=== PATIENT | female | born 1960 | race Caucasian/White ===

== ENCOUNTER → 2017-10-02 | Outpatient (CLI) | payer OTHER ==
--- NOTE | 2017-10-02 16:15 | XR ---
Lumbosacral spine HISTORY: Low back pain 5 views of the lumbosacral spine correlated to prior exam dated 02/22/2011 and lumbar MRI 05/04/2015 There is a spinal curvature. Surgical clips present in the right upper quadrant. No evident spondylol isthesis. Some mild loss of disc height present L3-4, L4-5. Sclerosis present in the posterior elemen ts. Suspect spondylolysis at L5. IMPRESSION: Degenerative disc disease, facet arthropathy, possible spondylolysis L5. Mild scoliosis.
== END | disposition home or self-care (01) ==
LOC: RADXRMAIN 09:58
PROVIDERS: ATTEND Family Medicine
DX: M51.36 Other intervertebral disc degeneration, lumbar region (principal); M46.96 Unspecified inflammatory spondylopathy, lumbar region; M41.9 Scoliosis, unspecified
CPT/HCPCS: 72110

== ENCOUNTER → 2018-08-27 | Outpatient (CLI) | payer BC ==
[2018-08-27 12:56] LABS: Basophils % (A) 1 %; Eosinophils # (A) 0.5 k/uL (0-0.7); Eosinophils % (A) 7 %; HCT 43.5 % (34.0-46.0); HGB 13.9 gm/dL (11.4-16.0); Lymphocytes # (A) 1.7 k/uL (1.0-4.8); Lymphocytes % (A) 27 %; MCH 32.3 pg (25.0-35.0); MCHC 31.8 g/dL (31.0-37.0); MCV 101.6 fL (80.0-100.0); Macrocytosis Slight; Mean Platelet Volume 6.3; Monocytes # (A) 0.5 k/uL (0-1.0); Monocytes % (A) 7 %; Neutrophils # (A) 3.5 k/uL (1.3-7.7); Neutrophils % (A) 55 %; Platelet Count 290 k/uL (150-450); RBC 4.29 m/uL (3.80-5.40); RDW 13.9 % (11.5-15.5); WBC 6.4 k/uL (3.8-10.6)
[2018-08-27 13:07] LABS: ALT 20 U/L (9-52); AST 25 U/L (14-36); Albumin 4.6 g/dL (3.5-5.0); Alkaline Phosphatase 67 U/L (38-126); Anion Gap 9 mmol/L; Blood Urea Nitrogen 11 mg/dL (7-17); Calcium 9.7 mg/dL (8.4-10.2); Carbon Dioxide 26 mmol/L (22-30); Chloride 102 mmol/L (98-107); Cholesterol 183 mg/dL (<200); Glucose 96 mg/dL (74-99); HDL Cholesterol 86 mg/dL (40-60); LDL Cholesterol,Calculated 79 mg/dL (0-99); Potassium 4.4 mmol/L (3.5-5.1); Sodium 137 mmol/L (137-145); Total Bilirubin 0.7 mg/dL (0.2-1.3); Total Protein 7.3 g/dL (6.3-8.2); Triglycerides 92 mg/dL (<150)
[2018-08-27 13:23] LABS: T4, Free (Free Thyroxine) 0.83 ng/dL (0.78-2.19)
--- NOTE | 2018-08-28 10:07 | MM ---
Reason for exam: screening (asymptomatic). Last mammogram was performed 5 years and 1 month ago. History: Patient is postmenopausal and has history of other cancer at age 50. Benign right mammotome panel of the right breast, July 29, 2008. Saline implants in both breasts, 2002. Physical Findings: A clinical breast exam by your physician is recommended on an annual basis and results should be correlated with mammographic findings. MG 3D Screen Mammo Imp/Cad Bilateral CC, MLO, and ID view(s) were taken. Prior study comparison: July 31, 2013, CAD bilateral diagnostic mammogram. October 12, 2011, CAD bilateral diagnostic mammogram. The breast tissue is heterogeneously dense. This may lower the sensitivity of mammography. Benign calcifications. Bilateral implants are intact. No significant changes when compared with prior studies. ASSESSMENT: Benign, BI-RAD 2 RECOMMENDATION: Routine screening mammogram of both breasts in 1 year.
== END | disposition home or self-care (01) ==
LOC: RADMAMWWP 12:01
PROVIDERS: ATTEND Family Medicine
DX: Z12.31 Encounter for screening mammogram for malignant neoplasm of breast (principal); Z00.00 Encounter for general adult medical examination without abnormal findings; I10 Essential (primary) hypertension; F41.1 Generalized anxiety disorder; Z79.899 Other long term (current) drug therapy
CPT/HCPCS: 36415; 77063; 77067; 80053; 80061; 84439; 84443; 85025; 86803

== ENCOUNTER 2018-12-25 14:04 | Emergency (ER) | payer BC ==
[2018-12-25 14:24] VITALS: BP 178/91; TEMP 98.4
[2018-12-25] MEDS ORDERED: predniSONE 50 MG TAB PO STA (14:42)
[2018-12-25] MEDS ORDERED: KETOROLAC 60 MG/2 ML VIAL IM STA (14:42)
--- NOTE | 2018-12-25 14:49 | ED ---
General Adult HPI - General Chief complaint: Back Pain/Injury Stated complaint: Back/Leg Pain Time Seen by Provider: 12/25/18 14:28 Source: patient, RN notes reviewed, old records reviewed Mode of arrival: ambulatory Limitations: no limitations - History of Present Illness Initial comments: 58-year-old female patient with past medical history of chronic back pain presents to ED with lumbar back pain exacerbation. Patient reports that earlier today she bent over to adjust her dog's leash when she stood up she felt a tightness and a pull in her right paralumbar back region. Patient reports that she now has pain in her lower back which radiates down her posterior right leg. Patient states this feels similar to back pain that she has experienced in the past. Patient denies any loss of bowel or bladder control, paresthesias. Patient is ambulatory with pain. Patient denies any fall. Patient denies any lower extremity weakness. Patient denies any other complaints at this time. Pt states that she is not . Systemic: Pt denies fatigue, fever/chills, rash. Pt denies weakness, night sweats, weight loss. Neuro: Pt denies headache, visual disturbances, syncope or pre-syncope. HEENT: Pt denies ocular discharge or irritation, otalgia, rhinorrhea, pharyngitis or notable lymphadenopathy. Cardiopulmonary: Pt denies chest pain, SOB, heart palpitations, dyspnea on exertion. Abdominal/GI: Pt denies abdominal pain, n/v/d. : Pt denies dysuria, burning w/ urination, frequency/urgency. Denies new onset urinary or bowel incontinence. MSK: Pt denies loss of strength or function in extremities. Neuro: Pt denies new onset weakness, paresthesias. - Related Data Previous Rx's Medication Instructions Recorded Cyclobenzaprine [Flexeril] 10 mg PO TID #20 tab 12/25/18 Ibuprofen [Motrin] 600 mg PO Q6HR PRN #40 day 12/25/18 predniSONE 50 mg PO DAILY #4 tab 12/25/18 Allergies Allergy/AdvReac Type Severity Reaction Status Date / Time codeine Allergy Unknown Verified 12/25/18 14:24 Review of Systems ROS Statement: Those systems with pertinent positive or pertinent negative responses have been documented in the HPI. ROS Other: All systems not noted in ROS Statement are negative. Past Medical History Past Medical History: No Reported History Additional Past Medical History / Comment(s): back History of Any Multi-Drug Resistant Organisms: None Reported Past Surgical History: Breast Surgery, Cholecystectomy, Hysterectomy Additional Past Surgical History / Comment(s): kidney Past Psychological History: Anxiety, Depression Smoking Status: Current every day smoker Past Alcohol Use History: Rare Past Drug Use History: None Reported General Exam - General Exam Comments Initial Comments: Constitutional: NAD, AOX3, Pt has pleasant affect. HEENT: NC/AT, trachea midline, neck supple, no lymphadenopathy. Posterior pharynx non erythematous, without exudates. External ears appear normal, without discharge. Mucous membranes moist. Eyes PERRLA, EOM intact. There is no scleral icterus. No pallor noted. Cardiopulmonary: RRR, no murmurs, rubs or gallops, no JVD noted. Lungs CTAB in anterior and posterior mchugh. No peripheral edema. Abdominal exam: Abdomen soft and non-distended. Abdomen non-tender to palpation in all 4 quadrants. Bowel sounds active in LLQ. No hepatosplenomegaly. No ecchymosis Neuro: CN II-XII grossly intact. No nuchal rigidity. No raccon eyes, no crowley sign, no hemotympanum. No cervical spinal tenderness. MSK: No cervical, thoracic tenderness to palpation. Mild right paralumbar tenderness to palpation. No midline tenderness to palpation. 5 out of 5 strength psoas and quadriceps muscles. Sensation intact. No posterior calf tenderness bilaterally, homans sign negative bilaterally. Posterior tibialis and radial pulse +2 bilaterally. Sensation intact in upper and lower extremities. Full active ROM in upper and lower extremities, 5/5 stregnth. Limitations: no limitations Course Vital Signs 12/25/18 14:19 Temperature 98.4 F Pulse Rate 113 H Respiratory 18 Rate Blood Pressure 178/91 O2 Sat by Pulse 98 Oximetry Medical Decision Making - Medical Decision Making 58-year-old female patient with past medical history of chronic back pain presents to ED with lumbar back pain exacerbation. Patient reports that earlier today she bent over to adjust her dog's leash when she stood up she felt a tightness and a pull in her right paralumbar back region. Patient reports that she now has pain in her lower back which radiates down her posterior right leg. Patient states this feels similar to back pain that she has experienced in the past. Patient denies any loss of bowel or bladder control, paresthesias. Patient is ambulatory with pain. Patient denies any fall. Patient denies any lower extremity weakness. Patient denies any other complaints at this time. Patient vital signs and symptoms displayed mild hypertension and tachycardia likely secondary to pain, improved after analgesic. Physical exam displayed: No cervical, thoracic tenderness to palpation. Mild right paralumbar tenderness to palpation. No midline tenderness to palpation. 5 out of 5 strength psoas and quadriceps muscles. Sensation intact. Plain film of lumbar spine displayed multilevel degenerative disc disease. Stable minimal antherolisthesis L5, S1. Patient will discharge with steroids, muscle x-ray, anti-inflammatory. Patient to follow up with primary care provider as well as orthopedic consult 1-2 days. Patient return to ED if condition worsens in any way. Case discussed Dr. Chaudhari. Disposition Clinical Impression: Lumbar back pain Disposition: HOME SELF-CARE Condition: Stable Instructions (If sedation given, give patient instructions): Acute Low Back Pain (ED) Additional Instructions: Patient to adhere to previously discussed treatment plan and will take medication(s) as directed. Patient to follow up with PCP in 1-2 days. Patient to return to ED if symptoms do not improve. Please follow-up with orthopedic consult and primary care provider in 1-2 days. Take medication as directed. Return to ER if condition worsens in any way. Prescriptions: Cyclobenzaprine [Flexeril] 10 mg PO TID #20 tab Ibuprofen [Motrin] 600 mg PO Q6HR PRN #40 day PRN Reason: Pain predniSONE 50 mg PO DAILY #4 tab Is patient prescribed a controlled substance at d/c from ED?: No Referrals: Germán Ellis MD [Primary Care Provider] - 1-2 days Piter Pereira DO [Doctor of Osteopathic Medicine] - 1-2 days Rosendo Kelly MD [STAFF PHYSICIAN] - 1-2 days
--- NOTE | 2018-12-25 15:22 | XR ---
EXAM TYPE: LUMBAR SPINE X RAY SERIES COMPARISON: 10/02/2017 HISTORY: Back pain TECHNIQUE: Three views are submitted. FINDINGS: Alignment is anatomic. The pedicles are intact. The transverse processes are intact. There is stab le minimal anterolisthesis L5 on S1. Question a spondylolysis of L5. Curvature the spine. There are s urgical clips in the right upper quadrant. Vascular calcifications noted. Significant degenerative di sc disease L3-S1 with facet arthropathy. Severe degenerative disc disease T11-T12. IMPRESSION: 1. Multilevel degenerative disc disease. Stable minimal anterolisthesis L5 on S1.
[2018-12-25 16:04] VITALS: PULSE 75; RESP 16
== END 2018-12-25 16:04 | disposition home or self-care (01) ==
LOC: EC 14:04
DX: M54.5 Low back pain (principal); M51.36 Other intervertebral disc degeneration, lumbar region; M43.17 Spondylolisthesis, lumbosacral region; M79.604 Pain in right leg; F17.200 Nicotine dependence, unspecified, uncomplicated; Z88.5 Allergy status to narcotic agent
CPT/HCPCS: 72100; 99284; 96372; J1885; J7512

== ENCOUNTER 2020-01-31 14:43 | Emergency (ER) | payer BC, MEDICARE ==
[2020-01-31 14:47] LABS: Glucose,Whole Blood 194 mg/dL (75-99)
[2020-01-31] MEDS ORDERED: diphenhydrAMINE 50 MG/ML 1 ML VIAL IVP STA (14:48)
[2020-01-31] MEDS ORDERED: SODIUM CHLORIDE 0.9% 500 ML 500 ML IV STA (14:48)
[2020-01-31] MEDS ORDERED: METOCLOPRAMIDE 5 MG/ML 2 ML VIAL IVP STA (14:48)
--- NOTE | 2020-01-31 14:55 | ED ---
General Adult HPI - General Chief complaint: Altered Mental Status Stated complaint: unresponsive Source: patient, EMS Mode of arrival: EMS Limitations: altered mental status - History of Present Illness Initial comments: Patient presents the ED by ambulance for evaluation. Per EMS, the patient's reported that the patient was complaining of having a headache and then developed altered mental status. Per EMS, the patient was A and O 4 on their arrival, but she became unresponsive while in the ambulance. Per EMS, the patient was always breathing comfortably. Patient's blood glucose was in the 160s per EMS. No trauma or fall was reported per EMS. Patient is alert and oriented to person and place on arrival to the ED. Patient is currently complaining of having a headache, which she states began suddenly earlier this afternoon. Patient admits to drinking a couple of beers earlier today. Patient denies illicit drug use. Patient denies history of similar headaches in the past. Patient denies trauma or injury, neck pain or stiffness, fever or chills, focal numbness/weakness/neuro deficit, visual changes, speech difficulty, dizziness, chest pain, dyspnea, cough or cold symptoms, palpitations, abdominal pain, nausea/vomiting/diarrhea, dysuria or urinary symptoms, or any other symptoms or complaints. - Related Data Previous Rx's Medication Instructions Recorded Cyclobenzaprine [Flexeril] 10 mg PO TID #20 tab 12/25/18 Ibuprofen [Motrin] 600 mg PO Q6HR PRN #40 day 12/25/18 predniSONE 50 mg PO DAILY #4 tab 12/25/18 Allergies Allergy/AdvReac Type Severity Reaction Status Date / Time codeine Allergy Unknown Verified 12/25/18 14:24 Review of Systems ROS Statement: Those systems with pertinent positive or pertinent negative responses have been documented in the HPI. ROS Other: All systems not noted in ROS Statement are negative. Past Medical History Past Medical History: No Reported History Additional Past Medical History / Comment(s): back History of Any Multi-Drug Resistant Organisms: None Reported Past Surgical History: Breast Surgery, Cholecystectomy, Hysterectomy Additional Past Surgical History / Comment(s): kidney Past Psychological History: Anxiety, Depression Smoking Status: Current every day smoker Past Alcohol Use History: Rare Past Drug Use History: Unable to Obtain General Exam Limitations: altered mental status General appearance: other (Patient is alert, but slow to respond) Head exam: Present: atraumatic, normocephalic Eye exam: Present: normal appearance, PERRL, EOMI ENT exam: Present: mucous membranes moist Neck exam: Present: other (Trachea is in midline; no nuchal rigidity). Absent: tenderness, meningismus Respiratory exam: Present: normal lung sounds bilaterally. Absent: respiratory distress, wheezes, rales, rhonchi Cardiovascular Exam: Present: regular rate, normal rhythm, normal heart sounds, other (Normal radial pulses bilaterally) GI/Abdominal exam: Present: soft. Absent: distended, tenderness, guarding Extremities exam: Present: full ROM. Absent: tenderness, pedal edema Neurological exam: Present: alert, CN II-XII intact, other (Patient is oriented to person and place, but not to time). Absent: motor sensory deficit Skin exam: Present: warm, dry, intact, normal color Course Vital Signs 01/31/20 01/31/20 01/31/20 14:43 14:50 15:21 Temperature 98.4 F Pulse Rate 63 62 74 Respiratory 17 18 17 Rate Blood Pressure 210/108 179/155 172/128 O2 Sat by Pulse 97 98 98 Oximetry 01/31/20 01/31/20 01/31/20 15:45 15:50 15:57 Temperature Pulse Rate 79 Respiratory 18 Rate Blood Pressure 200/100 167/87 141/63 O2 Sat by Pulse 97 Oximetry 01/31/20 01/31/20 01/31/20 16:06 16:17 16:23 Temperature Pulse Rate 86 82 82 Respiratory 17 18 18 Rate Blood Pressure 145/75 113/92 138/78 O2 Sat by Pulse 98 97 98 Oximetry 01/31/20 16:28 Temperature Pulse Rate 87 Respiratory 18 Rate Blood Pressure 124/96 O2 Sat by Pulse Oximetry - Reevaluation(s) Reevaluation #1: 01/31/20 15:29 Case, H&P, test results thus far/CT findings and ED management thus far were discussed with Dr. Ro (ED physician at [facility]). He recommends neurointerventionalist consultation. He accepts ambulance transfer to the [facility] ED if approved by the neurointerventionalist [employer] consultant. He has no further recommendations at this time. 01/31/20 15:51 Case, H&P, test results thus far/CT findings and ED management thus far were discussed with Dr. Middleton (neurointerventionalist). He states that he will that that the patient's imaging studies and call back with a plan of action. He has no further recommendations at this time. 01/31/20 16:25 Patient is now in A & O x 4. Patient continues to be breathing comfortably. Patient's systolic blood pressure has now improved to the 130s. Dr. Middleton was contacted again, and he is states that he still reviewing the patient's images. 01/31/20 16:39 Dr. Middleton has finished reviewing the patient's images, and he recommends transferring the patient to [facility] for direct admission. He states that he will be the admitting physician, and he states that his mid-level will be calling here shortly. He recommends continuing the patient on a nicardipine drip. He has no further recommendations at this time. EKG Findings - EKG Comments: EKG Findings:: Normal sinus rhythm, ventricular rate of 64 bpm, no ectopy, normal CO and QRS intervals, normal QT interval, normal axis, no ST or T-wave abnormality, suspected U wave Medical Decision Making - Medical Decision Making Patient has sustained a subarachnoid hemorrhage likely secondary to aneurysmal rupture. Patient has been alert and oriented while in the ED. Patient and he needs to be breathing comfortably. Patient and family are aware the patient's test results and my discussion with Dr. Middleton as above. They all agree with ambulance transfer to [facility] at this time. Patient's blood pressure is improved with nicardipine IV drip. - Lab Data Result diagrams: 01/31/20 14:50 01/31/20 14:50 Lab Results 01/31/20 01/31/20 01/31/20 Range/Units 14:45 14:50 14:50 WBC 10.5 (3.8-10.6) k/uL RBC 4.56 (3.80-5.40) m/uL Hgb 16.2 H (11.4-16.0) gm/dL Hct 48.4 H (34.0-46.0) % MCV 106.2 H (80.0-100.0) fL MCH 35.5 H (25.0-35.0) pg MCHC 33.5 (31.0-37.0) g/dL RDW 13.0 (11.5-15.5) % Plt Count 285 (150-450) k/uL Neutrophils % 59 % Lymphocytes % 30 % Monocytes % 5 % Eosinophils % 2 % Basophils % 1 % Neutrophils # 6.2 (1.3-7.7) k/uL Lymphocytes # 3.2 (1.0-4.8) k/uL Monocytes # 0.5 (0-1.0) k/uL Eosinophils # 0.2 (0-0.7) k/uL Basophils # 0.1 (0-0.2) k/uL Macrocytosis Moderate PT 10.3 (9.0-12.0) sec INR 1.0 (<1.2) APTT 21.7 L (22.0-30.0) sec Sodium (137-145) mmol/L Potassium (3.5-5.1) mmol/L Chloride (98-107) mmol/L Carbon Dioxide (22-30) mmol/L Anion Gap mmol/L BUN (7-17) mg/dL Creatinine (0.52-1.04) mg/dL Est GFR (CKD-EPI)AfAm (>60 ml/min/1.73 sqM) Est GFR (CKD-EPI)NonAf (>60 ml/min/1.73 sqM) Glucose (74-99) mg/dL POC Glucose (mg/dL) 194 H (75-99) mg/dL POC Glu [employer] Operator ID Svacha, II, Obi Calcium (8.4-10.2) mg/dL Magnesium (1.6-2.3) mg/dL Total Bilirubin (0.2-1.3) mg/dL AST (14-36) U/L ALT (4-34) U/L Alkaline Phosphatase (38-126) U/L Ammonia (<30) umol/L Troponin I (0.000-0.034) ng/mL Total Protein (6.3-8.2) g/dL Albumin (3.5-5.0) g/dL Urine Color Urine Appearance (Clear) Urine pH (5.0-8.0) Ur Specific Mascot (1.001-1.035) Urine Protein (Negative) Urine Glucose (UA) (Negative) Urine Ketones (Negative) Urine Blood (Negative) Urine Nitrite (Negative) Urine Bilirubin (Negative) Urine Urobilinogen (<2.0) mg/dL Ur Leukocyte Esterase (Negative) Urine Opiates Screen (NotDetected) Ur Oxycodone Screen (NotDetected) Urine Methadone Screen (NotDetected) Ur Propoxyphene Screen (NotDetected) Ur Barbiturates Screen (NotDetected) U Tricyclic Antidepress (NotDetected) Ur Phencyclidine Scrn (NotDetected) Ur Amphetamines Screen (NotDetected) U Methamphetamines Scrn (NotDetected) U Benzodiazepines Scrn (NotDetected) Urine Cocaine Screen (NotDetected) U Marijuana (THC) Screen (NotDetected) Serum Alcohol mg/dL 01/31/20 01/31/20 01/31/20 Range/Units 14:50 14:50 14:50 WBC (3.8-10.6) k/uL RBC (3.80-5.40) m/uL Hgb (11.4-16.0) gm/dL Hct (34.0-46.0) % MCV (80.0-100.0) fL MCH (25.0-35.0) pg MCHC (31.0-37.0) g/dL RDW (11.5-15.5) % Plt Count (150-450) k/uL Neutrophils % % Lymphocytes % % Monocytes % % Eosinophils % % Basophils % % Neutrophils # (1.3-7.7) k/uL Lymphocytes # (1.0-4.8) k/uL Monocytes # (0-1.0) k/uL Eosinophils # (0-0.7) k/uL Basophils # (0-0.2) k/uL Macrocytosis PT (9.0-12.0) sec INR (<1.2) APTT (22.0-30.0) sec Sodium 131 L (137-145) mmol/L Potassium 3.8 (3.5-5.1) mmol/L Chloride 100 (98-107) mmol/L Carbon Dioxide 20 L (22-30) mmol/L Anion Gap 11 mmol/L BUN 7 (7-17) mg/dL Creatinine 0.44 L (0.52-1.04) mg/dL Est GFR (CKD-EPI)AfAm >90 (>60 ml/min/1.73 sqM) Est GFR (CKD-EPI)NonAf >90 (>60 ml/min/1.73 sqM) Glucose 186 H (74-99) mg/dL POC Glucose (mg/dL) (75-99) mg/dL POC Glu [employer] Operator ID Calcium 8.8 (8.4-10.2) mg/dL Magnesium 1.8 (1.6-2.3) mg/dL Total Bilirubin 0.7 (0.2-1.3) mg/dL AST 44 H (14-36) U/L ALT 23 (4-34) U/L Alkaline Phosphatase 103 (38-126) U/L Ammonia <9 (<30) umol/L Troponin I <0.012 (0.000-0.034) ng/mL Total Protein 7.2 (6.3-8.2) g/dL Albumin 4.7 (3.5-5.0) g/dL Urine Color Urine Appearance (Clear) Urine pH (5.0-8.0) Ur Specific Mascot (1.001-1.035) Urine Protein (Negative) Urine Glucose (UA) (Negative) Urine Ketones (Negative) Urine Blood (Negative) Urine Nitrite (Negative) Urine Bilirubin (Negative) Urine Urobilinogen (<2.0) mg/dL Ur Leukocyte Esterase (Negative) Urine Opiates Screen (NotDetected) Ur Oxycodone Screen (NotDetected) Urine Methadone Screen (NotDetected) Ur Propoxyphene Screen (NotDetected) Ur Barbiturates Screen (NotDetected) U Tricyclic Antidepress (NotDetected) Ur Phencyclidine Scrn (NotDetected) Ur Amphetamines Screen (NotDetected) U Methamphetamines Scrn (NotDetected) U Benzodiazepines Scrn (NotDetected) Urine Cocaine Screen (NotDetected) U Marijuana (THC) Screen (NotDetected) Serum Alcohol <10 mg/dL 01/31/20 01/31/20 Range/Units 15:42 15:42 WBC (3.8-10.6) k/uL RBC (3.80-5.40) m/uL Hgb (11.4-16.0) gm/dL Hct (34.0-46.0) % MCV (80.0-100.0) fL MCH (25.0-35.0) pg MCHC (31.0-37.0) g/dL RDW (11.5-15.5) % Plt Count (150-450) k/uL Neutrophils % % Lymphocytes % % Monocytes % % Eosinophils % % Basophils % % Neutrophils # (1.3-7.7) k/uL Lymphocytes # (1.0-4.8) k/uL Monocytes # (0-1.0) k/uL Eosinophils # (0-0.7) k/uL Basophils # (0-0.2) k/uL Macrocytosis PT (9.0-12.0) sec INR (<1.2) APTT (22.0-30.0) sec Sodium (137-145) mmol/L Potassium (3.5-5.1) mmol/L Chloride (98-107) mmol/L Carbon Dioxide (22-30) mmol/L Anion Gap mmol/L BUN (7-17) mg/dL Creatinine (0.52-1.04) mg/dL Est GFR (CKD-EPI)AfAm (>60 ml/min/1.73 sqM) Est GFR (CKD-EPI)NonAf (>60 ml/min/1.73 sqM) Glucose (74-99) mg/dL POC Glucose (mg/dL) (75-99) mg/dL POC Glu [employer] Operator ID Calcium (8.4-10.2) mg/dL Magnesium (1.6-2.3) mg/dL Total Bilirubin (0.2-1.3) mg/dL AST (14-36) U/L ALT (4-34) U/L Alkaline Phosphatase (38-126) U/L Ammonia (<30) umol/L Troponin I (0.000-0.034) ng/mL Total Protein (6.3-8.2) g/dL Albumin (3.5-5.0) g/dL Urine Color Colorless Urine Appearance Clear (Clear) Urine pH 7.5 (5.0-8.0) Ur Specific Mascot 1.018 (1.001-1.035) Urine Protein Negative (Negative) Urine Glucose (UA) 2+ H (Negative) Urine Ketones Negative (Negative) Urine Blood Negative (Negative) Urine Nitrite Negative (Negative) Urine Bilirubin Negative (Negative) Urine Urobilinogen <2.0 (<2.0) mg/dL Ur Leukocyte Esterase Negative (Negative) Urine Opiates Screen Not Detected (NotDetected) Ur Oxycodone Screen Not Detected (NotDetected) Urine Methadone Screen Not Detected (NotDetected) Ur Propoxyphene Screen Not Detected (NotDetected) Ur Barbiturates Screen Not Detected (NotDetected) U Tricyclic Antidepress Not Detected (NotDetected) Ur Phencyclidine Scrn Not Detected (NotDetected) Ur Amphetamines Screen Not Detected (NotDetected) U Methamphetamines Scrn Not Detected (NotDetected) U Benzodiazepines Scrn Detected H (NotDetected) Urine Cocaine Screen Not Detected (NotDetected) U Marijuana (THC) Screen Not Detected (NotDetected) Serum Alcohol mg/dL - Radiology Data Radiology results: report reviewed (Noncontrast head CT and a CT angiogram head: Extensive acute intracranial/subarachnoid hemorrhage; source of hemorrhage is 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 Specs Out of Hospital Transfer - Requested Specifics: Neurological ICU ([facility])
[2020-01-31] MEDS ORDERED: LABETALOL 5 MG/ML VIAL MDV IVP STA (15:02)
[2020-01-31 15:08] LABS: Basophils # (A) 0.1 k/uL (0-0.2); Basophils % (A) 1 %; Eosinophils # (A) 0.2 k/uL (0-0.7); Eosinophils % (A) 2 %; HCT 48.4 % (34.0-46.0); HGB 16.2 gm/dL (11.4-16.0); Lymphocytes # (A) 3.2 k/uL (1.0-4.8); Lymphocytes % (A) 30 %; MCH 35.5 pg (25.0-35.0); MCHC 33.5 g/dL (31.0-37.0); MCV 106.2 fL (80.0-100.0); Macrocytosis Moderate; Monocytes # (A) 0.5 k/uL (0-1.0); Monocytes % (A) 5 %; Neutrophils # (A) 6.2 k/uL (1.3-7.7); Neutrophils % (A) 59 %; Platelet Count 285 k/uL (150-450); RBC 4.56 m/uL (3.80-5.40); WBC 10.5 k/uL (3.8-10.6)
[2020-01-31 15:21] LABS: ALT 23 U/L (4-34); AST 44 U/L (14-36); African American GFR (CKD) >90 (>60 ml/min/1.73 sqM); Albumin 4.7 g/dL (3.5-5.0); Alcohol <10 mg/dL; Alkaline Phosphatase 103 U/L (38-126); Anion Gap 11 mmol/L; Blood Urea Nitrogen 7 mg/dL (7-17); Calcium 8.8 mg/dL (8.4-10.2); Carbon Dioxide 20 mmol/L (22-30); Chloride 100 mmol/L (98-107); Glucose 186 mg/dL (74-99); Magnesium 1.8 mg/dL (1.6-2.3); Non-African American GFR(CKD) >90 (>60 ml/min/1.73 sqM); Potassium 3.8 mmol/L (3.5-5.1); Sodium 131 mmol/L (137-145); Total Bilirubin 0.7 mg/dL (0.2-1.3); Total Protein 7.2 g/dL (6.3-8.2)
--- NOTE | 2020-01-31 15:26 | CT ---
EXAMINATION TYPE: CT brain wo con, CT angio head DATE OF EXAM: 01/31/2020 COMPARISON: None HISTORY: 59-year-old female Episodes of unresponsiveness. Severe headache TECHNIQUE: Examination was done in axial plane without intravenous contrast. Coronal and sagittal r econstructions performed. Subsequent axial scanning after administration of 100 mL Isovue 370 IV cont rast. 3-D reconstructions being generated by a dedicated independent workstation. CT DLP: 2422.2 mGycm Automated exposure control for dose reduction was used. FINDINGS: CT head: There is extensive acute intracranial hemorrhage. Hemorrhage extends up into the third ventricle and extends into the right lateral ventricle. There is diffuse subarachnoid blood and blood along the cis terns of the skull base. No hydrocephalus. No midline shift. The most extensive focal blood is intraventricular within the thi rd ventricle measuring up to 4.3 cm craniocaudal by 3.1 cm AP by 1.8 cm wide. 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 The right vertebral artery and basilar artery are patent. There is persistent origin of the right posterior cerebral artery with a hypoplastic P1 segment of right [employer]PL[employer]OD[employer]ER. There is a 5 x 4 x 3 mm saccular aneurysm projecting inferiorly from the anterior communicating arter y, reference axial image 19, sagittal image 12, and coronal image 9. Otherwise, the anterior circulation appears patent. IMPRESSION: 1. Extensive acute intracranial hemorrhage. The largest focal hemorrhage extends up into the third ve ntricle with hematoma measuring up to 4.3 x 3.1 x 1.8 cm. 2. Additional acute hemorrhage extending into the right lateral ventricle, filling the basal cisterns , and diffuse subarachnoid hemorrhage. No midline shift or hydrocephalus. 3. 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 4. 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 Incidental normal variatio n with persistent origin right [employer]PLANE WOOD[employer]ER. Critical findings called to Dr. Elizondo in the ER at approximately 3:20 PM.
[2020-01-31] MEDS ORDERED: niCARdipine 20 MG in SODIUM CHLORIDE 0.9% 192 ML IV SCH (15:30)
[2020-01-31 15:34] LABS: Partial Thromboplastin Time 21.7 sec (22.0-30.0); Prothrombin Time 10.3 sec (9.0-12.0)
[2020-01-31 16:09] LABS: Appearance,Urine Clear (Clear); Bilirubin,Urine Negative (Negative); Blood,Urine Negative (Negative); Color,Urine Colorless; Glucose,Urine (UA) 2+ (Negative); Ketones,Urine Negative (Negative); Leukocyte Esterase,Urine Negative (Negative); Nitrite,Urine Negative (Negative); PH, Urine 7.5 (5.0-8.0); Protein,Urine Negative (Negative); Specific Gravity,Urine 1.018 (1.001-1.035); Urobilinogen,Urine <2.0 mg/dL (<2.0)
[2020-01-31 16:19] LABS: Amphetamine Screen,Urine Not Detected (NotDetected); Barbiturate Screen,Urine Not Detected (NotDetected); Benzodiazepines Screen,Urine Detected (NotDetected); Cocaine Screen,Urine Not Detected (NotDetected); Methadone Screen, Urine Not Detected (NotDetected); Opiate Screen,Urine Not Detected (NotDetected); Oxycodone Screen, Urine Not Detected (NotDetected); Phencyclidine Screen,Urine Not Detected (NotDetected); Tricyclic Antidepressant,Urine Not Detected (NotDetected); Urn Cannabinoid Scrn Not Detected (NotDetected)
[2020-01-31] MEDS ORDERED: HYDROmorphone 0.5 MG/0.5 ML SYRINGE IVP STA (16:30)
[2020-01-31 22:25] VITALS: BP 119/75; PULSE 74; RESP 17; TEMP 98.2
== END 2020-01-31 17:25 | disposition other institution (70) ==
LOC: EC 14:43
DX: I60.9 Nontraumatic subarachnoid hemorrhage, unspecified (principal); I67.1 Cerebral aneurysm, nonruptured; F17.200 Nicotine dependence, unspecified, uncomplicated; Z88.5 Allergy status to narcotic agent
CPT/HCPCS: 36415; 93005; 80053; 82140; 83735; 84484; 85025; 85610; 85730; 81003; 80306; 70496; 70450; 99291; 99292; 96365; 96375 ×4; 96361; G0480; J1200; J2765; J1170; Q9967; 80320

== ENCOUNTER → 2020-03-16 | Outpatient (CLI) | payer MEDICARE ==
[2020-03-16 14:28] LABS: Basophils % (A) 0 %; Eosinophils # (A) 1.7 k/uL (0-0.7); Eosinophils % (A) 25 %; Lymphocytes # (A) 1.6 k/uL (1.0-4.8); Lymphocytes % (A) 24 %; MCH 32.7 pg (25.0-35.0); MCHC 32.1 g/dL (31.0-37.0); MCV 101.6 fL (80.0-100.0); Macrocytosis Slight; Mean Platelet Volume 8.2; Monocytes # (A) 0.6 k/uL (0-1.0); Monocytes % (A) 8 %; Neutrophils # (A) 2.8 k/uL (1.3-7.7); Neutrophils % (A) 41 %; Platelet Count 184 k/uL (150-450); RBC 3.55 m/uL (3.80-5.40); RDW 13.1 % (11.5-15.5); WBC 6.8 k/uL (3.8-10.6)
[2020-03-16 14:41] LABS: HGB 11.6 gm/dL (11.4-16.0)
[2020-03-16 19:14] LABS: African American GFR (CKD) 124.5 (60.0-200.0); Anion Gap 9.9 mmol/L (4.00-12.00); Carbon Dioxide 34.1 mmol/L (21.6-31.8); Magnesium 1.8 mg/dL (1.5-2.4)
[2020-03-16 19:47] LABS: Non-African American GFR(CKD) 107.4 (60.0-200.0)
[2020-03-17 06:49] LABS: Potassium 2.7 mmol/L (3.5-5.5)
== END | disposition home or self-care (01) ==
LOC: LABWHC1 10:42
PROVIDERS: ATTEND Family Medicine
DX: I67.9 Cerebrovascular disease, unspecified (principal); E87.1 Hypo-osmolality and hyponatremia; Z79.899 Other long term (current) drug therapy
CPT/HCPCS: 36415; 80048; 83735; 83930; 83935; 84300; 85025

== ENCOUNTER 2020-03-18 23:01 | Inpatient (IN) | payer MEDICARE ==
[2020-03-18 23:14] LABS: Glucose,Whole Blood 104 mg/dL (75-99)
--- NOTE | 2020-03-18 23:46 | ED ---
Altered Mental Status HPI - General Chief Complaint: Altered Mental Status Stated Complaint: Altered mental status Time Seen by Provider: 03/18/20 23:13 Source: patient, family, EMS Mode of arrival: EMS Limitations: altered mental status - History of Present Illness Initial Comments: This patient's 59-year-old woman here to be evaluated for altered mental status. The patient did recently have subarachnoid hemorrhage and was transferred from here to [facility]. The patient reportedly was discharged about 3 weeks ago and then has been behaving strangely since that time. She had been seen by the neurologist in follow-up today and they had wanted the patient to have an EEG. Tonight she was reportedly packing her belongings at her house and police were called to the home because the patient had made some bizarre statements including about firearms. It was recommended she be evaluated here. Now when I interview the patient, she has no physical complaints. Most of the history comes in patient's sister who is at the bedside MD Complaint: confusion -: days(s) Consistency of Symptoms: getting worse Associated Symptoms: denies other symptoms - Related Data Home Medications Medication Instructions Recorded Confirmed Atorvastatin [Lipitor] 40 mg PO DAILY 03/19/20 03/23/20 Divalproex ER [Depakote ER] 500 mg PO TID 03/19/20 03/23/20 Escitalopram [Lexapro] 10 mg PO DAILY 03/19/20 03/23/20 Fludrocortisone [Florinef] 0.1 mg PO TID 03/19/20 03/23/20 Lacosamide [Vimpat] 100 mg PO BID 03/19/20 03/23/20 QUEtiapine FUMARATE 50 mg PO QAM 03/19/20 03/23/20 QUEtiapine FUMARATE 100 mg PO HS 03/19/20 03/23/20 Sodium Chloride Tab 2 gm PO TID 03/19/20 03/23/20 Previous Rx's Medication Instructions Recorded Thiamine [Vitamin B-1] 100 mg PO DAILY tab 03/22/20 haloperidoL [Haldol] 2 mg PO TID tab 03/22/20 lisinopriL [Zestril] 10 mg PO DAILY tab 03/22/20 Allergies Allergy/AdvReac Type Severity Reaction Status Date / Time amoxicillin Allergy Rash/Hives Verified 03/19/20 08:57 codeine AdvReac Nausea Verified 03/19/20 08:57 Review of Systems ROS Statement: Those systems with pertinent positive or pertinent negative responses have been documented in the HPI. ROS Other: All systems not noted in ROS Statement are negative. Limitations: ROS unobtainable due to patients medical condition Constitutional: Denies: fever, weakness Eyes: Denies: vision change Respiratory: Denies: cough, dyspnea Cardiovascular: Denies: chest pain, edema Gastrointestinal: Denies: abdominal pain, vomiting Musculoskeletal: Denies: back pain Skin: Denies: rash Neurological: Reports: as per HPI, confusion Past Medical History Past Medical History: No Reported History Additional Past Medical History / Comment(s): back History of Any Multi-Drug Resistant Organisms: None Reported Past Surgical History: Breast Surgery, Cholecystectomy, Hysterectomy Additional Past Surgical History / Comment(s): kidney Past Psychological History: Anxiety, Depression Smoking Status: Current every day smoker Past Alcohol Use History: Rare Past Drug Use History: Unable to Obtain - Past Family History Father History Unknown: Yes General Exam Limitations: no limitations General appearance: alert, in no apparent distress Head exam: Present: atraumatic, normocephalic Eye exam: Present: normal appearance, PERRL, EOMI. Absent: scleral icterus, conjunctival injection ENT exam: Present: normal oropharynx Neck exam: Present: normal inspection, full ROM. Absent: meningismus Respiratory exam: Present: normal lung sounds bilaterally. Absent: respiratory distress, wheezes, rales, rhonchi, stridor Cardiovascular Exam: Present: regular rate, normal rhythm, normal heart sounds. Absent: systolic murmur, diastolic murmur, rubs, gallop GI/Abdominal exam: Present: soft. Absent: distended, tenderness, guarding, re bound, rigid, mass Extremities exam: Present: normal inspection, normal capillary refill. Absent: pedal edema, calf tenderness Back exam: Present: normal inspection. Absent: CVA tenderness (R), CVA tenderness (L) Neurological exam: Present: alert, CN II-XII intact. Absent: oriented X3 (Patient is oriented to person and recognizes she is in a hospital but could not state the date), motor sensory deficit Psychiatric exam: Absent: homicidal ideation, suicidal ideation Skin exam: Present: warm, dry, intact, normal color. Absent: rash Course Vital Signs 0903/19/20 03/19/20 23:04 01:33 02:07 Temperature 99.1 F Pulse Rate 93 73 77 Pulse Rate [ Pulse Oximetery ] Respiratory 18 18 18 Rate Blood Pressure 190/94 180/91 174/91 Blood Pressure [Left Arm] O2 Sat by Pulse 100 96 99 Oximetry 03/19/20 03/19/20 02:15 02:31 Temperature 98.1 F Pulse Rate Pulse Rate [ 77 Pulse Oximetery ] Respiratory 14 14 Rate Blood Pressure Blood Pressure 191/96 [Left Arm] O2 Sat by Pulse 100 Oximetry Medical Decision Making - Medical Decision Making This patient's 59-year-old woman brought to be evaluated for strange behavior. The patient's was subsequently the bedside and described that the patient had been under the impression that she was not at her home. He states she had been emptying all of the drawers in the house to pack the things so that she could move back to her home, not recognizing that she was at home. And then tonight, the patient reportedly phoned police which led to them bring her here for evaluation. - Lab Data Result diagrams: 03/21/20 07:15 03/21/20 07:15 Lab Results 03/18/20 03/18/20 03/18/20 Range/Units 23:10 23:57 23:57 WBC 7.4 (3.8-10.6) k/uL RBC 3.44 L (3.80-5.40) m/uL Hgb 11.1 L (11.4-16.0) gm/dL Hct 34.4 (34.0-46.0) % MCV 100.0 (80.0-100.0) fL MCH 32.2 (25.0-35.0) pg MCHC 32.2 (31.0-37.0) g/dL RDW 13.1 (11.5-15.5) % Plt Count 188 (150-450) k/uL Neutrophils % 39 % Lymphocytes % 36 % Monocytes % 9 % Eosinophils % 14 % Basophils % 1 % Neutrophils # 2.9 (1.3-7.7) k/uL Lymphocytes # 2.6 (1.0-4.8) k/uL Monocytes # 0.6 (0-1.0) k/uL Eosinophils # 1.1 H (0-0.7) k/uL Basophils # 0.1 (0-0.2) k/uL PT 11.5 (9.0-12.0) sec INR 1.1 (<1.2) APTT 27.0 (22.0-30.0) sec Sodium (137-145) mmol/L Potassium (3.5-5.1) mmol/L Chloride (98-107) mmol/L Carbon Dioxide (22-30) mmol/L Anion Gap mmol/L BUN (7-17) mg/dL Creatinine (0.52-1.04) mg/dL Est GFR (CKD-EPI)AfAm (>60 ml/min/1.73 sqM) Est GFR (CKD-EPI)NonAf (>60 ml/min/1.73 sqM) Glucose (74-99) mg/dL POC Glucose (mg/dL) 104 H (75-99) mg/dL POC Glu [employer] Manager ID [facility] Calcium (8.4-10.2) mg/dL Total Bilirubin (0.2-1.3) mg/dL AST (14-36) U/L ALT (4-34) U/L Alkaline Phosphatase (38-126) U/L Ammonia (<30) umol/L Troponin I (0.000-0.034) ng/mL Total Protein (6.3-8.2) g/dL Albumin (3.5-5.0) g/dL Urine Color Urine Appearance (Clear) Urine pH (5.0-8.0) Ur Specific [place] (1.001-1.035) Urine Protein (Negative) Urine Glucose (UA) (Negative) Urine Ketones (Negative) Urine Blood (Negative) Urine Nitrite (Negative) Urine Bilirubin (Negative) Urine Urobilinogen (<2.0) mg/dL Ur Leukocyte Esterase (Negative) Urine Opiates Screen (NotDetected) Ur Oxycodone Screen (NotDetected) Urine Methadone Screen (NotDetected) Ur Propoxyphene Screen (NotDetected) Ur Barbiturates Screen (NotDetected) U Tricyclic Antidepress (NotDetected) Ur Phencyclidine Scrn (NotDetected) Ur Amphetamines Screen (NotDetected) U Methamphetamines Scrn (NotDetected) U Benzodiazepines Scrn (NotDetected) Urine Cocaine Screen (NotDetected) U Marijuana (THC) Screen (NotDetected) Serum Alcohol mg/dL 03/18/20 03/18/20 03/18/20 Range/Units 23:57 23:57 23:57 WBC (3.8-10.6) k/uL RBC (3.80-5.40) m/uL Hgb (11.4-16.0) gm/dL Hct (34.0-46.0) % MCV (80.0-100.0) fL MCH (25.0-35.0) pg MCHC (31.0-37.0) g/dL RDW (11.5-15.5) % Plt Count (150-450) k/uL Neutrophils % % Lymphocytes % % Monocytes % % Eosinophils % % Basophils % % Neutrophils # (1.3-7.7) k/uL Lymphocytes # (1.0-4.8) k/uL Monocytes # (0-1.0) k/uL Eosinophils # (0-0.7) k/uL Basophils # (0-0.2) k/uL PT (9.0-12.0) sec INR (<1.2) APTT (22.0-30.0) sec Sodium 141 (137-145) mmol/L Potassium 2.5 L* (3.5-5.1) mmol/L Chloride 99 (98-107) mmol/L Carbon Dioxide 33 H (22-30) mmol/L Anion Gap 9 mmol/L BUN 15 (7-17) mg/dL Creatinine 0.55 (0.52-1.04) mg/dL Est GFR (CKD-EPI)AfAm >90 (>60 ml/min/1.73 sqM) Est GFR (CKD-EPI)NonAf >90 (>60 ml/min/1.73 sqM) Glucose 97 (74-99) mg/dL POC Glucose (mg/dL) (75-99) mg/dL POC Glu Numerical Analysis [employer] Manager ID Calcium 9.5 (8.4-10.2) mg/dL Total Bilirubin 0.2 (0.2-1.3) mg/dL AST 23 (14-36) U/L ALT 9 (4-34) U/L Alkaline Phosphatase 67 (38-126) U/L Ammonia 11 (<30) umol/L Troponin I <0.012 (0.000-0.034) ng/mL Total Protein 6.2 L (6.3-8.2) g/dL Albumin 3.7 (3.5-5.0) g/dL Urine Color Urine Appearance (Clear) Urine pH (5.0-8.0) Ur Specific [place] (1.001-1.035) Urine Protein (Negative) Urine Glucose (UA) (Negative) Urine Ketones (Negative) Urine Blood (Negative) Urine Nitrite (Negative) Urine Bilirubin (Negative) Urine Urobilinogen (<2.0) mg/dL Ur Leukocyte Esterase (Negative) Urine Opiates Screen (NotDetected) Ur Oxycodone Screen (NotDetected) Urine Methadone Screen (NotDetected) Ur Propoxyphene Screen (NotDetected) Ur Barbiturates Screen (NotDetected) U Tricyclic Antidepress (NotDetected) Ur Phencyclidine Scrn (NotDetected) Ur Amphetamines Screen (NotDetected) U Methamphetamines Scrn (NotDetected) U Benzodiazepines Scrn (NotDetected) Urine Cocaine Screen (NotDetected) U Marijuana (THC) Screen (NotDetected) Serum Alcohol <10 mg/dL 03/19/20 Range/Units 00:28 WBC (3.8-10.6) k/uL RBC (3.80-5.40) m/uL Hgb (11.4-16.0) gm/dL Hct (34.0-46.0) % MCV (80.0-100.0) fL MCH (25.0-35.0) pg MCHC (31.0-37.0) g/dL RDW (11.5-15.5) % Plt Count (150-450) k/uL Neutrophils % % Lymphocytes % % Monocytes % % Eosinophils % % Basophils % % Neutrophils # (1.3-7.7) k/uL Lymphocytes # (1.0-4.8) k/uL Monocytes # (0-1.0) k/uL Eosinophils # (0-0.7) k/uL Basophils # (0-0.2) k/uL PT (9.0-12.0) sec INR (<1.2) APTT (22.0-30.0) sec Sodium (137-145) mmol/L Potassium (3.5-5.1) mmol/L Chloride (98-107) mmol/L Carbon Dioxide (22-30) mmol/L Anion Gap mmol/L BUN (7-17) mg/dL Creatinine (0.52-1.04) mg/dL Est GFR (CKD-EPI)AfAm (>60 ml/min/1.73 sqM) Est GFR (CKD-EPI)NonAf (>60 ml/min/1.73 sqM) Glucose (74-99) mg/dL POC Glucose (mg/dL) (75-99) mg/dL POC Glu Numerical Analysis Group Manager ID Calcium (8.4-10.2) mg/dL Total Bilirubin (0.2-1.3) mg/dL AST (14-36) U/L ALT (4-34) U/L Alkaline Phosphatase (38-126) U/L Ammonia (<30) umol/L Troponin I (0.000-0.034) ng/mL Total Protein (6.3-8.2) g/dL Albumin (3.5-5.0) g/dL Urine Color Light Yellow Urine Appearance Clear (Clear) Urine pH 8.0 (5.0-8.0) Ur Specific [place] 1.009 (1.001-1.035) Urine Protein Negative (Negative) Urine Glucose (UA) Negative (Negative) Urine Ketones Negative (Negative) Urine Blood Negative (Negative) Urine Nitrite Negative (Negative) Urine Bilirubin Negative (Negative) Urine Urobilinogen <2.0 (<2.0) mg/dL Ur Leukocyte Esterase Negative (Negative) Urine Opiates Screen Not Detected (NotDetected) Ur Oxycodone Screen Not Detected (NotDetected) Urine Methadone Screen Not Detected (NotDetected) Ur Propoxyphene Screen Not Detected (NotDetected) Ur Barbiturates Screen Not Detected (NotDetected) U Tricyclic Antidepress Detected H (NotDetected) Ur Phencyclidine Scrn Not Detected (NotDetected) Ur Amphetamines Screen Not Detected (NotDetected) U Methamphetamines Scrn Not Detected (NotDetected) U Benzodiazepines Scrn Detected H (NotDetected) Urine Cocaine Screen Not Detected (NotDetected) U Marijuana (THC) Screen Not Detected (NotDetected) Serum Alcohol mg/dL - EKG Data -: EKG Interpreted by Me EKG shows normal: sinus rhythm, axis (Normal), intervals (Normal), QRS complexes (Possible old anterior infarct) Rate: normal (Rate 83 bpm) Disposition Clinical Impression: Altered mental status, Hypertension, Hypokalemia Disposition: ADMITTED IP TO THIS [facility] Condition: Fair Is patient prescribed a controlled substance at d/c from ED?: No
[2020-03-19 00:09] LABS: Basophils # (A) 0.1 k/uL (0-0.2); Basophils % (A) 1 %; Eosinophils # (A) 1.1 k/uL (0-0.7); Eosinophils % (A) 14 %; HCT 34.4 % (34.0-46.0); HGB 11.1 gm/dL (11.4-16.0); Lymphocytes # (A) 2.6 k/uL (1.0-4.8); Lymphocytes % (A) 36 %; MCH 32.2 pg (25.0-35.0); MCHC 32.2 g/dL (31.0-37.0); Mean Platelet Volume 8.2; Monocytes # (A) 0.6 k/uL (0-1.0); Monocytes % (A) 9 %; Neutrophils # (A) 2.9 k/uL (1.3-7.7); Neutrophils % (A) 39 %; Platelet Count 188 k/uL (150-450); RBC 3.44 m/uL (3.80-5.40); RDW 13.1 % (11.5-15.5); WBC 7.4 k/uL (3.8-10.6)
--- NOTE | 2020-03-19 00:10 | CT ---
EXAMINATION TYPE: CT brain wo con DATE OF EXAM: 03/19/2020 COMPARISON: 01/31/2020 HISTORY: AMS CT DLP: 1107.4 mGycm Automated exposure control for dose reduction was used. Images were obtained without contrast. There is metal artifact from surgical clips at the anterior left side of the sella turcica and also t he right lateral aspect of the sella turcica. There is no mass effect nor midline shift. There is no sign of intracranial hemorrhage. There is 1.5 cm white matter hypodense focus right posterior frontal lobe. There is very slight enlargement of the ventricles. The calvarium is intact. IMPRESSION: Mild enlargement of the ventricles similar to old exam which demonstrated extensive acute subarachnoi d hemorrhage. There is a small white matter old infarct right posterior frontal lobe. I see no sign of an acute int racranial abnormality.
[2020-03-19 00:17] LABS: INR 1.1 (<1.2); Prothrombin Time 11.5 sec (9.0-12.0)
[2020-03-19 00:20] LABS: ALT 9 U/L (4-34); AST 23 U/L (14-36); African American GFR (CKD) >90 (>60 ml/min/1.73 sqM); Albumin 3.7 g/dL (3.5-5.0); Alcohol <10 mg/dL; Alkaline Phosphatase 67 U/L (38-126); Anion Gap 9 mmol/L; Blood Urea Nitrogen 15 mg/dL (7-17); Calcium 9.5 mg/dL (8.4-10.2); Carbon Dioxide 33 mmol/L (22-30); Chloride 99 mmol/L (98-107); Glucose 97 mg/dL (74-99); Non-African American GFR(CKD) >90 (>60 ml/min/1.73 sqM); Sodium 141 mmol/L (137-145); Total Bilirubin 0.2 mg/dL (0.2-1.3); Total Protein 6.2 g/dL (6.3-8.2)
--- NOTE | 2020-03-19 00:21 | XR ---
EXAMINATION TYPE: XR chest 2V DATE OF EXAM: 03/19/2020 COMPARISON: 02/26/2015 HISTORY: Altered mental status TECHNIQUE: 2 views FINDINGS: Heart is normal. There is 1.5 Steve density over the right lung base that could be a nippl e shadow. The other lung mchugh are clear. There are no hilar masses. There are chest leads. IMPRESSION: Normal heart. Nodular density over the right lower lobe probably nipple shadow seen only on the frontal view. Recommend shallow oblique view or exam with nipple markers if clinically indicat ed.
[2020-03-19 00:29] LABS: Potassium 2.5 mmol/L (3.5-5.1)
[2020-03-19] MEDS ORDERED: POTASSIUM CHLORIDE ER 20 MEQ TAB.ER PO STA (00:37)
[2020-03-19 00:49] LABS: Appearance,Urine Clear (Clear); Bilirubin,Urine Negative (Negative); Blood,Urine Negative (Negative); Color,Urine Light Yellow; Glucose,Urine (UA) Negative (Negative); Ketones,Urine Negative (Negative); Leukocyte Esterase,Urine Negative (Negative); Nitrite,Urine Negative (Negative); Protein,Urine Negative (Negative); Specific Gravity,Urine 1.009 (1.001-1.035); Urobilinogen,Urine <2.0 mg/dL (<2.0)
[2020-03-19 01:16] LABS: Amphetamine Screen,Urine Not Detected (NotDetected); Barbiturate Screen,Urine Not Detected (NotDetected); Benzodiazepines Screen,Urine Detected (NotDetected); Cocaine Screen,Urine Not Detected (NotDetected); Methadone Screen, Urine Not Detected (NotDetected); Opiate Screen,Urine Not Detected (NotDetected); Oxycodone Screen, Urine Not Detected (NotDetected); Phencyclidine Screen,Urine Not Detected (NotDetected); Tricyclic Antidepressant,Urine Detected (NotDetected); Urn Cannabinoid Scrn Not Detected (NotDetected)
[2020-03-19] MEDS ORDERED: METOPROLOL TARTRATE 25 MG TAB PO STA (01:32)
[2020-03-19] MEDS ORDERED: LORazepam 2 MG/ML INJ IV STA (01:33)
[2020-03-19] MEDS ORDERED: NALOXONE 0.4 MG/ML 1 ML VIAL IV PRN (01:40)
[2020-03-19] MEDS ORDERED: POTASSIUM CHLORIDE 10 MEQ in WATER FOR INJECTION 1 100ML.BAG IVPB STA (01:59)
[2020-03-19] MEDS: SODIUM CHLORIDE 0.9% 1,000 ML IV SCH (02:15)
[2020-03-19] MEDS ORDERED: atenoloL 25 MG TAB PO STA (03:11)
[2020-03-19] MEDS: POTASSIUM CHLORIDE ER 20 MEQ TAB.ER PO SCH ×3 (07:30→23:01)
--- NOTE | 2020-03-19 10:15 | P.CNNES ---
History of Present Illness Consult date: 03/19/20 Requesting physician: Toni Renner Reason for Consult: altered mental status History of Present Illness: This is a 59-year-old left-handed female with medical history of subarachnoid hemorrhage on 01/31/2020 s/p clip who reported to the emergency department on 03/18/2020 for altered mental status. Per medical record it's mentioned that the patient was seen by neurologist for follow-up today and that he wanted her to have an EEG. Per the patient's he said that the patient's depression that she was not at home even though she was at home. He stated that she's been emptying all her drawers in the house a 2 pack the things so that she can move back to her home. Not responding that she was at home. And then the tonight the patient reported relief following the police which led them the to bring her for evaluation. She made bizarre statements including about firearms. Upon seeing the patient who was sitting on chair and asking what happened she told me there is nothing going on. She could not tell me why she was in the hospital but said she is doing well today. She denies any current headaches currently. Denies nausea, vomitting. Denies weakness or numbness. Patient initial vitals on presentation is 190/94, heart rate of 93, respiratory of 18, temperature of 99.1 Fahrenheit, pulse ox of 100 at room air. In the ED she had CT of the head and was reported as mild enlargement of the ventricles similar to old exam which demonstrated extensive acute subarachnoid hemorrhage. There is a small white matter old infarct in the right posterior frontal lobe. I see no sign of acute intracranial abnormality. I reviewed the CT of the head and I did see the old infarct over the right posterior frontal lobe. There is an the surgical clip and seems coming from the right side. There is no acute at intracranial hemorrhage otherwise seen I will see any evidence of subarachnoid hemorrhage on the CT of the head. Upon reviewing the medical record the patient presented to [facility] ED on 01/31/2020 for headache. She had the CT of the brain as well as CT angiogram of the head which was reported as extensive acute intracranial hemorrhage. The largest focal hemorrhage extends up to the third ventricle with hematoma measuring up to 4.33.11.8 cm. Additional acute hemorrhage extending into the right lateral ventricle, filling the basal cistern and diffuse subarachnoid hemorrhage. 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 As a result the patient was transferred to [facility] and had an clip for her aneurysm. Review of Systems Limited but pertitinent positive and negative per HPI. Past Medical History Past Medical History: No Reported History Additional Past Medical History / Comment(s): back, subarachnoid hemorrhage in january 2020 History of Any Multi-Drug Resistant Organisms: None Reported Past Surgical History: Breast Surgery, Cholecystectomy, Hysterectomy Additional Past Surgical History / Comment(s): kidney, brain surgery due to an aneurysm back in january Past Anesthesia/Blood Transfusion Reactions: No Reported Reaction Past Psychological History: Anxiety, Depression Smoking Status: Current every day smoker Past Alcohol Use History: Rare Past Drug Use History: Unable to Obtain Medications and Allergies Home Medications Medication Instructions Recorded Confirmed Type Atorvastatin [Lipitor] 40 mg PO DAILY 03/19/20 03/19/20 History Divalproex ER [Depakote ER] 500 mg PO TID 03/19/20 03/19/20 History Escitalopram [Lexapro] 10 mg PO DAILY 03/19/20 03/19/20 History Fludrocortisone [Florinef] 0.1 mg PO TID 03/19/20 03/19/20 History Lacosamide [Vimpat] 100 mg PO BID 03/19/20 03/19/20 History QUEtiapine FUMARATE 50 mg PO QAM 03/19/20 03/19/20 History QUEtiapine FUMARATE 100 mg PO HS 03/19/20 03/19/20 History Sodium Chloride Tab 2 gm PO TID 03/19/20 03/19/20 History Allergies Allergy/AdvReac Type Severity Reaction Status Date / Time amoxicillin Allergy Rash/Hives Verified 03/19/20 08:57 codeine AdvReac Nausea Verified 03/19/20 08:57 Physical Examination - Vital Signs Vital Signs: Vital Signs Temp Pulse Pulse Resp BP BP Pulse Ox 03/19/20 07:10 97.8 F 64 16 157/85 100 03/19/20 04:40 14 03/19/20 02:31 98.1 F 77 14 191/96 100 03/19/20 02:15 14 03/19/20 02:07 77 18 174/91 99 03/19/20 01:33 73 18 180/91 96 03/18/20 23:04 99.1 F 93 18 190/94 100 Intake and Output 03/18/20 03/19/20 03/19/20 22:59 06:59 14:59 Other: Voiding Method Toilet # Voids 1 Weight 48.988 kg GENERAL: The patient is lying in bed and is not in acute distress. CHEST: The heart rate is regular rate rhythm. No murmurs to auscultation. No carotid bruit bilaterally. LUNG: Clear to auscultation bilaterally no wheezing noted throughout. Not labored breathing. ABDOMEN/GI: Bowel sounds present in all 4 quadrants. No tenderness to palpation throughout. NEUROLOGICAL: Higher mental function: The patient is awake, alert, oriented to self, place and time. Patient is following commands. No aphasia and no neglect. She seemed to have a flat affect. Cranial nerves: The pupils are round, equal and reactive to light and accomm odation. Visual mchugh are full to confrontation throughout. Extraocular movement is intact no nystagmus is noted. Facial sensation is normal to touch throughout. The facial strength is normal throughout. Hearing is normal bilaterally to hand rub. Tongue is midline and moved [id number] without any difficulty. No dysarthria is noted. Shoulder shrug is normal bilaterally. Motor: The strength is 5 over 5 throughout. Normal tone and bulk. Cerebellum: Normal finger to nose bilaterally. Sensation: Sensation is normal to touch throughout. Reflexes (right/left): 3+ throughout except at ankles are 2+ Plantars are mute bilaterally. Results Urine drug screen is positive for tricyclic antidepressant as well as benzodiazepine. UA was negative for UTI. Ammonia level of 11 AST of 23 ALTs of 9. - Laboratory Findings CBC and BMP: 03/19/20 10:49 03/19/20 10:49 Abnormal Lab Findings: Abnormal Labs 03/18/20 03/18/20 03/18/20 23:10 23:57 23:57 RBC 3.44 L Hgb 11.1 L Eosinophils # 1.1 H Potassium 2.5 L* Carbon Dioxide 33 H POC Glucose (mg/dL) 104 H Total Protein 6.2 L U Tricyclic Antidepress U Benzodiazepines Scrn 03/19/20 03/19/20 00:28 05:19 RBC Hgb Eosinophils # Potassium 3.3 L Carbon Dioxide POC Glucose (mg/dL) Total Protein U Tricyclic Antidepress Detected H U Benzodiazepines Scrn Detected H Assessment and Plan Assessment: This is a 59-year-old female with medical history of subarachnoid hemorrhage on 01/31/2020 s/p clip and 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 Her Behavioral issue could be due to old right frontal stroke Old subarachnoid hemorrhage status post clip Old right frontal ischemic change as a result of the subarachnoid hemorrhage Plan: Ordered a routine EEG. The patient behavioral could be because of right frontal old lesion from the subarachnoid hemorrhage. Psychiatry is on board. Consider placing the patient on Zoloft and Seroquel but will defer to Psychiatry. Patient needs to follow-up with neurologist as outpatient as well endovascular team regarding her old SAH s/p clip (Had it done at [facility]). Thank you for the consult. ADDENDUM: Preliminary EEG there is no seizure activity over the interictal activity seen. There is bilateral frontal focal slowing seen. No seizure medication as needed this time. There is no neurology service over the weekend if needed then can be reached via Shay Yadav M.D. Neuro-hospitalist Time with Patient: Greater than 30
[2020-03-19 11:09] LABS: Basophils # (A) 0.1 k/uL (0-0.2); Basophils % (A) 1 %; Eosinophils % (A) 11 %; HCT 36.8 % (34.0-46.0); HGB 11.6 gm/dL (11.4-16.0); Lymphocytes # (A) 2.1 k/uL (1.0-4.8); Lymphocytes % (A) 24 %; MCHC 31.4 g/dL (31.0-37.0); Macrocytosis Slight; Mean Platelet Volume 8.2; Monocytes # (A) 0.8 k/uL (0-1.0); Monocytes % (A) 10 %; Neutrophils # (A) 4.5 k/uL (1.3-7.7); Neutrophils % (A) 52 %; Platelet Count 190 k/uL (150-450); RBC 3.61 m/uL (3.80-5.40); RDW 13.3 % (11.5-15.5); WBC 8.7 k/uL (3.8-10.6)
[2020-03-19 11:27] LABS: African American GFR (CKD) >90 (>60 ml/min/1.73 sqM); Anion Gap 8 mmol/L; Blood Urea Nitrogen 9 mg/dL (7-17); Calcium 9.1 mg/dL (8.4-10.2); Carbon Dioxide 31 mmol/L (22-30); Chloride 102 mmol/L (98-107); Glucose 103 mg/dL (74-99); Magnesium 1.7 mg/dL (1.6-2.3); Non-African American GFR(CKD) >90 (>60 ml/min/1.73 sqM); Potassium 3.5 mmol/L (3.5-5.1); Sodium 141 mmol/L (137-145)
[2020-03-19] MEDS ORDERED: LORazepam 2 MG/ML INJ IV PRN ×3 (12:59)
--- NOTE | 2020-03-19 16:28 | EEG ---
ELECTROENCEPHALOGRAM REPORT DATE OF SERVICE: 03/19/2020. CLINICAL HISTORY: This is a 59-year-old female with a reported history of subarachnoid hemorrhage, status post clipping in August 2019, and a history of right frontal stroke. She presented to the emergency department on 03/18/2020 for altered mental status. This video EEG was obtained to evaluate for seizure and epileptiform activity. RELEVANT MEDICATION: She is not on any centrally active medication. EEG TYPE: A routine 21-channel EEG was performed with video using the 10/20 electrode placement system. DESCRIPTION: Wakefulness only was obtained during the study. During wakefulness there is a posterior-dominant rhythm of low to moderate voltage that is 7-8 hertz activity that is well sustained. There is no stage II sleep architecture seen. There is occasional low to moderate delta slowing over the bilateral frontal hemisphere. There is electrode artifact seen over the left temporal region and occasional myogenic artifact over bilateral hemisphere. Interictal and ictal: None. ACTIVATION PROCEDURE: Photic stimulation did not evoke a posterior driving response. Hyperventilation was not performed because of the patient's clinical history. CLINICAL INTERPRETATION: This is an abnormal awake EEG. The EEG is suggestive of mild encephalopathy of unspecified etiology. The focal slowing over bilateral frontal is suggestive of focal cerebral dysfunction. There is no interictal activity seen. There is no seizure seen during this EEG. Some of the EEG was obscured from electrode artifact over left temporal region and some myogenic artifact over bilateral hemisphere. Clinical correlation is recommended. DELFINA / PARDEEPN: [id number] / MTDD
--- NOTE | 2020-03-19 16:44 | P.HPIM ---
History of Present Illness H&P Date: 03/19/20 Chief Complaint: confusion and strange behavior This is a 59-year-old white female well to the emergency room with seizure like activity and found to have an aneurysm. She was sent to [facility] and underwent Aneurism Clipping. She had a long hosptial stay and was released after 3 weeks. She has a known h/o regular ETOH use and is a smoker. She had been sen in the office ~ 1 week ago. he was noted to be acting a little strange compared to her base. Thoughgt to be due to her ICB, she was set up for local Neurology consult .She has seen them one day before coming here. She was set for EEG soon Yesterday, her behaior ecame more bizarre while she tried to pack not realizing hse was at home. There was some talk of a firearm leading to police involvement and her ending up in the ER. She was found to be confused at that time. Today she is a bit confused. EEG is in progress and our interaction was limited. Neuro had just seen the patient and psych is pending a visit today. She denies any chest pain, pressure, SOB, nausea, emesis. headache, blurry vision at this time. Review of Systems All systems: negative Past Medical History Past Medical History: No Reported History, Hyperlipidemia, Myocardial Infarction (non Q-wave) (subarachnoid hemorrhage january 2020, CVA), Neurologic Disorder Additional Past Medical History / Comment(s): LBP History of Any Multi-Drug Resistant Organisms: None Reported Past Surgical History: Breast Surgery, Cholecystectomy, Hysterectomy Additional Past Surgical History / Comment(s): kidney, brain surgery due to an aneurysm back in january Past Anesthesia/Blood Transfusion Reactions: No Reported Reaction Past Psychological History: Anxiety, Depression Smoking Status: Current every day smoker Past Alcohol Use History: Rare Past Drug Use History: Unable to Obtain Medications and Allergies Home Medications Medication Instructions Recorded Confirmed Type Atorvastatin [Lipitor] 40 mg PO DAILY 03/19/20 03/19/20 History Divalproex ER [Depakote ER] 500 mg PO TID 03/19/20 03/19/20 History Escitalopram [Lexapro] 10 mg PO DAILY 03/19/20 03/19/20 History Fludrocortisone [Florinef] 0.1 mg PO TID 03/19/20 03/19/20 History Lacosamide [Vimpat] 100 mg PO BID 03/19/20 03/19/20 History QUEtiapine FUMARATE 50 mg PO QAM 03/19/20 03/19/20 History QUEtiapine FUMARATE 100 mg PO HS 03/19/20 03/19/20 History Sodium Chloride Tab 2 gm PO TID 03/19/20 03/19/20 History Allergies Allergy/AdvReac Type Severity Reaction Status Date / Time amoxicillin Allergy Rash/Hives Verified 03/19/20 08:57 codeine AdvReac Nausea Verified 03/19/20 08:57 Physical Exam Vitals: Vital Signs Temp Pulse Pulse Resp BP BP Pulse Ox 03/19/20 15:19 98 F 67 16 155/86 98 03/19/20 07:10 97.8 F 64 16 157/85 100 03/19/20 04:40 14 03/19/20 02:31 98.1 F 77 14 191/96 100 03/19/20 02:15 14 03/19/20 02:07 77 18 174/91 99 03/19/20 01:33 73 18 180/91 96 03/18/20 23:04 99.1 F 93 18 190/94 100 Intake and Output 03/19/20 03/19/20 03/19/20 06:59 14:59 22:59 Other: Voiding Method Toilet # Voids 1 3 Weight 48.988 kg - Constitutional General appearance: average body habitus - EENT Eyes: EOMI, PERRLA - Neck Neck: no lymphadenopathy, no thyromegaly Thyroid: bilateral: normal size - Respiratory Respiratory: bilateral: CTA - Cardiovascular Rhythm: regular Heart sounds: normal: S1, S2 - Gastrointestinal General gastrointestinal: normal bowel sounds - Neurologic Neurologic: CNII-XII intact - Psychiatric Psychiatric: A&O x's 3, no appropriate affect, no intact judgment & insight Results CBC & Chem 7: 03/19/20 10:49 03/19/20 10:49 Labs: Abnormal Lab Results - Last 24 Hours (Table) 03/18/20 03/18/20 03/18/20 Range/Units 23:10 23:57 23:57 RBC 3.44 L (3.80-5.40) m/uL Hgb 11.1 L (11.4-16.0) gm/dL MCV (80.0-100.0) fL Eosinophils # 1.1 H (0-0.7) k/uL Potassium 2.5 L* (3.5-5.1) mmol/L Carbon Dioxide 33 H (22-30) mmol/L Glucose (74-99) mg/dL POC Glucose (mg/dL) 104 H (75-99) mg/dL Total Protein 6.2 L (6.3-8.2) g/dL U Tricyclic Antidepress (NotDetected) U Benzodiazepines Scrn (NotDetected) 03/19/20 03/19/20 03/19/20 Range/Units 00:28 05:19 10:49 RBC 3.61 L (3.80-5.40) m/uL Hgb (11.4-16.0) gm/dL MCV 102.0 H (80.0-100.0) fL Eosinophils # 1.0 H (0-0.7) k/uL Potassium 3.3 L (3.5-5.1) mmol/L Carbon Dioxide (22-30) mmol/L Glucose (74-99) mg/dL POC Glucose (mg/dL) (75-99) mg/dL Total Protein (6.3-8.2) g/dL U Tricyclic Antidepress Detected H (NotDetected) U Benzodiazepines Scrn Detected H (NotDetected) 03/19/20 Range/Units 10:49 RBC (3.80-5.40) m/uL Hgb (11.4-16.0) gm/dL MCV (80.0-100.0) fL Eosinophils # (0-0.7) k/uL Potassium (3.5-5.1) mmol/L Carbon Dioxide 31 H (22-30) mmol/L Glucose 103 H (74-99) mg/dL POC Glucose (mg/dL) (75-99) mg/dL Total Protein (6.3-8.2) g/dL U Tricyclic Antidepress (NotDetected) U Benzodiazepines Scrn (NotDetected) Chest x-ray: report reviewed CT Scan - head: report reviewed Thrombosis Risk Factor Assmnt - DVT/VTE Prophylaxis DVT/VTE Prophylaxis: Low risk, early ambulation encouraged - Choose All That Apply Each Factor Represents 1 point: Age 41-60 years Thrombosis Risk Factor Assessment Total Risk Factor Score: 1 Thrombosis Risk Factor Assessment Level: Low Risk Assessment and Plan (1) Altered mental status Current Visit: Yes Status: Acute Code(s): R41.82 - ALTERED MENTAL STATUS, UNSPECIFIED SNOMED Code(s): 980379903 (2) Alcohol abuse Current Visit: Yes Status: Acute Code(s): F10.10 - ALCOHOL ABUSE, UNCOMPLICATED SNOMED Code(s): 69337685 (3) Tobacco abuse Current Visit: Yes Status: Acute Code(s): Z72.0 - TOBACCO USE SNOMED Code(s): 961846025 (4) History of intracranial hemorrhage Current Visit: Yes Status: Acute Code(s): Z86.79 - PERSONAL HISTORY OF OTHER DISEASES OF THE CIRCULATORY SYSTEM SNOMED Code(s): 39093143319764664 (5) CVA (cerebral vascular accident) Current Visit: Yes Status: Acute Code(s): I63.9 - CEREBRAL INFARCTION, UNSPECIFIED SNOMED Code(s): 388900183 (6) History of intracranial aneurysm Current Visit: Yes Status: Acute Code(s): Z86.79 - PERSONAL HISTORY OF OTHER DISEASES OF THE CIRCULATORY SYSTEM SNOMED Code(s): 042567987 (7) Hypertension Current Visit: Yes Status: Acute Code(s): I10 - ESSENTIAL (PRIMARY) HYPERTENSION SNOMED Code(s): 41553445 (8) Hypokalemia Current Visit: Yes Status: Acute Code(s): E87.6 - HYPOKALEMIA SNOMED C ode(s): 47119325 Plan: consult Psyh and Ner=urology repeat labs in am monitor for ETOH withdrawl issues, but unsure if she has actually returned o drinking, corrent potassium repeat labs in am reevaluate in the next 24hrs
--- NOTE | 2020-03-19 17:07 | CONS ---
CONSULTATION DATE OF CONSULTATION: 03/19/2020 REASON FOR CONSULTATION: Delirium versus psychosis. HISTORY OF PRESENT ILLNESS: The patient is a 59-year-old female with a history of subarachnoid hemorrhage on 01/31/2020. She came to the emergency room on March 18 for altered mental status. The patient was seen by a neurologist who did recommend EEG to rule out seizure. However, the patient was a very poor historian, not able to keep train of thought, seemed very preoccupied, so most of the information was from the medical record. The patient's said that the patient's depression has been getting worse and the patient has been getting more confused at home. Also she is very paranoid and suspicious, and she reported that she thinks that the police are after her. The patient was making very bizarre statements when I was seeing her. She was telling me that outside there are a lot of people playing machines because we are in a casino. Then she jumped to another topic, telling me how her brother liked gambling, and she used to go to the casino with him. The patient was very bizarre and disorganized with a lot of halting and blocking. When I asked her why she was admitted to the hospital, she said "Because my mom had cancer stage IV." PAST PSYCHIATRIC HISTORY: There is history of anxiety or depression. However, the patient does not remember if she has ever been in counseling or inpatient treatment. But from the record, the patient was on Lexapro 10 mg daily, Seroquel 50 mg in the morning and 100 mg at bedtime. This is from the previous record. SUBSTANCE ABUSE HISTORY: She stated that she has been drinking on daily basis "a couple of beers." When I did ask her at if it is only 2 beers or more, she said, "Probably more." She stated that a couple of days ago she had a seizure, as she did try to stop drinking. FAMILY HISTORY OF PSYCHIATRIC ILLNESS: The patient is not aware of any chemical dependency or mental illness in her family. However, the patient was very confused. MEDICAL HISTORY: History of subarachnoid hemorrhage in January of 2020, status post breast surgery, status post cholecystectomy, status post hysterectomy. ALLERGIES: AMOXICILLIN and CODEINE. BRIEF SOCIAL HISTORY: Patient stated that she is in her second marriage and she has 3 children, but she could not recall the exact ages of her kids. She could not tell me if she was working prior to her brain hemorrhage or not. She stated that she is living with her second . She stated that she has been with him for 17 years. Then she said "Can you give me a minute? I think maybe 29." MENTAL STATUS EXAMINATION: The patient appears much older than stated age. She is alert but just oriented to person. When I asked her about the place, she said, "[place]." The patient is trying to be cooperative, but there is lot of halting and blocking. She is losing her train of thought, makes delusion. There is no agitation. However, her speech was not spontaneous and tangential. Her stated mood : "I think all right." Affect is blunted. She denied having any suicidal or homicidal ideation, intent or plan. She denied any visual or auditory hallucination. However, it seems that she is responding to internal stimuli. She is very guarded and evasive at times, very illogical, with poor attention span, poor memory. Her insight and judgment are impaired. 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 2. Alcohol use disorder. 3. Neurocognitive disorder, unspecified. 4. History of depressive disorder. PLAN: At this time the patient is still very confused and delusional, so I will start her on Haldol 2 mg 3 times a day. I will discontinue the Seroquel. Please cover her with YENI regarding her alcohol use disorder. She was not able to tell me how much and how often. Delirium precautions recommended with the patient. Will continue to follow up as long as she is on the medical floor. EEG is pending to rule out post-seizure psychosis. Will continue to follow up. If she is not cleared from her psychotic episode, she might be transferred to inpatient psychiatric admission. MMODL / IJN: [id number] /
[2020-03-19] MEDS: lisinopriL 10 MG TAB PO SCH (17:09)
[2020-03-19] MEDS ORDERED: QUEtiapine 100 MG TAB PO SCH (21:00)
[2020-03-20] MEDS: SODIUM CHLORIDE 0.9% 1,000 ML IV SCH (02:32)
--- NOTE | 2020-03-20 10:29 | P.PN ---
Subjective Progress Note Date: 03/20/20 Principal diagnosis: Confusion and strange behavior This is a 59-year-old white female well to the emergency room with seizure like activity and found to have an aneurysm. She was sent to [facility] and underwent Aneurism Clipping. She had a long hosptial stay and was released after 3 weeks. She has a known h/o regular ETOH use and is a smoker. She had been sen in the office ~ 1 week ago. he was noted to be acting a little strange compared to her base. Thoughgt to be due to her ICB, she was set up for local Neurology consult .She has seen them one day before coming here. She was set for EEG soon Yesterday, her behaior ecame more bizarre while she tried to pack not realizing hse was at home. There was some talk of a firearm leading to police involvement and her ending up in the ER. She was found to be confused at that time. Today she is a bit confused. EEG is in progress and our interaction was limited. Neuro had just seen the patient and psych is pending a visit today. She denies any chest pain, pressure, SOB, nausea, emesis. headache, blurry vision at this time. 03/20/2020 which several white female laying down in bed. She was easily arousable to verbal stimuli and able to communicate with normal speech. She is confused to time and place but is able to give me her birthdate and name. She believes she was at her house and that the month is October. She is able to move all extremities to command with bilateral equal transcripter strength. She denies nause a vomiting, headache, visual changes, chest pain or pressure, and shortness of breath. Yesterday's EEG showed no seizure activity. There is bilateral frontal focal slowing as noted per neurology. As per psychiatry's note yesterday she is confused and delusional in which they started Haldol 2 mg 3 times a day and discontinued her Seroquel. They also ordered cover with the [facility] protocol regarding her alcohol use disorder. Her initial serum alcohol level on the lab work was less than 10 and her tox screen showed tricyclic antidepressants and benzodiazepines otherwise negative. Most recent set of labs were yesterday morning WBC of 8.7 and hemoglobin of 11.6, hematocrit 36.8, platelet count 190. Chemistry reveals a sodium of 141, potassium 3.5, JARET of 9, creatinine of 0.54 glucose of 103. And her UA was negative as well. Vital signs this morning at 0 100 she is afebrile 98.2 orally, heart rate of 79, blood pressure 154/77, oxygen saturation is 96% on room air. She does have a sitter at bedside at this time as a safety precaution. Objective - Vital Signs Vital signs: Vital Signs Temp 98.2 F 03/20/20 01:06 Pulse 79 03/20/20 01:06 Resp 16 03/19/20 15:19 BP 154/77 03/20/20 01:06 Pulse Ox 96 03/20/20 01:06 Intake & Output 03/19/20 03/20/20 03/20/20 18:59 06:59 18:59 Other: Voiding Method Toilet # Voids 3 2 - Exam GENERAL: Well-appearing, well-nourished and in no acute distress. HEAD: Atraumatic, normocephalic. EYES: Pupils equal round and reactive to light, extraocular movements intact, sclera anicteric, conjunctiva are normal. ENT:nares patent, oropharynx clear without exudates. Moist mucous membranes. NECK: Normal range of motion, supple without lymphadenopathy or JVD, no thyromegaly LUNGS: Breath sounds clear to auscultation bilaterally and equal. No wheezes rales or rhonchi. HEART: Regular rate and rhythm without murmurs, rubs or gallops.S1S2 Normal ABDOMEN: Soft, nontender, normoactive bowel sounds. No guarding, no rebound. No masses appreciated. EXTREMITIES: Normal range of motion, no pitting or edema. No clubbing or cyanosis. NEUROLOGICAL: Cranial nerves II through XII grossly intact. Normal speech. PSYCH: Normal mood, normal affect, oriented to self, disoriented to time and place. SKIN: Warm, Dry, normal turgor, no rashes or lesions noted. - Labs CBC & Chem 7: 03/19/20 10:49 03/19/20 10:49 Labs: Abnormal Lab Results - Last 24 Hours (Table) 03/19/20 03/19/20 Range/Units 10:49 10:49 RBC 3.61 L (3.80-5.40) m/uL MCV 102.0 H (80.0-100.0) fL Eosinophils # 1.0 H (0-0.7) k/uL Carbon Dioxide 31 H (22-30) mmol/L Glucose 103 H (74-99) mg/dL Assessment and Plan (1) Alcohol abuse Current Visit: Yes Status: Acute Code(s): F10.10 - ALCOHOL ABUSE, UNCOMPLICATED SNOMED Code(s): 08985239 (2) Altered mental status Current Visit: Yes Status: Acute Code(s): R41.82 - ALTERED MENTAL STATUS, UNSPECIFIED SNOMED Code(s): 289789865 (3) CVA (cerebral vascular accident) Current Visit: Yes Status: Acute Code(s): I63.9 - CEREBRAL INFARCTION, U NSPECIFIED SNOMED Code(s): 149666530 (4) Tobacco abuse Current Visit: Yes Status: Acute Code(s): Z72.0 - TOBACCO USE SNOMED Code(s): 508855923 (5) History of intracranial aneurysm Current Visit: Yes Status: Acute Code(s): Z86.79 - PERSONAL HISTORY OF OTHER DISEASES OF THE CIRCULATORY SYSTEM SNOMED Code(s): 665654277 (6) History of intracranial hemorrhage Current Visit: Yes Status: Acute Code(s): Z86.79 - PERSONAL HISTORY OF OTHER DISEASES OF THE CIRCULATORY SYSTEM SNOMED Code(s): 98170409059035444 (7) Hypertension Current Visit: Yes Status: Acute Code(s): I10 - ESSENTIAL (PRIMARY) HYPERTENSION SNOMED Code(s): 83217630 (8) Hypokalemia Current Visit: Yes Status: Acute Code(s): E87.6 - HYPOKALEMIA SNOMED Code(s): 11257512 Plan: 1. Repeat labs today. 2. Repeat labs in the a.m. 3. Unsure of alcohol use status, but we'll continue to monitor for withdrawal symptoms. 4. Treat hypokalemia per protocol. 5. We'll continue to follow psych and neurology recommendations. 6. Reevaluate again tomorrow. Time with Patient: Greater than 30
[2020-03-20] MEDS: POTASSIUM CHLORIDE ER 20 MEQ TAB.ER PO SCH ×2 (10:46→21:28)
[2020-03-20] MEDS: lisinopriL 10 MG TAB PO SCH (10:46)
[2020-03-20 11:00] LABS: Basophils # (A) 0.1 k/uL (0-0.2); Basophils % (A) 1 %; Eosinophils # (A) 0.4 k/uL (0-0.7); Eosinophils % (A) 6 %; HCT 36.4 % (34.0-46.0); HGB 11.7 gm/dL (11.4-16.0); Lymphocytes # (A) 2.3 k/uL (1.0-4.8); Lymphocytes % (A) 34 %; MCH 32.4 pg (25.0-35.0); MCV 101.3 fL (80.0-100.0); Macrocytosis Slight; Mean Platelet Volume 8.1; Monocytes # (A) 0.6 k/uL (0-1.0); Monocytes % (A) 9 %; Neutrophils # (A) 3.1 k/uL (1.3-7.7); Neutrophils % (A) 47 %; Platelet Count 182 k/uL (150-450); RBC 3.59 m/uL (3.80-5.40); RDW 13.3 % (11.5-15.5); WBC 6.7 k/uL (3.8-10.6)
[2020-03-20 11:09] LABS: African American GFR (CKD) >90 (>60 ml/min/1.73 sqM); Anion Gap 5 mmol/L; Blood Urea Nitrogen 7 mg/dL (7-17); Carbon Dioxide 32 mmol/L (22-30); Chloride 103 mmol/L (98-107); Glucose 95 mg/dL (74-99); Magnesium 1.8 mg/dL (1.6-2.3); Non-African American GFR(CKD) >90 (>60 ml/min/1.73 sqM); Potassium 3.3 mmol/L (3.5-5.1); Sodium 140 mmol/L (137-145)
[2020-03-21] MEDS: SODIUM CHLORIDE 0.9% 1,000 ML IV SCH ×2 (01:38→22:33)
[2020-03-21] MEDS: lisinopriL 10 MG TAB PO SCH (07:44)
[2020-03-21] MEDS: POTASSIUM CHLORIDE ER 20 MEQ TAB.ER PO SCH ×2 (07:45→22:03)
[2020-03-21 08:01] LABS: ALT 10 U/L (4-34); AST 25 U/L (14-36); African American GFR (CKD) >90 (>60 ml/min/1.73 sqM); Albumin 3.4 g/dL (3.5-5.0); Alkaline Phosphatase 63 U/L (38-126); Anion Gap 7 mmol/L; Blood Urea Nitrogen 10 mg/dL (7-17); Carbon Dioxide 25 mmol/L (22-30); Chloride 107 mmol/L (98-107); Glucose 97 mg/dL (74-99); Magnesium 1.7 mg/dL (1.6-2.3); Non-African American GFR(CKD) >90 (>60 ml/min/1.73 sqM); Potassium 4.3 mmol/L (3.5-5.1); Sodium 139 mmol/L (137-145); Total Bilirubin 0.5 mg/dL (0.2-1.3); Total Protein 5.9 g/dL (6.3-8.2)
[2020-03-21 08:38] LABS: Basophils % (A) 1 %; Eosinophils # (A) 0.5 k/uL (0-0.7); Eosinophils % (A) 6 %; HCT 35.6 % (34.0-46.0); HGB 11.3 gm/dL (11.4-16.0); Lymphocytes % (A) 25 %; MCH 32.2 pg (25.0-35.0); MCHC 31.7 g/dL (31.0-37.0); MCV 101.6 fL (80.0-100.0); Macrocytosis Slight; Mean Platelet Volume 8.4; Monocytes # (A) 0.9 k/uL (0-1.0); Monocytes % (A) 12 %; Neutrophils # (A) 4.4 k/uL (1.3-7.7); Neutrophils % (A) 54 %; Platelet Count 184 k/uL (150-450); RBC 3.51 m/uL (3.80-5.40); RDW 13.2 % (11.5-15.5); WBC 8.1 k/uL (3.8-10.6)
--- NOTE | 2020-03-21 14:05 | P.PN ---
Subjective patient admitted for psychotic mood disorder with a h/o increased confusion and halluciantions She also has a signifiicant ETOH hx, but has not drank since her IC bleed 01/31/2020 Neuro and Psych have both een her and she remain confused and hallucinating. Family reported increased depression since her return home. labs reviewed today. Patient has no chest pain pressure sob nausea vomiting or headache. Objective - Vital Signs Vital signs: Vital Signs Temp 98 F 03/21/20 07:19 Pulse 67 03/21/20 07:46 Resp 17 03/21/20 07:46 BP 164/76 03/21/20 07:19 Pulse Ox 100 03/21/20 07:19 Intake & Output 03/20/20 03/21/20 03/21/20 18:59 06:59 18:59 Other: Voiding Method Toilet Toilet Toilet # Voids 2 2 3 - Constitutional General appearance: Present: thin - EENT Eyes: Present: EOMI, PERRLA - Psychiatric Psychiatric: Present: appropriate affect. Absent: A&O x's 3, intact judgment & insight (confused and hallucinating about things) - Labs CBC & Chem 7: 03/21/20 07:15 03/21/20 07:15 Labs: Abnormal Lab Results - Last 24 Hours (Table) 03/21/20 03/21/20 Range/Units 07:15 07:15 RBC 3.51 L (3.80-5.40) m/uL Hgb 11.3 L (11.4-16.0) gm/dL MCV 101.6 H (80.0-100.0) fL Creatinine 0.49 L (0.52-1.04) mg/dL Total Protein 5.9 L (6.3-8.2) g/dL Albumin 3.4 L (3.5-5.0) g/dL Assessment and Plan (1) Altered mental status Current Visit: Yes Status: Acute Code(s): R41.82 - ALTERED MENTAL STATUS, UNSPECIFIED SNOMED Code(s): 762646816 (2) Alcohol abuse Current Visit: Yes Status: Acute Code(s): F10.10 - ALCOHOL ABUSE, UNCOMPLICATED SNOMED Code(s): 76161233 (3) Tobacco abuse Current Visit: Yes Status: Acute Code(s): Z72.0 - TOBACCO USE SNOMED Code(s): 754844280 (4) History of intracranial hemorrhage Current Visit: Yes Status: Acute Code(s): Z86.79 - PERSONAL HISTORY OF OTHER DISEASES OF THE CIRCULATORY SYSTEM SNOMED Code(s): 90114685542819553 (5) CVA (cerebral vascular accident) Current Visit: Yes Status: Acute Code(s): I63.9 - CEREBRAL INFARCTION, UNSPECIFIED SNOMED Code(s): 767184159 (6) History of intracranial aneurysm Current Visit: Yes Status: Acute Code(s): Z86.79 - PERSONAL HISTORY OF OTHER DISEASES OF THE CIRCULATORY SYSTEM SNOMED Code(s): 261267068 (7) Hypertension Current Visit: Yes Status: Acute Code(s): I10 - ESSENTIAL (PRIMARY) HYPERTENSION SNOMED Code(s): 78553034 (8) Hypokalemia Current Visit: Yes Status: Acute Code(s): E87.6 - HYPOKALEMIA SNOMED Code(s): 71713561 (9) 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
[2020-03-22] MEDS: POTASSIUM CHLORIDE ER 20 MEQ TAB.ER PO SCH ×2 (07:47→20:29)
[2020-03-22] MEDS: lisinopriL 10 MG TAB PO SCH (07:47)
--- NOTE | 2020-03-22 10:51 | P.PN ---
Subjective Progress Note Date: 03/22/20 Possibly the patient that she said that she's doing well and she has no issues. On talking to the patient's nurse she stated that she has she fluctuates she has periods where she is calm and relaxed and cooperative and there is time that basically ceased having visual hallucination seeing things that no one sees as well as a sitting on the counter of the table. The nurse denies any patient having any jerking episodes, or thrashing of her extremities. Spoke with patient's (Kalia) via phone and he stated that on 01/31/20, patient was complaining of the worse headache of her life then had a seizure. she was brought to [facility] and was found to have SAH then was transfered to [facility] where she had Clip of aneurysm. The aneurysm he was told was in frontal area but not exactly sure. The SAH hemorrhage was non traumatic. She was discharged home on 02/24/20 home. She had no focal deficits but he felt she was initially doing well, maybe more aggressive on second or third day at home. But in last 1-2 weeks has been having more aggressive and felt confused. She is on Divalproex ER 500mg 1 tab tid for seizure. She has not had any seizure while at home. He said she had a seizure upon onset of SAH on 01/31/20 and possibly another one in hospital at [facility]. She does have history of EtoH use (about 4 can of beer per day) and Tobacco use 1/2-3/4 PPD for >20 years but has not had any since discharges from hospital (02/24/20). Objective - Vital Signs Vital signs: Vital Signs Temp 97.5 F L 03/22/20 07:00 Pulse 81 03/22/20 07:51 Resp 17 03/22/20 07:51 BP 136/66 03/22/20 07:00 Pulse Ox 98 03/22/20 07:00 Intake & Output 03/21/20 03/22/20 03/22/20 18:59 06:59 18:59 Other: Voiding Method Toilet Toilet Toilet # Voids 3 1 - Exam GENERAL: The patient is lying in bed and is not in acute distress. CHEST: The heart rate is regular rate rhythm. No murmurs to auscultation. LUNG: Clear to auscultation bilaterally no wheezing noted throughout. Not labored breathing. ABDOMEN/GI: Bowel sounds present in all 4 quadrants. No tenderness to palpation throughout. NEUROLOGICAL: Higher mental function: The patient is awake, alert, oriented to self and time. Patient stated that she is over at [facility] upon asking her what placed this is as she said this is a "cell". Upon asking her second time around she said that this was a hospital. Patient is following commands. No aphasia and no neglect. She seemed to have a flat affect. Cranial nerves: The pupils are round, equal and reactive to light and accommodation. Visual mchugh are full to confrontation throughout. Extraocular movement is intact no nystagmus is noted. Facial sensation is normal to touch throughout. The facial strength is normal throughout. Hearing is normal bilaterally to hand rub. Tongue is midline and moved [id number] without any difficulty. No dysarthria is noted. Shoulder shrug is normal bilaterally. Motor: gait is normal with normal arm swings. The strength is 5 over 5 throughout. Normal tone and bulk. Cerebellum: Normal finger to nose bilaterally. Sensation: Sensation is normal to touch throughout. Reflexes (right/left): 3+ throughout except at ankles are 2+ Plantars are mute bilaterally. 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 Psychosis events could be due to old right frontal stroke. Cannot rule out underly mood disorder (since patient has family history of Schizophrenia). 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 Occasional focal slowing over bilateral frontal region. There is no interictal or seizure activity during the study. The patient behavioral could be because of right frontal old lesion from the subarachnoid hemorrhage. I will restart the patient on Divalproex ER 500mg 1 tab tid she was discharged on from [facility] for seizure, as well helps with mood. Psychiatry is on board. Patient is currently on the Haldol 2 mg 3 times a day scheduled. She is also on Ativan 1 mg every 2 hours when necessary for SIWA protocol. Consider placing the patient on Zoloft and Seroquel but will defer to Psychiatry. Since the patient has history of alcohol use, I'll place the patient on thiamine 100 mg daily. I will order vitamin B12 and folate levels. Patient needs to follow-up with neurologist as outpatient as well endovascular team regarding her old SAH s/p clip (Had it done at [facility]). The plan was discussed with the patient as well as the patient's . Keisha Yadav. Neuro-hospitalist Time with Patient: Greater than 30
[2020-03-22] MEDS: DIVALPROEX ER 500 MG TAB.ER.24H PO SCH ×3 (11:26→20:29)
[2020-03-22] MEDS: THIAMINE 100 MG TAB PO SCH (11:26)
--- NOTE | 2020-03-22 11:48 | P.DS ---
Providers Date of admission: 03/19/20 01:40 Expected date of discharge: 03/22/20 Attending physician: Germán Ellis Consults: 03/19/20 01:41 Consult Physician Routine Consulting Provider: Mayra Moscoso Consult Reason/Comments: Psychosis versus delirium Do you want consulting provider notified?: Yes 03/19/20 01:42 Consult Physician Routine Consulting Provider: Leif Collado Consult Reason/Comments: altered mental status Do you want consulting provider notified?: Yes Primary care physician: Germán Ellis - Discharge Diagnosis(es) (1) Altered mental status Current Visit: Yes Status: Acute (2) Alcohol abuse Current Visit: Yes Status: Acute (3) Tobacco abuse Current Visit: Yes Status: Acute (4) History of intracranial hemorrhage Current Visit: Yes Status: Acute (5) CVA (cerebral vascular accident) Current Visit: Yes Status: Acute (6) History of intracranial aneurysm Current Visit: Yes Status: Acute (7) Hypertension Current Visit: Yes Status: Acute (8) Hypokalemia Current Visit: Yes Status: Acute (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 Family reported increased depression since her return home. labs reviewed today. Patient has no chest pain pressure sob nausea vomiting or headache. waiting on Psych floor acceptance for ongoing hallucinations, confusion and depression. Patient Condition at Discharge: Fair Plan - Discharge Summary Discharge Rx Participant: No New Discharge Prescriptions: New haloperidoL [Haldol] 2 mg PO TID tab Thiamine [Vitamin B-1] 100 mg PO DAILY tab lisinopriL [Zestril] 10 mg PO DAILY tab Continue Sodium Chloride Tab 2 gm PO TID QUEtiapine FUMARATE 50 mg PO QAM QUEtiapine FUMARATE 100 mg PO HS Lacosamide [Vimpat] 100 mg PO BID Fludrocortisone [Florinef] 0.1 mg PO TID Escitalopram [Lexapro] 10 mg PO DAILY Divalproex ER [Depakote ER] 500 mg PO TID Atorvastatin [Lipitor] 40 mg PO DAILY Discharge Medication List Atorvastatin [Lipitor] 40 mg PO DAILY 03/19/20 [History] Divalproex ER [Depakote ER] 500 mg PO TID 03/19/20 [History] Escitalopram [Lexapro] 10 mg PO DAILY 03/19/20 [History] Fludrocortisone [Florinef] 0.1 mg PO TID 03/19/20 [History] Lacosamide [Vimpat] 100 mg PO BID 03/19/20 [History] QUEtiapine FUMARATE 50 mg PO QAM 03/19/20 [History] QUEtiapine FUMARATE 100 mg PO HS 03/19/20 [History] Sodium Chloride Tab 2 gm PO TID 03/19/20 [History] Thiamine [Vitamin B-1] 100 mg PO DAILY tab 03/22/20 [Rx] haloperidoL [Haldol] 2 mg PO TID tab 03/22/20 [Rx] lisinopriL [Zestril] 10 mg PO DAILY tab 03/22/20 [Rx] Follow up Appointment(s)/Referral(s): [facility], [NON-STAFF] - As Needed Germán Ellis MD [Primary Care Provider] - 1 Week Discharge Disposition: TRANSFER TO PSYCH HOSP/UNIT
--- NOTE | 2020-03-22 13:57 | P.PN ---
Progress Note - Text Progress Note Date: 03/22/20 Psychiatric follow up; Patient was sitting on bed ,more alert ,less sedated ,stating that she want to be discharged because"My mom is in bad shape",patient endorses bizarre delusion ,,halting and blocking,endorses auditory hallucination ,seems confused I talked with her who stated that patient is paranoia ,suspicious ,called police on him accusing him that he has 2 bags full of weapons ,patient has been hiding in closet,seems confused "Does not know how to open faucet and seems very bizarre stated that patient has 4 brothers DX with schizophrenia,stated that patient has been sober since January DX :Psychosis NOS rule out organic delusional disorder PLAN: will fill petition and patient needs to be transferred to inpatient psychiatric unit
[2020-03-22 17:52] LABS: Folate, Serum 12.8 ng/mL
[2020-03-23 01:54] VITALS: RESP 18
[2020-03-23] MEDS: SODIUM CHLORIDE 0.9% 1,000 ML IV SCH (03:39)
[2020-03-23] MEDS: THIAMINE 100 MG TAB PO SCH (09:47)
[2020-03-23] MEDS: DIVALPROEX ER 500 MG TAB.ER.24H PO SCH ×2 (09:47→16:42)
[2020-03-23] MEDS: lisinopriL 10 MG TAB PO SCH (09:47)
[2020-03-23] MEDS: POTASSIUM CHLORIDE ER 20 MEQ TAB.ER PO SCH (09:47)
[2020-03-23 16:35] VITALS: BP 114/71; PULSE 77; TEMP 97.9
--- NOTE | 2020-03-23 17:35 | P.PN ---
Subjective Progress Note Date: 03/23/20 The patient was seen at bedside and she is accompanied by her who is the next her. Patient states that she's doing better and denies of any weakness any numbness. Per the nurse there is no seizure-like activity no jerk in of any extremities. She states that that she has episodes that that she had visual hallucination. Objective - Vital Signs Vital signs: Vital Signs Temp 97.9 F 03/23/20 15:00 Pulse 77 03/23/20 15:00 Resp 18 03/23/20 16:00 BP 114/71 03/23/20 15:00 Pulse Ox 99 03/23/20 15:00 Intake & Output 03/22/20 03/23/20 03/23/20 18:59 06:59 18:59 Intake Total 200 160 298 Balance 200 160 298 Intake: Intake, IV Titration 160 Amount Sodium Chloride 0.9% 1, 160 000 ml @ 20 mls/hr IV . Q24H PENDING SALE TO [facility] Rx#:[id number] Oral 200 298 Other: Voiding Method Toilet Toilet # Voids 1 2 # Bowel Movements 2 1 - Exam GENERAL: The patient is lying in bed and is not in acute distress. CHEST: The heart rate is regular rate rhythm. No murmurs to auscultation. LUNG: Clear to auscultation bilaterally no wheezing noted throughout. Not labored breathing. ABDOMEN/GI: Bowel sounds present in all 4 quadrants. No tenderness to palpation throughout. NEUROLOGICAL: Higher mental function: The patient is awake, alert, oriented to self, place and time. Patient is following commands. No aphasia and no neglect. She seemed to have a flat affect. Cranial nerves: The pupils are round, equal and reactive to light and accommodation. Visual mchugh are full to confrontation throughout. Extraocular movement is intact no nystagmus is noted. Facial sensation is normal to touch throughout. The facial strength is normal throughout. Hearing is normal bilaterally to hand rub. Tongue is midline and moved [id number] without any difficulty. No dysarthria is noted. Shoulder shrug is normal bilaterally. Motor: gait is normal with normal arm swings. The strength is 5 over 5 throughout. Normal tone and bulk. Cerebellum: Normal finger to nose bilaterally. Sensation: Sensation is normal to touch throughout. Reflexes (right/left): 3+ throughout except at ankles are 2+ Plantars are mute bilaterally. 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 Psychosis events could be due to old right frontal stroke. Cannot rule out underly mood disorder (since patient has significant family history of Schizophrenia). Delirium Old right subarachnoid hemorrhage status post clip Old right frontal ischemic change as a result of the subarachnoid hemorrhage History of alcohol use History Tobacco use Plan: Routine EEG (03/19/20): Mild encephalopathy of unspecified etiology. Occasional focal slowing over bilateral frontal region. There is no interictal or seizure activity during the study. The patient behavioral could be because of right frontal old lesion from the subarachnoid hemorrhage. Continue home Divalproex ER 500mg 1 tab tid (she was discharged on from [facility] for seizure, as well helps with mood). Patient is currently on the Haldol 2 mg 3 times a day scheduled. She is also on Ativan 1 mg every 2 hours when necessary for CIWA protocol. Consider placing the patient on Zoloft and Seroquel but will defer to Psychiatry. Since the patient has history of alcohol use, I'll place the patient on thiamine 100 mg daily. I will order vitamin B12 and folate levels. Patient needs to follow-up with neurologist as outpatient as well endovascular team regarding her old SAH s/p clip (Had it done at [facility]). The plan was discussed with the patient's . The patient will be discharged to inpatient psychiatry today. Tomas Yadav Neuro-hospitalist Time with Patient: Greater than 30
--- NOTE | 2020-03-26 08:24 | CDI ---
Documentation Clarification Form Date: 03/26/20 From: Makayla Ambriz Phone: If you have a question about this query, please contact Nicole Serrano, Environmental Health And Safety Leader at [phone] between 8am and 5pm. Admit Date: 03/19/20 Discharge Date:03/23/20 Patient Name: Mckenzie Quinones Visit Number: [id number] ATTENTION: The Clinical Documentation Specialists (CDI) and [facility] Coding Staff appreciate your assistance in clarifying documentation. Please respond to the clarification below the line at the bottom and electronically sign. The CDI & [facility] Coding staff will review the response and follow-up if needed. Please note: Queries are made part of the Legal Health Record. If you have any questions, please contact the author of this message via ITS. Dear Dr. Ellis Altered Mental Status was documented in the discharge summary and throughout the chart. Psychotic mood disorder with a h/o increased confusion and hallucinations. History/Risk Factors: Recent subarachnoid hemorrhage due to aneurysm, depression due to sroke, alcohol abuse Clinical Indicators: Confusion, bizarre behviour Labs: Potassium 2.5, carbon dioxide 33, serum alcohol <10 CT Brain: Mild enlargement of the ventricles similar to old exam which demonstrated extensive acute subarachnoid hemorrhage. There is a small white matter old infarct right posterior frontal lobe. No sign of an acute intracranial abnormality. EEG: Abnormal EEG suggestive of mild encephalopathy of unspecified etiology. Slowing over bilateral frontal suggestive of focal cerebral dysfunction. No interictal activity seen. No seizure seen during EEG. Some of EEG was obscured from electrode artifact over the left temporal region and some myogenic artifact over bilateral hemisphere. Treatment: Neurology Consult: Psychosis events could be due to old right frontal stroke. Cannot rule out underlying mood disorder since family has significant family history of Schizophrenia. Delirium Psych Consult: Psychosis NOS rule out organic delusional disorder. In your professional opinion, please clarify the etiology of the Altered Mental Status, if known. Delirium (specify cause): Dementia (if know, specify Type and if with/without Behavioral Disturbance) Psychosis due to old right frontal stroke Organic delusional disorder Depression with psychosis Encephalopathy (specify Type and Underlying Medical Illness) Other condition (please specify) Unable to determine MTDD
== END 2020-03-23 18:48 | DRG 885 ==
LOC: EC 23:01 → 4SSUR 03-19 01:40
PROVIDERS: ADMIT Family Medicine; ATTEND Family Medicine
DX: F32.3 Major depressive disorder, single episode, severe with psychotic features (principal); I69.098 Other sequelae following nontraumatic subarachnoid hemorrhage; G40.909 Epilepsy, unspecified, not intractable, without status epilepticus; E87.6 Hypokalemia; F10.10 Alcohol abuse, uncomplicated; F17.200 Nicotine dependence, unspecified, uncomplicated; F32.9 Major depressive disorder, single episode, unspecified; F41.9 Anxiety disorder, unspecified; I10 Essential (primary) hypertension; R40.2362 Coma scale, best motor response, obeys commands, at arrival to emergency department; R40.2142 Coma scale, eyes open, spontaneous, at arrival to emergency department; R40.2242 Coma scale, best verbal response, confused conversation, at arrival to emergency department; Z79.899 Other long term (current) drug therapy; Z88.5 Allergy status to narcotic agent; Z88.0 Allergy status to penicillin; Z90.710 Acquired absence of both cervix and uterus; Z90.49 Acquired absence of other specified parts of digestive tract; Z98.890 Other specified postprocedural states; Z86.69 Personal history of other diseases of the nervous system and sense organs
CPT/HCPCS: 36415; 70450; 71046; 80048; 80053; 80306; 80320; 81003; 82140; 82607; 82746; 83735; 84132; 84443; 84484; 85025; 85610; 85730; 93005; 95816; 96365; 96374; 99285

== ENCOUNTER 2020-03-23 17:50 | Inpatient (IN) | payer MEDICARE ==
[2020-03-23] MEDS ORDERED: ACETAMINOPHEN TAB 325 MG TAB PO PRN (19:00)
[2020-03-23] MEDS ORDERED: ZIPRASIDONE 20 MG VIAL IM PRN (19:00)
[2020-03-23] MEDS ORDERED: MAG HYDROX/AL HYDROX/SIMETH 30 ML CUP PO PRN (19:00)
[2020-03-23] MEDS ORDERED: MAGNESIUM HYDROXIDE 2,400 MG/10 ML CUP PO PRN (19:00)
[2020-03-23] MEDS ORDERED: LORazepam 2 MG/ML INJ IM PRN (19:15)
[2020-03-23] MEDS: DIVALPROEX ER 500 MG TAB.ER.24H PO SCH (22:13)
[2020-03-24] MEDS: ATORVASTATIN 40 MG TAB PO SCH (10:08)
[2020-03-24] MEDS: lisinopriL 10 MG TAB PO SCH (10:11)
[2020-03-24 10:32] LABS: Basophils # (A) 0.1 k/uL (0-0.2); Basophils % (A) 1 %; Eosinophils # (A) 0.6 k/uL (0-0.7); Eosinophils % (A) 8 %; HCT 40.4 % (34.0-46.0); HGB 12.7 gm/dL (11.4-16.0); Lymphocytes # (A) 2.6 k/uL (1.0-4.8); Lymphocytes % (A) 33 %; MCHC 31.5 g/dL (31.0-37.0); MCV 101.7 fL (80.0-100.0); Macrocytosis Slight; Monocytes # (A) 0.6 k/uL (0-1.0); Monocytes % (A) 7 %; Neutrophils # (A) 3.9 k/uL (1.3-7.7); Neutrophils % (A) 49 %; Platelet Count 304 k/uL (150-450); RBC 3.97 m/uL (3.80-5.40); RDW 13.5 % (11.5-15.5)
[2020-03-24 10:58] LABS: ALT 11 U/L (4-34); AST 27 U/L (14-36); African American GFR (CKD) >90 (>60 ml/min/1.73 sqM); Alkaline Phosphatase 74 U/L (38-126); Anion Gap 13 mmol/L; Blood Urea Nitrogen 12 mg/dL (7-17); Calcium 9.5 mg/dL (8.4-10.2); Carbon Dioxide 22 mmol/L (22-30); Chloride 101 mmol/L (98-107); Glucose 105 mg/dL (74-99); Non-African American GFR(CKD) >90 (>60 ml/min/1.73 sqM); Potassium 4.5 mmol/L (3.5-5.1); Sodium 136 mmol/L (137-145); Total Bilirubin 0.4 mg/dL (0.2-1.3); Total Protein 6.7 g/dL (6.3-8.2)
[2020-03-24] MEDS: DIVALPROEX ER 500 MG TAB.ER.24H PO SCH ×3 (11:14→20:40)
[2020-03-24 13:30] LABS: Cholesterol 137 mg/dL (<200); HDL Cholesterol 45 mg/dL (40-60); LDL Cholesterol,Calculated 60 mg/dL (0-99); Triglycerides 158 mg/dL (<150)
--- NOTE | 2020-03-24 14:53 | HP ---
HISTORY AND PHYSICAL DATE OF ADMISSION: 03/23/2020 DATE OF EVALUATION: 03/24/2020 IDENTIFYING DATA: The patient is 59, female currently living with her . I saw her on the medical unit for altered mental status. As the patient is very poor historian, the information was gathered from the medical record. HISTORY OF PRESENT ILLNESS: The patient presented to the emergency room on January 2020 with headache and seizure-like activity and they found that she did have an aneurysm, so she was sent to [facility] and underwent aneurysm clipping. Patient stayed in the hospital for more than 6 weeks, then she was discharged to follow up with neurologist and with her family doctor, Dr. Ellis. According to Dr. Ellis's notes, the patient was seen last week in his office and he did notice that she is acting a little bit strange compared to her baseline, so he did refer her to local neurologist for consultation. The patient went to the neurologist one day prior to her admission and he did start her on Seroquel 50 mg in the morning and 100 mg at bedtime as she was very bizarre and paranoid. On March 18, patient was very paranoid and called the police more than one time telling him that her has 2 bags with firearm and this did lead to police involvement. As she was on the medical floor, the patient has complete neurological workup , the EEG came back negative. Today, when I saw the patient, she stated that she did not sleep last night and she is feeling exhausted and she asked me to be discharged home. The patient was very bizarre, delusional, paranoid. She kept talking about her using her because she has been working full-time at [employer] and he is not willing to work. Then she started telling me that she does smell cigarette smoke in my office and she will report me to her boss. The patient also endorsed auditory hallucination as she stated, "I am hearing buzzing in my ear." PAST PSYCHIATRIC HISTORY: According to the , she did have brief counseling last year for depression, but she saw neurologist just one day prior to current admission, who put her on Seroquel 50 in the morning and 100 at bedtime. MEDICAL HISTORY: History of subarachnoid hemorrhage on January 31, 2020, status post aneurysm clipping. As I mentioned, EEG was negative. There is no seizure activity. However, the CT of the brain show mild enlargement of the ventricle. Also, there is small white matter old infarction in the right posterior frontal lobe. PAST SURGICAL HISTORY: Breast surgery, cholecystectomy, hysterectomy, kidney stone, brain surgery due to aneurysm in January of 2020. SUBSTANCE ABUSE HISTORY: She stated that she used to drink 6-8 beers every day, but according to the , she stopped since January 31, 2020. ALLERGY: To CODEINE and AMOXICILLIN. HOME MEDICATION: Were including Lipitor 40 mg daily, Depakote extended release 500 three times a day, Lexapro 10 mg daily, Florinef, Vimpat 100 mg twice a day, Seroquel 50 in the morning and 100 at bedtime, sodium chloride 2 mg 3 times a day. FAMILY HISTORY OF PSYCHIATRIC ILLNESS: Patient has 4 brother diagnosed with schizophrenia and alcohol use. There is no family member committed suicide. BRIEF SOCIAL HISTORY: Patient used to work at [employer] for 28 years. She has 2 grown-up sons, age 38 and 32. She has been to her current for at least 20 years. The patient has 4 brothers and 1 sister. According to the social services specialist history, the patient's parents are . However, patient stated that her mother is currently in [place]. It seems it is part of her confusion and delusional thinking MENTAL STATUS EXAMINATION: Patient was wearing hospital gown. She appears much older than stated age. She was disheveled, confused, very bizarre and delusional. She was getting irritable at time, especially when she is asking me to be released home. Her speech is coherent, but tangential. Her stated mood "I am displeased." Affect is blunted. She denied having any homicidal ideation, intent, or plan. She denied any suicidal ideation, intent, or plan. She endorsed auditory hallucination, hearing buzzing. She has mixed delusional thinking as she still believing that she is working at [employer] and this is not the hospital, this is [employer]'s office. The patient was very psychotic to the point that I could not do a mini-mental status examination to assess her cognitive function. Her insight and judgment are totally impaired. STRENGTHS AND WEAKNESS: STRENGTHS: Patient has good support system.and she has housing WEAKNESS: Patient has no insight to her mental illness and has very poor judgment. IMPRESSION: 1. Psychosis, NOS. Rule out organic mood disorder due to vascular etiology as she had old infarct in the frontal lobe. 2. Nicotine dependence. 3. Alcohol use in early remission PLAN: The patient is admitted under involuntary status to the mental health unit for stabilization of psychiatric symptoms and safety. The patient refused to sign any medication consent, so there is second certification was completed with a petition filed by her . MEDICATION: I will start her on Haldol 5 mg 3 times a day, Ativan for agitation and aggression. Internal Medicine consult to perform medical evaluation and physical. She will have nicotine patch. social worker palliative care onboard for discharge planning. Encourage patient to participate in group to work on coping skills. We are waiting for deferral and court hearing date to start the patient on long-acting injection. DELFINA / PARDEEPN: [id number] / MTDD
[2020-03-24] MEDS: haloperidoL 5 MG TAB PO SCH ×2 (17:01→20:40)
[2020-03-24] MEDS: BENZTROPINE MESYLATE 1 MG TAB PO SCH (20:40)
[2020-03-24 21:30] LABS: Hemoglobin A1C 5.9 % (4.0-6.0)
[2020-03-25] MEDS: lisinopriL 10 MG TAB PO SCH (08:39)
[2020-03-25] MEDS: BENZTROPINE MESYLATE 1 MG TAB PO SCH ×2 (08:39→22:11)
[2020-03-25] MEDS: ATORVASTATIN 40 MG TAB PO SCH (08:39)
[2020-03-25] MEDS: DIVALPROEX ER 500 MG TAB.ER.24H PO SCH ×3 (08:40→22:12)
[2020-03-25] MEDS: haloperidoL 5 MG TAB PO SCH (08:40)
--- NOTE | 2020-03-25 11:37 | P.PN ---
Progress Note - Text Progress Note Date: 03/25/20 I reviewed medical records ,did interview patient and case was discussed in treatment team TODAY VITALS:temp:98.7,P :59,R:16,BP:151/65 Has trouble sleeping ,was up at night ,slept 4 hours Interval history: Patient was walking in [place] and agreed to follow me to office ,she stated that she just met her high school friend in the [place] "It is very small world",confused ,bizarre comment saying "They are depriving me from food and medication ,for last 3 days they did not give me any meds", reality approach was provided but patient is not accepting ,denies having hallucination ,still delusional and paranoia Mental status exam: Patient was wearing hospital gown, poor grooming and hygiene, vague,guarded ,speech is limited in productivity but coherent ,stated mood "Nervous"constricted affect ,reports bizarre delusion ,confused ,suspicious ,paranoia,denies any suicidal or homicidal ideation ,very concrete in her thinking insight and judgment are impaired ASSESSMENT:Organic mood disorder ,rule out major neurocognitive disorder ,vascular,with delusion PLAN: Patient continues to meet criteria for inpatient psychiatric admission for symptom stabilization and safety. Team discussed option to transfer patient to med-psych unit , is pursuing guardianship ,waiting for probate hearing ,continue PRN medications ,Haldol 10 mg HS,SW on board for discharge plan
[2020-03-25] MEDS ORDERED: haloperidoL 5 MG TAB PO SCH (21:00)
[2020-03-26] MEDS: LORazepam 1 MG TAB PO PRN (00:33)
[2020-03-26] MEDS: BENZTROPINE MESYLATE 1 MG TAB PO SCH (09:37)
--- NOTE | 2020-03-26 09:51 | P.PN ---
Progress Note - Text Progress Note Date: 03/26/20 I reviewed medical records ,did interview patient and case was discussed in treatment team NOTE FROM NATE ((Contacted [employer] regarding in-network inpatient mental health facilities as our hospital is currently out of network. Spoke with Trinh who informed this database report writer that their is no in-network mental health facilities in [place] that the patient could be transferred too. Phone call with Amanda took place from 11:30am-12:35pm. Left a message for Makayla Wright case reid ryne/clinical reviewer to request a one time treatment agreement. )) TODAY VITALS:temp:97.9,P:67,R:16,BP:129/55 Has trouble sleeping ,was up all night ,slept one hour despite she had PRN Ativan Did attend one group Interval history: Patient was laying in bed and refused to follow me to office saying "I did not sleep last night I am exhausted",she is aware that she is in hospital but could not tell me which hospital ,could not recall today date ,denies any auditory hallucination but she stated "I am seeing my brother walking in liang", denies any appetite issue Mental status exam: Patient was wearing hospital gown, poor grooming and hygiene, vague,guarded ,speech is limited in productivity but coherent ,stated mood "Nervous"constricted affect ,reports bizarre delusion ,confused and alert to person and place ,denies any suicidal or homicidal ideation ,very concrete in her thinking insight and judgment are impaired ASSESSMENT:Organic mood disorder ,rule out major neurocognitive disorder ,vascular,with delusion PLAN: Patient continues to meet criteria for inpatient psychiatric admission for symptom stabilization and safety. D/C HALDOL ,start Zyprexa :more sedating to help her insomnia ,gradually titrate it to eliminate symptoms,PRN Ativan ,encourage participation in group,SW on board for post-discharge plan
[2020-03-26] MEDS: DIVALPROEX ER 500 MG TAB.ER.24H PO SCH ×3 (10:43→21:20)
[2020-03-26] MEDS: ATORVASTATIN 40 MG TAB PO SCH (10:43)
[2020-03-26] MEDS: lisinopriL 10 MG TAB PO SCH ×2 (10:43→10:54)
[2020-03-26] MEDS ORDERED: OLANZapine 5 MG TAB PO SCH (21:00)
[2020-03-27] MEDS: ATORVASTATIN 40 MG TAB PO SCH (09:41)
[2020-03-27] MEDS: DIVALPROEX ER 500 MG TAB.ER.24H PO SCH ×3 (09:41→22:17)
[2020-03-27] MEDS: lisinopriL 10 MG TAB PO SCH ×2 (09:42→10:01)
[2020-03-27] MEDS: OLANZapine 5 MG TAB PO SCH ×2 (12:47→22:17)
--- NOTE | 2020-03-27 13:46 | PN ---
PROGRESS NOTE DATE OF SERVICE: 03/27/2020 CHIEF COMPLAINT: The patient was confused. She had a medical admission for possible seizure like activity. She was transferred to the psychiatric unit for hallucinations and delusions. INTERVAL HISTORY: Patient has been doing fair. She had a quiet day yesterday. She did not attend groups yesterday. She comes out in the day area. She tends to wander. She will interact with others. She seems to have a bewildered manner much of the time. She reports that she slept well last night, though it is noteworthy that nursing documented at midnight that she was "wondering halls and restless and was unable to lie down and p.r.n. Ativan given." Today she has been up. She did attend a group this morning though she mostly sat quietly and did not really the engage. She does interact a little with others, though mostly she has a very quiet, withdrawn manner. When I talked to her, she made comments about asking that she needed to go get her granddaughter. When I reviewed her current history and the issue of her being in the hospital since the , the patient began making comments that she has been home because she has been visiting various cousins and other family members. She continues to be disorganized in her thoughts and not connected to reality. She tolerates her psychotropic medications. MENTAL STATUS: Patient sat with very little movement at all. Eye contact was poor. She would answer questions with one-word responses. She talked in a monotone soft voice. Her affect was flat. Mood depressed. She was significantly distressed. She voiced delusional thoughts. She voiced no thoughts of harm to self or others. On cognitive exam, she thought it was Sunday. She was not sure where she was at. She thought that she had been in the hospital in [place] and now was somewhere else, though she could not say where that was. She did not make an effort to answer other formal cognitive questions. ASSESSMENT: I will continue the current diagnosis and treatment plan. We will continue to make efforts to engage the patient in individual and group therapeutic activities. I will increase her Zyprexa to 5 mg twice a day. She is also on Depakote 500 mg 3 times a day. I will get a Depakote level on Sunday. We will focus on stabilization and discharge planning. MMODL / IJN: [id number] /
[2020-03-28] MEDS: DIVALPROEX ER 500 MG TAB.ER.24H PO SCH ×3 (09:33→22:16)
[2020-03-28] MEDS: lisinopriL 10 MG TAB PO SCH (09:33)
[2020-03-28] MEDS: ATORVASTATIN 40 MG TAB PO SCH (09:33)
[2020-03-28] MEDS: OLANZapine 5 MG TAB PO SCH ×2 (09:33→22:15)
--- NOTE | 2020-03-28 13:04 | P.HPIM ---
History of Present Illness H&P Date: 03/28/20 Chief Complaint: mental status change, recent craniotomy secondary to aneurysm This patient is a well-known patient to my practice who had significant mental status changes consisting of talking about high school's family members remaining received in the liver no longer live for living nearby discuss was wearing hospital gown had poor grooming poor hygiene A in guarded patient was very delusional about having to go see her mother and she didn't have time to be evaluated in the mental health unit. Patient has not been suicidal or homicidal Review of Systems Constitutional: Reports as per HPI, Reports chronic headaches Ears, nose, mouth and throat: Reports as per HPI Cardiovascular: Reports as per HPI Respiratory: Reports as per HPI (Previously heavy smoker and has not smoked in some time I think she forgot about it) Gastrointestinal: Reports as per HPI Genitourinary: Reports as per HPI Menstruation: Reports postmenopausal Integumentary: Reports as per HPI Neurological: Reports as per HPI Psychiatric: Reports anxiety, Reports confusion, Reports difficulty concentrating, Reports irritability, Reports memory loss, Reports mood swings, Reports paranoia Endocrine: Reports as per HPI Past Medical History Past Medical History: No Reported History Additional Past Medical History / Comment(s): back, subarachnoid hemorrhage in january 2020 History of Any Multi-Drug Resistant Organisms: None Reported Past Surgical History: Breast Surgery, Cholecystectomy, Hysterectomy Additional Past Surgical History / Comment(s): kidney, brain surgery due to an aneurysm back in january Past Anesthesia/Blood Transfusion Reactions: No Reported Reaction Past Psychological History: Anxiety, Depression Smoking Status: Current every day smoker Past Alcohol Use History: Rare Past Drug Use History: Unable to Obtain - Past Family History Father History Unknown: Yes Medications and Allergies Home Medications Medication Instructions Recorded Confirmed Type Atorvastatin [Lipitor] 40 mg PO DAILY 03/19/20 03/23/20 History Divalproex ER [Depakote ER] 500 mg PO TID 03/19/20 03/23/20 History Escitalopram [Lexapro] 10 mg PO DAILY 03/19/20 03/23/20 History Fludrocortisone [Florinef] 0.1 mg PO TID 03/19/20 03/23/20 History Lacosamide [Vimpat] 100 mg PO BID 03/19/20 03/23/20 History QUEtiapine FUMARATE 50 mg PO QAM 03/19/20 03/23/20 History QUEtiapine FUMARATE 100 mg PO HS 03/19/20 03/23/20 History Sodium Chloride Tab 2 gm PO TID 03/19/20 03/23/20 History Thiamine [Vitamin B-1] 100 mg PO DAILY tab 03/22/20 03/23/20 Rx haloperidoL [Haldol] 2 mg PO TID tab 03/22/20 03/23/20 Rx lisinopriL [Zestril] 10 mg PO DAILY tab 03/22/20 03/23/20 Rx Allergies Allergy/AdvReac Type Severity Reaction Status Date / Time amoxicillin Allergy Rash/Hives Verified 03/19/20 08:57 codeine AdvReac Nausea Verified 03/19/20 08:57 Physical Exam Osteopathic Statement: *. No significant issues noted on an osteopathic structural exam other than those noted in the History and Physical/Consult. Vitals: As noted General: [Patient awake, alert and oriented times 3. Patient in no acute distress.] HEENT: [PERRL. EOMI. No pharyngeal erythema or exudate.] Neck: [No adenopathy.] Cardiac: [Heart regular in rate and rhythm. No S3. No S4. No clicks, rubs. No murmur.] Lungs: [Clear to auscultation bilaterally.] Abdomen: [No mass. No organomegaly. Bowel sounds presnt and normoactive in all 4 quadrants.] Extremes: [No edema no cyanosis no claudication normal pulses] : Normal female genitalia Musculoskeletal: [No joint erythema, edema or tenderness.] Skin: [No rash.] Neurologic: [No lateralizing deficits. CN II - XII grossly intact.] Lymphatic: [No adenopathy.] Results CBC & Chem 7: 03/24/20 10:18 03/24/20 10:18 Thrombosis Risk Factor Assmnt - DVT/VTE Prophylaxis DVT/VTE Prophylaxis: Low risk, early ambulation encouraged - Choose All That Apply Any of the Below Risk Factors Present?: Yes Other Risk Factors: No Assessment and Plan (1) Alcohol abuse Current Visit: No Status: Acute Code(s): F10.10 - ALCOHOL ABUSE, UNCOMPLI CATED SNOMED Code(s): 71179932 (2) Altered mental status Current Visit: No Status: Acute Code(s): R41.82 - ALTERED MENTAL STATUS, UNSPECIFIED SNOMED Code(s): 370685945 (3) History of intracranial aneurysm Current Visit: No Status: Acute Code(s): Z86.79 - PERSONAL HISTORY OF OTHER DISEASES OF THE CIRCULATORY SYSTEM SNOMED Code(s): 058648321 (4) History of intracranial hemorrhage Current Visit: No Status: Acute Code(s): Z86.79 - PERSONAL HISTORY OF OTHER DISEASES OF THE CIRCULATORY SYSTEM SNOMED Code(s): 95037138005586901 (5) Hypertension Current Visit: No Status: Acute Code(s): I10 - ESSENTIAL (PRIMARY) HYPERTENSION SNOMED Code(s): 41021735 Plan: Patient was admitted to the mental health unit for management of current mental status changes Patient has been medically cleared and stabilized for evaluation and treatment in the mental health unit We will follow closely Time with Patient: Greater than 30
[2020-03-29] MEDS: DIVALPROEX ER 500 MG TAB.ER.24H PO SCH ×4 (00:16→20:55)
[2020-03-29] MEDS: ATORVASTATIN 40 MG TAB PO SCH (09:11)
[2020-03-29] MEDS: OLANZapine 5 MG TAB PO SCH ×2 (09:11→20:55)
[2020-03-29] MEDS: lisinopriL 10 MG TAB PO SCH (09:11)
--- NOTE | 2020-03-29 10:27 | P.PN ---
Progress Note - Text Progress Note Date: 03/29/20 I reviewed medical records ,did interview patient and case was discussed in treatment team I reviewed weekend notes from Dr Carter who increased Zyprexa to 5 mg BID TODAY VITALS:temp: Has trouble sleeping last night and she had PRN ativan,minimal participation in group Interval history:patient was dressed in street clothing talking with another patient and agreed to follow me to office ,denies any hallucination but was disorganized ,bizarre at times ,when I asked her why she does not participate in groups ,she replied "I am so busy I do not have time "then she jumped to different topic talking about yazdanism and adventism Mental status exam: Patient was wearing her own cloth ,hygiene and grooming improved, vague,guarded ,speech is limited in productivity but coherent ,stated mood "Nervous"constricted affect ,reports bizarre delusion ,tangential with loose of association, alert to person and place ,denies any suicidal or homicidal ideation ,very concrete in her thinking insight and judgment are impaired ASSESSMENT:Organic mood disorder ,rule out major neurocognitive disorder ,vascular,with delusion PLAN: Patient continues to meet criteria for inpatient psychiatric admission for symptom stabilization and safety. continue Zyprexa 5 mg BID,Depakote level pending ,gradually titrate it to eliminate symptoms,PRN Ativan ,encourage participation in group,SW on board for post-discharge plan
--- NOTE | 2020-03-29 10:56 | PN ---
PROGRESS NOTE DATE OF SERVICE: 03/28/2020 CHIEF COMPLAINT: The patient was confused. She had a medical admission for possible seizure-like activity. She was transferred to the psychiatric unit for hallucinations and delusions. INTERVAL HISTORY: The patient has been doing fair. She had a quiet day yesterday. She comes out on the unit. She will interact a little with others. She tends to have a very reserved manner. She did attend 1 group yesterday though did not talk at all during the group. She spends a fair amount of time in her room. She interacts appropriately with staff. She has been cooperative with care. She slept well last night. She said that to me with some surprise, indicating that she had not been sleeping very well previously and that it was nice for her to get a full night's sleep. Today she has been up, mostly she has been in her room. She did not have any complaints or concerns today other than wanting to get into her regular clothes. She said that she was not given any information as to how she can get her clothes even though she had been encouraged to just come to the desk and ask staff for help. She seemed a little surprised at that as well. She tolerates psychotropic medications. MENTAL STATUS: Patient gave fair eye contact. Psychomotor activity was a little slowed. She answered questions with brief responses. She did not say much. Her affect was blunted. She was cooperative in the interview. Her mood was dysphoric though not clearly down or depressed. She did not appear to be significantly distressed. There was no indication for thought disorder. She was oriented to his circumstances and surroundings. ASSESSMENT: I will continue the current diagnosis and treatment plan. Continue psychotropic medications the same. I briefly reviewed her medications in terms of indications, potential side effects, metabolic concerns relating to his Zyprexa and movement disorder issues. We will get a Depakote level in the morning. We will continue to focus on stabilization and discharge planning. MMODL / IJN: [id number] /
--- NOTE | 2020-03-30 10:15 | P.PN ---
Progress Note - Text Progress Note Date: 03/30/20 I reviewed medical records ,did interview patient and case was discussed in treatment team TODAY VITALS:temp:97.9,P:67,R:16,BP:129/55 Slept 8 hours ,minimal participation in group Interval history: Patient was laying in bed and refused to follow me to office stated that she is tired ,denies any hallucination but was disorganized ,bizarre at times ,denies any suicidal or homicidal ideation ,no behavior issue Mental status exam: Patient was wearing hospital gown,hygiene and grooming impro gareth, vague,guarded ,speech is limited in productivity but coherent ,stated mood "Nervous"constricted affect ,reports bizarre delusion ,tangential with loose of association, alert to person and place ,denies any suicidal or homicidal ideation ,very concrete in her thinking insight and judgment are impaired ASSESSMENT:Organic mood disorder ,rule out major neurocognitive disorder ,vascular,with delusion PLAN: Patient continues to meet criteria for inpatient psychiatric admission for symptom stabilization and safety. change Zyprexa to 10 HS ,Depakote level pending ,PRN Ativan ,encourage participation in group,SW on board for post- discharge plan Probate hearing 04/07
[2020-03-30] MEDS: ATORVASTATIN 40 MG TAB PO SCH (10:42)
[2020-03-30] MEDS: DIVALPROEX ER 500 MG TAB.ER.24H PO SCH ×2 (10:42→20:41)
[2020-03-30] MEDS: lisinopriL 10 MG TAB PO SCH (10:42)
[2020-03-30] MEDS: OLANZapine 5 MG TAB PO SCH (10:45)
--- NOTE | 2020-03-30 11:28 | P.EN ---
Lab called as Depakote level is 146.6 ,decrease Depakote to 500 mg BID instead of TID ,will recheck level in 3 days
[2020-03-30] MEDS: OLANZapine 10 MG TAB PO SCH (20:41)
[2020-03-31] MEDS: LORazepam 1 MG TAB PO PRN (02:20)
[2020-03-31] MEDS ORDERED: OLANZapine 5 MG TAB PO ONE (07:55)
[2020-03-31] MEDS: ATORVASTATIN 40 MG TAB PO SCH (08:03)
[2020-03-31] MEDS: DIVALPROEX ER 500 MG TAB.ER.24H PO SCH ×2 (08:04→20:20)
[2020-03-31] MEDS: lisinopriL 10 MG TAB PO SCH (08:04)
--- NOTE | 2020-03-31 08:27 | P.PN ---
Progress Note - Text Progress Note Date: 03/31/20 I reviewed medical records ,did interview patient and case was discussed in treatment team TODAY VITALS:temp:97.9,P:81,R:16,BP:121/64 Did not sleep last night , more confused ,touching the leroy and trying to get to other patients room,seems acute change in her mental status LAB: Depakote 146.6 ,I decrease Depakote to 500 mg BID PER AT STAFF NOTE ON 03/30 ((Pt. was standing at AT room door. On being prompted by the account underwriter to join group, pt stated "my airplane is waiting right now". Pt. left and returned x3. Supervisor Policy Change Clerks gave multiple verbal prompts to participate in group, at which pt. asked the account underwriter "You are back again?", "Are you going to [place] or [place]?" During the group activity, Pt. took activity objects (fake coins) from peers.) Interval history:Patient was walking in [place] ,trying to open locked doors ,then she trying to pick something from floor saying "There is lot of bugs",then she asked me if I took her camera ,very confused , blocking and halting ,denies any suicidal or homicidal ideation Mental status exam: Patient was wearing street cloth,hygiene and grooming m arginal vague,guarded ,speech is limited in productivity, constricted affect ,reports bizarre delusion ,endorses visual hallucination ,denies any suicidal or homicidal ideation ,very concrete in her thinking insight and judgment are impaired ASSESSMENT: rule out delirium reaction ,Organic mood disorder ,rule out major neurocognitive disorder ,vascular,with delusion PLAN: Patient continues to meet criteria for inpatient psychiatric admission for symptom stabilization and safety. Stat Ammonia level and hepatic function ,PRN Zyprexa ,reconsult medical doctor ,PRN Ativan ,encourage participation in group,SW on board for post-discharge plan Probate hearing 04/07
[2020-03-31 09:14] LABS: Appearance,Urine Clear (Clear); Bilirubin,Urine Negative (Negative); Blood,Urine Trace (Negative); Color,Urine Yellow; Glucose,Urine (UA) Negative (Negative); Ketones,Urine 1+ (Negative); Leukocyte Esterase,Urine Large (Negative); Mucus,Urine Moderate /hpf; Nitrite,Urine Negative (Negative); PH, Urine 5.5 (5.0-8.0); Protein,Urine Trace (Negative); RBC,Urine 5 /hpf (0-5); Specific Gravity,Urine 1.026 (1.001-1.035); Squamous Epithelial Cell,Urine 2 /hpf (0-4); WBC,Urine 25 /hpf (0-5)
[2020-03-31 09:23] LABS: Basophils % (A) 1 %; Eosinophils # (A) 1.4 k/uL (0-0.7); Eosinophils % (A) 19 %; HCT 33.7 % (34.0-46.0); Lymphocytes # (A) 2.3 k/uL (1.0-4.8); Lymphocytes % (A) 31 %; MCH 32.9 pg (25.0-35.0); MCHC 32.7 g/dL (31.0-37.0); MCV 100.7 fL (80.0-100.0); Mean Platelet Volume 7.9; Monocytes # (A) 0.9 k/uL (0-1.0); Monocytes % (A) 12 %; Neutrophils # (A) 2.7 k/uL (1.3-7.7); Neutrophils % (A) 36 %; Platelet Count 162 k/uL (150-450); RBC 3.35 m/uL (3.80-5.40); RDW 13.4 % (11.5-15.5); WBC 7.3 k/uL (3.8-10.6)
[2020-03-31 09:36] LABS: Albumin 4.1 g/dL (3.5-5.0); Bilirubin, Delta 0.1 mg/dL (0.0-0.2); Bilirubin,Unconjugated 0.2 mg/dL (0.0-1.1); Total Bilirubin 0.3 mg/dL (0.2-1.3); Total Protein 6.6 g/dL (6.3-8.2)
[2020-03-31] MEDS: SULFAMETHOX-TMP 800-160MG 1 EACH TAB PO SCH ×3 (11:24→20:19)
[2020-03-31 15:17] VITALS: BMI 20.3
[2020-03-31] MEDS: OLANZapine 10 MG TAB PO SCH (20:20)
[2020-04-01 08:45] LABS: Basophils % (A) 0 %; Eosinophils # (A) 1.4 k/uL (0-0.7); Eosinophils % (A) 16 %; HCT 39.2 % (34.0-46.0); HGB 12.1 gm/dL (11.4-16.0); Lymphocytes # (A) 2.7 k/uL (1.0-4.8); Lymphocytes % (A) 31 %; MCH 31.7 pg (25.0-35.0); MCV 102.3 fL (80.0-100.0); Macrocytosis Slight; Mean Platelet Volume 8.2; Monocytes # (A) 0.8 k/uL (0-1.0); Monocytes % (A) 9 %; Neutrophils # (A) 3.7 k/uL (1.3-7.7); Neutrophils % (A) 42 %; Platelet Count 144 k/uL (150-450); RBC 3.83 m/uL (3.80-5.40); RDW 13.5 % (11.5-15.5); WBC 8.7 k/uL (3.8-10.6)
[2020-04-01 08:55] LABS: ALT 6 U/L (4-34); AST 20 U/L (14-36); African American GFR (CKD) >90 (>60 ml/min/1.73 sqM); Albumin 3.5 g/dL (3.5-5.0); Alkaline Phosphatase 61 U/L (38-126); Anion Gap 7 mmol/L; Blood Urea Nitrogen 13 mg/dL (7-17); Calcium 9.3 mg/dL (8.4-10.2); Carbon Dioxide 31 mmol/L (22-30); Chloride 103 mmol/L (98-107); Glucose 88 mg/dL (74-99); Magnesium 2.2 mg/dL (1.6-2.3); Non-African American GFR(CKD) >90 (>60 ml/min/1.73 sqM); Potassium 4.1 mmol/L (3.5-5.1); Sodium 141 mmol/L (137-145); Total Bilirubin 0.3 mg/dL (0.2-1.3); Total Protein 5.9 g/dL (6.3-8.2)
[2020-04-01] MEDS: SULFAMETHOX-TMP 800-160MG 1 EACH TAB PO SCH ×2 (08:58→21:10)
[2020-04-01] MEDS: ATORVASTATIN 40 MG TAB PO SCH (08:58)
[2020-04-01] MEDS: DIVALPROEX ER 500 MG TAB.ER.24H PO SCH (08:58)
[2020-04-01] MEDS: lisinopriL 10 MG TAB PO SCH (08:58)
--- NOTE | 2020-04-01 09:35 | P.PN ---
Progress Note - Text Progress Note Date: 04/01/20 I reviewed medical records ,did interview patient and case was discussed in treatment team TODAY VITALS:temp:97.9,P:81,R:16,BP:121/64 SLEPT :6 hours LABS:Ammonia:low less than 9,most lab work up negative except: RBC: lower 3.34 ,Hgb :11.0,Urine analysis :Positive for bacteria We did consult medical doctor :according to RN note: ((03/31/20 10:03 AM She is having hallucinations. Patient was steady with gait reported that patient was confused and lost walking in rooms, sitting on the floor seeing bugs. No unilateral weakness reported. Patient was given a geodon this morning for the hallucinations before I was able to complete a neuro assessment. She is currently sleeping, did not sleep at all last night. Read 10:04 AM 03/31/20 10:05 AM currently sedated due to IM of Geodon Read 10:05 AM 03/31/20 10:05 AM Ok continue Nuro checks per your protocol, repeat her CBC and a bmp again tomorr ow +magnesium. If she has any changes Please let me know 03/31/20 10:06 AM thank you Read 10:06 AM 03/31/20 10:06 AM Hopefully its just a UTI and a lack of sleep thats causing her actions)) Started on Sulfa Interval history:Patient was walking in [place] ,less confused , ,denies any suicidal or homicidal ideation ,denies any current visual hallucination ,still endorsing some bizarre delusion, has been compliant with medications ,denies any side-effect from medications Mental status exam: Patient was wearing street cloth,hygiene and grooming marginal vague,guarded ,speech is limited in productivity, constricted affect ,reports bizarre delusion ,denies any visual or auditory hallucination ,denies any suicidal or homicidal ideation ,very concrete in her thinking insight and judgment are impaired ASSESSMENT: ,Organic mood disorder ,rule out major neurocognitive disorder ,vascular,with delusion ,Delirium reaction resolving UTI PLAN: Patient continues to meet criteria for inpatient psychiatric admission for symptom stabilization and safety. continue Zyprexa 10 mg HS ,PRN Ativan and Geodon ,encourage participation in group,SW on board for post-discharge plan Tabitha castañeda hearing 04/07
[2020-04-01] MEDS: DIVALPROEX SPRINKLE 125 MG CAP.SPRINK PO SCH (21:11)
[2020-04-01] MEDS: OLANZapine 10 MG TAB PO SCH (21:11)
--- NOTE | 2020-04-02 09:05 | P.PN ---
Progress Note - Text Progress Note Date: 04/02/20 I reviewed medical records ,did interview patient and case was discussed in treatment team SLEPT 7 hours ,no participation in groups,she is on NEURO assessment each shift ordered by medical doctor SW NOTE REGARDING D/C PLAN:T/C to [facility] liaison Rosalba to inquire r/t ECF options and criteria as it relates to this patient. Liaison states since pt is able to ambulate and feed herself and is not on any IV medications, she would likely not meet criteria for [facility]hab at the [facility]. However, if the family is interested in long term care ph[facility]botomist placement in the [facility] it would be private pay. The cost upfront is $12,400 and $7000 monthly after that. The alternative would be to return home with home health care services, [facility] nursing, along with other options for services. This worker informed the family atty of the above information. This worker offered to pursue either option, depending on what the family is wanting for pt. Atty will discuss with and sixto and will f/u with this worker. )) Interval history: Patient was walking in [place] and agreed to follow me to office ,she stated that she slept "LIKE A ROCK",less confused than couple of days ago,denies any visual or auditory hallucination ,denies any appetite problem,patient is able to tell me that she is in hospital but could not tell name of hospital ,not able to tell me today date,no aggressive behavior ,has been compliant with medications Mental status exam: Patient was wearing hospital gown, poor grooming and hygiene, vague,,speech is limited in productivity but coherent ,stated mood "Nervous"constricted affect ,,denies any suicidal or homicidal ideation ,very concrete in her thinking insight and judgment are limited ASSESSMENT:Organic mood disorder ,rule out major neurocognitive disorder ,vascular,with delusion PLAN: Patient continues to meet criteria for inpatient psychiatric admission for symptom stabilization and safety. Continue Zyprexa 10 mg HS ,add Aricept, ,planning to discharge her home with home care after probate hearing 04/07
[2020-04-02] MEDS: ATORVASTATIN 40 MG TAB PO SCH (09:09)
[2020-04-02] MEDS: SULFAMETHOX-TMP 800-160MG 1 EACH TAB PO SCH ×2 (09:09→20:49)
[2020-04-02] MEDS: DIVALPROEX SPRINKLE 125 MG CAP.SPRINK PO SCH ×2 (09:09→20:50)
[2020-04-02] MEDS: lisinopriL 10 MG TAB PO SCH (09:09)
[2020-04-02] MEDS: DONEPEZIL 5 MG TAB PO SCH (20:49)
[2020-04-02] MEDS: OLANZapine 10 MG TAB PO SCH (20:50)
[2020-04-03] MEDS: lisinopriL 10 MG TAB PO SCH (10:03)
[2020-04-03] MEDS: ATORVASTATIN 40 MG TAB PO SCH (10:03)
[2020-04-03] MEDS: DIVALPROEX SPRINKLE 125 MG CAP.SPRINK PO SCH ×2 (10:03→20:09)
--- NOTE | 2020-04-03 16:47 | P.PN ---
Progress Note - Text Progress Note Date: 04/03/20 Subjective: Patient was seen today as a cross coverage for Dr. Moscoso. The patient was evaluated, chart reviewed, case discussed with the treatment team. Patient reports good sleep last night, and appetite was reported as "fair ". Patient has not been going to many groups and other unit activities. The patient is compliant with her medications and denies any adverse reactions. Patient reports feeling some depression, but denies feeling hopeless or suicidal. She denies any hallucinations, paranoid ideation, delusions, or homicidal ideation. No manic symptoms reported or noticed. Patient continues to show some confusion and cognitive impairment was delayed response and he couldn't tell where is her room. Patient Depakote level was 146 2 days ago but repeated level today was 118. Objective: Vitals has been reviewed. Mental status examination; Appearance: The patient appears stated age, adequately groomed and dressed, no specific features. Gait/posture: Normal gait, Normal arm swinging: No abnormal movements. Attitude and behavior: engaged, cooperative, fair eye contact. Motor activity: Normal psychomotor activity Speech: Normal rate, tone. Mood: Anxious, depressed Affect: Constricted Thought form: Poverty of thoughts Thought content: Non-delusional, denies suicidal thoughts, denies homicidal thoughts, denies intentions or plans. Perception: Denies any auditory or visual hallucinations Attention: Some impairment Orientation: Patient patient was fully oriented to time place person and situation. Insight: Patient has fair insight about limited psychiatric disorder. Judgment: Patient has fair judgment about limited psychiatric treatment. Assessment: Major neurocognitive disorder, vascular was delusions that it Mood disorder due to medical condition. Plan: Continue inpatient level of care due to need for further stabilization Precautions: Continue 15 minutes check for safety. Consider medical consultation if any acute medical issues arise. Provide the patient individual, group therapy, substance use disorder counseling to give better insight and learn coping skills. Medications: Zyprexa 10 mg at bedtime for mood stabilization and psychotic symptoms. Aricept 5 mg daily for cognitive impairment. Depakote 500 mg twice daily. Continue as needed medications for psychiatric emergencies including psychosis, agitation and anxiety. Continue non-psychiatric medications for medical conditions as recommended by the medical team. Labs: Depakote level today 118. Patient denies any symptoms of adverse reaction to Depakote Discharge patient to OUTPATIENT services upon a stabilization
[2020-04-03] MEDS: OLANZapine 10 MG TAB PO SCH (20:09)
[2020-04-03] MEDS: DONEPEZIL 5 MG TAB PO SCH (20:09)
[2020-04-04 07:01] VITALS: RESP 16
[2020-04-04] MEDS: ATORVASTATIN 40 MG TAB PO SCH (08:56)
[2020-04-04] MEDS: DIVALPROEX SPRINKLE 125 MG CAP.SPRINK PO SCH ×2 (08:56→20:05)
[2020-04-04] MEDS: lisinopriL 10 MG TAB PO SCH (08:56)
--- NOTE | 2020-04-04 13:51 | P.PN ---
Progress Note - Text Progress Note Date: 04/04/20 Subjective: Patient was seen today as a cross coverage for Dr. Moscoso. The patient was evaluated, chart reviewed, case discussed with the treatment team. Patient presents the same, but she was frustrated today because she lost her shoulders as per her report. She reports good sleep, and fair appetite. She continues to attend some groups and taking her psychiatric medications without side effects reported. Reports feeling depressed today because she lost her shoes, but denies feeling hopeless or suicidal. No report of manic or psychotic symptoms. Objective: Vitals has been reviewed. Mental status examination; Appearance: The patient appears stated age, adequately groomed and dressed, no specific features. Gait/posture: Normal gait, Normal arm swinging: No abnormal movements. Attitude and behavior: engaged, cooperative, fair eye contact. Motor activity: Normal psychomotor activity Speech: Normal rate, tone. Mood: Anxious, depressed Affect: Constricted Thought form: Poverty of thoughts Thought content: Non-delusional, denies suicidal thoughts, denies homicidal thoughts, denies intentions or plans. Perception: Denies any auditory or visual hallucinations Attention: Some impairment Orientation: Patient was fully oriented to time place person and situation. Insight: Patient has fair insight about limited psychiatric disorder. Judgment: Patient has fair judgment about limited psychiatric treatment. 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 Plan: Continue inpatient level of care due to need for further stabilization Precautions: Continue 15 minutes check for safety. Consider medical consultation if any acute medical issues arise. Provide the patient individual, group therapy, substance use disorder counseling to give better insight and learn coping skills. Medications: Zyprexa 10 mg at bedtime for mood stabilization and psychotic symptoms. Aricept 5 mg daily for cognitive impairment. Depakote 500 mg twice daily. Continue as needed medications for psychiatric emergencies including psychosis, agitation and anxiety. Continue non-psychiatric medications for medical conditions as recommended by the medical team. Labs: Depakote level yesterday 118. Patient denies any symptoms of adverse reaction to Depakote Discharge patient to OUTPATIENT services upon a stabilization
[2020-04-04] MEDS: OLANZapine 10 MG TAB PO SCH (20:05)
[2020-04-04] MEDS: DONEPEZIL 5 MG TAB PO SCH (20:05)
--- NOTE | 2020-04-05 09:03 | P.PN ---
Progress Note - Text Progress Note Date: 04/05/20 I reviewed medical records ,did interview patient and case was discussed in treatment team SLEPT 7 hours ,did attend one group yesterday,she is on NEURO assessment each shift ordered by medical doctor ACCORDING TO AT NOTE:((Pt required increased verbal prompting to engage in group activty. Nursing students were in the next room and pt asked underwriter solicitation director if pt could attend the police meeting. Tire Manager explained that there were nursing students meeting next door, not police. Pt continued to ask other staff member about the meeting. Pt was looking around the room and under tables. Tire Manager asked what pt was looking for and pt replies, "my snow shoes.")) LABS: Depakote level 118 Interval history: Patient was walking in liang and agreed to follow me to office ,she stated that her came last night and this morning,then she started talking about sibling "They are running big business ",stated that her son is living with them because"I do not want my son to be homeless',no appetite or sleep problem ,no PRN ,no aggressive behavior ,has been compliant with medications Mental status exam: Patient was wearing her own cloth fair grooming and hygiene, disorganized ,delusional ,speech is coherent but illogical ,,denies any suicidal or homicidal ideation ,very concrete in her thinking insight and judgment are limited ASSESSMENT: Major neurocognitive disorder ,vascular,with delusion PLAN: Patient continues to meet criteria for inpatient psychiatric admission for symptom stabilization and safety. Increase Zyprexa 15 mg HS ,continue Aricept, ,planning to discharge her home with home care after probate hearing 04/07
[2020-04-05] MEDS: lisinopriL 10 MG TAB PO SCH (10:27)
[2020-04-05] MEDS: ATORVASTATIN 40 MG TAB PO SCH (10:27)
[2020-04-05] MEDS: DIVALPROEX SPRINKLE 125 MG CAP.SPRINK PO SCH ×2 (10:29→20:37)
[2020-04-05] MEDS: DONEPEZIL 5 MG TAB PO SCH (20:37)
[2020-04-05] MEDS: OLANZapine 5 MG TAB PO SCH (20:37)
--- NOTE | 2020-04-06 09:43 | P.PN ---
Progress Note - Text Progress Note Date: 04/06/20 I reviewed medical records ,did interview patient and case was discussed in treatment team SLEPT 7 hours ,she is on NEURO assessment each shift ordered by medical doctor EDWAR NOTE : ((t/c to [facility] - coordinated aftercare appt with Psychologist Dr Skyler Moore. Informed of anticipated [address] order as of tomorrow. Will discuss the above referral with her and tx team. Anticipate dc tomorrow after full hearing.)) Unable to link pt with [facility] psych nursing d/t pt's insurance is not accepted. T/C to intake at [facility]. Pt was denied by [facility] - intake d/t "no skillable need". Will continue attempt referral for outpatient tx. )) Interval history: Patient was walking in liang and agreed to follow me to office ,she stated that she is doing better ,denies any hallucination, less confused ,no appetite or sleep problem ,no PRN ,no aggressive behavior ,has been compliant with medications Mental status exam: Patient was wearing her own cloth fair grooming and hygiene, disorganized ,speech is coherent but illogical ,,denies any suicidal or homicidal ideation ,very concrete in her thinking insight and judgment are limited ASSESSMENT: Major neurocognitive disorder ,vascular,with delusion PLAN: Patient continues to meet criteria for inpatient psychiatric admission for symptom stabilization and safety. continue Zyprexa 15 mg HS ,increase Aricept 10 mg ,planning to discharge her home with home care after probate hearing 04/07
[2020-04-06] MEDS: ATORVASTATIN 40 MG TAB PO SCH (10:31)
[2020-04-06] MEDS: lisinopriL 10 MG TAB PO SCH (10:31)
[2020-04-06] MEDS: DIVALPROEX SPRINKLE 125 MG CAP.SPRINK PO SCH ×2 (10:32→20:48)
[2020-04-06 14:02] VITALS: TEMP 98.6
[2020-04-06] MEDS: OLANZapine 5 MG TAB PO SCH (20:48)
[2020-04-06] MEDS ORDERED: DONEPEZIL 10 MG TAB PO SCH (21:00)
[2020-04-07] MEDS: LORazepam 1 MG TAB PO PRN (01:25)
[2020-04-07] MEDS: lisinopriL 10 MG TAB PO SCH (09:31)
[2020-04-07] MEDS: ATORVASTATIN 40 MG TAB PO SCH (09:31)
[2020-04-07] MEDS: DIVALPROEX SPRINKLE 125 MG CAP.SPRINK PO SCH (09:31)
[2020-04-07 09:36] VITALS: BP 121/70; PULSE 86
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
== END 2020-04-07 16:05 | disposition home or self-care (01) | DRG 884 ==
LOC: 3MHU 18:55
PROVIDERS: ADMIT Psychiatry & Neurology Psychiatry; ATTEND Psychiatry & Neurology Psychiatry
DX: F01.51 Vascular dementia, unspecified severity, with behavioral disturbance (principal); G25.9 Extrapyramidal and movement disorder, unspecified; N39.0 Urinary tract infection, site not specified; F10.10 Alcohol abuse, uncomplicated; I10 Essential (primary) hypertension; F17.210 Nicotine dependence, cigarettes, uncomplicated; Z71.6 Tobacco abuse counseling; Z79.52 Long term (current) use of systemic steroids; Z79.899 Other long term (current) drug therapy; Z86.73 Personal history of transient ischemic attack (TIA), and cerebral infarction without residual deficits; Z90.49 Acquired absence of other specified parts of digestive tract; Z87.19 Personal history of other diseases of the digestive system; Z87.2 Personal history of diseases of the skin and subcutaneous tissue; Z90.710 Acquired absence of both cervix and uterus; Z87.442 Personal history of urinary calculi; Z87.42 Personal history of other diseases of the female genital tract; Z98.890 Other specified postprocedural states; Z88.5 Allergy status to narcotic agent; Z88.0 Allergy status to penicillin; Z81.8 Family history of other mental and behavioral disorders; Z81.1 Family history of alcohol abuse and dependence
CPT/HCPCS: 80053; 80061; 80076; 80164; 80165; 81001; 82140; 83036; 83735; 84443; 85025; 87086

== ENCOUNTER → 2020-05-11 | Outpatient (CLI) | payer MEDICARE ==
[2020-05-11 17:32] LABS: HCT 39.9 % (34.0-46.0); HGB 12.3 gm/dL (11.4-16.0); Hypochromasia Slight; MCH 32.3 pg (25.0-35.0); MCHC 30.7 g/dL (31.0-37.0); MCV 105.3 fL (80.0-100.0); Macrocytosis Moderate; Mean Platelet Volume 7.7; RBC 3.79 m/uL (3.80-5.40); RDW 15.1 % (11.5-15.5); Reticulocyte % 1.6 % (0.5-2.0)
[2020-05-11 17:33] LABS: Platelet Count 297 k/uL (150-450)
[2020-05-12 04:56] LABS: T4, Free (Free Thyroxine) 1.1 ng/dL (0.80-1.80)
[2020-05-12 04:57] LABS: Ferritin 187.3 ng/mL (10.0-291.0)
[2020-05-12 05:18] LABS: % Iron Saturation 17.45 (12.00-45.00); African American GFR (CKD) 111.5 (60.0-200.0); Albumin 4.6 g/dL (3.80-4.90); Albumin/Globulin Ratio 2.3 (1.60-3.17); Anion Gap 10.2 mmol/L (4.00-12.00); BUN/Creat Ratio 25.71 Ratio (12.00-20.00); Calcium 9.4 mg/dL (8.7-10.3); Carbon Dioxide 25.8 mmol/L (21.6-31.8); Folate, Serum 14.1 ng/mL; Non-African American GFR(CKD) 96.2 (60.0-200.0); Potassium 4.4 mmol/L (3.5-5.5); Total Bilirubin 0.6 mg/dL (0.3-1.2); Total Protein 6.6 g/dL (6.2-8.2)
[2020-05-13 11:07] LABS: Vit B1(Thiamine) >160 ug/L (38-122)
[2020-05-18 20:02] LABS: Nicotinamide 29 ng/mL; Nicotinic Acid None Detected; Nicotinuric Acid None Detected
== END | disposition home or self-care (01) ==
LOC: LABWHC1 14:50
PROVIDERS: ATTEND Psychiatry & Neurology Pain Medicine
DX: Z51.81 Encounter for therapeutic drug level monitoring (principal); D64.9 Anemia, unspecified
CPT/HCPCS: 36415; 80053; 82607; 82668; 82728; 82746; 83540; 83550; 84207; 84425; 84439; 84443; 84481; 84591; 85027; 85045

== ENCOUNTER → 2020-10-26 | Outpatient (CLI) | payer MEDICARE ==
[2020-10-26 10:22] LABS: C Reactive Protein 7.4 mg/L (<10.0); Calcium 9.4 mg/dL (8.4-10.2)
--- NOTE | 2020-10-26 12:11 | CT ---
EXAMINATION TYPE: CT brain wo con DATE OF EXAM: 10/26/2020 COMPARISON: CT brain 03/18/2020 HISTORY: Cerebral aneurysm, nonruptured CT DLP: 1079 mGycm Automated exposure control for dose reduction was used. Helical imaging through the brain. FINDINGS: Calcification again noted along the right frontal lobe, craniotomy change in the right frontal bone a s on prior. Periventricular white matter shows patchy low attenuation similar to prior, there is some focal encephalomalacia as on prior within the right frontal deep white matter, inferior left frontal lobe. Artifact is present due to patient's aneurysm coils similar to prior exam. No evident hemorrha ge or significant change in the prominence of the lateral ventricles. Possible choroidal fissure cyst is stable on the left. IMPRESSION: FINDINGS ARE STABLE. 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 POSTPROCEDURAL, POSTOP NEWELL ES ON PREVIOUS EXAM.
--- NOTE | 2020-10-26 12:23 | CT ---
CT angiogram of the head HISTORY: I 67.1 Helical acquisition obtained through the brain during dynamic administration 100 cc Isovue-370 IV. Th ree-dimensional reconstructions performed on an alternate workstation. Correlation to prior CT angiogram of the head dated 01/31/2020, CT same date and also 03/18/2020 Artifact is present due to patient's aneurysm clippings as noted on previous CT examinations. No evid ent recurrent or new aneurysm. Internal carotid arteries are patent, vertebrobasilar system shows a s imilar appearance to prior. There is no evident dissection, stenosis, or embolus. IMPRESSION: Postprocedural changes.
[2020-10-26 17:13] LABS: Luteinizing Hormone 31.5 mIU/mL
[2020-10-26 18:13] LABS: Follicle Stimulating Hormone 108.5 mIU/mL
[2020-10-26 20:47] LABS: Hemoglobin A1C 5.3 % (4.0-6.0)
== END | disposition home or self-care (01) ==
LOC: RADCTMAIN 07:14
PROVIDERS: ATTEND Psychiatry & Neurology Pain Medicine
DX: I67.1 Cerebral aneurysm, nonruptured (principal)
CPT/HCPCS: 84305; 82626; 82533; 83001; 83002; 82310; 82550; 83003; 86140; 83036; 70496; 70450; 36415; Q9967

== ENCOUNTER → 2020-10-26 | Outpatient (CLI) | payer MEDICARE ==
--- NOTE | 2020-10-26 08:56 | XR ---
EXAMINATION TYPE: XR humerus RT DATE OF EXAM: 10/26/2020 COMPARISON: NONE HISTORY: Pain TECHNIQUE: 2 views submitted. FINDINGS: The osseous structures are intact and the joint spaces are preserved. IMPRESSION: 1. No acute fracture or dislocation.
--- NOTE | 2020-10-26 08:58 | XR ---
EXAMINATION TYPE: XR shoulder complete RT DATE OF EXAM: 10/26/2020 COMPARISON: NONE HISTORY: Pain TECHNIQUE: Three views are submitted. FINDINGS: There is a nodular appearing mass in the right upper lobe medially measuring 2 cm. Narrowing of the AC joint. No acute fracture or dislocation. IMPRESSION: 1. Findings suspicious for an apical lung mass recommend CT chest. 2. AC joint arthropathy.
== END | disposition home or self-care (01) ==
LOC: RADXRMAIN 07:24
PROVIDERS: ATTEND Family Medicine
DX: M19.011 Primary osteoarthritis, right shoulder (principal); M67.911 Unspecified disorder of synovium and tendon, right shoulder; W19.XXXA Unspecified fall, initial encounter

== ENCOUNTER → 2020-11-04 | Outpatient (CLI) | payer MEDICARE ==
--- NOTE | 2020-11-04 08:54 | CT ---
"EXAMINATION TYPE: CT chest w con DATE OF EXAM: 11/04/2020 COMPARISON: None HISTORY: Lung mass CT DLP: 143.7 mGycm Automated exposure control for dose reduction was used. CONTRAST: CT scan of the chest is performed with IV Contrast, patient injected with 100 mL of Isovue 300. FINDINGS: LUNGS: There is a right apical mass measuring 3.1 x 3.0 cm. Mild pleural extension is noted. There is also superior focal calcification. There is also a pleural-based mass right lower lobe measuring 2.2 x 1.9 cm. The findings are felt to reflect malignancy until proven otherwise. MEDIASTINUM: There are no greater than 1 cm hilar or mediastinal lymph nodes. No pericardial effusi on is seen. Thoracic aorta is of normal caliber. The heart is not enlarged. UPPER ABDOMEN: There is a solid exophytic mass arising from the upper pole of the right kidney measur ing 4.0 x 4.7 cm. The entirety of the kidneys is not imaged. Cholecystectomy clips are identified. OTHER: No additional significant abnormality is seen. IMPRESSION: 1. Spiculated right apical mass with additional pleural-based lesion right lower lobe. The findings m ay reflect primary malignancy versus metastatic disease as there is a solid mass arising from the rig ht kidney felt to reflect renal cell carcinoma until proven otherwise. A [place] level critical message alert has been initiated for Germán Ellis MD via the [employer] 60 | Critical Results System on 11/04/2020 8:51 AM. This message alert has been sent to Germán garcia MD via the preferences provided by the clinician for the receipt of Radiology Critical Findings. M essage ID [id number]."
== END | disposition home or self-care (01) ==
LOC: RADCTMAIN 08:00
PROVIDERS: ATTEND Family Medicine
DX: R91.8 Other nonspecific abnormal finding of lung field (principal)
CPT/HCPCS: 71260; Q9967

== ENCOUNTER 2020-11-18 09:01 | Observation (INO) | payer MEDICARE ==
[2020-11-18 09:45] LABS: Mean Platelet Volume 7.3; Platelet Count 301 k/uL (150-450)
[2020-11-18 09:51] LABS: Prothrombin Time 10.5 sec (9.0-12.0)
[2020-11-18] MEDS ORDERED: ALPRAZolam 0.25 MG TAB PO PRN (13:29)
[2020-11-18] MEDS ORDERED: GABAPENTIN 400 MG CAP PO PRN (13:29)
[2020-11-18] MEDS ORDERED: SODIUM CHLORIDE 0.9% 1,000 ML IV SCH (13:30)
[2020-11-18 14:27] VITALS: RESP 16
--- NOTE | 2020-11-18 15:09 | P.PN ---
Progress Note - Text Progress Note Date: 11/18/20 Pt was in hospital for lung biopsy, unfortunately developed pneumothorax. Chest tube placed. Current VSS. Medical and CTS mgmt. Formal consult in AM
--- NOTE | 2020-11-18 15:12 | P.OP ---
Date of Procedure: 11/18/20 Preoperative Diagnosis: Right Lung nodules Postoperative Diagnosis: same Procedure(s) Performed: CT-guided right lower lobe lung nodule biopsy and 8FR coiled catheter placement Implants: 8FR coiled chest tube Anesthesia: local Surgeon: Cheryl Toth Estimated Blood Loss (ml): 10 Pathology: other (18G core for histopathology) Condition: stable Disposition: observation Operative Findings: Right upper lobe and right lower lobe lung nodules. Right lower lobe lung nodule targeted for 18G core biopsy. Right pneumothorax was seen and 8FR coiled chest tube was placed in the posterior right chest.
--- NOTE | 2020-11-18 15:31 | CT ---
EXAMINATION TYPE: CT biopsy lung RT, CT chest tube insertion DATE OF EXAM: 11/18/2020 HISTORY: Right upper lobe lung mass and right lower lobe nodule. Right renal mass. COMPARISON: CT chest 11/04/2020 Informed consent was obtained by Dr. Cheryl Toth prior to procedure. Patient was originally placed right lateral decubitus, however due to significant arm pain patient wa s repositioned prone. Preliminary CT imaging demonstrated a 3.0 cm right upper lobe apical lung mass and a 1.9 cm pulmonary nodule of the posterior right lower lobe. There is mild to moderate emphysema, worse at the lung api guy. The skin overlying a suitable path to the right lower lobe lesion was localized using CT and the overlying skin was prepped and draped utilizing maximal barrier technique. 1% Lidocaine used for loc al anesthesia. A small skin violetta was made with a scalpel. Using CT guidance, access was gained to the lesion with a 17-gauge coaxial core biopsy needle. A right-sided pneumothorax was demonstrated. The coaxial core biopsy needle was removed. A 9 Greek 1 step chest tube was placed into the right rock singer ior pneumothorax, and attached to Pleur-evac and wall suction. There was resolution of pneumothorax. Using CT guidance, access was gained to the lesion with an 17-gauge coaxial core biopsy needle. The s tylet was removed, and an 18-gauge core biopsy needle was inserted. Imaging demonstrated good placeme nt of the biopsy tray within the lesion, and biopsy was obtained. Core specimen(s) submitted in forma elizabeth for histopathology. 1 pass(es) performed in all. All needles were removed and sterile bandage wa s applied. Subsequent CT imaging demonstrated recurrence of right pneumothorax, small pneumothorax, and hemorrha ge around the biopsy site. There was a small amount of clotted blood within the external tubing, whic h was flushed. Repeat imaging 10 minutes and 20 minutes later demonstrated persistent pneumothorax, l ikely with clotted off blood within the chest tube. A 0.35 wire was placed through the chest tube, de monstrating good placement within the pleural cavity. The one-step chest tube was removed over the wi re, and an 8 Greek coiled catheter was advanced over the wire. The wire was removed and the loop of the catheter was formed. Manual suction of air was performed. Post procedure CT image demonstrates trace residual right pneumothorax, small right hemothorax, and m ild parenchymal hemorrhage around the biopsy site. Patient tolerated procedure well. Patient will be admitted overnight for observation. Repeat chest x- ray pending this afternoon and tomorrow morning. If there is no pneumothorax on chest x-ray in the mo rning, will perform clamping trial of right chest tube. IMPRESSION: Successful CT-guided right lower lobe lung nodule 18-gauge core biopsy, with pneumothorax and placeme nt of 8 Greek coiled chest tube. Pathology pending.
--- NOTE | 2020-11-18 15:55 | XR ---
EXAMINATION TYPE: XR chest 1V portable DATE OF EXAM: 11/18/2020 COMPARISON: 03/19/2020 HISTORY: Right-sided pneumothorax. Right lung biopsy. TECHNIQUE: Single view FINDINGS: There is right-sided chest tube. There is some minimal infiltrate at the right lung base. T here is poorly marginated 2.5 cm infiltrate in the right lung apex. Left lung is fairly clear. Trache a is midline. Heart size is normal. IMPRESSION: Small infiltrates in the right upper lobe and right lung base. No obvious pneumothorax.
--- NOTE | 2020-11-18 16:25 | P.GSCN ---
<Sole Pollack - Last Filed: 11/18/20 16:05> History of Present Illness Consult date: 11/18/20 Reason for Consult: Right-sided pneumothorax status post lung biopsy Requesting physician: Ranjeet Reeves History of present illness: This is a 40-year-old female patient of Dr. Ellis. 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 The patient presented to [facility] today electively for lung biopsy due to findings on CT of the chest from 11/04/2020, spiculated right apical mass measuring 3.1 x 3.0 cm as well as pleural-based right lower lobe mass measuring 2.2 x 1.9 cm. These findings were felt to be consistent with malignancy and biopsy was requ ested. During the biopsy the patient developed pneumothorax, right-sided pigtail catheter was placed with reexpansion of the lung. The patient was admitted for observation with serial chest x-rays. Consultation was placed to Dr. Williamson for management of pneumothorax. Review of Systems Review of system was completed and was negative except as noted. The patient reports no symptoms currently 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, status post aneurysm clipping History of Any Multi-Drug Resistant Organisms: None Reported Past Surgical History: Breast Surgery, Cholecystectomy, Hysterectomy Additional Past Surgical History / Comment(s): kidney, brain surgery due to an aneurysm back in january, renal cyst removal (per patient it was not cancer) Past Anesthesia/Blood Transfusion Reactions: No Reported Reaction Past Psychological History: Anxiety, Depression Smoking Status: Former smoker Past Alcohol Use History: Occasional Additional Past Alcohol Use History / Comment(s): Reports 4-5 beers approximately twice weekly Past Drug Use History: None Reported Additional History: Reports smoking cessation last January, previous to that smoked one to one half packs a day since she was 20 - Past Family History Father Family Medical History: Cancer Mother Family Medical History: Cancer Medications and Allergies Home Medications Medication Instructions Recorded Confirmed Type Atorvastatin [Lipitor] 40 mg PO DAILY 30 Days tab 04/07/20 11/18/20 Rx Divalproex Sprinkle [Depakote 500 mg PO BID 30 Days cap.sprink 04/07/20 11/18/20 Rx Sprinkle] Donepezil [Aricept] 10 mg PO HS 30 Days tab 04/07/20 11/18/20 Rx OLANZapine [ZyPREXA] 15 mg PO HS 30 Days tab 04/07/20 11/18/20 Rx lisinopriL [Zestril] 10 mg PO DAILY 30 Days tab 04/07/20 11/18/20 Rx ALPRAZolam [Xanax] 0.25 mg PO DAILY PRN 11/15/20 11/18/20 History Gabapentin [Neurontin] 400 mg PO DAILY PRN 11/15/20 11/18/20 History Venlafaxine HCl ER [Effexor XR] 75 mg PO DAILY 11/15/20 11/18/20 History Allergies Allergy/AdvReac Type Severity Reaction Status Date / Time amoxicillin Allergy Rash/Hives Verified 11/18/20 09:52 codeine AdvReac Nausea Verified 11/18/20 09:52 Surgical - Exam Vital Signs Temp Pulse Resp BP Pulse Ox 97.6 F 68 16 144/70 98 11/18/20 09:55 11/18/20 09:55 11/18/20 09:55 11/18/20 09:55 11/18/20 09:55 CONSTITUTIONAL: Awake and alert, appears comfortable, cooperative, well- developed, well-nourished, no pain, no acute distress EYES: Pupils equal, round, reactive to light, normal ocular movement ENT: Moist mucous membranes without oral lesions present NECK: No masses, no bruits, trachea midline RESPIRATORY: Lungs sounds clear to auscultation bilaterally. Respirations even, nonlabored. Currently on room air with oxygen saturation 97%. Strong cou gh. Right-sided pigtail catheter present, connected to continuous wall suction, no air leak present, 75 mL bloody drainage in chest tube chamber CARDIOVASCULAR: S1, S2 present. Regular rate and rhythm, sinus rhythm on telemetry. Palpable peripheral pulses bilaterally. No edema present. No calf pain or tenderness noted. GASTROINTESTINAL: Abdomen soft, nontender, nondistended without masses or organomegaly noted. There is no rebound or guarding present. Active bowel sounds present 4 quadrants. GENITOURINARY: Deferred INTEGUMENTARY: Skin is warm and dry with evidence of good perfusion. NEUROLOGIC: Cranial nerves II through XII intact, normal coordination MUSKULOSKELETAL: Able to move all extremities, strength equal bilaterally, normal posture PSYCHIATRIC: Alert and oriented to person place and time, flat affect Results - Labs 11/18/20 08:15 - Imaging Chest x-ray: report reviewed, image reviewed CT scan - chest: report reviewed, image reviewed Assessment and Plan Assessment: 1. Right-sided pneumothorax status post lung biopsy 2. Right apical mass and a right lower lobe mass on computed tomography scan, assumed to be malignant 3. History of cerebral aneurysm status post clipping with residual short-term memory loss 4. Hypertension 5. Removal of kidney cyst 6. Previous tobacco dependence 7. Occasional EtOH use 8. Family history of cancer Plan: The patient was seen and examined at the bedside. Chart/diagnostics were reviewed. The case was discussed with Dr. Williamson. At this time continue right- sided pigtail catheter to continuous wall suction. Chest x-ray in the morning, if no pneumothorax present would recommend discontinuing suction, with subs equent discontinuing of pigtail catheter if lung remains expanded. Incentive spirometry ordered and should be encouraged. Continue to encourage smoking cessation. Will monitor for biopsy results. Medical management of other comorbidities per primary care service. More recommendations to follow. Thank you Dr. Reeves for this consult. We will follow along with you Time with Patient: Greater than 30 <Donnie Williamson R - Last Filed: 11/20/20 10:14> Surgical - Exam Vital Signs Temp Pulse Resp BP Pulse Ox 97.6 F 68 16 144/70 98 11/18/20 09:55 11/18/20 09:55 11/18/20 09:55 11/18/20 09:55 11/18/20 09:55 Results - Labs 11/19/20 10:13 11/19/20 10:13 Abnormal Lab Results - Last 24 Hours (Table) 11/19/20 11/19/20 Range/Units 10:13 10:13 RBC 3.78 L (3.80-5.40) m/uL BUN 22 H (7-17) mg/dL Glucose 113 H (74-99) mg/dL Total Protein 6.2 L (6.3-8.2) g/dL Diabetes panel 11/19/20 Range/Units 10:13 Sodium 139 (137-145) mmol/L Potassium 4.6 (3.5-5.1) mmol/L Chloride 102 (98-107) mmol/L Carbon Dioxide 28 (22-30) mmol/L BUN 22 H (7-17) mg/dL Creatinine 0.67 (0.52-1.04) mg/dL Glucose 113 H (74-99) mg/dL Calcium 9.2 (8.4-10.2) mg/dL AST 16 (14-36) U/L ALT 6 (4-34) U/L Alkaline Phosphatase 86 (38-126) U/L Total Protein 6.2 L (6.3-8.2) g/dL Albumin 3.6 (3.5-5.0) g/dL Calcium panel 11/19/20 Range/Units 10:13 Calcium 9.2 (8.4-10.2) mg/dL Albumin 3.6 (3.5-5.0) g/dL Pituitary panel 11/19/20 Range/Units 10:13 Sodium 139 (137-145) mmol/L Potassium 4.6 (3.5-5.1) mmol/L Chloride 102 (98-107) mmol/L Carbon Dioxide 28 (22-30) mmol/L BUN 22 H (7-17) mg/dL Creatinine 0.67 (0.52-1.04) mg/dL Glucose 113 H (74-99) mg/dL Calcium 9.2 (8.4-10.2) mg/dL Adrenal panel 11/19/20 Range/Units 10:13 Sodium 139 (137-145) mmol/L Potassium 4.6 (3.5-5.1) mmol/L Chloride 102 (98-107) mmol/L Carbon Dioxide 28 (22-30) mmol/L BUN 22 H (7-17) mg/dL Creatinine 0.67 (0.52-1.04) mg/dL Glucose 113 H (74-99) mg/dL Calcium 9.2 (8.4-10.2) mg/dL Total Bilirubin 0.4 (0.2-1.3) mg/dL AST 16 (14-36) U/L ALT 6 (4-34) U/L Alkaline Phosphatase 86 (38-126) U/L Total Protein 6.2 L (6.3-8.2) g/dL Albumin 3.6 (3.5-5.0) g/dL
[2020-11-18] MEDS: PANTOPRAZOLE 40 MG/10 ML VIAL IVP SCH (17:49)
[2020-11-18] MEDS: DIVALPROEX SPRINKLE 125 MG CAP.SPRINK PO SCH (20:32)
[2020-11-18] MEDS ORDERED: lisinopriL 10 MG TAB PO SCH (21:00)
[2020-11-18] MEDS ORDERED: VENLAFAXINE HCL ER 75 MG CAP PO SCH (21:00)
[2020-11-18] MEDS ORDERED: DONEPEZIL 10 MG TAB PO SCH (21:00)
[2020-11-18] MEDS ORDERED: ATORVASTATIN 40 MG TAB PO SCH (21:00)
[2020-11-18] MEDS ORDERED: OLANZapine 7.5 MG TAB PO SCH (21:00)
--- NOTE | 2020-11-19 07:01 | XR ---
EXAMINATION TYPE: XR chest 1V DATE OF EXAM: 11/19/2020 CLINICAL HISTORY: Difficulty breathing and right-sided chest tube progress study. TECHNIQUE: Single AP portable upright view of the chest is obtained. COMPARISON: Chest x-ray from one day earlier FINDINGS: Persistent right basilar pigtail pleural drainage catheter. Chronic parenchyma changes wit h right upper lung nodule. No pneumothorax. Cardiac silhouette size stable and within normal limits w ith atherosclerotic aorta. Cholecystectomy clips. Osseous structures demineralized. IMPRESSION: Right-sided basilar chest tube without pneumothorax. Chronic parenchymal changes without new acute infiltrate.
--- NOTE | 2020-11-19 08:43 | P.PN ---
Subjective Progress Note Date: 11/19/20 Principal diagnosis: Right-sided pneumothorax status post lung biopsy. History of right apical mass and a right lower lobe mass on CT scan, assumed to be malignant, cerebral aneur ysm status post clipping with residual short-term memory loss, hypertension, removal of kidney cyst, previous tobacco dependence, occasional EtOH use, family history of cancer The patient is currently sitting up in bed in no acute distress on the cardiac stepdown unit. She denies pain or shortness of breath. She is actively using incentive spirometry. Right-sided pigtail chest tube remains present, no air leak present. Chest x-ray reviewed, stable without pneumothorax. No other new concerns. Objective - Vital Signs Vital signs: Vital Signs Temp 97.8 F 11/19/20 04:09 Pulse 84 11/19/20 04:09 Resp 16 11/19/20 04:09 BP 116/79 11/19/20 04:09 Pulse Ox 94 L 11/19/20 04:09 Intake & Output 11/18/20 11/19/20 11/19/20 18:59 06:59 18:59 Intake Total 5550 Output Total 80 5 Balance -80 5545 Weight 53.497 kg 31.5 kg Intake: Oral 5550 Output: Chest Tube Drainage 80 5 right posterior chest 80 5 Other: Voiding Method Toilet # Voids 2 - Exam CONSTITUTIONAL: Appears comfortable, cooperative, no acute distress RESPIRATORY: Lungs sounds diminished bilaterally. Respirations even, nonlabored. Currently on room air with oxygen saturation 94%. Able to achieve 1000 mL on incentive spirometry. Strong cough. CARDIOVASCULAR: S1, S2 present. Regular rate and rhythm, sinus rhythm on telemetry. Palpable peripheral pulses bilaterally. No edema present. No calf pain or tenderness noted. GASTROINTESTINAL: Abdomen soft, nontender, nondistended. Active bowel sounds present 4 quadrants. Tolerating diet. GENITOURINARY: Continues to void clear, yellow urine INTEGUMENTARY: Skin is warm and dry with evidence of good perfusion. NEUROLOGIC: Cranial nerves II through XII intact MUSKULOSKELETAL: Able to move all extremities, strength equal bilaterally, gait normal PSYCHIATRIC: Alert and oriented to person place and time, flat affect, intact judgment and insight INVASIVE LINES AND TUBES: Right pigtail catheter present and connected to wall suction, no air leaks present, minimal drainage. - Allied health notes Allied health notes reviewed: nursing - Labs CBC & Chem 7: 11/18/20 08:15 - Imaging and Cardiology Chest x-ray: report reviewed, image reviewed Assessment and Plan Assessment: 1. Right-sided pneumothorax status post lung biopsy, status post right side pigtail catheter placement by interventional radiology 2. Right apical mass and a right lower lobe mass on computed tomography scan, assumed to be malignant 3. History of cerebral aneurysm status post clipping with residual short-term memory loss 4. Hypertension 5. Removal of kidney cyst 6. Previous tobacco dependence 7. Occasional EtOH use 8. Family history of cancer Plan: 1. Pigtail catheter placed to waterseal. As long as she remains stable without air leak would recommend discontinuing pigtail catheter later today, will defer to interventional radiology 2. Encourage incentive spirometry use 3. Continue to encourage smoking cessation 4. Will monitor for biopsy results 5. Medical management of other comorbidities per primary care service Time with Patient: Greater than 30
[2020-11-19] MEDS: PANTOPRAZOLE 40 MG/10 ML VIAL IVP SCH (08:58)
[2020-11-19 09:03] VITALS: TEMP 97.6
[2020-11-19 10:58] LABS: Basophils % (A) 0 %; Eosinophils # (A) 0.2 k/uL (0-0.7); Eosinophils % (A) 3 %; HCT 37.6 % (34.0-46.0); HGB 12.2 gm/dL (11.4-16.0); Lymphocytes # (A) 2.3 k/uL (1.0-4.8); Lymphocytes % (A) 40 %; MCH 32.4 pg (25.0-35.0); MCHC 32.5 g/dL (31.0-37.0); MCV 99.6 fL (80.0-100.0); Mean Platelet Volume 7.2; Monocytes # (A) 0.4 k/uL (0-1.0); Monocytes % (A) 6 %; Neutrophils # (A) 2.9 k/uL (1.3-7.7); Neutrophils % (A) 50 %; Platelet Count 308 k/uL (150-450); RBC 3.78 m/uL (3.80-5.40); RDW 13.6 % (11.5-15.5); WBC 5.9 k/uL (3.8-10.6)
[2020-11-19 11:16] LABS: ALT 6 U/L (4-34); AST 16 U/L (14-36); African American GFR (CKD) >90 (>60 ml/min/1.73 sqM); Albumin 3.6 g/dL (3.5-5.0); Alkaline Phosphatase 86 U/L (38-126); Anion Gap 9 mmol/L; Blood Urea Nitrogen 22 mg/dL (7-17); Calcium 9.2 mg/dL (8.4-10.2); Carbon Dioxide 28 mmol/L (22-30); Chloride 102 mmol/L (98-107); Glucose 113 mg/dL (74-99); Non-African American GFR(CKD) >90 (>60 ml/min/1.73 sqM); Potassium 4.6 mmol/L (3.5-5.1); Sodium 139 mmol/L (137-145); Total Bilirubin 0.4 mg/dL (0.2-1.3); Total Protein 6.2 g/dL (6.3-8.2)
--- NOTE | 2020-11-19 11:34 | P.HPIM ---
History of Present Illness H&P Date: 11/19/20 This is a 60-year-old female with past medical history of subarachnoid hemorrhage/cerebral aneurysm/clipping, anxiety, depression, former nicotine dependence, alcohol use, hypertension, family history of cancer, initially presented to interventional radiology for elective lung biopsy related to right lung mass detected on CT 11/04/2020, suspicious for primary malignancy versus metastatic disease, as there is a solid mass arising from the right kidney- possible renal cell CA. Patient developed pneumothorax during the procedure requiring placement of right-sided pigtail catheter. Tolerated procedure well, chest x-ray reporting without pneumothorax, without new acute infiltrate. Chest tube currently to waterseal .CTS and oncology on consult. Initially post event, required 2 L nasal cannula which has been weaned off, maintaining O2 sats in the mid to high 90s on room air. Afebrile. Labs pending. Denies chest pain, palpitations or increasing shortness of breath. Denies lightheadedness dizziness or focal deficits. Review of Systems ROS Statement: Those systems with pertinent positive or pertinent negative responses have been documented in the HPI. ROS Other: All systems not noted in ROS Statement are negative. 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, status post aneurysm clipping History of Any Multi-Drug Resistant Organisms: None Reported Past Surgical History: Breast Surgery, Cholecystectomy, Hysterectomy Additional Past Surgical History / Comment(s): kidney, brain surgery due to an aneurysm back in january, renal cyst removal (per patient it was not cancer) Past Anesthesia/Blood Transfusion Reactions: No Reported Reaction Past Psychological History: Anxiety, Depression Smoking Status: Former smoker Past Alcohol Use History: Occasional Additional Past Alcohol Use History / Comment(s): Reports 4-5 beers approximately twice weekly Past Drug Use History: None Reported - Past Family History Father History Unknown: Yes Family Medical History: Cancer Mother Family Medical History: Cancer Medications and Allergies Home Medications Medication Instructions Recorded Confirmed Type Atorvastatin [Lipitor] 40 mg PO DAILY 30 Days tab 04/07/20 11/18/20 Rx Divalproex Sprinkle [Depakote 500 mg PO BID 30 Days cap.sprink 04/07/20 11/18/20 Rx Sprinkle] Donepezil [Aricept] 10 mg PO HS 30 Days tab 04/07/20 11/18/20 Rx OLANZapine [ZyPREXA] 15 mg PO HS 30 Days tab 04/07/20 11/18/20 Rx lisinopriL [Zestril] 10 mg PO DAILY 30 Days tab 04/07/20 11/18/20 Rx ALPRAZolam [Xanax] 0.25 mg PO DAILY PRN 11/15/20 11/18/20 History Gabapentin [Neurontin] 400 mg PO DAILY PRN 11/15/20 11/18/20 History Venlafaxine HCl ER [Effexor Xr] 75 mg PO DAILY 11/15/20 11/18/20 History Allergies Allergy/AdvReac Type Severity Reaction Status Date / Time amoxicillin Allergy Rash/Hives Verified 11/18/20 09:52 codeine AdvReac Nausea Verified 11/18/20 09:52 Physical Exam Vitals: Vital Signs Temp Pulse Resp BP Pulse Ox 11/19/20 08:00 97.6 F 72 16 117/68 95 11/19/20 04:09 97.8 F 84 16 116/79 94 L 11/19/20 02:20 16 11/18/20 23:09 98.1 F 76 16 127/79 97 11/18/20 19:48 98.1 F 76 16 124/76 95 11/18/20 14:00 72 16 169/84 97 11/18/20 13:45 70 18 152/80 96 11/18/20 13:30 74 16 150/78 97 11/18/20 13:15 70 18 149/84 97 11/18/20 13:10 72 16 158/70 96 11/18/20 12:40 69 16 169/53 94 L 11/18/20 12:26 70 18 150/101 95 11/18/20 12:15 70 16 157/88 95 11/18/20 12:05 68 16 169/99 97 11/18/20 12:00 64 16 157/89 100 11/18/20 11:50 65 18 160/100 100 11/18/20 11:44 64 16 165/78 100 11/18/20 11:35 60 16 157/93 100 11/18/20 11:25 65 16 150/85 96 11/18/20 11:10 64 16 150/87 99 11/18/20 11:04 69 16 151/83 99 11/18/20 10:26 64 16 142/72 100 11/18/20 09:55 97.6 F 68 16 144/70 98 Intake and Output 11/18/20 11/19/20 11/19/20 22:59 06:59 14:59 Intake Total 5550 Output Total 80 5 Balance -80 5545 Intake: Oral 5550 Output: Chest Tube Drainage 80 5 right posterior chest 80 5 Other: Voiding Method Toilet Toilet # Voids 2 Weight 31.5 kg - Exam GENERAL: Well-appearing, well-nourished and in no acute distress. HEAD: Atraumatic, normocephalic. EYES: Pupils equal round and reactive to light, extraocular movements intact, sclera anicteric, conjunctiva are normal. ENT:nares patent, oropharynx clear without exudates. Moist mucous membranes. NECK: Normal range of motion, supple without lymphadenopathy or JVD, no thyromegaly LUNGS: Nonlabored, Breath sounds clear to auscultation bilaterally and equal. No wheezes rales or rhonchi. Right pigtail catheter present. HEART: Regular rate and rhythm without murmurs, rubs or gallops.S1S2 Normal ABDOMEN: Soft, nontender, normoactive bowel sounds. No guarding, no rebound. No masses appreciated. EXTREMITIES: Normal range of motion, no pitting or edema. No clubbing or cyanosis. NEUROLOGICAL: Cranial nerves II through XII grossly intact. Normal speech. PSYCH: Alert and oriented 3,-affect-flat. SKIN: Warm, Dry, normal turgor, no rashes noted. Results CBC & Chem 7: 11/19/20 10:13 11/19/20 10:13 Thrombosis Risk Factor Assmnt - Choose All That Apply Each Factor Represents 1 point: Age 41-60 years Other Risk Factors: Yes Each Risk Factor Represents 2 Points: Malignancy Thrombosis Risk Factor Assessment Total Risk Factor Score: 3 Thrombosis Risk Factor Assessment Level: Moderate Risk Assessment and Plan Assessment: Acute right-sided pneumothorax status post lung biopsy Right lung mass detected on CT 11/04/2020, suspicious for primary malignancy versus metastatic disease, with solid mass arising from the right kidney- possible renal cell CA. biopsy pending. Hypertension Alcohol abuse History of intracranial aneurysm, hemorrhage, status post clipping History of kidney cyst removal Former nicotine dependence Anxiety Depression Family history of cancer Plan: Continue on current medication regime ,monitoring and symptomatic tr eatment. Aggressive pulmonary toileting with incentive spirometer reinforced.CTS managing pigtail /chest tube. Oncology consult in place, recommendations pending. Labs pending. The impression and plan of care has been dictated as directed. : I performed a history and examination of this patient, discussed the same with the dictator. I agree with the dictator's note ,documented as a scribe. Any additional findings or plans will be noted.
[2020-11-19] MEDS: DIVALPROEX SPRINKLE 125 MG CAP.SPRINK PO SCH (12:34)
[2020-11-19 12:37] VITALS: BP 118/66; PULSE 79
--- NOTE | 2020-11-19 12:59 | XR ---
EXAMINATION TYPE: XR chest 1V portable DATE OF EXAM: 11/19/2020 COMPARISON: 11/19/2020 INDICATION: Trial chest tube clamping TECHNIQUE: Single frontal view of the chest is obtained. FINDINGS: The heart size is normal. The pulmonary vasculature is normal. Nodular densities are at the right apex and right base. Right basilar density is increased in size ov er the interval. Right-sided chest tube is present. No pneumothorax is identified. Some blunting left costophrenic angle may be present. IMPRESSION: 1. No pneumothorax. 2. Developing density at the right lung base. Right apical nodular density remains present. 3. Interval blunting of the left costophrenic angle. Minimal pleural effusion developing.
[2020-11-19 14:27] VITALS: BMI 23.5
--- NOTE | 2020-11-19 14:49 | XR ---
EXAMINATION TYPE: XR chest 1V portable DATE OF EXAM: 11/19/2020 COMPARISON: 11/19/2020 earlier exam INDICATION: Post right chest tube removal TECHNIQUE: Single frontal view of the chest is obtained. FINDINGS: The heart size is normal. The pulmonary vasculature is normal. Right apical and right lower lobe nodularities are again. No new thorax post chest tube. IMPRESSION: 1. Stable nodular densities right upper. 2. No pneumothorax. 3. Follow-up can be performed as clinically indicated.
--- NOTE | 2020-11-19 14:57 | P.DS ---
Providers Date of admission: 11/18/20 13:48 Expected date of discharge: 11/19/20 Attending physician: Germán Ellis Consults: 11/18/20 13:26 Consult Physician Urgent Consulting Provider: Donnie Williamson Consult Reason/Comments: chest tube management post pneumothorax Do you want consulting provider notified?: Yes 11/18/20 13:33 Consult Physician Routine Consulting Provider: Ranjeet Reeves Consult Reason/Comments: known to the service, lung mass, post lung mass biopsy Do you want consulting provider notified?: Yes Primary care physician: Germán Ellis Hospital Course: Final Diagnoses: Acute right-sided pneumothorax status post lung biopsy,S/P Chest tube Right lung mass detected on CT 11/04/2020, suspicious for primary malignancy versus metastatic disease, with solid mass arising from the right kidney- possible renal cell CA. biopsy pending. Hypertension Alcohol abuse History of intracranial aneurysm, hemorrhage, status post clipping History of kidney cyst removal Former nicotine dependence Anxiety Depression Family history of cancer Hospital Course: This is a 60-year-old female with past medical history of subarachnoid hemorrhage/cerebral aneurysm/clipping, anxiety, depression, former nicotine dependence, alcohol use, hypertension, family history of cancer, initially presented to interventional radiology for elective lung biopsy related to right lung mass detected on CT 11/04/2020, suspicious for primary malignancy versus metastatic disease, as there is a solid mass arising from the right kidney- possible renal cell CA. Patient developed pneumothorax during the procedure requiring placement of right-sided pigtail catheter. Tolerated procedure well, chest x-ray reporting without pneumothorax, without new acute infiltrate. Chest tube currently to waterseal .CTS and oncology on consult. Initially post event, required 2 L nasal cannula which has been weaned off, maintaining O2 sats in the mid to high 90s on room air. Afebrile. Labs pending. Denies chest pain, palpitations or increasing shortness of breath. Denies lightheadedness dizziness or focal deficits. Significant clinical improvement. Chest tube has been discontinued. VSS. PAtient will be discharged today in a stable condition with guarded prognosis, pending CTS final dc Rec./CLearance. Patient will f/u with both PCP and Oncology, re> biopsy results and further plan of care. Plan: Continue on current medication regime ,monitoring and symptomatic treatment. Aggressive pulmonary toileting with incentive spirometer reinforced.CTS managing pigtail /chest tube. Oncology consult in place, recommendations pending. Labs pending. The impression and plan of care has been dictated as directed. : I performed a history and examination of this patient, discussed the same with the dictator. I agree with the dictator's note ,documented as a scribe. Any additional findings or plans will be noted. Patient Condition at Discharge: Stable Plan - Discharge Summary Discharge Rx Participant: Yes New Discharge Prescriptions: Continue Donepezil [Aricept] 10 mg PO HS 30 Days tab Divalproex Sprinkle [Depakote Sprinkle] 500 mg PO BID 30 Days cap.sprink OLANZapine [ZyPREXA] 15 mg PO HS 30 Days tab Atorvastatin [Lipitor] 40 mg PO DAILY 30 Days tab lisinopriL [Zestril] 10 mg PO DAILY 30 Days tab ALPRAZolam [Xanax] 0.25 mg PO DAILY PRN PRN Reason: Anxiety Venlafaxine HCl ER [Effexor XR] 75 mg PO DAILY Gabapentin [Neurontin] 400 mg PO DAILY PRN PRN Reason: Pain Discharge Medication List Atorvastatin [Lipitor] 40 mg PO DAILY 30 Days tab 04/07/20 [Rx] Divalproex Sprinkle [Depakote Sprinkle] 500 mg PO BID 30 Days cap.sprink 04/07/20 [Rx] Donepezil [Aricept] 10 mg PO HS 30 Days tab 04/07/20 [Rx] OLANZapine [ZyPREXA] 15 mg PO HS 30 Days tab 04/07/20 [Rx] lisinopriL [Zestril] 10 mg PO DAILY 30 Days tab 04/07/20 [Rx] ALPRAZolam [Xanax] 0.25 mg PO DAILY PRN 11/15/20 [History] Gabapentin [Neurontin] 400 mg PO DAILY PRN 11/15/20 [History] Venlafaxine HCl ER [Effexor XR] 75 mg PO DAILY 11/15/20 [History] Follow up Appointment(s)/Referral(s): Ranjeet Reeves MD [STAFF PHYSICIAN] - 1 Week Kan Rodriges Jr, DO [Doctor of Osteopathic Medicine] - 3 Days Activity/Diet/Wound Care/Special Instructions: pending final dc rec./clearance from CTS.
--- NOTE | 2020-11-19 15:58 | XR ---
EXAMINATION TYPE: XR chest 2V DATE OF EXAM: 11/19/2020 CLINICAL HISTORY: CT removal. TECHNIQUE: Frontal and lateral view of the chest. COMPARISON: 11/19/2020 at 2:16 PM FINDINGS: There is no evidence of pneumothorax. There are redemonstrated right apical and right basi lar lung opacities. There is no pleural effusion. Cardiac mediastinal silhouette is normal. No acute displaced osseous fracture. Right upper quadrant surgical clips. IMPRESSION: No evidence of pneumothorax.
--- NOTE | 2020-11-19 16:00 | P.PN ---
Progress Note - Text Progress Note Date: 11/19/20 Successful right chest tube clamping trial. Right chest tube was removed bedside and sterile dressing applied. CXR immediately after chest tube removal, and 1 hr post chest tube removal showed no recurrent pneumothorax. Pt is cleared for discharge from interventional radiology standpoint. Thank you.
--- NOTE | 2020-11-19 21:54 | P.CONS ---
History of Present Illness - Reason for Consult Consult date: 11/19/20 pneumo after lung bx - History of Present Illness This is a very nice lady who fell on ice on 10/26/2020,she had xray of right shoulder which revealed RUL lung mass,this led to CT scan of chest/abdomen/pelvis on 11/04/2020 which revealed 3.1x3.0 cm RUL and 2.9x1.9 RLL masses and 4.0x4.7 cm solid right kidney mass. She is otherwise asymptomatic,no gross hematuria,no fever,night sweats or weight loss,no dyspnea or cough. She presented for lung biopsy and unfortunetly developed pneumothorax. 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, status post aneurysm clipping History of Any Multi-Drug Resistant Organisms: None Reported Past Surgical History: Breast Surgery, Cholecystectomy, Hysterectomy Additional Past Surgical History / Comment(s): kidney, brain surgery due to an aneurysm back in january, renal cyst removal (per patient it was not cancer) Past Anesthesia/Blood Transfusion Reactions: No Reported Reaction Past Psychological History: Anxiety, Depression Smoking Status: Former smoker Past Alcohol Use History: Occasional Additional Past Alcohol Use History / Comment(s): Reports 4-5 beers approximately twice weekly Past Drug Use History: None Reported - Past Family History Father History Unknown: Yes Family Medical History: Cancer Mother Family Medical History: Cancer Medications and Allergies Home Medications Medication Instructions Recorded Confirmed Type Atorvastatin [Lipitor] 40 mg PO DAILY 30 Days tab 04/07/20 11/18/20 Rx Divalproex Sprinkle [Depakote 500 mg PO BID 30 Days cap.sprink 04/07/20 11/18/20 Rx Sprinkle] Donepezil [Aricept] 10 mg PO HS 30 Days tab 04/07/20 11/18/20 Rx OLANZapine [ZyPREXA] 15 mg PO HS 30 Days tab 04/07/20 11/18/20 Rx lisinopriL [Zestril] 10 mg PO DAILY 30 Days tab 04/07/20 11/18/20 Rx ALPRAZolam [Xanax] 0.25 mg PO DAILY PRN 11/15/20 11/18/20 History Gabapentin [Neurontin] 400 mg PO DAILY PRN 11/15/20 11/18/20 History Venlafaxine HCl ER [Effexor XR] 75 mg PO DAILY 11/15/20 11/18/20 History Allergies Allergy/AdvReac Type Severity Reaction Status Date / Time amoxicillin Allergy Rash/Hives Verified 11/18/20 09:52 codeine AdvReac Nausea Verified 11/18/20 09:52 Physical Exam Vitals: Vital Signs Temp Pulse Resp BP Pulse Ox 11/19/20 12:00 79 16 118/66 93 L 11/19/20 08:00 97.6 F 72 16 117/68 95 11/19/20 04:09 97.8 F 84 16 116/79 94 L 11/19/20 02:20 16 11/18/20 23:09 98.1 F 76 16 127/79 97 Intake and Output 11/19/20 11/19/20 11/19/20 06:59 14:59 22:59 Intake Total 5550 Output Total 5 Balance 5545 Intake: Oral 5550 Output: Chest Tube Drainage 5 right posterior chest 5 Other: Voiding Method Toilet Toilet # Voids 2 Weight 31.5 kg 52.798 kg - Constitutional General appearance: cooperative - EENT Eyes: EOMI ENT: NA/AT - Neck Neck: normal ROM - Respiratory no increased effort, doing better, chest tube removed - Cardiovascular Rhythm: regular - Gastrointestinal General gastrointestinal: soft - Integumentary Integumentary: pale - Neurologic Neurologic: CNII-XII intact - Musculoskeletal Musculoskeletal: generalized weakness, strength equal bilaterally - Psychiatric Psychiatric: A&O x's 3, appropriate affect Results CBC & Chem 7: 11/19/20 10:13 11/19/20 10:13 Labs: Abnormal Lab Results - Last 24 Hours (Table) 11/19/20 11/19/20 Range/Units 10:13 10:13 RBC 3.78 L (3.80-5.40) m/uL BUN 22 H (7-17) mg/dL Glucose 113 H (74-99) mg/dL Total Protein 6.2 L (6.3-8.2) g/dL Assessment and Plan (1) Pneumothorax Status: Acute Code(s): J93.9 - PNEUMOTHORAX, UNSPECIFIED SNOMED Code(s): 27841069 (2) Renal cell cancer Status: Acute Code(s): C64.9 - MALIGNANT NEOPLASM OF UNSP KIDNEY, EXCEPT RENAL PELVIS SNOMED Code(s): 956684121 Plan: Patient is improving and will follow up with Dr. Dill after discharge Await path Physician attest: I have completed the full history and physical and agree with above dictation, dictated as a ascribe
== END 2020-11-19 16:43 | disposition home or self-care (01) ==
LOC: RADPROMAIN 09:01 → 3SCARD 13:48 → INTOOBSV 13:48 → UNDODISIN 11-19 16:43
PROVIDERS: ADMIT Family Medicine; ATTEND Family Medicine
DX: C34.31 Malignant neoplasm of lower lobe, right bronchus or lung (principal); J93.9 Pneumothorax, unspecified; I10 Essential (primary) hypertension; F10.10 Alcohol abuse, uncomplicated; Z86.79 Personal history of other diseases of the circulatory system; Z87.891 Personal history of nicotine dependence; F41.9 Anxiety disorder, unspecified; F32.9 Major depressive disorder, single episode, unspecified; Z80.9 Family history of malignant neoplasm, unspecified; Z20.822 Contact with and (suspected) exposure to COVID-19; C64.9 Malignant neoplasm of unspecified kidney, except renal pelvis; Z79.899 Other long term (current) drug therapy; Z88.5 Allergy status to narcotic agent; Z88.0 Allergy status to penicillin; Z90.49 Acquired absence of other specified parts of digestive tract; Z90.710 Acquired absence of both cervix and uterus; Z98.890 Other specified postprocedural states
CPT/HCPCS: 96376; 96374; 88305; 80053; 85025; 85049; 85610; 88342; 88341; 87635; 36415; 71045 ×2; 71046; 77012; 32551; 32408; G0378 ×2; C9113 ×2

== ENCOUNTER → 2020-11-30 | Outpatient (CLI) | payer MEDICARE ==
--- NOTE | 2020-11-30 15:42 | NM ---
EXAMINATION TYPE: NM bone scan whole body DATE OF EXAM: 11/30/2020 COMPARISON: CT chest 11/04/2020 HISTORY: Renal cell carcinoma, C 64.1 Delayed whole-body scanning was performed following the injection of 24 mCi Tc 99m MDP. Images acqui red 3.5 hours post injection. FINDINGS: Uptake within the ankles, feet, knees, elbows, wrists and hands, shoulders is likely degenerative. So ft tissue uptake is within normal limits. No areas of abnormal increased or decreased radiopharmaceut ical uptake to suggest metastatic disease. IMPRESSION: Probable degenerative changes.
== END | disposition home or self-care (01) ==
LOC: RADNMMAIN 10:48
PROVIDERS: ATTEND Internal Medicine Hematology & Oncology
DX: C64.1 Malignant neoplasm of right kidney, except renal pelvis (principal)
CPT/HCPCS: 78306; A9503

== ENCOUNTER → 2020-12-04 | Outpatient (CLI) | payer MEDICARE ==
--- NOTE | 2020-12-06 08:30 | PE ---
EXAMINATION TYPE: PET CT fusion skull to thigh DATE OF EXAM: 12/04/2020 COMPARISON: Chest CT November 04, 2020. HISTORY: Newly diagnosed right-sided lung cancer on biopsy November 18, [address] with add itional suspicious solid right kidney mass. TECHNIQUE: Following the intravenous administration of 9.98 mCi of F-18 FDG, whole body images are p erformed from the skull base to the midthigh. Images are reviewed on the computer in the coronal, ax ial, and sagittal planes. Reconstructed rotating images are created on independent workstation and r eviewed on the computer. A localization and attenuation correction CT is performed in conjunction w ith the PET scan. Blood glucose level equals 92. SCAN: Initial Scan FINDINGS: SKULL BASE AND NECK: No suspicious hypermetabolic uptake. CHEST, MEDIASTINUM, AND HILAR REGION: Background moderate underlying emphysematous change is redemons trated. Persistent 3.3 x 3.0 cm right upper lung hypermetabolic mass axial image 57, max SUV is 7.1. Additional persistent peripheral superior 2.2 x 2.0 cm hypermetabolic right lower lobe nodule axial i mage 93, max SUV is 7.22. No additional areas of abnormal hypermetabolic uptake. No suspicious thoracic adenopathy. ABDOMEN AND PELVIS: Normal excretion. No adrenal masses. No suspicious hypermetabolic uptake. No susp icious hypermetabolic uptake in the partially exophytic upper pole suspicious enhancing right renal m ass. OSSEOUS STRUCTURES: No suspicious hypermetabolic uptake. OTHER CT: Mild calcified plaque bilateral carotid bulb level. Artifact from aneurysm clips near circl e of [place] is noted. Prominent but subcentimeter thoracic lymph nodes do not show abnormal hypermetabolic uptake. Bilatera l breast implants incidentally noted. Cholecystectomy clips. Mild calcified plaque of the aorta extends into branch vessels. Scattered bila teral pelvic phleboliths. Uterus is surgically absent. Marked disc space narrowing at T11-T12 level peak of spinal curvature. Mild to moderate calcified grey que of distal abdominal aorta. IMPRESSION: Abnormal hypermetabolic uptake in the 2 suspicious right lung lesions worrisome for multi lobar multicentric neoplasm. Upper pole right renal lesion remains suspicious for secondary neoplasm despite PET/CT given findings given enhancing solid mass on CT. No suspicious thoracic adenopathy or additional metastatic disease noted.
== END | disposition home or self-care (01) ==
LOC: RADPETMAIN 08:52
PROVIDERS: ATTEND Internal Medicine Hematology & Oncology
DX: C34.11 Malignant neoplasm of upper lobe, right bronchus or lung (principal); N28.9 Disorder of kidney and ureter, unspecified
CPT/HCPCS: 78815; A9552

== ENCOUNTER → 2021-01-04 | Outpatient (CLI) | payer MEDICARE ==
--- NOTE | 2021-01-05 07:50 | ECHOF ---
Referral Reason:C34.90 lung ca MEASUREMENTS -------- HEIGHT: 129.5 cm WEIGHT: 54.4 kg BP: RVIDd: 2.1 cm (< 3.3) IVSd: 0.8 cm (0.6 - 1.1) LVIDd: 3.4 cm (3.9 - 5.3) LVPWd: 1.1 cm (0.6 - 1.1) IVSs: 1.4 cm LVIDs: 1.3 cm LVPWs: 1.5 cm Ao Diam: 2.8 cm (2.0 - 3.7) AV Cusp: 2.1 cm (1.5 - 2.6) LA Diam: 2.7 cm (2.7 - 3.8) MV EXCURSION: 10.775 mm (> 18.000) MV EF SLOPE: 51 mm/s (70 - 150) EPSS: 0.4 cm MV E Gary: 0.66 m/s MV DecT: 174 ms MV A Gary: 0.51 m/s MV E/A Ratio: 1.30 RAP: 5.00 mmHg RVSP: 20.94 mmHg FINDINGS -------- This was a technically adequate study. The left ventricular size is normal. Left ventricular wall thickness is normal. Overall left vent ricular systolic function is normal with, an EF between 55 - 60 %. The right ventricle is normal in size. The left atrial size is normal. The right atrial size is normal. The aortic valve is trileaflet and appears structurally normal. The mitral valve is normal. There is trace mitral regurgitation. The tricuspid valve appears structurally normal. Mild tricuspid regurgitation present. Right vent ricular systolic pressure is normal at < 35 mmHg. There is no pulmonic regurgitation present. The aortic root size is normal. Normal inferior vena cava with normal inspiratory collapse consistent with estimated right atrial pre ssure of 5 mmHg. Pleural Effusion seen.. CONCLUSIONS -------- 1. The left ventricular size is normal. 2. Left ventricular wall thickness is normal. 3. Overall left ventricular systolic function is normal with, an EF between 55 - 60 %. 4. There is trace mitral regurgitation. 5. Mild tricuspid regurgitation present. 6. Pleural Effusion seen. SENIOR OPERATOR: Sole Remy RD
== END | disposition home or self-care (01) ==
LOC: RADECHMAIN 12:43
PROVIDERS: ATTEND Thoracic Surgery (Cardiothoracic Vascular Surgery)
DX: I08.1 Rheumatic disorders of both mitral and tricuspid valves (principal); J90 Pleural effusion, not elsewhere classified
CPT/HCPCS: 93306; 94060; 94726; 94729

== ENCOUNTER 2021-05-04 17:00 | Inpatient (IN) | payer MEDICARE ==
[2021-05-04] MEDS ORDERED: SODIUM CHLORIDE 0.9% 1,000 ML IV STA (19:21)
[2021-05-04] MEDS ORDERED: ACETAMINOPHEN TAB 500 MG TAB PO STA (19:22)
[2021-05-04] MEDS ORDERED: DIPHENOX-ATROP 2.5-0.025 MG 1 EACH TAB PO STA (19:37)
--- NOTE | 2021-05-04 19:44 | ED ---
General Adult HPI - General Chief complaint: Weakness Stated complaint: Dehydration Time Seen by Provider: 05/04/21 18:05 Source: patient, RN notes reviewed, old records reviewed Mode of arrival: wheelchair Limitations: no limitations - History of Present Illness Initial comments: This is a 60-year-old female presents emergency Department with a past medical history significant for lung cancer with a right pneumonectomy and kidney cancer. Patient states she did not do any chemo because she's not strong enough. Patient states she also has a past medical history significant for stroke that left her with some short-term memory loss. Patient states they have done nothing for the kidney cancer. Patient comes in today because she's becoming much more weak she is not eating or drinking much and she's having chronic diarrhea. Patient states she's unable to even make it to the restroom because she's having so much diarrhea. She states that Dr. Ellis wanted to come the hospital and get admitted. - Related Data Home Medications Medication Instructions Recorded Confirmed Atorvastatin [Lipitor] 40 mg PO HS 05/04/21 05/04/21 Divalproex Sodium [Depakote] 500 mg PO BID 05/04/21 05/04/21 Escitalopram [Lexapro] 10 mg PO DAILY 05/04/21 05/04/21 Metoprolol Tartrate [Lopressor] 25 mg PO BID 05/04/21 05/04/21 OLANZapine [ZyPREXA] 5 mg PO HS 05/04/21 05/04/21 lisinopriL [Zestril] 5 mg PO HS 05/04/21 05/04/21 Allergies Allergy/AdvReac Type Severity Reaction Status Date / Time amoxicillin Allergy Rash/Hives Verified 05/04/21 20:04 codeine AdvReac Nausea Verified 05/04/21 20:04 Review of Systems ROS Statement: Those systems with pertinent positive or pertinent negative responses have been documented in the HPI. ROS Other: All systems not noted in ROS Statement are negative. 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, status post aneurysm clipping History of Any Multi-Drug Resistant Organisms: None Reported Past Surgical History: Breast Surgery, Cholecystectomy, Hysterectomy Additional Past Surgical History / Comment(s): kidney, brain surgery due to an aneurysm back in january, renal cyst removal (per patient it was not cancer) Past Anesthesia/Blood Transfusion Reactions: No Reported Reaction Past Psychological History: Anxiety, Depression Smoking Status: Former smoker Past Alcohol Use History: Occasional Past Drug Use History: None Reported - Past Family History Father History Unknown: Yes Family Medical History: Cancer Mother Family Medical History: Cancer General Exam - General Exam Comments Initial Comments: GENERAL: Patient is cachectic in appearance. Patient is nontoxic ENT: Neck is soft and supple. No significant lymphadenopathy is noted. Oropharynx is clear. Moist mucous membranes. Neck has full range of motion without eliciting any pain. T EYES: The sclera were anicteric and conjunctiva were pink and moist. Extraocular movements were intact and pupils were equal round and reactive to light. Eyelids were unremarkable. PULMONARY: Patient has diminished breath sounds on the right.. CARDIOVASCULAR: There is a regular rate and rhythm without any murmurs gallops or rubs. ABDOMEN: Soft and nontender with normal bowel sounds. SKIN: Skin is clear with no lesions or rashes and otherwise unremarkable. NEUROLOGIC: Patient is alert and oriented x3. Cranial nerves II through XII are grossly intact. Motor and sensory are also intact. Normal speech, volume and content. Symmetrical smile. MUSCULOSKELETAL: Normal extremities with adequate strength and full range of motion. LYMPHATICS: No significant lymphadenopathy is noted PSYCHIATRIC: Normal psychiatric evaluation. Limitations: no limitations Course Vital Signs 05/04/21 05/04/21 05/04/21 18:04 19:23 19:55 Temperature 98.4 F 99.6 F Pulse Rate 66 85 Respiratory 16 16 Rate Blood Pressure 133/65 125/62 O2 Sat by Pulse 94 L 100 Oximetry Medical Decision Making - Medical Decision Making EKG shows normal sinus rhythm at 70 bpm WV interval is 124 QRS is 80 QT interval is 532 QTC is 606. Patient's EKG shows no ST segment elevation or depression. Chest x-ray shows opacification of almost the entire right lung. Patient did have a pneumonectomy in January. Patient is somewhat dehydrated and has ketones in his urine. I gave the patient fluid bolus in the emergency department. I also gave the patient potassium replacement. I spoke with Dr. Rodriges he agreed to admit the patient and the patient consult to Dr. Dill. - Lab Data Result diagrams: 05/04/21 19:30 05/04/21 19:30 Lab Results 05/04/21 05/04/21 05/04/21 Range/Units 19:30 19:30 19:30 WBC 10.5 (3.8-10.6) k/uL RBC 3.55 L (3.80-5.40) m/uL Hgb 11.0 L (11.4-16.0) gm/dL Hct 34.6 (34.0-46.0) % MCV 97.2 (80.0-100.0) fL MCH 30.9 (25.0-35.0) pg MCHC 31.7 (31.0-37.0) g/dL RDW 15.5 (11.5-15.5) % Plt Count 451 H (150-450) k/uL MPV 7.6 Neutrophils % 78 % Lymphocytes % 12 % Monocytes % 7 % Eosinophils % 1 % Basophils % 0 % Neutrophils # 8.2 H (1.3-7.7) k/uL Lymphocytes # 1.2 (1.0-4.8) k/uL Monocytes # 0.8 (0-1.0) k/uL Eosinophils # 0.1 (0-0.7) k/uL Basophils # 0.0 (0-0.2) k/uL PT 11.3 (9.0-12.0) sec INR 1.1 (<1.2) APTT 25.9 (22.0-30.0) sec Sodium 142 (137-145) mmol/L Potassium 3.0 L (3.5-5.1) mmol/L Chloride 102 (98-107) mmol/L Carbon Dioxide 31 H (22-30) mmol/L Anion Gap 9 mmol/L BUN 13 (7-17) mg/dL Creatinine 0.39 L (0.52-1.04) mg/dL Est GFR (CKD-EPI)AfAm >90 (>60 ml/min/1.73 sqM) Est GFR (CKD-EPI)NonAf >90 (>60 ml/min/1.73 sqM) Glucose 95 (74-99) mg/dL Plasma Lactic Acid Raghav (0.7-2.0) mmol/L Calcium 8.8 (8.4-10.2) mg/dL Magnesium 1.8 (1.6-2.3) mg/dL Total Bilirubin 0.3 (0.2-1.3) mg/dL AST 26 (14-36) U/L ALT 10 (4-34) U/L Alkaline Phosphatase 102 (38-126) U/L Troponin I (0.000-0.034) ng/mL Total Protein 5.7 L (6.3-8.2) g/dL Albumin 3.0 L (3.5-5.0) g/dL Urine Color Urine Appearance (Clear) Urine pH (5.0-8.0) Ur Specific [place] (1.001-1.035) Urine Protein (Negative) Urine Glucose (UA) (Negative) Urine Ketones (Negative) Urine Blood (Negative) Urine Nitrite (Negative) Urine Bilirubin (Negative) Urine Urobilinogen (<2.0) mg/dL Ur Leukocyte Esterase (Negative) Urine RBC (0-5) /hpf Urine WBC (0-5) /hpf Ur Squamous Epith Cells (0-4) /hpf Hyaline Casts (0-2) /lpf Urine Mucus (None) /hpf 05/04/21 05/04/21 05/04/21 Range/Units 19:30 19:30 20:47 WBC (3.8-10.6) k/uL RBC (3.80-5.40) m/uL Hgb (11.4-16.0) gm/dL Hct (34.0-46.0) % MCV (80.0-100.0) fL MCH (25.0-35.0) pg MCHC (31.0-37.0) g/dL RDW (11.5-15.5) % Plt Count (150-450) k/uL MPV Neutrophils % % Lymphocytes % % Monocytes % % Eosinophils % % Basophils % % Neutrophils # (1.3-7.7) k/uL Lymphocytes # (1.0-4.8) k/uL Monocytes # (0-1.0) k/uL Eosinophils # (0-0.7) k/uL Basophils # (0-0.2) k/uL PT (9.0-12.0) sec INR (<1.2) APTT (22.0-30.0) sec Sodium (137-145) mmol/L Potassium (3.5-5.1) mmol/L Chloride (98-107) mmol/L Carbon Dioxide (22-30) mmol/L Anion Gap mmol/L BUN (7-17) mg/dL Creatinine (0.52-1.04) mg/dL Est GFR (CKD-EPI)AfAm (>60 ml/min/1.73 sqM) Est GFR (CKD-EPI)NonAf (>60 ml/min/1.73 sqM) Glucose (74-99) mg/dL Plasma Lactic Acid Raghav 1.0 (0.7-2.0) mmol/L Calcium (8.4-10.2) mg/dL Magnesium (1.6-2.3) mg/dL Total Bilirubin (0.2-1.3) mg/dL AST (14-36) U/L ALT (4-34) U/L Alkaline Phosphatase (38-126) U/L Troponin I <0.012 (0.000-0.034) ng/mL Total Protein (6.3-8.2) g/dL Albumin (3.5-5.0) g/dL Urine Color Yellow Urine Appearance Cloudy H (Clear) Urine pH 6.0 (5.0-8.0) Ur Specific [place] 1.033 (1.001-1.035) Urine Protein 1+ H (Negative) Urine Glucose (UA) Negative (Negative) Urine Ketones 3+ H (Negative) Urine Blood Negative (Negative) Urine Nitrite Negative (Negative) Urine Bilirubin 1+ H (Negative) Urine Urobilinogen 3.0 (<2.0) mg/dL Ur Leukocyte Esterase Trace H (Negative) Urine RBC 4 (0-5) /hpf Urine WBC 22 H (0-5) /hpf Ur Squamous Epith Cells 3 (0-4) /hpf Hyaline Casts 23 H (0-2) /lpf Urine Mucus Many H (None) /hpf Disposition Clinical Impression: Congenital Q-T prolongation on ECG, Hypokalemia, Generalized weakness, Diarrhea Disposition: ADMITTED IP TO THIS [facility] Referrals: Germán Ellis MD [Primary Care Provider] - 1-2 days Time of Disposition: 21:10
[2021-05-04 19:58] LABS: ALT 10 U/L (4-34); AST 26 U/L (14-36); African American GFR (CKD) >90 (>60 ml/min/1.73 sqM); Alkaline Phosphatase 102 U/L (38-126); Anion Gap 9 mmol/L; Basophils % (A) 0 %; Blood Urea Nitrogen 13 mg/dL (7-17); Calcium 8.8 mg/dL (8.4-10.2); Carbon Dioxide 31 mmol/L (22-30); Chloride 102 mmol/L (98-107); Eosinophils # (A) 0.1 k/uL (0-0.7); Eosinophils % (A) 1 %; Glucose 95 mg/dL (74-99); HCT 34.6 % (34.0-46.0); INR 1.1 (<1.2); Lymphocytes # (A) 1.2 k/uL (1.0-4.8); Lymphocytes % (A) 12 %; MCH 30.9 pg (25.0-35.0); MCHC 31.7 g/dL (31.0-37.0); MCV 97.2 fL (80.0-100.0); Magnesium 1.8 mg/dL (1.6-2.3); Mean Platelet Volume 7.6; Monocytes # (A) 0.8 k/uL (0-1.0); Monocytes % (A) 7 %; Neutrophils # (A) 8.2 k/uL (1.3-7.7); Neutrophils % (A) 78 %; Non-African American GFR(CKD) >90 (>60 ml/min/1.73 sqM); Partial Thromboplastin Time 25.9 sec (22.0-30.0); Platelet Count 451 k/uL (150-450); Prothrombin Time 11.3 sec (9.0-12.0); RBC 3.55 m/uL (3.80-5.40); RDW 15.5 % (11.5-15.5); Sodium 142 mmol/L (137-145); Total Bilirubin 0.3 mg/dL (0.2-1.3); Total Protein 5.7 g/dL (6.3-8.2); WBC 10.5 k/uL (3.8-10.6)
--- NOTE | 2021-05-04 20:39 | XR ---
EXAM TYPE: LUMBAR SPINE X RAY SERIES COMPARISON: NONE HISTORY: Pain TECHNIQUE: 4 views are submitted. FINDINGS: Slight curvature of the spine with diffuse osteopenia. Surgical clips in the upper abdomen. Vascular calcifications noted. There is degenerative change and facet arthropathy of the mid and lower lumbar spine and grade 1 anterolisthesis L5 on S1. No overt destructive changes. No spondylolysis. IMPRESSION: 1. Degenerative disc disease and facet arthropathy mid and lower lumbar spine with grade 1 anterolist hesis L5 on S1. 2. No overt destructive changes. If there is concern for metastasis follow-up MRI would be recommende d.
[2021-05-04 21:00] LABS: Appearance,Urine Cloudy (Clear); Bilirubin,Urine 1+ (Negative); Blood,Urine Negative (Negative); Color,Urine Yellow; Glucose,Urine (UA) Negative (Negative); Hyaline Casts,Urine 23 /lpf (0-2); Ketones,Urine 3+ (Negative); Leukocyte Esterase,Urine Trace (Negative); Mucus,Urine Many /hpf; Nitrite,Urine Negative (Negative); Protein,Urine 1+ (Negative); RBC,Urine 4 /hpf (0-5); Specific Gravity,Urine 1.033 (1.001-1.035); Squamous Epithelial Cell,Urine 3 /hpf (0-4); WBC,Urine 22 /hpf (0-5)
[2021-05-04] MEDS ORDERED: SODIUM CHLORIDE 0.9% 1,000 ML IV ONE (21:16)
--- NOTE | 2021-05-04 21:30 | XR ---
EXAMINATION TYPE: XR chest 2V DATE OF EXAM: 05/04/2021 COMPARISON: 02/01/2021 HISTORY: 60 years Female. STUDY INDICATION GIVEN: Weakness . Right-sided lung cancer TECHNIQUE: Frontal chest radiograph IMPRESSION: There is a right upper hemithorax air-fluid level. No lung markings are seen in the right upper hemit horax.There is a large right-sided pleural effusion. Loculated right upper pneumothorax is difficult to exclude. There is decreased volume of the right lung with scattered linear and patchy opacities which may be r eflective of malignancy, atelectasis and/or pneumonic infiltrate. There is rightward midline shift of the mediastinal structures. The cardiac silhouette is difficult t o evaluate though did not appear enlarged on prior study. Minimal left lung base atelectasis is noted. No pneumothorax seen on the left or pleural effusion. Clips are again seen in the right upper quadrant. The osseous structures appear acutely intact. I recommend a CT chest for further evaluation. Dr. Moy called Dr. Sarkar emergency department provider with above findings at 9:26 PM 1. The communication was acknowledged.
[2021-05-04] MEDS: SODIUM CHLORIDE 0.9% 1,000 ML IV SCH (21:46)
[2021-05-04] MEDS: POTASSIUM CHLORIDE 10 MEQ in WATER FOR INJECTION 1 100ML.BAG IVPB SCH ×2 (21:47→22:50)
[2021-05-05] MEDS: POTASSIUM CHLORIDE 10 MEQ in WATER FOR INJECTION 1 100ML.BAG IVPB SCH
[2021-05-05] MEDS: SODIUM CHLORIDE 0.9% 1,000 ML IV SCH ×2 (06:15→13:58)
[2021-05-05] MEDS: DIVALPROEX 500 MG TABLET.DR PO SCH ×2 (10:27→21:48)
[2021-05-05] MEDS: METOPROLOL TARTRATE 25 MG TAB PO SCH ×2 (10:27→21:48)
[2021-05-05] MEDS: ESCITALOPRAM 10 MG TAB PO SCH (10:28)
[2021-05-05] MEDS: PANTOPRAZOLE 40 MG/10 ML VIAL IVP SCH (10:28)
[2021-05-05 10:38] VITALS: BMI 20.6
[2021-05-05 11:13] LABS: Basophils % (A) 0 %; Eosinophils # (A) 0.2 k/uL (0-0.7); Eosinophils % (A) 3 %; HCT 36.7 % (34.0-46.0); HGB 11.4 gm/dL (11.4-16.0); Hypochromasia Slight; Lymphocytes % (A) 14 %; MCH 30.1 pg (25.0-35.0); Mean Platelet Volume 7.9; Monocytes # (A) 0.6 k/uL (0-1.0); Monocytes % (A) 8 %; Neutrophils # (A) 5.5 k/uL (1.3-7.7); Neutrophils % (A) 74 %; Platelet Count 415 k/uL (150-450); RBC 3.78 m/uL (3.80-5.40); RDW 15.1 % (11.5-15.5); WBC 7.5 k/uL (3.8-10.6)
[2021-05-05 11:26] LABS: ALT 69 U/L (4-34); AST 354 U/L (14-36); African American GFR (CKD) >90 (>60 ml/min/1.73 sqM); Albumin 2.2 g/dL (3.5-5.0); Albumin/Globulin Ratio 0.9; Alkaline Phosphatase 256 U/L (38-126); Anion Gap 7 mmol/L; Blood Urea Nitrogen 10 mg/dL (7-17); Calcium 8.3 mg/dL (8.4-10.2); Carbon Dioxide 29 mmol/L (22-30); Chloride 107 mmol/L (98-107); Globulin 2.4 g/dL; Glucose 82 mg/dL (74-99); Non-African American GFR(CKD) >90 (>60 ml/min/1.73 sqM); Potassium 3.1 mmol/L (3.5-5.1); Sodium 143 mmol/L (137-145); Total Bilirubin 0.7 mg/dL (0.2-1.3); Total Protein 4.6 g/dL (6.3-8.2)
[2021-05-05] MEDS ORDERED: Potassium Replacement Protocol 1 EACH MISC MISCELLANE PRN ×2 (12:10→18:00)
--- NOTE | 2021-05-05 15:08 | P.HPIM ---
History of Present Illness H&P Date: 05/05/21 Chief Complaint: progressive weakness, and diarrhea This is a 60-year-old female with past medical history of subarachnoid hemorrhage/cerebral aneurysm/clipping, anxiety, depression, former nicotine dependence, ongoing alcohol use, hypertension, renal and lung CA, right pneum onectomy presented to the ER with complaints of worsening generalized weakness, chronic diarrhea,decreased appetitie. Reports chronic diarrhea times weeks has resolved since admission. reports no appetite, has not been eating times a many weeks. Has not smoked 1 year. Continues to drink beer daily but reports has not consumed any in the last 2 months. Wears O2 at home unsure how many liters. Lives with . EKG reporting normal sinus rhythm, prolonged QT, troponin negative 1. Denies chest pain, palpitations or increased shortness of breath. Lumbar spine reported degenerative disc disease and facet arthropathy mid and lower lumbar spine with grade 1 anterior listhesis L5 on S1, no overt destructive changes. Chest x-ray reporting opacity entire right lung in a patient with pneumonectomy in January 2020. Afebrile, normal WBC, hemoglobin 11.4, platelets 4:15 .Potassium 3, received supplements, remains low at 3.1, supplement replacement ordered. Magnesium 1.8. BUN 10, creatinine 0.29, lactic acid 1. Normal LFTs on admission, increased today, possibly dilutional. Receiving IV fluid hydration. UA reporting many mucus, 22 wbc's, trace leukocytes 1+ bili, negative nitrates 3+ ketones 1+ protein. Review of Systems ROS Statement: Those systems with pertinent positive or pertinent negative responses have been documented in the HPI. ROS Other: All systems not noted in ROS Statement are negative. Past Medical History Past Medical History: No Reported History, Cancer, CVA/TIA, Hypertension Additional Past Medical History / Comment(s): back, subarachnoid hemorrhage from a cerebral aneurysm in january 2020, status post aneurysm clipping History of Any Multi-Drug Resistant Organisms: None Reported Past Surgical History: Breast Surgery, Cholecystectomy, Hysterectomy Additional Past Surgical History / Comment(s): kidney, brain surgery due to an aneurysm back in january, renal cyst removal (per patient it was not cancer) Past Anesthesia/Blood Transfusion Reactions: No Reported Reaction Past Psychological History: Anxiety, Depression Smoking Status: Former smoker Past Alcohol Use History: Occasional Additional Past Alcohol Use History / Comment(s): Reports 4-5 beers approximately twice weekly Past Drug Use History: None Reported - Past Family History Father History Unknown: Yes Family Medical History: Cancer Additional Family Medical History / Comment(s): Liver Mother Family Medical History: Cancer Additional Family Medical History / Comment(s): Breast Medications and Allergies Home Medications Medication Instructions Recorded Confirmed Type Atorvastatin [Lipitor] 40 mg PO HS 05/04/21 05/04/21 History Divalproex Sodium [Depakote] 500 mg PO BID 05/04/21 05/04/21 History Escitalopram [Lexapro] 10 mg PO DAILY 05/04/21 05/04/21 History Metoprolol Tartrate [Lopressor] 25 mg PO BID 05/04/21 05/04/21 History OLANZapine [ZyPREXA] 5 mg PO HS 05/04/21 05/04/21 History lisinopriL [Zestril] 5 mg PO HS 05/04/21 05/04/21 History Allergies Allergy/AdvReac Type Severity Reaction Status Date / Time amoxicillin Allergy Rash/Hives Verified 05/04/21 20:04 codeine AdvReac Nausea Verified 05/04/21 20:04 Physical Exam Vitals: Vital Signs Temp Pulse Pulse Pulse Resp BP BP 05/05/21 12:24 98 F 59 L 16 05/05/21 08:40 70 15 05/05/21 05:00 98 F 70 15 130/72 05/04/21 23:42 97.4 F L 75 18 148/81 05/04/21 22:00 71 18 104/56 05/04/21 21:00 98.9 F 05/04/21 19:55 85 16 125/62 05/04/21 19:23 99.6 F 05/04/21 18:04 98.4 F 66 16 133/65 Pulse Ox 05/05/21 12:24 100 05/05/21 08:40 05/05/21 05:00 99 05/04/21 23:42 100 05/04/21 22:00 98 05/04/21 21:00 05/04/21 19:55 100 05/04/21 19:23 05/04/21 18:04 94 L Intake and Output 05/04/21 05/05/21 05/05/21 22:59 06:59 14:59 Intake Total 1040 Balance 1040 Intake: Intake, IV Titration 1040 Amount Sodium Chloride 0.9% 1, 1040 000 ml @ 130 mls/hr IV . Q7H42M [facility] Rx#:[id number] Other: # Voids 2 Weight 46.266 kg 46.266 kg - Exam GENERAL: Well-appearing, well-nourished and in no acute distress. HEAD: Atraumatic, normocephalic. EYES: Pupils equal round and reactive to light, extraocular movements intact, sclera anicteric, conjunctiva are normal. ENT:nares patent, oropharynx clear without exudates. Moist mucous membranes. NECK: Normal range of motion, supple without lymphadenopathy or JVD, no thyromegaly LUNGS: Nonlabored, Breath sounds clear to auscultation bilaterally and equal. No wheezes rales or rhonchi. HEART: Regular rate and rhythm without murmurs, rubs or gallops.S1S2 Normal ABDOMEN: Soft, nontender, normoactive bowel sounds. No guarding, no rebound. No masses appreciated. EXTREMITIES: Normal range of motion, no pitting or edema. No clubbing or cyanosis. NEUROLOGICAL: Cranial nerves II through XII grossly intact. Normal speech. PSYCH: Alert and oriented 3,-affect-flat. SKIN: Warm, Dry, normal turgor, no rashes noted. Results CBC & Chem 7: 05/05/21 10:30 05/05/21 10:30 Labs: Abnormal Lab Results - Last 24 Hours (Table) 05/04/21 05/04/21 05/04/21 Range/Units 19:30 19:30 20:47 RBC 3.55 L (3.80-5.40) m/uL Hgb 11.0 L (11.4-16.0) gm/dL Plt Count 451 H (150-450) k/uL Neutrophils # 8.2 H (1.3-7.7) k/uL Potassium 3.0 L (3.5-5.1) mmol/L Carbon Dioxide 31 H (22-30) mmol/L Creatinine 0.39 L (0.52-1.04) mg/dL Calcium (8.4-10.2) mg/dL AST (14-36) U/L ALT (4-34) U/L Alkaline Phosphatase (38-126) U/L Total Protein 5.7 L (6.3-8.2) g/dL Albumin 3.0 L (3.5-5.0) g/dL Urine Appearance Cloudy H (Clear) Urine Protein 1+ H (Negative) Urine Ketones 3+ H (Negative) Urine Bilirubin 1+ H (Negative) Ur Leukocyte Esterase Trace H (Negative) Urine WBC 22 H (0-5) /hpf Hyaline Casts 23 H (0-2) /lpf Urine Mucus Many H (None) /hpf 05/05/21 05/05/21 Range/Units 10:30 10:30 RBC 3.78 L (3.80-5.40) m/uL Hgb (11.4-16.0) gm/dL Plt Count (150-450) k/uL Neutrophils # (1.3-7.7) k/uL Potassium 3.1 L (3.5-5.1) mmol/L Carbon Dioxide (22-30) mmol/L Creatinine 0.29 L (0.52-1.04) mg/dL Calcium 8.3 L (8.4-10.2) mg/dL AST 354 H (14-36) U/L ALT 69 H (4-34) U/L Alkaline Phosphatase 256 H (38-126) U/L Total Protein 4.6 L (6.3-8.2) g/dL Albumin 2.2 L (3.5-5.0) g/dL Urine Appearance (Clear) Urine Protein (Negative) Urine Ketones (Negative) Urine Bilirubin (Negative) Ur Leukocyte Esterase (Negative) Urine WBC (0-5) /hpf Hyaline Casts (0-2) /lpf Urine Mucus (None) /hpf Microbiology - Last 24 Hours (Table) 05/04/21 20:47 Urine Culture - Preliminary Urine,Clean Catch Thrombosis Risk Factor Assmnt - Choose All That Apply Any of the Below Risk Factors Present?: Yes Each Factor Represents 1 point: Age 41-60 years Other Risk Factors: Yes Each Risk Factor Represents 2 Points: Malignancy Other congenital or acquired thrombophilia - If yes, enter type in comment: No Thrombosis Risk Factor Assessment Total Risk Factor Score: 3 Thrombosis Risk Factor Assessment Level: Moderate Risk Assessment and Plan Assessment: generalized weakness secondary to diarrhea and Hypokalemia. Dehydration lungs CTA, status post right pneumonectomy Renal cell CA. Hypertension Alcohol abuse History of intracranial aneurysm, hemorrhage, status post clipping History of kidney cyst removal Former nicotine dependence Anxiety Depression Moderate protein calorie malnutrition,BMI 20.6 QT prolongation per EKG, congenital plan: Continue on current medication regime ,monitoring and symptomatic treatment. Maintain IV fluid hydration. Urine culture pending .BRAT diet in a ddition to ensure supplements. Potassium replacement protocol.. Close monitoring of electrolytes with repeat labs ordered for a.m. The impression and plan of care has been dictated as directed. : I performed a history and examination of this patient, discussed the same with the dictator. I agree with the dictator's note ,documented as a scribe. Any additional findings or plans will be noted.
[2021-05-05] MEDS ORDERED: IOPAMIDOL CONTRAST (ORAL USE) VIAL PO PRN (18:09)
[2021-05-05] MEDS ORDERED: RX INFO: IV CONTRAST WAS GIVEN 1 EACH MISC MISCELLANE PRN (18:09)
--- NOTE | 2021-05-05 18:09 | P.CONS ---
History of Present Illness - Reason for Consult Consult date: 05/05/21 Hx lung cancer, renal cell Requesting physician: Froy Chaudhari - Chief Complaint weakness, poor oral intake - History of Present Illness Mrs. Quinones is a pleasant female pt of Dr. Dill with severe short term memory loss 2/2 CVA. She fell on ice 10/26/20, xray of right shoulder which revealed RUL lung mass which led to CT CAP on 11/04/20. this revealed 3.1 x 3.0 cm RUL and 2.9 x 1.9 RLL masses and 4 x 4.7 cm solid right kidney mass. 11/18/20 CT guided biopsy of lung positive for adenocarcinoma consistent with lung primary. PDL-1 was negative, NGS revealed TP53 mutation and [id number] mutation. 11/30/20, bone scan was negative for metastatic disease. 12/04/20 PET revealed suspicious uptake in the 2 right lung lesions. She had surgery , RLL lobectomy and wedge resection of RLL, pathology revealed 2.3 cm carcinoma in RUL with 2 additional foci of microinvasive carcinoma (2.5 mm and 3.5mm), RLL revealed 3.5 cm invasive adenocarcinoma, regional nodes were negative, there was evidence of visceral pleura invasion and LVI, negative margins. She has had long recovery time, spent time in rehab, she is currently undergoing physical therapy at home. She has lost a lot of weight, PS has not improved. She saw Dr. Dill 04/19, and he felt her PS was still so poor that she is not a candidate for adjuvant chemotherapy for her lung cancer or a candidate for surgery in regard to her kidney cancer. Pt tells us that she can't walk far, has had poor appetite, diarrhea, denies recent falls, dizziness or [place] but, she has a hard time remembering things. Denies pain, nausea, chest pain or need to go to the bathroom at time of exam. Review of Systems 10 point ROS neg except as stated in HPI, pt does have short term memory loss 2/2 CVA Past Medical History Past Medical History: No Reported History, Cancer, CVA/TIA, Hypertension Additional Past Medical History / Comment(s): back, subarachnoid hemorrhage from a cerebral aneurysm in january 2020, status post aneurysm clipping History of Any Multi-Drug Resistant Organisms: None Reported Past Surgical History: Breast Surgery, Cholecystectomy, Hysterectomy Additional Past Surgical History / Comment(s): kidney, brain surgery due to an aneurysm back in january, renal cyst removal (per patient it was not cancer) Past Anesthesia/Blood Transfusion Reactions: No Reported Reaction Past Psychological History: Anxiety, Depression Smoking Status: Former smoker Past Alcohol Use History: Occasional Additional Past Alcohol Use History / Comment(s): Reports 4-5 beers approximately twice weekly Past Drug Use History: None Reported - Past Family History Father History Unknown: Yes Family Medical History: Cancer Additional Family Medical History / Comment(s): Liver Mother Family Medical History: Cancer Additional Family Medical History / Comment(s): Breast Medications and Allergies Home Medications Medication Instructions Recorded Confirmed Type Atorvastatin [Lipitor] 40 mg PO HS 05/04/21 05/04/21 History Divalproex Sodium [Depakote] 500 mg PO BID 05/04/21 05/04/21 History Escitalopram [Lexapro] 10 mg PO DAILY 05/04/21 05/04/21 History Metoprolol Tartrate [Lopressor] 25 mg PO BID 05/04/21 05/04/21 History OLANZapine [ZyPREXA] 5 mg PO HS 05/04/21 05/04/21 History lisinopriL [Zestril] 5 mg PO HS 05/04/21 05/04/21 History Allergies Allergy/AdvReac Type Severity Reaction Status Date / Time amoxicillin Allergy Rash/Hives Verified 05/04/21 20:04 codeine AdvReac Nausea Verified 05/04/21 20:04 Physical Exam Vitals: Vital Signs Temp Pulse Pulse Resp BP BP Pulse Ox 05/05/21 05:00 98 F 70 15 130/72 99 05/04/21 23:42 97.4 F L 75 18 148/81 100 05/04/21 22:00 71 18 104/56 98 05/04/21 21:00 98.9 F 05/04/21 19:55 85 16 125/62 100 05/04/21 19:23 99.6 F 05/04/21 18:04 98.4 F 66 16 133/65 94 L Intake and Output 05/04/21 05/05/21 05/05/21 22:59 06:59 14:59 Intake Total 1040 Balance 1040 Intake: Intake, IV Titration 1040 Amount Sodium Chloride 0.9% 1, 1040 000 ml @ 130 mls/hr IV . Q7H42M [facility] Rx#:[id number] Other: # Voids 2 Weight 46.266 kg 46.266 kg - Constitutional General appearance: cooperative, no acute distress, thin - EENT Eyes: anicteric sclerae, EOMI ENT: hearing grossly normal, normal oropharynx - Neck Neck: no lymphadenopathy - Respiratory rt posterior back/rib scars from pnemonectomy and drain tubes Respiratory: right: other, left: diminished - Cardiovascular Rhythm: regular Heart sounds: normal: S1, S2 Abnormal Heart Sounds: no systolic murmur, no diastolic murmur, no rub, no S3 Gallop, no S4 Gallop, no click, no other leg Peripheral Edema: bilateral: None - Gastrointestinal General gastrointestinal: no absent bowel sounds, no decreased bowel sounds, no distended, no hepatomegaly, no hyperactive bowel sounds, normal bowel sounds, no organomegaly, no rigid, no scaphoid, soft, no splenomegaly, no tenderness, no umbilical hernia, no ventral hernia - Integumentary Integumentary: pale - Neurologic Neurologic: CNII-XII intact - Musculoskeletal Musculoskeletal: generalized weakness, strength equal bilaterally - Psychiatric memory loss, short term memory not intact 2/2/ CVA Psychiatric: A&O x's 3, appropriate affect Results CBC & Chem 7: 05/05/21 10:30 05/05/21 17:21 Labs: Abnormal Lab Results - Last 24 Hours (Table) 05/04/21 05/04/21 05/04/21 Range/Units 19:30 19:30 20:47 RBC 3.55 L (3.80-5.40) m/uL Hgb 11.0 L (11.4-16.0) gm/dL Plt Count 451 H (150-450) k/uL Neutrophils # 8.2 H (1.3-7.7) k/uL Potassium 3.0 L (3.5-5.1) mmol/L Carbon Dioxide 31 H (22-30) mmol/L Creatinine 0.39 L (0.52-1.04) mg/dL Total Protein 5.7 L (6.3-8.2) g/dL Albumin 3.0 L (3.5-5.0) g/dL Urine Appearance Cloudy H (Clear) Urine Protein 1+ H (Negative) Urine Ketones 3+ H (Negative) Urine Bilirubin 1+ H (Negative) Ur Leukocyte Esterase Trace H (Negative) Urine WBC 22 H (0-5) /hpf Hyaline Casts 23 H (0-2) /lpf Urine Mucus Many H (None) /hpf Microbiology - Last 24 Hours (Table) 05/04/21 20:47 Urine Culture - Preliminary Urine,Clean Catch Chest x-ray: report reviewed Assessment and Plan (1) Generalized weakness Current Visit: Yes Status: Acute Priority: High Code(s): R53.1 - WEAKNESS SNOMED Code(s): 86192856 (2) Lung cancer Narrative/Plan: Resected. Has been unable to rehabilitate post op. Adjuvant treatment was recommended but, not able to be given 2/2 poor PS Current Visit: No Status: Chronic Priority: Medium Code(s): C34.90 - MALIGNANT NEOPLASM OF UNSP PART OF UNSP BRONCHUS OR LUNG SNOMED Code(s): 104052845 (3) Renal cell cancer Narrative/Plan: Not a candidate for surgical removal. She is scheduled to have f/u scans to re- assess disease status Current Visit: Yes Status: Chronic Priority: High Code(s): C64.9 - MALIGNANT NEOPLASM OF UNSP KIDNEY, EXCEPT RENAL PELVIS SNOMED Code(s): 762506690 Plan: Infection work up, stool studies pending Will request restaging CT scans and MRI brain attests: I have seen and examined pt, performed H&P, developed impression and plan of care. Discussed with dictator. Agree with documentation, documented as a scribe.
[2021-05-05] MEDS: POTASSIUM CHLORIDE ER 20 MEQ TAB.ER PO SCH ×2 (18:30→20:08)
[2021-05-05] MEDS: OLANZapine 5 MG TAB PO SCH (21:48)
[2021-05-05 22:19] LABS: HCT 36.4 % (34.0-46.0); HGB 11.2 gm/dL (11.4-16.0); Hypochromasia Marked; MCH 30.5 pg (25.0-35.0); MCHC 30.7 g/dL (31.0-37.0); MCV 99.1 fL (80.0-100.0); Platelet Count 398 k/uL (150-450); RBC 3.67 m/uL (3.80-5.40); RDW 15.1 % (11.5-15.5)
[2021-05-05 22:42] LABS: Crenated RBC Present; Lymphocytes # (M) 1.36 k/uL (1.0-4.8); Neutrophils # (M) 5.44 k/uL (1.3-7.7); Neutrophils % (M) 68 %; Nucleated Red Blood Cells 0 /100 WBC (0-0); Total Cells Counted 100
[2021-05-06] MEDS: metroNIDAZOLE 500 MG TAB PO SCH ×3 (00:09→19:52)
[2021-05-06] MEDS: SODIUM CHLORIDE 0.9% 1,000 ML IV SCH ×3 (05:35→17:31)
[2021-05-06] MEDS: DIVALPROEX 500 MG TABLET.DR PO SCH ×2 (09:10→19:52)
[2021-05-06] MEDS: METOPROLOL TARTRATE 25 MG TAB PO SCH ×2 (09:10→19:52)
[2021-05-06] MEDS: PANTOPRAZOLE 40 MG/10 ML VIAL IVP SCH (09:11)
[2021-05-06 10:53] LABS: African American GFR (CKD) 148.6 (60.0-200.0); Anion Gap 11.9 mmol/L (4.00-12.00); BUN/Creat Ratio 30.38 Ratio (12.00-20.00); Blood Urea Nitrogen 8.7 mg/dL (9.0-27.0); Calcium 7.8 mg/dL (8.7-10.3); Carbon Dioxide 23.2 mmol/L (21.6-31.8); Non-African American GFR(CKD) 128.2 (60.0-200.0); Potassium 3.2 mmol/L (3.5-5.5)
[2021-05-06] MEDS ORDERED: Potassium Replacement Protocol 1 EACH MISC MISCELLANE PRN ×2 (11:53→16:20)
[2021-05-06] MEDS ORDERED: Magnesium Replacement Protocol 1 EACH MISC MISCELLANE PRN (11:56)
--- NOTE | 2021-05-06 12:05 | P.PN ---
Subjective Progress Note Date: 05/06/21 This is a 60-year-old female with past medical history of subarachnoid hemorrhage/cerebral aneurysm/clipping, anxiety, depression, former nicotine dependence, ongoing alcohol use, hypertension, renal and lung CA, right pneumonectomy presented to the ER with complaints of worsening generalized weakness, chronic diarrhea,decreased appetitie. Reports chronic diarrhea times weeks has resolved since admission. reports no appetite, has not been eating times a many weeks. Has not smoked 1 year. Continues to drink beer daily but reports has not consumed any in the last 2 months. Wears O2 at home unsure how many liters. Lives with . EKG reporting normal sinus rhythm, prolonged QT, troponin negative 1. Denies chest pain, palpitations or increased shortness of breath. Lumbar spine reported degenerative disc disease and facet arthropathy mid and lower lumbar spine with grade 1 anterior listhesis L5 on S1, no overt destructive changes. Chest x-ray reporting opacity entire right lung in a patient with pneumonectomy in January 2020. Afebrile, normal WBC, hemoglobin 11.4, platelets 4:15 .Potassium 3, received supplements, remains low at 3.1, supplement replacement ordered. Magnesium 1.8. BUN 10, creatinine 0.29, lactic acid 1. Normal LFTs on admission, increased today, possibly dilutional. Receiving IV fluid hydration. UA reporting many mucus, 22 wbc's, trace leukocytes 1+ bili, negative nitrates 3+ ketones 1+ protein. 05/06/2021 positive for C. difficile colitis last night, Flagyl initiated. 3 diarrhea episodes this morning. Maintaining O2 sats mid to high 90s on 2 L nasal cannula. Afebrile. Potassium 3.2, potassium replacement protocol ordered. Magnesium level pending. Objective - Vital Signs Vital signs: Vital Signs Temp 98.5 F 05/06/21 09:11 Pulse 82 05/06/21 09:11 Resp 18 05/06/21 09:11 BP 154/69 05/06/21 09:11 Pulse Ox 95 05/06/21 04:56 Intake & Output 05/05/21 05/06/21 05/06/21 18:59 06:59 18:59 Intake Total 360 Balance 360 Weight 46.266 kg Intake: Oral 360 Other: Voiding Method Toilet Diaper Incontinent # Voids 2 3 # Bowel Movements 1 3 - Exam - Exam GENERAL: Well-appearing, well-nourished and in no acute distress. HEAD: Atraumatic, normocephalic. EYES: Pupils equal round and reactive to light, extraocular movements intact, sclera anicteric, conjunctiva are normal. ENT:nares patent, oropharynx clear without exudates. Moist mucous membranes. NECK: Normal range of motion, supple without lymphadenopathy or JVD, no thyromegaly LUNGS: Nonlabored, Breath sounds clear to auscultation bilaterally and equal. No wheezes rales or rhonchi. HEART: Regular rate and rhythm without murmurs, rubs or gallops.S1S2 Normal ABDOMEN: Soft, nontender, normoactive bowel sounds. No guarding, no rebound. No masses appreciated. EXTREMITIES: Normal range of motion, no pitting or edema. No clubbing or cyanosis. NEUROLOGICAL: Cranial nerves II through XII grossly intact. Normal speech. PSYCH: Alert and oriented 3,-affect-flat. SKIN: Warm, Dry, normal turgor, no rashes noted. Microbiology 05/05/21 20:20 Stool Stool Culture - Preliminary 05/04/21 20:47 Urine,Clean Catch Urine Culture - Final - Labs CBC & Chem 7: 05/05/21 20:06 05/06/21 06:33 Labs: Abnormal Lab Results - Last 24 Hours (Table) 05/05/21 05/05/21 05/05/21 Range/Units 17:21 20:06 20:20 RBC 3.67 L (3.80-5.40) m/uL Hgb 11.2 L (11.4-16.0) gm/dL MCHC 30.7 L (31.0-37.0) g/dL Monocytes # (Manual) 1.20 H (0-1.0) k/uL Sodium (135-145) mmol/L Potassium 3.1 L (3.5-5.1) mmol/L Chloride (96-109) mmol/L BUN (9.0-27.0) mg/dL Creatinine (0.6-1.5) mg/dL BUN/Creatinine Ratio (12.00-20.00) Ratio Calcium (8.7-10.3) mg/dL C. difficile (EIA) Intrp Positive A (Negative) 05/06/21 Range/Units 06:33 RBC (3.80-5.40) m/uL Hgb (11.4-16.0) gm/dL MCHC (31.0-37.0) g/dL Monocytes # (Manual) (0-1.0) k/uL Sodium 146 H (135-145) mmol/L Potassium 3.2 L (3.5-5.1) mmol/L Chloride 110 H (96-109) mmol/L BUN 8.7 L (9.0-27.0) mg/dL Creatinine 0.3 L (0.6-1.5) mg/dL BUN/Creatinine Ratio 30.38 H (12.00-20.00) Ratio Calcium 7.8 L (8.7-10.3) mg/dL C. difficile (EIA) Intrp (Negative) Microbiology - Last 24 Hours (Table) 05/05/21 20:20 Stool Culture - Preliminary Stool 05/04/21 20:47 Urine Culture - Final Urine,Clean Catch Assessment and Plan Assessment: generalized weakness secondary to C. difficile colitis and Hypokalemia. Dehydration Hypokalemia History of right pneumonectomy Renal cell CA. Hypertension Alcohol abuse History of intracranial aneurysm, hemorrhage, status post clipping History of kidney cyst removal Former nicotine dependence Anxiety Depression Moderate protein calorie malnutrition,BMI 20.6 QT prolongation per EKG, congenital plan: Continue on current medication regime ,monitoring and symptomatic treatment. Maintain IV fluid hydration, Flagyl. Potassium replacement protocol ordered. Repeat potassium level tonight at 1600 post supplementation. Magnesium level ordered. Remote telemetry secondary to persistent hypokalemia. Close monitoring of electrolytes with repeat labs ordered for a.m. The impression and plan of care has been dictated as directed. : I performed a history and examination of this patient, discussed the same with the dictator. I agree with the dictator's note ,documented as a scribe. Any additional findings or plans will be noted.
--- NOTE | 2021-05-06 12:25 | CT ---
EXAMINATION TYPE: CT ChestAbdPelvis w con DATE OF EXAM: 05/06/2021 COMPARISON: 12/04/2020, 11/04/2020 HISTORY: 60-year-old female with weight loss, progressive physical debility, history of resected lung CA TECHNIQUE: Contiguous axial scanning of the chest, abdomen, and pelvis performed with IV Contrast, pa tient injected with 100 mL of Isovue 300. Delayed images through the kidneys were obtained. Coronal/s agittal reconstructions performed. CT DLP: 572 mGycm Automated exposure control for dose reduction was used. FINDINGS: CHEST: Bilateral breast implants. Volume loss in the right hemithorax with postsurgical change of prior right upper lobectomy and addit ional right lower lobe wedge resection. Heart normal size. There is moderate right-sided pleural effusion and likely an apical hydropneumothorax. Enlarged lower right paratracheal lymph node at 1.6 cm is new. Nonenlarged AP window lymph node measu ring 8 mm. Moderate centrilobular emphysema visualized left upper lung. Small left pleural effusion. ABDOMEN: 6 mm hypodensity right liver lobe too small for accurate CT characterization, likely cyst. Portal freddie ous system is patent. Cholecystectomy clips. Bile duct markedly dilated at 2.1 cm. This may be chronic for the patient. Adrenal glands left kidney, spleen with inferior hilar splenule, and pancreas show no gross abnormali ty. Heterogeneously enhancing hypervascular mass anterior upper pole right kidney measures 4.9 cm versus 4.6 cm on 12/04/2020 and much smaller at 1.5 cm back in 2012. No dilated small bowel or free air. No mesenteric or retroperitoneal lymphadenopathy. Normal appendix. Moderate to severe pancolonic wall thickening, bowel wall edema, mucosal hyperemia with pericolonic f at stranding and pericolonic edema. No definite bowel wall pneumatosis is identified. PELVIS: Bladder partially distended. Multiple pelvic fluid was. Uterus surgically absent. Neither ovaries are clearly identified. Mild to moderate pelvic free fluid. Presacral edema. No pelvic lymphadenopathy s een. BONES: Thoracotomy changes on the right. Bilateral L5 pars defects. Possible left-sided L4 pars defect as we ll. No osseous destructive process. IMPRESSION: 1. STATUS POST RIGHT UPPER LOBECTOMY WELL WEDGE RESECTION IN THE RIGHT LOWER LOBE. THERE IS A M ODERATE RIGHT PLEURAL EFFUSION. THERE ALSO APPEARS TO BE A MODERATE SIZED, LOCULATED RIGHT APICAL HYD ROPNEUMOTHORAX. 2. NEW LOWER RIGHT PARATRACHEAL LYMPHADENOPATHY MEASURING 1.6 CM. THIS MAY BE REACTIVE. METASTATIC LY MPH NODE NOT EXCLUDED AT THIS TIME. 3. COPD. SMALL LEFT PLEURAL EFFUSION. 4. KNOWN HYPERVASCULAR MASS UPPER POLE RIGHT KIDNEY. THIS IS 4.9 CM VERSUS 4.6 CM ON 12/04/2020. MUCH SMALLER AT 1.5 CM BACK IN 2012. RCC SHOULD BE EXCLUDED. 5. MODERATE TO SEVERE INFECTIOUS OR INFLAMMATORY PANCOLITIS WITH REACTIVE PERICOLONIC INFLAMMATION AN D EDEMA. MILD ABDOMINOPELVIC ASCITES PROBABLY REACTIVE TO THE COLITIS. FURTHER EVALUATION AND TREATME NT RECOMMENDED. 6. INCIDENTAL BILATERAL L5 PARS DEFECTS AND POSSIBLE LEFT-SIDED L4 PARS DEFECT.
[2021-05-06] MEDS: ESCITALOPRAM 10 MG TAB PO SCH (13:26)
[2021-05-06] MEDS: CHOLESTYRAMINE (WITH SUGAR) 4 GM PACKET PO SCH ×2 (17:14→17:38)
[2021-05-06] MEDS: POTASSIUM CHLORIDE ER 20 MEQ TAB.ER PO SCH ×2 (17:14→17:33)
[2021-05-06] MEDS: OLANZapine 5 MG TAB PO SCH (19:52)
--- NOTE | 2021-05-06 21:40 | P.PN ---
Subjective Progress Note Date: 05/06/[address] scan does reveal inflammation pancolitis in bowels. She admits to diarrhea. We reviewed new lymph node seen on scan, possibly reactive. No definitive sign of recurrence, however given the amount of acute inflammation in abdomen difficult to exclude. Objective - Vital Signs Vital signs: Vital Signs Temp 97.4 F L 05/06/21 12:53 Pulse 54 L 05/06/21 12:53 Resp 16 05/06/21 12:53 BP 154/77 05/06/21 12:53 Pulse Ox 91 L 05/06/21 12:53 Intake & Output 05/05/21 05/06/21 05/06/21 18:59 06:59 18:59 Intake Total 360 Balance 360 Weight 46.266 kg Intake: Oral 360 Other: Voiding Method Toilet Diaper Incontinent # Voids 2 3 # Bowel Movements 1 3 - Exam - Constitutional General appearance: cooperative, no acute distress, thin - EENT Eyes: anicteric sclerae, EOMI ENT: hearing grossly normal, normal oropharynx - Neck Neck: no lymphadenopathy - Respiratory rt posterior back/rib scars from pnemonectomy and drain tubes Respiratory: right: other, left: diminished - Cardiovascular Rhythm: regular Heart sounds: normal: S1, S2 Abnormal Heart Sounds: no systolic murmur, no diastolic murmur, no rub, no S3 Gallop, no S4 Gallop, no click, no other leg Peripheral Edema: bilateral: None - Gastrointestinal General gastrointestinal: no absent bowel sounds, no decreased bowel sounds, no distended, no hepatomegaly, no hyperactive bowel sounds, normal bowel sounds, no organomegaly, no rigid, no scaphoid, soft, no splenomegaly, no tenderness, no umbilical hernia, no ventral hernia - Integumentary Integumentary: pale - Neurologic Neurologic: CNII-XII intact - Musculoskeletal Musculoskeletal: generalized weakness, strength equal bilaterally - Psychiatric memory loss, short term memory not intact 2/2/ CVA Psychiatric: A&O x's 3, appropriate affect - Labs CBC & Chem 7: 05/05/21 20:06 05/06/21 16:29 Labs: Abnormal Lab Results - Last 24 Hours (Table) 05/05/21 05/05/21 05/05/21 Range/Units 17:21 20:06 20:20 RBC 3.67 L (3.80-5.40) m/uL Hgb 11.2 L (11.4-16.0) gm/dL MCHC 30.7 L (31.0-37.0) g/dL Monocytes # (Manual) 1.20 H (0-1.0) k/uL Sodium (135-145) mmol/L Potassium 3.1 L (3.5-5.1) mmol/L Chloride (96-109) mmol/L BUN (9.0-27.0) mg/dL Creatinine (0.6-1.5) mg/dL BUN/Creatinine Ratio (12.00-20.00) Ratio Calcium (8.7-10.3) mg/dL C. difficile (EIA) Intrp Positive A (Negative) 05/06/21 Range/Units 06:33 RBC (3.80-5.40) m/uL Hgb (11.4-16.0) gm/dL MCHC (31.0-37.0) g/dL Monocytes # (Manual) (0-1.0) k/uL Sodium 146 H (135-145) mmol/L Potassium 3.2 L (3.5-5.1) mmol/L Chloride 110 H (96-109) mmol/L BUN 8.7 L (9.0-27.0) mg/dL Creatinine 0.3 L (0.6-1.5) mg/dL BUN/Creatinine Ratio 30.38 H (12.00-20.00) Ratio Calcium 7.8 L (8.7-10.3) mg/dL C. difficile (EIA) Intrp (Negative) Microbiology - Last 24 Hours (Table) 05/05/21 20:20 Stool Culture - Preliminary Stool 05/04/21 20:47 Urine Culture - Final Urine,Clean Catch Assessment and Plan Plan: Chest x-ray: report reviewed Assessment and Plan (1) Generalized weakness Current Visit: Yes Status: Acute Priority: High Code(s): R53.1 - WEAKNESS SNOMED Code(s): 86064917 (2) Lung cancer Narrative/Plan: - Status Post Resection - Adjuvant treatment is recommended although performance is Poor Current Visit: No Status: Chronic Priority: Medium Code(s): C34.90 - MALIGNANT NEOPLASM OF UNSP PART OF UNSP BRONCHUS OR LUNG SNOMED Code(s): 942628242 (3) Renal cell cancer Narrative/Plan: - Unresectable Current Visit: Yes Status: Chronic Priority: High Code(s): C64.9 - MALIGNANT NEOPLASM OF UNSP KIDNEY, EXCEPT RENAL PELVIS SNOMED Code(s): 667251975 Plan: - Limit PO intake - Monitor close I and O, diarrhea and lose stools - Stool studies - Ask ID to follow Dr attests: I have seen and examined pt, performed H&P, developed impression and plan of care. Discussed with dictator. Agree with documentation, documented as a scribe.
[2021-05-07] MEDS: SODIUM CHLORIDE 0.9% 1,000 ML IV SCH ×3 (03:47→13:58)
[2021-05-07 06:44] LABS: Basophils % (A) 0 %; Eosinophils # (A) 0.4 k/uL (0-0.7); Eosinophils % (A) 7 %; HCT 34.3 % (34.0-46.0); HGB 10.5 gm/dL (11.4-16.0); Hypochromasia Marked; Lymphocytes # (A) 1.3 k/uL (1.0-4.8); Lymphocytes % (A) 25 %; MCH 30.5 pg (25.0-35.0); MCHC 30.5 g/dL (31.0-37.0); Macrocytosis Slight; Mean Platelet Volume 7.6; Monocytes # (A) 0.6 k/uL (0-1.0); Monocytes % (A) 12 %; Neutrophils # (A) 2.7 k/uL (1.3-7.7); Neutrophils % (A) 53 %; Platelet Count 370 k/uL (150-450); RBC 3.43 m/uL (3.80-5.40); RDW 15.1 % (11.5-15.5); WBC 5.1 k/uL (3.8-10.6)
[2021-05-07] MEDS ORDERED: LORazepam 2 MG/ML INJ IV STA (08:43)
[2021-05-07] MEDS: METOPROLOL TARTRATE 25 MG TAB PO SCH ×2 (09:08→19:58)
[2021-05-07] MEDS: metroNIDAZOLE 500 MG TAB PO SCH ×2 (09:08→19:58)
[2021-05-07] MEDS: ESCITALOPRAM 10 MG TAB PO SCH (09:08)
[2021-05-07] MEDS: PANTOPRAZOLE 40 MG TABLET PO SCH (09:08)
[2021-05-07] MEDS: CHOLESTYRAMINE (WITH SUGAR) 4 GM PACKET PO SCH ×3 (09:09→18:01)
[2021-05-07] MEDS: DIVALPROEX 500 MG TABLET.DR PO SCH ×2 (09:09→19:58)
[2021-05-07 09:50] LABS: African American GFR (CKD) 153.1 (60.0-200.0); BUN/Creat Ratio 16.09 Ratio (12.00-20.00); Blood Urea Nitrogen 4.2 mg/dL (9.0-27.0); Calcium 7.8 mg/dL (8.7-10.3); Carbon Dioxide 21.4 mmol/L (21.6-31.8); Magnesium 1.5 mg/dL (1.5-2.4); Non-African American GFR(CKD) 132.1 (60.0-200.0); Potassium 2.9 mmol/L (3.5-5.5)
[2021-05-07] MEDS: VANCOMYCIN 125 MG CAPSULE PO SCH ×4 (10:06→20:01)
--- NOTE | 2021-05-07 11:03 | MR ---
EXAMINATION TYPE: MR brain wo/w con DATE OF EXAM: 05/07/2021 10:57 AM COMPARISON: NONE HISTORY: Wt loss, progressive physical debility, Hx lung cancer. FINDINGS: There is moderate hydrocephalus noted of the lateral ventricles and third ventricle. The findings cou ld be related to aqueduct stenosis. There is periventricular increased signal noted which could be re lated to transependymal fluid. There is evidence of moderate periventricular white matter ischemic demyelination. Focal white matter lesions are noted within the right frontal lobe. Demyelination not excluded. Also consider chronic small vessel ischemic change. No acute edema is seen on diffusion weighted imaging. There is no evidence for midline shift or mass effect. Acute intracranial hemorrhage or extra-axial collection is not evident. Opacification right-sided mastoid air cells. Left-sided mastoid air cells well-aerated. IMPRESSION: 1. Moderate hydrocephalus which could be related to aqueduct stenosis. 2. White matter changes as discussed above.
[2021-05-07] MEDS ORDERED: VANCOMYCIN ORAL SOLUTION 250 MG/5 ML BOTTLE PO SCH (13:00)
[2021-05-07] MEDS ORDERED: CHERRY FLAVOR 60 ML BOTTLE PO SCH (13:00)
--- NOTE | 2021-05-07 15:41 | P.PN ---
Subjective This is a 60-year-old female with past medical history of subarachnoid hemorrhage/cerebral aneurysm/clipping, anxiety, depression, former nicotine de pendence, ongoing alcohol use, hypertension, renal and lung CA, right pneumonectomy presented to the ER with complaints of worsening generalized weakness, chronic diarrhea,decreased appetitie. Reports chronic diarrhea times weeks has resolved since admission. reports no appetite, has not been eating times a many weeks. Has not smoked 1 year. Continues to drink beer daily but reports has not consumed any in the last 2 months. Wears O2 at home unsure how many liters. Lives with . EKG reporting normal sinus rhythm, prolonged QT, troponin negative 1. Denies chest pain, palpitations or increased shortness of breath. Lumbar spine reported degenerative disc disease and facet arthropathy mid and lower lumbar spine with grade 1 anterior listhesis L5 on S1, no overt destructive changes. Chest x-ray reporting opacity entire right lung in a patient with pneumonectomy in January 2020. Afebrile, normal WBC, hemoglobin 11.4, platelets 4:15 .Potassium 3, received supplements, remains low at 3.1, supplement replacement ordered. Magnesium 1.8. BUN 10, creatinine 0.29, lactic acid 1. Normal LFTs on admission, increased today, possibly dilutional. Receiving IV fluid hydration. UA reporting many mucus, 22 wbc's, trace leukocytes 1+ bili, negative nitrates 3+ ketones 1+ protein. 05/06/2021 positive for C. difficile colitis last night, Flagyl initiated. 3 diarrhea episodes this morning. Maintaining O2 sats mid to high 90s on 2 L nasal cannula. Afebrile. Potassium 3.2, potassium replacement protocol ordered. Magnesium level pending. 05/07/2021: Patient to his C. difficile colitis. She reports a less diarrhea and feeling overall improved. Denies any chest pains, pressures, shortness breath this time. She has ongoing fatigue due to debility after her lung cancer and right pneumonectomy. She also has renal carcinoma. Heart rate is stable. Temperature MAXIMUM TEMPERATURE of 98.4F. I's and O's show most recently 2 bowel movements today and 3 urine voids. Labs showed of the scalp I1. Lotensin 5, electrolytes show potassium 2.9, GFR is 132. Magnesium is 1.5, calcium 7.8. Occult blood stool was negative. Urine culture is negative. Stool cultures pending. C. difficile is positive. CT chest abdomen and pelvis was reviewed showing her lobectomy along with a moderate right pleural effusion and a loculated right apical I don't know thorax. Right kidney mass once again visualized. There was minimal lower right paratracheal lymphadenopathy. MRI of the brain shows moderate hydrocephalus possibly aqueduct stenosis and white matter changes. No masses. Dr. Reeves is following. Objective - Vital Signs Vital signs: Vital Signs Temp 97.4 F L 05/07/21 11:29 Pulse 53 L 05/07/21 11:29 Resp 18 05/07/21 11:29 BP 144/72 05/07/21 11:29 Pulse Ox 92 L 05/07/21 11:29 Intake & Output 05/06/21 05/07/21 05/07/21 18:59 06:59 18:59 Output Total 300 Balance -300 Output: Stool 300 Other: Voiding Method Toilet Toilet Toilet Diaper Diaper Diaper Incontinent Incontinent Incontinent # Voids 3 2 1 # Bowel Movements 5 1 1 - Exam GENERAL: Fatigued, thin and in no acute distress. Improved from her office visit 3 days ago. HEAD: Atraumatic, normocephalic. NECK: Normal range of motion, supple without lymphadenopathy or JVD, no thyromegaly LUNGS: Nonlabored, Breath sounds clear to auscultation bilaterally and equal. No wheezes rales or rhonchi. Diminished on the right side HEART: Regular rate and rhythm without murmurs, rubs or gallops.S1S2 Normal ABDOMEN: Soft, nontender, normoactive bowel sounds. No guarding, no rebound. No masses appreciated. EXTREMITIES: Normal range of motion, no pitting or edema. No clubbing or cyanosis. NEUROLOGICAL: Cranial nerves II through XII grossly intact. Normal speech. PSYCH: Alert and oriented 3,-affect-flat. SKIN: Warm, Dry, normal turgor, no rashes noted. - Labs CBC & Chem 7: 05/07/21 06:26 05/07/21 06:26 Labs: Abnormal Lab Results - Last 24 Hours (Table) 05/07/21 05/07/21 Range/Units 06:26 06:26 RBC 3.43 L (3.80-5.40) m/uL Hgb 10.5 L (11.4-16.0) gm/dL MCHC 30.5 L (31.0-37.0) g/dL Potassium 2.9 L (3.5-5.5) mmol/L Chloride 111 H (96-109) mmol/L Carbon Dioxide 21.4 L (21.6-31.8) mmol/L Anion Gap 13.00 H (4.00-12.00) mmol/L BUN 4.2 L (9.0-27.0) mg/dL Creatinine 0.3 L (0.6-1.5) mg/dL Calcium 7.8 L (8.7-10.3) mg/dL Assessment and Plan Plan: generalized weakness secondary to C. difficile colitis Electrolyte abnormalities including hypokalemia and hypocalcemia, secondary to above Dehydration History of right pneumonectomy secondary to right lung carcinoma Renal cell CA. Hypertension Alcohol abuse History of intracranial aneurysm, hemorrhage, status post clipping History of kidney cyst removal Former nicotine dependence Anxiety Depression Moderate protein calorie malnutrition,BMI 20.6 QT prolongation per EKG, congenital We will repeat labs in a.m. Continue electrolyte replenishment. Further evaluations from oncology are pending. Add vancomycin orally to her regimen, continue her other home medications she will be reevaluated in the next 24 hour,
[2021-05-07] MEDS: LACTATED RINGERS 1,000 ML IV SCH (15:58)
[2021-05-07] MEDS: POTASSIUM CHLORIDE ER 20 MEQ TAB.ER PO SCH ×6 (16:20→22:02)
[2021-05-07] MEDS: OLANZapine 5 MG TAB PO SCH (19:58)
[2021-05-08] MEDS: POTASSIUM CHLORIDE 10 MEQ in WATER FOR INJECTION 1 100ML.BAG IVPB SCH ×6 (01:33→07:05)
[2021-05-08] MEDS: LACTATED RINGERS 1,000 ML IV SCH ×3 (03:03→23:37)
[2021-05-08 06:36] LABS: Basophils % (A) 0 %; Eosinophils # (A) 0.6 k/uL (0-0.7); Eosinophils % (A) 9 %; HCT 37.2 % (34.0-46.0); HGB 11.7 gm/dL (11.4-16.0); Lymphocytes # (A) 1.5 k/uL (1.0-4.8); Lymphocytes % (A) 24 %; MCHC 31.4 g/dL (31.0-37.0); MCV 95.5 fL (80.0-100.0); Mean Platelet Volume 7.2; Monocytes # (A) 0.6 k/uL (0-1.0); Monocytes % (A) 9 %; Neutrophils # (A) 3.6 k/uL (1.3-7.7); Neutrophils % (A) 56 %; Platelet Count 466 k/uL (150-450); RBC 3.89 m/uL (3.80-5.40); RDW 15.4 % (11.5-15.5); WBC 6.4 k/uL (3.8-10.6)
[2021-05-08 07:25] LABS: African American GFR (CKD) >90 (>60 ml/min/1.73 sqM); Anion Gap 7 mmol/L; Blood Urea Nitrogen <2 mg/dL (7-17); Calcium 8.4 mg/dL (8.4-10.2); Carbon Dioxide 26 mmol/L (22-30); Chloride 107 mmol/L (98-107); Glucose 90 mg/dL (74-99); Magnesium 1.4 mg/dL (1.6-2.3); Non-African American GFR(CKD) >90 (>60 ml/min/1.73 sqM); Potassium 3.8 mmol/L (3.5-5.1); Sodium 140 mmol/L (137-145)
[2021-05-08] MEDS: VANCOMYCIN 125 MG CAPSULE PO SCH ×4 (08:17→21:05)
[2021-05-08] MEDS: PANTOPRAZOLE 40 MG TABLET PO SCH (08:17)
[2021-05-08] MEDS: DIVALPROEX 500 MG TABLET.DR PO SCH ×2 (08:17→21:05)
[2021-05-08] MEDS: ESCITALOPRAM 10 MG TAB PO SCH (08:17)
[2021-05-08] MEDS: METOPROLOL TARTRATE 25 MG TAB PO SCH ×2 (08:17→21:05)
[2021-05-08] MEDS: metroNIDAZOLE 500 MG TAB PO SCH ×2 (08:17→21:05)
[2021-05-08] MEDS: MAGNESIUM SULFATE-D5W PMX 1 GM in DEXTROSE/WATER 1 100ML.BAG IVPB SCH ×3 (09:36→12:06)
[2021-05-08] MEDS: CHOLESTYRAMINE (WITH SUGAR) 4 GM PACKET PO SCH ×3 (09:36→17:38)
[2021-05-08] MEDS ORDERED: Magnesium Replacement Protocol 1 EACH MISC MISCELLANE PRN (11:12)
[2021-05-08] MEDS ORDERED: MAGNESIUM SULFATE-D5W PMX 1 GM in DEXTROSE/WATER 1 100ML.BAG IVPB SCH (11:30)
--- NOTE | 2021-05-08 14:09 | P.PN ---
Subjective This is a 60-year-old female with past medical history of subarachnoid hemorrhage/cerebral aneurysm/clipping, anxiety, depression, former nicotine de pendence, ongoing alcohol use, hypertension, renal and lung CA, right pneumonectomy presented to the ER with complaints of worsening generalized weakness, chronic diarrhea,decreased appetitie. Reports chronic diarrhea times weeks has resolved since admission. reports no appetite, has not been eating times a many weeks. Has not smoked 1 year. Continues to drink beer daily but reports has not consumed any in the last 2 months. Wears O2 at home unsure how many liters. Lives with . EKG reporting normal sinus rhythm, prolonged QT, troponin negative 1. Denies chest pain, palpitations or increased shortness of breath. Lumbar spine reported degenerative disc disease and facet arthropathy mid and lower lumbar spine with grade 1 anterior listhesis L5 on S1, no overt destructive changes. Chest x-ray reporting opacity entire right lung in a patient with pneumonectomy in January 2020. Afebrile, normal WBC, hemoglobin 11.4, platelets 4:15 .Potassium 3, received supplements, remains low at 3.1, supplement replacement ordered. Magnesium 1.8. BUN 10, creatinine 0.29, lactic acid 1. Normal LFTs on admission, increased today, possibly dilutional. Receiving IV fluid hydration. UA reporting many mucus, 22 wbc's, trace leukocytes 1+ bili, negative nitrates 3+ ketones 1+ protein. 05/06/2021 positive for C. difficile colitis last night, Flagyl initiated. 3 diarrhea episodes this morning. Maintaining O2 sats mid to high 90s on 2 L nasal cannula. Afebrile. Potassium 3.2, potassium replacement protocol ordered. Magnesium level pending. 05/07/2021: Patient has C. difficile colitis. She reports a less diarrhea and feeling overall improved. Denies any chest pains, pressures, shortness breath this time. She has ongoing fatigue due to debility after her lung cancer and right pneumonectomy. She also has renal carcinoma. Heart rate is stable. Temperature MAXIMUM TEMPERATURE of 98.4F. I's and O's show most recently 2 bowel movements today and 3 urine voids. Labs showed of the scalp I1. Lotensin 5, electrolytes show potassium 2.9, GFR is 132. Magnesium is 1.5, calcium 7.8. Occult blood stool was negative. Urine culture is negative. Stool cultures pending. C. difficile is positive. CT chest abdomen and pelvis was reviewed showing her lobectomy along with a moderate right pleural effusion and a loculated right apical I don't know thorax. Right kidney mass once again visualized. There was minimal lower right paratracheal lymphadenopathy. MRI of the brain shows moderate hydrocephalus possibly aqueduct stenosis and white matter changes. No masses. Dr. Reeves is following. 05/08/2021: Patient has C. difficile colitis. Currently on vancmycin and Flagyl. She reports a less diarrhea and feeling overall improved. Denies any chest pains, pressures, shortness breath this time. She has ongoing fatigue due to debility after her lung cancer and right pneumonectomy. She also has renal carcinoma. Staff report minimal oral intake. Heart rate is stable. Temperature MAXIMUM TEMPERATURE of 98.4F. I's and O's show most recently 2 bowel movements today and 3 urine voids. Labs showed of the scalp I1. Lotensin 5, electrolytes show potassium 3.8, GFR is 132. Magnesium is 1.4, calcium 8.4. TSH 8.3. Stool cultures pending. C. difficile is positive. CT chest abdomen and pelvis was reviewed showing her lobectomy along with a moderate right pleural effusion and a loculated right apical I don't know thorax. Right kidney mass once again visualized. There was minimal lower right paratracheal lymphadenopathy. MRI of the brain shows mode rate hydrocephalus possibly aqueduct stenosis and white matter changes. No masses. Dr. Reeves is following. Objective - Vital Signs Vital signs: Vital Signs Temp 98.5 F 05/08/21 11:23 Pulse 59 L 05/08/21 11:23 Resp 16 05/08/21 11:23 BP 172/83 05/08/21 11:23 Pulse Ox 100 05/08/21 11:23 Intake & Output 05/07/21 05/08/21 05/08/21 18:59 06:59 18:59 Intake Total 1470 Output Total 300 Balance 1470 -300 Intake: Intake, IV Titration 1470 Amount Sodium Chloride 0.9% 1, 1470 000 ml @ 130 mls/hr IV . Q7H42M [facility] Rx#:[id number] Output: Stool 300 Other: Voiding Method Toilet Toilet Diaper Diaper Diaper Incontinent Incontinent Incontinent # Voids 3 2 2 # Bowel Movements 1 3 1 - Exam GENERAL: Fatigued, thin and in no acute distress. Improved from her office visit 3 days ago. HEAD: Atraumatic, normocephalic. NECK: Normal range of motion, supple without lymphadenopathy or JVD, no thyromegaly LUNGS: Nonlabored, Breath sounds clear to auscultation bilaterally and equal. No wheezes rales or rhonchi. Diminished on the right side HEART: Regular rate and rhythm without murmurs, rubs or gallops.S1S2 Normal ABDOMEN: Soft, nontender, normoactive bowel sounds. No guarding, no rebound. No masses appreciated. EXTREMITIES: Normal range of motion, no pitting or edema. No clubbing or cyanosis. NEUROLOGICAL: Cranial nerves II through XII grossly intact. Normal speech. PSYCH: Alert and oriented 1,-affect-flat. SKIN: Warm, Dry, normal turgor, no rashes noted. - Labs CBC & Chem 7: 05/08/21 06:01 05/08/21 06:00 Labs: Abnormal Lab Results - Last 24 Hours (Table) 05/07/21 05/08/21 05/08/21 Range/Units 18:39 00:24 06:00 Plt Count (150-450) k/uL Potassium 2.6 L* 2.7 L* (3.5-5.1) mmol/L BUN <2 L (7-17) mg/dL Creatinine 0.26 L (0.52-1.04) mg/dL Magnesium 1.4 L (1.6-2.3) mg/dL TSH (0.350-5.500) uIU/mL 05/08/21 05/08/21 Range/Units 06:01 06:01 Plt Count 466 H (150-450) k/uL Potassium (3.5-5.1) mmol/L BUN (7-17) mg/dL Creatinine (0.52-1.04) mg/dL Magnesium (1.6-2.3) mg/dL TSH 8.330 H (0.350-5.500) uIU/mL Assessment and Plan Plan: generalized weakness secondary to C. difficile colitis Electrolyte abnormalities including hypokalemia hypomagnesemia and hypocalcemia, secondary to above Dehydration poor oral intake History of right pneumonectomy secondary to right lung carcinoma Renal cell CA. Hypertension Alcohol abuse History of intracranial aneurysm, hemorrhage, status post clipping History of kidney cyst removal Former nicotine dependence Anxiety Depression Moderate protein calorie malnutrition,BMI 20.6 QT prolongation per EKG, congenital We will repeat labs in a.m. Continue electrolyte replenishment. Further evaluations from oncology are pending. continue vancomycin and flagylorally to her regimen, continue her other home medications add Megace she will be reevaluated in the next 24 hour,
[2021-05-08] MEDS: MEGESTROL 400 MG/10 ML CUP PO SCH (15:46)
[2021-05-08] MEDS: OLANZapine 5 MG TAB PO SCH (21:05)
--- NOTE | 2021-05-08 21:54 | P.PN ---
Subjective Progress Note Date: 05/08/21 Patient continues to complain of generalized weakness and sense of diminished balance. No nausea or vomiting. Objective - Vital Signs Vital signs: Vital Signs Temp 97.5 F L 05/08/21 19:35 Pulse 68 05/08/21 19:35 Resp 18 05/08/21 19:35 BP 163/75 05/08/21 19:35 Pulse Ox 99 05/08/21 19:35 Intake & Output 05/08/21 05/08/21 05/09/21 06:59 18:59 06:59 Intake Total 1200 Output Total 300 Balance -300 1200 Intake: Intake, IV Titration 1200 Amount Lactated Ringers 1,000 ml 1200 @ 100 mls/hr IV .Q10H [facility] Rx#:[id number] Output: Stool 300 Other: Voiding Method Toilet Diaper Diaper Incontinent Incontinent # Voids 2 2 # Bowel Movements 3 1 1 - Constitutional General appearance: Present: no acute distress - EENT Eyes: Present: EOMI ENT: Present: hearing grossly normal, normal oropharynx - Respiratory Respiratory: bilateral: CTA - Cardiovascular Rhythm: regular Heart sounds: normal: S1, S2 - Gastrointestinal General gastrointestinal: Present: normal bowel sounds, soft - Integumentary Integumentary: Present: normal - Neurologic Neurologic: Present: CNII-XII intact - Musculoskeletal Musculoskeletal: Present: generalized weakness, strength equal bilaterally - Psychiatric Psychiatric: Present: A&O x's 3 - Labs CBC & Chem 7: 05/08/21 06:01 05/08/21 06:00 Labs: Abnormal Lab Results - Last 24 Hours (Table) 05/08/21 05/08/21 05/08/21 Range/Units 00:24 06:00 06:01 Plt Count 466 H (150-450) k/uL Potassium 2.7 L* (3.5-5.1) mmol/L BUN <2 L (7-17) mg/dL Creatinine 0.26 L (0.52-1.04) mg/dL Magnesium 1.4 L (1.6-2.3) mg/dL TSH (0.350-5.500) uIU/mL 05/08/21 Range/Units 06:01 Plt Count (150-450) k/uL Potassium (3.5-5.1) mmol/L BUN (7-17) mg/dL Creatinine (0.52-1.04) mg/dL Magnesium (1.6-2.3) mg/dL TSH 8.330 H (0.350-5.500) uIU/mL Microbiology - Last 24 Hours (Table) 05/05/21 20:20 Stool Culture - Final Stool Assessment and Plan (1) Generalized weakness Narrative/Plan: The patient's MRI of the brain did not show any evidence of metastatic disease. It did show some evidence of hydrocephalus. - Results were discussed with the patient. It is possible that the hydrocephalus could be contributing, at least in part, to her symptomatology of weakness, difficulty with balance, and falls. Would recommend neurosurgical evaluation as an outpatient Current Visit: Yes Status: Acute Priority: High Code(s): R53.1 - WEAKNESS SNOMED Code(s): 32419090 (2) Lung cancer Narrative/Plan: CT chest abdomen and pelvis, and MRI of the brain revealed no definite evidence of any metastatic recurrence. Mildly enlarged mediastinal node at 1.8 cm was seen, but this is nonspecific. MRI of the brain was also negative. Bone scan will be ordered to complete metastatic workup Current Visit: No Status: Chronic Priority: Medium Code(s): C34.90 - MALIGNANT NEOPLASM OF UNSP PART OF UNSP BRONCHUS OR LUNG SNOMED Code(s): 169070446 (3) Renal cell cancer Narrative/Plan: CT scan shows slight increase in size of the right renal mass, which is highly suspicious for renal cell cancer. Workup so far is negative for any evidence of metastatic disease. Assuming bone scan is also negative, the patient should ideally have surgical evaluation for the same. However performance status will need to be better for that. - If bone scan is also negative, I would recommend urology consult for evaluation. If the patient's performance status currently may not be adequate for a nephrectomy, she may be a candidate for a procedure such as cryoablation Current Visit: Yes Status: Chronic Priority: High Code(s): C64.9 - GABE GNANT NEOPLASM OF UNSP KIDNEY, EXCEPT RENAL PELVIS SNOMED Code(s): 438799820
[2021-05-09] MEDS: metroNIDAZOLE 500 MG TAB PO SCH ×2 (08:06→20:44)
[2021-05-09] MEDS: MEGESTROL 400 MG/10 ML CUP PO SCH (08:06)
[2021-05-09] MEDS: DIVALPROEX 500 MG TABLET.DR PO SCH ×2 (08:06→20:43)
[2021-05-09] MEDS: METOPROLOL TARTRATE 25 MG TAB PO SCH ×2 (08:06→20:44)
[2021-05-09] MEDS: VANCOMYCIN 125 MG CAPSULE PO SCH ×4 (08:06→20:44)
[2021-05-09] MEDS: PANTOPRAZOLE 40 MG TABLET PO SCH (08:06)
[2021-05-09] MEDS: ESCITALOPRAM 10 MG TAB PO SCH (08:06)
[2021-05-09] MEDS: LACTATED RINGERS 1,000 ML IV SCH ×3 (08:15→21:23)
[2021-05-09] MEDS ORDERED: Magnesium Replacement Protocol 1 EACH MISC MISCELLANE PRN (09:46)
[2021-05-09] MEDS: CHOLESTYRAMINE (WITH SUGAR) 4 GM PACKET PO SCH ×4 (11:09→20:49)
[2021-05-09 11:51] LABS: Magnesium 2.1 mg/dL (1.5-2.4)
[2021-05-09 12:27] LABS: African American GFR (CKD) 149.8 (60.0-200.0); Blood Urea Nitrogen <2 mg/dL (9.0-27.0); Calcium 8.1 mg/dL (8.7-10.3); Carbon Dioxide 26.4 mmol/L (21.6-31.8); Chloride 109 mmol/L (96-109); Glucose 108 mg/dL (70-110); Non-African American GFR(CKD) 129.3 (60.0-200.0); Potassium 3.3 mmol/L (3.5-5.5); Sodium 145 mmol/L (135-145)
[2021-05-09] MEDS: POTASSIUM CHLORIDE ER 20 MEQ TAB.ER PO SCH ×2 (13:18→14:11)
--- NOTE | 2021-05-09 13:33 | NM ---
EXAMINATION TYPE: NM bone scan whole body DATE OF EXAM: 05/09/2021 COMPARISON: Prior bone scan 11/30/2020, CT 05/06/2021 HISTORY: Cancer, renal cancer Delayed whole-body scanning was performed following the injection of 24.4 mCi Tc 99m MDP. Images acq uired 3 hours post injection. FINDINGS: There is uptake along the right lateral chest which was not seen on prior exam and correlate with the probable postsurgical change in the right upper lateral and posterior chest. Slight spinal curvature is noted. Soft tissue uptake is within normal limits. The ankles, knees, elbows, shoulders is likely degenerative. IMPRESSION: Findings in the right chest are likely postoperative. No other evidence of metastatic disease.
--- NOTE | 2021-05-09 13:51 | P.PN ---
Subjective Progress Note Date: 05/09/21 This is a 60-year-old female with past medical history of subarachnoid hemorrhage/cerebral aneurysm/clipping, anxiety, depression, former nicotine dependence, ongoing alcohol use, hypertension, renal and lung CA, right pneumonectomy presented to the ER with complaints of worsening generalized weakness, chronic diarrhea,decreased appetitie. Reports chronic diarrhea times weeks has resolved since admission. reports no appetite, has not been eating times a many weeks. Has not smoked 1 year. Continues to drink beer daily but reports has not consumed any in the last 2 months. Wears O2 at home unsure how many liters. Lives with . EKG reporting normal sinus rhythm, prolonged QT, troponin negative 1. Denies chest pain, palpitations or increased shortness of breath. Lumbar spine reported degenerative disc disease and facet arthropathy mid and lower lumbar spine with grade 1 anterior listhesis L5 on S1, no overt destructive changes. Chest x-ray reporting opacity entire right lung in a patient with pneumonectomy in January 2020. Afebrile, normal WBC, hemoglobin 11.4, platelets 4:15 .Potassium 3, received supplements, remains low at 3.1, supplement replacement ordered. Magnesium 1.8. BUN 10, creatinine 0.29, lactic acid 1. Normal LFTs on admission, increased today, possibly dilutional. Receiving IV fluid hydration. UA reporting many mucus, 22 wbc's, trace leukocytes 1+ bili, negative nitrates 3+ ketones 1+ protein. 05/06/2021 positive for C. difficile colitis last night, Flagyl initiated. 3 diarrhea episodes this morning. Maintaining O2 sats mid to high 90s on 2 L nasal cannula. Afebrile. Potassium 3.2, potassium replacement protocol ordered. Magnesium level pending. 05/07/2021: Patient has C. difficile colitis. She reports a less diarrhea and feeling overall improved. Denies any chest pains, pressures, shortness breath this time. She has ongoing fatigue due to debility after her lung cancer and right pneumonectomy. She also has renal carcinoma. Heart rate is stable. Temperature MAXIMUM TEMPERATURE of 98.4F. I's and O's show most recently 2 bowel movements today and 3 urine voids. Labs showed of the scalp I1. Lotensin 5, electrolytes show potassium 2.9, GFR is 132. Magnesium is 1.5, calcium 7.8. Occult blood stool was negative. Urine culture is negative. Stool cultures pending. C. difficile is positive. CT chest abdomen and pelvis was reviewed showing her lobectomy along with a moderate right pleural effusion and a loculated right apical I don't know thorax. Right kidney mass once again visualized. There was minimal lower right paratracheal lymphadenopathy. MRI of the brain shows moderate hydrocephalus possibly aqueduct stenosis and white matter changes. No masses. Dr. Reeves is following. 05/08/2021: Patient has C. difficile colitis. Currently on vancmycin and Flagyl. She reports a less diarrhea and feeling overall improved. Denies any chest pains, pressures, shortness breath this time. She has ongoing fatigue due to debility after her lung cancer and right pneumonectomy. She also has renal carcinoma. Staff report minimal oral intake. Heart rate is stable. Temperature MAXIMUM TEMPERATURE of 98.4F. I's and O's show most recently 2 bowel movements today and 3 urine voids. Labs showed of the scalp I1. Lotensin 5, electrolytes show potassium 3.8, GFR is 132. Magnesium is 1.4, calcium 8.4. TSH 8.3. Stool cultures pending. C. difficile is positive. CT chest abdomen and pelvis was reviewed showing her lobectomy along with a moderate right pleural effusion and a loculated right apical I don't know thorax. Right kidney mass once again visualized. There was minimal lower right paratracheal lymphadenopathy. MRI of the brain shows moderate hydrocephalus possibly aqueduct stenosis and white matter changes. No masses. Dr. Reeves is following. 05/09/2021 Bone scan today, pending results: Potential urology consult. Denies abdominal pain, no nausea, no vomiting. Diarrhea resolved. Potassium 3.3, replacement with potassium replacement protocol previously ordered. Afebrile. Stool culture reporting negative for some an hour, Shigella, or bacteria, E. coli, E. coli/Shigatoxin. Objective - Vital Signs Vital signs: Vital Signs Temp 97.5 F L 05/09/21 05:09 Pulse 67 05/09/21 05:09 Resp 16 05/09/21 05:09 BP 165/83 05/09/21 05:09 Pulse Ox 100 05/09/21 05:09 Intake & Output 05/08/21 05/09/21 05/09/21 18:59 06:59 18:59 Intake Total 1200 900 Balance 1200 900 Intake: Intake, IV Titration 1200 800 Amount Lactated Ringers 1,000 ml 1200 800 @ 100 mls/hr IV .Q10H [facility] Rx#:[id number] Oral 100 Other: Voiding Method Diaper Diaper Bedside Commode Incontinent Incontinent Diaper Incontinent # Voids 2 # Bowel Movements 1 1 - Exam - Exam GENERAL: Lying in bed,NAD HEAD: Atraumatic, normocephalic. EYES: Pupils equal round and equal ,sclera anicteric, conjunctiva are normal.Moist mucous membranes. NECK: Supple, no JVD. LUNGS: Nonlabored, Breath sounds clear to auscultation bilaterally and equal. HEART: Regular rate and rhythm without murmurs, rubs or gallops.S1S2 Normal ABDOMEN: Soft, nontender, normoactive bowel sounds. No guarding, no rebound. No masses appreciated. EXTREMITIES: no pitting or edema. No clubbing or cyanosis. NEUROLOGICAL: Cranial nerves II through XII grossly intact. Normal speech. PSYCH: Alert and oriented 3,-affect-flat. SKIN: Warm, Dry, no rashes noted. - Labs CBC & Chem 7: 05/08/21 06:01 05/09/21 07:09 Labs: Abnormal Lab Results - Last 24 Hours (Table) 05/09/21 Range/Units 07:09 Potassium 3.3 L (3.5-5.5) mmol/L Creatinine 0.3 L (0.6-1.5) mg/dL Calcium 8.1 L (8.7-10.3) mg/dL Microbiology - Last 24 Hours (Table) 05/05/21 20:20 Stool Culture - Final Stool Assessment and Plan Assessment: generalized weakness secondary to C. difficile colitis Electrolyte abnormalities including hypokalemia hypomagnesemia and hypocalcemia, secondary to above Poor oral intake Dehydration History of right pneumonectomy Renal cell CA. Hypertension Alcohol abuse History of intracranial aneurysm, hemorrhage, status post clipping History of kidney cyst removal Former nicotine dependence Anxiety Depression Moderate protein calorie malnutrition,BMI 20.6 QT prolongation per EKG, congenital plan: Continue on current medication regime ,monitoring and symptomatic treatment. Bone scan in progress. Close monitoring of electrolytes with repeat labs ordered for a.m. discharge planning in progress for tomorrow. The impression and plan of care has been dictated as directed. : I performed a history and examination of this patient, discussed the same with the dictator. I agree with the dictator's note ,documented as a scribe. Any additional findings or plans will be noted.
--- NOTE | 2021-05-09 19:31 | P.PN ---
Subjective Progress Note Date: 05/09/21 Principal diagnosis: Weakness In f/u today pt has no specific physical c/o to report Objective - Vital Signs Vital signs: Vital Signs Temp 97.5 F L 05/09/21 05:09 Pulse 67 05/09/21 05:09 Resp 16 05/09/21 05:09 BP 165/83 05/09/21 05:09 Pulse Ox 100 05/09/21 05:09 Intake & Output 05/08/21 05/09/21 05/09/21 18:59 06:59 18:59 Intake Total 1200 900 Balance 1200 900 Intake: Intake, IV Titration 1200 800 Amount Lactated Ringers 1,000 ml 1200 800 @ 100 mls/hr IV .Q10H [facility] Rx#:[id number] Oral 100 Other: Voiding Method Diaper Diaper Bedside Commode Incontinent Incontinent Diaper Incontinent # Voids 2 # Bowel Movements 1 1 - Constitutional General appearance: Present: average body habitus, cooperative, no acute distress - EENT Eyes: Present: anicteric sclerae, EOMI ENT: Present: hearing grossly normal - Respiratory Respiratory: bilateral: CTA - Cardiovascular Rhythm: regular Heart sounds: normal: S1, S2 Abnormal Heart Sounds: Absent: systolic murmur, diastolic murmur, rub, S3 Gallop, S4 Gallop, click, other - Peripheral edema leg Peripheral Edema: bilateral: None - Gastrointestinal General gastrointestinal: Present: normal bowel sounds, soft - Integumentary Integumentary: Present: pale - Neurologic Neurologic: Present: CNII-XII intact - Musculoskeletal Musculoskeletal: Present: generalized weakness - Psychiatric Psychiatric Comment(s): flat affect, loss of short term memory Psychiatric: Present: A&O x's 3 - Labs CBC & Chem 7: 05/08/21 06:01 05/09/21 16:56 Labs: Abnormal Lab Results - Last 24 Hours (Table) 05/09/21 Range/Units 07:09 Potassium 3.3 L (3.5-5.5) mmol/L Creatinine 0.3 L (0.6-1.5) mg/dL Calcium 8.1 L (8.7-10.3) mg/dL Microbiology - Last 24 Hours (Table) 05/05/21 20:20 Stool Culture - Final Stool - Imaging and Cardiology NM bone scan results after seeing pt, no evidence of mets Assessment and Plan (1) Generalized weakness Current Visit: Yes Status: Acute Priority: High Code(s): R53.1 - WEAKNESS SNOMED Code(s): 90650636 (2) Lung cancer Narrative/Plan: Resected. Has been unable to rehabilitate post op. Adjuvant treatment was recommended but, not able to be given 2/2 poor PS. MRI brain and CT CAP no evidence of metastatic disease, monitor the mediastinal 1.8cm LN Current Visit: No Status: Chronic Priority: Medium Code(s): C34.90 - MALIGNANT NEOPLASM OF UNSP PART OF UNSP BRONCHUS OR LUNG SNOMED Code(s): 627925856 (3) Renal cell cancer Narrative/Plan: Not a candidate for surgical removal. MM changes in rt renal mass. Recommendations for Urology follow up to evaluate if pt is a candidate for apartial nephrectomy or if she may be a candidate for cryotherapy. Current Visit: Yes Status: Chronic Priority: High Code(s): C64.9 - MALIGNANT NEOPLASM OF UNSP KIDNEY, EXCEPT RENAL PELVIS SNOMED Code(s): 363520656 Plan: Pt has c-diff. Await clearance of infection and see if pt GI symptoms resolve. If not, consider GI work up in future. I discussed case with Attending. Unfortunately, I was unable to find any Neurosurgeon or Urologist that has seen pt in the past. I will ask Primary Onc if there were any plans previously or if there were any referrals made.
[2021-05-09] MEDS: OLANZapine 5 MG TAB PO SCH (20:44)
[2021-05-10] MEDS: PANTOPRAZOLE 40 MG TABLET PO SCH (07:32)
[2021-05-10] MEDS: VANCOMYCIN 125 MG CAPSULE PO SCH ×2 (07:32→13:22)
[2021-05-10] MEDS: metroNIDAZOLE 500 MG TAB PO SCH (07:33)
[2021-05-10] MEDS: ESCITALOPRAM 10 MG TAB PO SCH (07:33)
[2021-05-10] MEDS: DIVALPROEX 500 MG TABLET.DR PO SCH (07:33)
[2021-05-10] MEDS: MEGESTROL 400 MG/10 ML CUP PO SCH (07:33)
[2021-05-10] MEDS: METOPROLOL TARTRATE 25 MG TAB PO SCH (07:33)
[2021-05-10] MEDS: LACTATED RINGERS 1,000 ML IV SCH (07:35)
[2021-05-10] MEDS: CHOLESTYRAMINE (WITH SUGAR) 4 GM PACKET PO SCH ×2 (11:00→15:20)
[2021-05-10 12:20] VITALS: BP 125/75; PULSE 63; RESP 17; TEMP 97.9
--- NOTE | 2021-05-10 13:15 | P.DS ---
Providers Date of admission: 05/06/21 11:59 Expected date of discharge: 05/10/21 Attending physician: Kan Rodriges Consults: 05/04/21 21:16 Consult Physician Urgent Consulting Provider: Aida Dill Consult Reason/Comments: Lung cancer and renal cancer Do you want consulting provider notified?: Yes Primary care physician: Germán [facility] Course: Final diagnoses generalized weakness secondary to C. difficile colitis Electrolyte abnormalities including hypokalemia hypomagnesemia and hypocalcemia, secondary to above, improved; potassium currently 4.3, magnesium 1.8, calcium 8.1 Poor oral intake Dehydration, improving History of right pneumonectomy Renal cell CA. Hypertension Alcohol abuse History of intracranial aneurysm, hemorrhage, status post clipping History of kidney cyst removal Former nicotine dependence Anxiety Depression Moderate protein calorie malnutrition,BMI 20.6 QT prolongation per EKG, congenital Hospital course:This is a 60-year-old female with past medical history of subarachnoid hemorrhage/cerebral aneurysm/clipping, anxiety, depression, former nicotine dependence, ongoing alcohol use, hypertension, renal and lung CA, right pneumonectomy presented to the ER with complaints of worsening generalized weakness, chronic diarrhea,decreased appetitie. Reports chronic diarrhea times weeks has resolved since admission. reports no appetite, has not been eating times a many weeks. Has not smoked 1 year. Continues to drink beer daily but reports has not consumed any in the last 2 months. Wears O2 at home unsure how many liters. Lives with . EKG reporting normal sinus rhythm, prolonged QT, troponin negative 1. Denies chest pain, palpitations or increased shortness of breath. Lumbar spine reported degenerative disc disease and facet arthropathy mid and lower lumbar spine with grade 1 anterior listhesis L5 on S1, no overt destructive changes. Chest x-ray reporting opacity entire right lung in a patient with pneumonectomy in January 2020. Afebrile, normal WBC, hemoglobin 11.4, platelets 4:15 .Potassium 3, received supplements, remains low at 3.1, supplement replacement ordered. Magnesium 1.8. BUN 10, creatinine 0.29, lactic acid 1. Normal LFTs on admission, increased today, possibly dilutional. Receiving IV fluid hydration. UA reporting many mucus, 22 wbc's, trace leukocytes 1+ bili, negative nitrates 3+ ketones 1+ protein. 05/06/2021 positive for C. difficile colitis last night, Flagyl initiated. 3 diarrhea episodes this morning. Maintaining O2 sats mid to high 90s on 2 L nasal cannula. Afebrile. Potassium 3.2, potassium replacement protocol ordered. Magnesium level pending. 05/07/2021: Patient has C. difficile colitis. She reports a less diarrhea and feeling overall improved. Denies any chest pains, pressures, shortness breath this time. She has ongoing fatigue due to debility after her lung cancer and right pneumonectomy. She also has renal carcinoma. Heart rate is stable. Temperature MAXIMUM TEMPERATURE of 98.4F. I's and O's show most recently 2 bowel movements today and 3 urine voids. Labs showed of the scalp I1. Lotensin 5, electrolytes show potassium 2.9, GFR is 132. Magnesium is 1.5, calcium 7.8. Occult blood stool was negative. Urine culture is negative. Stool cultures pending. C. difficile is positive. CT chest abdomen and pelvis was reviewed showing her lobectomy along with a moderate right pleural effusion and a loculated right apical I don't know thorax. Right kidney mass once again visualized. There was minimal lower right paratracheal lymphadenopathy. MRI of the brain shows moderate hydrocephalus possibly aqueduct stenosis and white matter changes. No masses. Dr. Reeves is following. 05/08/2021: Patient has C. difficile colitis. Currently on vancmycin and Flagyl. She reports a less diarrhea and feeling overall improved. Denies any chest pains, pressures, shortness breath this time. She has ongoing fatigue due to debility after her lung cancer and right pneumonectomy. She also has renal carcinoma. Staff report minimal oral intake. Heart rate is stable. Temperature MAXIMUM TEMPERATURE of 98.4F. I's and O's show most recently 2 bowel movements today and 3 urine voids. Labs showed of the scalp I1. Lotensin 5, electrolytes show potassium 3.8, GFR is 132. Magnesium is 1.4, calcium 8.4. TSH 8.3. Stool cultures pending. C. difficile is positive. CT chest abdomen and pelvis was reviewed showing her lobectomy along with a moderate right pleural effusion and a loculated right apical I don't know thorax. Right kidney mass once again visualized. There was minimal lower right paratracheal lymphadenopathy. MRI of the brain shows moderate hydrocephalus possibly aqueduct stenosis and white matter changes. No masses. Dr. Reeves is following. 05/09/2021 Bone scan today, pending results: Potential urology consult. Denies abdominal pain, no nausea, no vomiting. Diarrhea resolved. Potassium 3.3, replacement with potassium replacement protocol previously ordered. Afebrile. Stool culture reporting negative for some an hour, Shigella, or bacteria, E. coli, E. coli/Shigatoxin. Bone scan completed, reporting uptake along the right lateral chest not seen on prior exam, suggesting that it correlated with probable postsurgical change in the right upper lateral posterior chest. No further diarrhea. Currently sitting up in chair with the assistance of PT. Evaluated by PT, recommending FRANCA. Patient is declining FRANCA, open to discharge home with [facility] care. Patient will be discharged home today in a stable condition with guarded prognosis. The impression and plan of care has been dictated as directed. : I performed a history and examination of this patient, discussed the same with the dictator. I agree with the dictator's note ,documented as a scribe. Any additional findings or plans will be noted. Patient Condition at Discharge: Stable Plan - Discharge Summary New Discharge Prescriptions: New Megestrol [Megace] 800 mg PO DAILY #600 ml Pantoprazole [Protonix] 40 mg PO AC-BRKFST #30 tab Cholestyramine (with Sugar) [Questran Packet] 4 gm PO 1000,1500,2000 #18 packet Vancomycin 125 mg PO QID #24 capsule metroNIDAZOLE [Flagyl] 500 mg PO Q8HR #18 tab Continue lisinopriL [Zestril] 5 mg PO HS Metoprolol Tartrate [Lopressor] 25 mg PO BID Escitalopram [Lexapro] 10 mg PO DAILY Divalproex Sodium [Depakote] 500 mg PO BID OLANZapine [ZyPREXA] 5 mg PO HS Discontinued Atorvastatin [Lipitor] 40 mg PO HS Discharge Medication List Divalproex Sodium [Depakote] 500 mg PO BID 05/04/21 [History] Escitalopram [Lexapro] 10 mg PO DAILY 05/04/21 [History] Metoprolol Tartrate [Lopressor] 25 mg PO BID 05/04/21 [History] OLANZapine [ZyPREXA] 5 mg PO HS 05/04/21 [History] lisinopriL [Zestril] 5 mg PO HS 05/04/21 [History] Cholestyramine (with Sugar) [Questran Packet] 4 gm PO 1000,1500,2000 #18 packet 05/10/21 [Rx] Megestrol [Megace] 800 mg PO DAILY #600 ml 05/10/21 [Rx] Pantoprazole [Protonix] 40 mg PO AC-BRKFST #30 tab 05/10/21 [Rx] Vancomycin 125 mg PO QID #24 capsule 05/10/21 [Rx] metroNIDAZOLE [Flagyl] 500 mg PO Q8HR #18 tab 05/10/21 [Rx] Follow up Appointment(s)/Referral(s): Germán Ellis MD [Primary Care Provider] - 3 Days Aida Dill MD [STAFF PHYSICIAN] - 05/18/21 3:15 pm Activity/Diet/Wound Care/Special Instructions: Oncology recommending neurosurgery evaluation outpatient-to be arranged as per PCP LFTs elevated, statin currently on hold Discharge Disposition: TRANSFER TO SNF/ECF
== END 2021-05-10 16:13 | disposition home health service (06) | DRG 372 ==
LOC: EC 17:00 → 5NMEDONC 21:16 → OBSVTOIN 05-06 11:59
PROVIDERS: ADMIT Family Medicine; ATTEND Family Medicine
DX: A04.72 Enterocolitis due to Clostridium difficile, not specified as recurrent (principal); C34.90 Malignant neoplasm of unspecified part of unspecified bronchus or lung; C64.9 Malignant neoplasm of unspecified kidney, except renal pelvis; E44.0 Moderate protein-calorie malnutrition; G91.9 Hydrocephalus, unspecified; J90 Pleural effusion, not elsewhere classified; E86.0 Dehydration; Z20.822 Contact with and (suspected) exposure to COVID-19; E83.42 Hypomagnesemia; E83.51 Hypocalcemia; E87.6 Hypokalemia; F10.10 Alcohol abuse, uncomplicated; F32.9 Major depressive disorder, single episode, unspecified; F41.9 Anxiety disorder, unspecified; I10 Essential (primary) hypertension; M47.819 Spondylosis without myelopathy or radiculopathy, site unspecified; M51.36 Other intervertebral disc degeneration, lumbar region; Z79.899 Other long term (current) drug therapy; Z85.118 Personal history of other malignant neoplasm of bronchus and lung; Z86.73 Personal history of transient ischemic attack (TIA), and cerebral infarction without residual deficits; Z87.891 Personal history of nicotine dependence; Z90.2 Acquired absence of lung [part of]; Z90.710 Acquired absence of both cervix and uterus; Z68.20 Body mass index [BMI] 20.0-20.9, adult
CPT/HCPCS: 36415; 70553; 71046; 71260; 72110; 74177; 78306; 80048; 80053; 81001; 82272; 83605; 83735; 84132; 84439; 84443; 84484; 85025; 85610; 85730; 87045; 87046; 87086; 87324; 87502; 87635; 93005; 96360; 99285

== ENCOUNTER 2021-05-30 21:55 | Inpatient (IN) | payer MEDICARE ==
--- NOTE | 2021-05-31 00:54 | ED ---
General Adult HPI - General Chief complaint: Weakness Stated complaint: SOB Time Seen by Provider: 05/30/21 23:29 Source: patient, EMS Mode of arrival: EMS Limitations: no limitations - History of Present Illness Initial comments: This patient is a 60-year-old woman with history of diagnosis of metastatic lung cancer. She comes in today with complaint that her breathing has been worse than usual for the past approximately 3-4 days. The patient does use oxygen at home but states that it was not adequate. Things became markedly worse this afternoon. The patient's history is notable for right lung adenocarcinoma. She had right lower lobe resection with a wedge resection that showed adenocarcinoma. She is also known to have a kidney mass suspected to be metastatic. The patient not felt to be well enough to have adjuvant chemotherapy. Patient has not noted fever or chills. She has chronic cough but states it is nonproductive. No hemoptysis. She has not noted leg pain or swelling. No chest pain. -: days(s) Severity scale (1-10): 0 Improves with: none Worsens with: none Associated Symptoms: cough, shortness of breath Treatments Prior to Arrival: none - Related Data Home Medications Medication Instructions Recorded Confirmed Divalproex Sodium [Depakote] 500 mg PO BID 05/04/21 05/31/21 Escitalopram [Lexapro] 10 mg PO DAILY 05/04/21 05/31/21 Metoprolol Tartrate [Lopressor] 25 mg PO BID 05/04/21 05/31/21 OLANZapine [ZyPREXA] 5 mg PO HS 05/04/21 05/31/21 Cholestyramine (with Sugar) 4 gm PO TID@1000,1500,2000 05/31/21 05/31/21 [Cholestyramine Packet] Previous Rx's Medication Instructions Recorded Megestrol [Megace] 800 mg PO DAILY #600 ml 05/10/21 Pantoprazole [Protonix] 40 mg PO AC-BRKFST #30 tab 05/10/21 Albuterol Nebulized [Ventolin 2.5 mg INHALATION RT-QID ml 06/02/21 Nebulized] Apixaban [Eliquis Starter Pack 5 - 10 mg PO DIRECTED 30 Days 06/02/21 (for VTE)] #1 each Ipratropium-Albuterol Nebulize 3 ml INHALATION RT-Q4H PRN ml 06/02/21 [Duoneb 0.5 mg-3 mg/3 ml Soln] lisinopriL [Zestril] 10 mg PO BID tab 06/02/21 Allergies Allergy/AdvReac Type Severity Reaction Status Date / Time amoxicillin Allergy Rash/Hives Verified 05/31/21 07:19 codeine AdvReac Nausea Verified 05/31/21 07:19 Review of Systems ROS Statement: Those systems with pertinent positive or pertinent negative responses have been documented in the HPI. ROS Other: All systems not noted in ROS Statement are negative. Constitutional: Reports: weakness, weight change. Denies: fever, chills Respiratory: Reports: cough, dyspnea. Denies: hemoptysis, stridor Cardiovascular: Denies: chest pain, palpitations, orthopnea, edema, syncope Gastrointestinal: Reports: diarrhea. 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, status post aneurysm clipping History of Any Multi-Drug Resistant Organisms: None Reported Past Surgical History: Breast Surgery, Cholecystectomy, Hysterectomy Additional Past Surgical History / Comment(s): kidney, brain surgery due to an aneurysm back in january, renal cyst removal (per patient it was not cancer) Past Anesthesia/Blood Transfusion Reactions: No Reported Reaction Past Psychological History: Anxiety, Depression Smoking Status: Former smoker Past Alcohol Use History: Occasional Past Drug Use History: None Reported - Past Family History Father History Unknown: Yes Family Medical History: Cancer Additional Family Medical History / Comment(s): Liver Mother Family Medical History: Cancer Additional Family Medical History / Comment(s): Breast General Exam Limitations: no limitations General appearance: alert, in distress, cachectic Head exam: Present: atraumatic, normocephalic Eye exam: Present: normal appearance. Absent: scleral icterus, conjunctival injection ENT exam: Present: mucous membranes dry Neck exam: Present: normal inspection, full ROM Respiratory exam: Present: respiratory distress, wheezes. Absent: rales, rhonchi, stridor, accessory muscle use, decreased breath sounds Cardiovascular Exam: Present: normal rhythm, tachycardia, normal heart sounds. Absent: systolic murmur, diastolic murmur, rubs, gallop GI/Abdominal exam: Present: soft. Absent: distended, tenderness, guarding, rebound, rigid, mass Extremities exam: Present: normal inspection, normal capillary refill. Absent: pedal edema, calf tenderness Back exam: Present: normal inspection. Absent: CVA tenderness (R), CVA tenderness (L) Neurological exam: Present: alert Skin exam: Present: warm, dry, intact, pallor. Absent: rash Course Vital Signs 05/30/21 05/30/21 05/31/21 22:15 23:15 00:50 Temperature 98 F Pulse Rate 110 H 103 H 102 H Respiratory 22 22 22 Rate Blood Pressure 118/52 122/88 122/84 O2 Sat by Pulse 89 L 100 100 Oximetry 05/31/21 05/31/21 05/31/21 02:00 03:08 04:45 Temperature Pulse Rate 101 H 96 98 Respiratory 22 20 20 Rate Blood Pressure 145/97 146/88 151/95 O2 Sat by Pulse 100 100 99 Oximetry 05/31/21 05/31/21 05/31/21 06:14 07:36 07:45 Temperature Pulse Rate 98 94 98 Respiratory 20 Rate Blood Pressure 133/93 O2 Sat by Pulse 98 Oximetry 05/31/21 05/31/21 05/31/21 11:33 11:47 15:00 Temperature 98.0 F 98.0 F Pulse Rate 80 88 Respiratory 18 20 Rate Blood Pressure 137/91 109/69 O2 Sat by Pulse 96 97 Oximetry 05/31/21 05/31/21 05/31/21 19:00 20:00 20:13 Temperature Pulse Rate 96 98 92 Respiratory 18 18 Rate Blood Pressure 116/96 150/89 O2 Sat by Pulse 99 94 L Oximetry 05/31/21 05/31/21 05/31/21 20:23 22:00 23:20 Temperature 98.1 F Pulse Rate 96 96 99 Respiratory 18 18 Rate Blood Pressure 149/96 O2 Sat by Pulse 96 99 Oximetry 06/01/21 06/01/21 06/01/21 02:46 05:13 07:30 Temperature Pulse Rate 74 71 70 Respiratory 16 17 18 Rate Blood Pressure 137/89 160/86 O2 Sat by Pulse 100 100 100 Oximetry 06/01/21 06/01/21 06/01/21 07:40 07:56 11:53 Temperature Pulse Rate 81 84 73 Respiratory 18 16 18 Rate Blood Pressure 145/93 150/86 O2 Sat by Pulse 99 97 Oximetry 06/01/21 06/01/21 11:55 12:04 Temperature Pulse Rate 74 77 Respiratory 16 16 Rate Blood Pressure O2 Sat by Pulse Oximetry EKG Findings - EKG Results: EKG: sinus rhythm, normal QRS EKG shows: tachycardia (Rate 103 bpm) - Blocks, [place], Hypertrophy, ST Abn: Repolarization changes or abnormalities: ST or T wave suggestive of ischemia Medical Decision Making - Lab Data Result diagrams: 06/01/21 04:04 06/02/21 08:09 Lab Results 05/31/21 05/31/21 05/31/21 Range/Units 00:25 00:25 00:25 WBC 7.5 (3.8-10.6) k/uL RBC 3.28 L (3.80-5.40) m/uL Hgb 10.0 L D (11.4-16.0) gm/dL Hct 33.6 L (34.0-46.0) % MCV 102.3 H D (80.0-100.0) fL MCH 30.6 (25.0-35.0) pg MCHC 29.9 L (31.0-37.0) g/dL RDW 16.8 H (11.5-15.5) % Plt Count 336 (150-450) k/uL MPV 7.6 Neutrophils % 75 % Lymphocytes % 13 % Monocytes % 8 % Eosinophils % 0 % Basophils % 0 % Neutrophils # 5.6 (1.3-7.7) k/uL Lymphocytes # 1.0 (1.0-4.8) k/uL Monocytes # 0.6 (0-1.0) k/uL Eosinophils # 0.0 (0-0.7) k/uL Basophils # 0.0 (0-0.2) k/uL Hypochromasia Marked Anisocytosis Slight Macrocytosis Moderate PT 11.8 (9.0-12.0) sec INR 1.1 (<1.2) APTT 20.6 L (22.0-30.0) sec D-Dimer 6.59 H (<0.60) mg/L FEU Sodium 144 (137-145) mmol/L Potassium 3.9 (3.5-5.1) mmol/L Chloride 109 H (98-107) mmol/L Carbon Dioxide 18 L (22-30) mmol/L Anion Gap 17 mmol/L BUN 14 (7-17) mg/dL Creatinine 0.68 (0.52-1.04) mg/dL Est GFR (CKD-EPI)AfAm >90 (>60 ml/min/1.73 sqM) Est GFR (CKD-EPI)NonAf >90 (>60 ml/min/1.73 sqM) Glucose 162 H (74-99) mg/dL Lactic Ac Sepsis Rflx Plasma Lactic Acid Raghav (0.7-2.0) mmol/L Calcium 9.2 (8.4-10.2) mg/dL Total Bilirubin 0.3 (0.2-1.3) mg/dL AST 73 H (14-36) U/L ALT 27 (4-34) U/L Alkaline Phosphatase 69 (38-126) U/L Troponin I (0.000-0.034) ng/mL NT-Pro-B Natriuret Pep pg/mL Total Protein 6.5 (6.3-8.2) g/dL Albumin 3.5 (3.5-5.0) g/dL 05/31/21 05/31/21 05/31/21 Range/Units 00:25 00:25 00:25 WBC (3.8-10.6) k/uL RBC (3.80-5.40) m/uL Hgb (11.4-16.0) gm/dL Hct (34.0-46.0) % MCV (80.0-100.0) fL MCH (25.0-35.0) pg MCHC (31.0-37.0) g/dL RDW (11.5-15.5) % Plt Count (150-450) k/uL MPV Neutrophils % % Lymphocytes % % Monocytes % % Eosinophils % % Basophils % % Neutrophils # (1.3-7.7) k/uL Lymphocytes # (1.0-4.8) k/uL Monocytes # (0-1.0) k/uL Eosinophils # (0-0.7) k/uL Basophils # (0-0.2) k/uL Hypochromasia Anisocytosis Macrocytosis PT (9.0-12.0) sec INR (<1.2) APTT (22.0-30.0) sec D-Dimer (<0.60) mg/L FEU Sodium (137-145) mmol/L Potassium (3.5-5.1) mmol/L Chloride (98-107) mmol/L Carbon Dioxide (22-30) mmol/L Anion Gap mmol/L BUN (7-17) mg/dL Creatinine (0.52-1.04) mg/dL Est GFR (CKD-EPI)AfAm (>60 ml/min/1.73 sqM) Est GFR (CKD-EPI)NonAf (>60 ml/min/1.73 sqM) Glucose (74-99) mg/dL Lactic Ac Sepsis Rflx Plasma Lactic Acid Raghav 10.4 H* (0.7-2.0) mmol/L Calcium (8.4-10.2) mg/dL Total Bilirubin (0.2-1.3) mg/dL AST (14-36) U/L ALT (4-34) U/L Alkaline Phosphatase (38-126) U/L Troponin I 0.322 H* (0.000-0.034) ng/mL NT-Pro-B Natriuret Pep 13764 pg/mL Total Protein (6.3-8.2) g/dL Albumin (3.5-5.0) g/dL 05/31/21 Range/Units 02:00 WBC (3.8-10.6) k/uL RBC (3.80-5.40) m/uL Hgb (11.4-16.0) gm/dL Hct (34.0-46.0) % MCV (80.0-100.0) fL MCH (25.0-35.0) pg MCHC (31.0-37.0) g/dL RDW (11.5-15.5) % Plt Count (150-450) k/uL MPV Neutrophils % % Lymphocytes % % Monocytes % % Eosinophils % % Basophils % % Neutrophils # (1.3-7.7) k/uL Lymphocytes # (1.0-4.8) k/uL Monocytes # (0-1.0) k/uL Eosinophils # (0-0.7) k/uL Basophils # (0-0.2) k/uL Hypochromasia Anisocytosis Macrocytosis PT (9.0-12.0) sec INR (<1.2) APTT (22.0-30.0) sec D-Dimer (<0.60) mg/L FEU Sodium (137-145) mmol/L Potassium (3.5-5.1) mmol/L Chloride (98-107) mmol/L Carbon Dioxide (22-30) mmol/L Anion Gap mmol/L BUN (7-17) mg/dL Creatinine (0.52-1.04) mg/dL Est GFR (CKD-EPI)AfAm (>60 ml/min/1.73 sqM) Est GFR (CKD-EPI)NonAf (>60 ml/min/1.73 sqM) Glucose (74-99) mg/dL Lactic Ac Sepsis Rflx Y Plasma Lactic Acid Raghav (0.7-2.0) mmol/L Calcium (8.4-10.2) mg/dL Total Bilirubin (0.2-1.3) mg/dL AST (14-36) U/L ALT (4-34) U/L Alkaline Phosphatase (38-126) U/L Troponin I (0.000-0.034) ng/mL NT-Pro-B Natriuret Pep pg/mL Total Protein (6.3-8.2) g/dL Albumin (3.5-5.0) g/dL Disposition Clinical Impression: Pulmonary emboli, Pleural effusion, Lactic acidosis Disposition: ADMITTED IP TO THIS HOSP Condition: Stable
--- NOTE | 2021-05-31 01:01 | XR ---
EXAMINATION TYPE: XR chest 1V portable DATE OF EXAM: 05/31/2021 COMPARISON: 05/04/2021 HISTORY: Short of breath TECHNIQUE: FINDINGS: There is large right pleural effusion. Heart and mediastinum are shifted to the right side. There are clips from right lung surgery. The left lung is clear. There is no heart failure. IMPRESSION: Large right pleural effusion with volume loss in the right hemithorax which has progresse d slightly compared to old exam. No heart failure.
[2021-05-31 01:15] LABS: Anisocytosis Slight; Basophils % (A) 0 %; Eosinophils % (A) 0 %; HCT 33.6 % (34.0-46.0); Hypochromasia Marked; Lymphocytes % (A) 13 %; MCH 30.6 pg (25.0-35.0); MCHC 29.9 g/dL (31.0-37.0); Macrocytosis Moderate; Mean Platelet Volume 7.6; Monocytes # (A) 0.6 k/uL (0-1.0); Monocytes % (A) 8 %; Neutrophils # (A) 5.6 k/uL (1.3-7.7); Neutrophils % (A) 75 %; Platelet Count 336 k/uL (150-450); RBC 3.28 m/uL (3.80-5.40); RDW 16.8 % (11.5-15.5); WBC 7.5 k/uL (3.8-10.6)
[2021-05-31 01:20] LABS: MCV 102.3 fL (80.0-100.0)
[2021-05-31 01:26] LABS: AST 73 U/L (14-36); African American GFR (CKD) >90 (>60 ml/min/1.73 sqM); Albumin 3.5 g/dL (3.5-5.0); Alkaline Phosphatase 69 U/L (38-126); Anion Gap 17 mmol/L; Blood Urea Nitrogen 14 mg/dL (7-17); Calcium 9.2 mg/dL (8.4-10.2); Carbon Dioxide 18 mmol/L (22-30); Chloride 109 mmol/L (98-107); Glucose 162 mg/dL (74-99); Non-African American GFR(CKD) >90 (>60 ml/min/1.73 sqM); Potassium 3.9 mmol/L (3.5-5.1); Sodium 144 mmol/L (137-145); Total Bilirubin 0.3 mg/dL (0.2-1.3); Total Protein 6.5 g/dL (6.3-8.2)
[2021-05-31 01:33] LABS: ALT 27 U/L (4-34)
[2021-05-31 01:53] LABS: INR 1.1 (<1.2); Prothrombin Time 11.8 sec (9.0-12.0)
[2021-05-31 02:18] LABS: Partial Thromboplastin Time 20.6 sec (22.0-30.0)
--- NOTE | 2021-05-31 03:13 | CT ---
EXAMINATION TYPE: CT chest angio for PE DATE OF EXAM: 05/31/2021 COMPARISON: 05/06/2021 HISTORY: pe CT DLP: 197.7 mGycm Automated exposure control for dose reduction was used. CONTRAST: Performed with IV Contrast, patient injected with 70 mL of Isovue 370. There are 3-D post processed images. There is large loculated right pleural effusion. There are clips at the right pulmonary hilum and summer arent right upper lobectomy. There is volume loss and shift of the heart and mediastinum to the right side. There are some filling defects in the left lower lobe pulmonary artery. There are small filling defec ts also left upper lobe pulmonary artery. I see no evidence of embolism on the right side. Thoracic a cedrick is intact. There is no aneurysm or dissection. There is some contrast reflux into the inferior v carolynn cava. There is cholecystectomy. The thoracic spine is intact. There is no compression fracture. Sternum is intact. There is coarse li near infiltrates and atelectasis in the right lung. There are enlarged paratracheal lymph nodes measu ring up to 1.5 cm. IMPRESSION: There is multiple emboli in the left lower lobe pulmonary artery and smaller emboli in the left upper lobe pulmonary artery. Previous surgery on the right side with volume loss and loculated pleural fluid and pleural calcifica tion and thickening. Pleural fluid and linear infiltrate and atelectasis not significantly different than previous CT scan . Pulmonary emboli appear new compared to old exam. Exam was discussed with the emergency room staff at 3:15 AM.
[2021-05-31] MEDS ORDERED: HEPARIN SODIUM 1,000 UN/ML (10ML VL) IV ONE (03:19)
[2021-05-31] MEDS ORDERED: HEPARIN SODIUM 1,000 UN/ML (10ML VL) IV PRN (03:19)
[2021-05-31] MEDS: HEPARIN SOD,PORK IN 0.45% NACL 25,000 UNIT in 0.45% NACL 1 250ML.BAG IV SCH (03:40)
[2021-05-31] MEDS ORDERED: IPRATROPIUM-ALBUTEROL 3 ML NEB INHALATION PRN (04:42)
[2021-05-31] MEDS: PANTOPRAZOLE 40 MG TABLET PO SCH (07:36)
[2021-05-31] MEDS: ALBUTEROL NEBULIZED 2.5 MG/3 ML INHALATION SCH ×4 (07:36→20:12)
[2021-05-31] MEDS: METOPROLOL TARTRATE 25 MG TAB PO SCH ×2 (08:18→22:56)
[2021-05-31] MEDS: ESCITALOPRAM 10 MG TAB PO SCH (08:20)
[2021-05-31] MEDS: DIVALPROEX 500 MG TABLET.DR PO SCH ×2 (08:20→22:55)
--- NOTE | 2021-05-31 10:45 | P.CNPUL ---
History of Present Illness Consult date: 05/31/21 Requesting physician: Kan Rodriges Jr Reason for consult: dyspnea, abnormal CXR/CT Chief complaint: Shortness of breath History of present illness: This is a 60-year-old female patient who follows with Dr. Rodriges as her primary care provider. 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 Status post pneumothorax requiring until catheter insertion and subsequent removal. She did go on to have right lung resection status post lobectomy. Details and location of the surgery are not available. She is a poor historian due to previous CVA. There is also suspicious secondary neoplasm in the right kidney. Being followed by urology. She was determined to be a poor candidate for adjuvant chemotherapy or surgical resection. She was brought into the emergency room early this morning for worsening shortness of breath over the past 3-4 days. Chest x-ray reveals a large right pleural effusion. Heart and mediastinum shifted to the right side. There are clips from a previous right lung surgery. Left lung is clear. No heart failure. CT angios were Paulie reveals multiple emboli in the left lower lobe pulmonary artery and smaller emboli in the left upper lobe pulmonary arteries. Previous surgery on the right side with volume loss and loculated pleural effusion and pleural calcification and thickening, pleural fluid and linear infiltrate and atelectasis not seen on previous computed tomography scan. She has been initiated on a heparin drip. White count 7.5. Hemoglobin 10.0. D-dimer 6.59. Sodium 144. Potassium 3.9. Bicarb 18. Creatinine 0.68. Glucose 162. Lactic acid 1.3. Troponin 0.26. ProBNP 11,400. Heard virus not detected. 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 2020, status post aneurysm clipping History of Any Multi-Drug Resistant Organisms: None Reported Past Surgical History: Breast Surgery, Cholecystectomy, Hysterectomy Additional Past Surgical History / Comment(s): kidney, brain surgery due to an aneurysm back in january, renal cyst removal (per patient it was not cancer) Past Anesthesia/Blood Transfusion Reactions: No Reported Reaction Past Psychological History: Anxiety, Depression Smoking Status: Former smoker Past Alcohol Use History: Occasional Past Drug Use History: None Reported - Past Family History Father History Unknown: Yes Family Medical History: Cancer Additional Family Medical History / Comment(s): Liver Mother Family Medical History: Cancer Additional Family Medical History / Comment(s): Breast Medications and Allergies Home Medications Medication Instructions Recorded Confirmed Type Divalproex Sodium [Depakote] 500 mg PO BID 05/04/21 05/31/21 History Escitalopram [Lexapro] 10 mg PO DAILY 05/04/21 05/31/21 History Metoprolol Tartrate [Lopressor] 25 mg PO BID 05/04/21 05/31/21 History OLANZapine [ZyPREXA] 5 mg PO HS 05/04/21 05/31/21 History lisinopriL [Zestril] 5 mg PO HS 05/04/21 05/31/21 History Megestrol [Megace] 800 mg PO DAILY #600 ml 05/10/21 05/31/21 Rx Pantoprazole [Protonix] 40 mg PO AC-BRKFST #30 tab 05/10/21 05/31/21 Rx Vancomycin 125 mg PO QID #24 capsule 05/10/21 05/31/21 Rx Cholestyramine (with Sugar) 4 gm PO TID@1000,1500,2000 05/31/21 05/31/21 History [Cholestyramine Packet] Allergies Allergy/AdvReac Type Severity Reaction Status Date / Time amoxicillin Allergy Rash/Hives Verified 05/31/21 07:19 codeine AdvReac Nausea Verified 05/31/21 07:19 Physical Exam Vitals: Vital Signs Temp Pulse Resp BP Pulse Ox 05/31/21 07:45 98 05/31/21 07:36 94 05/31/21 06:14 98 20 133/93 98 05/31/21 04:45 98 20 151/95 99 05/31/21 03:08 96 20 146/88 100 05/31/21 02:00 101 H 22 145/97 100 05/31/21 00:50 102 H 22 122/84 100 05/30/21 23:15 103 H 22 122/88 100 05/30/21 22:15 98 F 110 H 22 118/52 89 L Intake and Output 05/30/21 05/31/21 05/31/21 22:59 06:59 14:59 Other: Weight 49.895 kg GENERAL EXAM: Alert, 60-year-old female patient, poor historian, and 2 L nasal cannula, comfortable in no apparent distress. HEAD: Normocephalic. EYES: Normal reaction of pupils, equal size. NOSE: Clear with pink turbinates. THROAT: No erythema or exudates. NECK: No masses, no JVD. CHEST: No chest wall deformity. LUNGS: Equal air entry with crackles, scattered rhonchi in the right lung. CVS: S1 and S2 normal with no audible murmur, regular rhythm. ABDOMEN: No hepatosplenomegaly, normal bowel sounds, no guarding or rigidity. SPINE: No scoliosis or deformity SKIN: No rashes CENTRAL NERVOUS SYSTEM: No focal deficits, tone is normal in all 4 extremities. EXTREMITIES: There is no peripheral edema. No clubbing, no cyanosis. Peripheral pulses are intact. Results - Laboratory Findings CBC and BMP: 05/31/21 00:25 05/31/21 00:25 PT/INR, D-dimer PT 11.8 sec (9.0-12.0) 05/31/21 00:25 INR 1.1 (<1.2) 05/31/21 00:25 D-Dimer 6.59 mg/L FEU (<0.60) H 05/31/21 00:25 Abnormal lab findings: Abnormal Labs 05/31/21 05/31/21 05/31/21 00:25 00:25 00:25 RBC 3.28 L Hgb 10.0 L D Hct 33.6 L MCV 102.3 H D MCHC 29.9 L RDW 16.8 H APTT 20.6 L D-Dimer 6.59 H Chloride 109 H Carbon Dioxide 18 L Glucose 162 H Plasma Lactic Acid Raghav AST 73 H Troponin I 05/31/21 05/31/21 05/31/21 00:25 00:25 07:08 RBC Hgb Hct MCV MCHC RDW APTT D-Dimer Chloride Carbon Dioxide Glucose Plasma Lactic Acid Raghav 10.4 H* AST Troponin I 0.322 H* 0.260 H* 05/31/21 09:25 RBC Hgb Hct MCV MCHC RDW APTT 58.4 H D-Dimer Chloride Carbon Dioxide Glucose Plasma Lactic Acid Raghav AST Troponin I - Diagnostic Findings Chest x-ray: image reviewed CT scan - chest: image reviewed Assessment and Plan Assessment: 1 Acute on chronic hypoxemic respiratory failure secondary to left lung pulmonary emboli and right lung pleural effusion 2 History of pulmonary adenocarcinoma with previous right lung resection, lobectomy. Surgical location and details not available 3 Metastatic adenocarcinoma with right kidney mass 4 Former smoker 5 History of subarachnoid hemorrhage from cerebral aneurysm in January 2020, status post clipping 6 Short term memory loss secondary to above 7 Poor overall functional performance based on the above-mentioned comorbidities, deemed not a candidate for adjuvant chemotherapy or surgical intervention 8 Anemia 9 Troponin leak Plan: The patient was seen and evaluated by Dr. Hall CAT scan and labs reviewed Continue on a heparin drip Continue bronchodilators Titrate the FiO2 as tolerated Consult CT services regarding loculated effusion We will continue to follow and make further recommendations based on her clinical status I, the cosigning physician, performed a history & physical examination of the patient. Lungs sounds with some crackles, scattered rhonchi in the right lung. Maintaining good O2 saturations in the 90s on 2 L/m per nasal cannula. I discussed the assessment and plan of care with my nurse practitioner, Eugenia Loyd. I attest to the above consultation as dictated by her. Time with Patient: Greater than 30
[2021-05-31] MEDS: MEGESTROL 400 MG/10 ML CUP PO SCH (13:58)
[2021-05-31] MEDS: CHOLESTYRAMINE (WITH SUGAR) 4 GM PACKET PO SCH ×3 (13:59→22:56)
--- NOTE | 2021-05-31 14:26 | P.GSCN ---
History of Present Illness Consult date: 05/31/21 Reason for Consult: Loculated right-sided pleural effusion Requesting physician: Eugenia Loyd History of present illness: This is a 60-year-old cachectic female patient of Dr. Ellis and Dr. Dill. 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 She is known to our service as we were consulted back in November after her lung biopsy when she developed pneumothorax. Pigtail catheter was placed at that time which was eventually removed by interventional radiology. Lung biopsy was positive for adenocarcinoma. She was sent to [facility] in January 2021 with right upper lobe lobectomy and right lower lobe wedge resection by Dr. Niko Starks. Apparently she had a mark recovery which was complicated by aspiration. She went to subacute rehab for recovery. She presented back to [facility] a couple of weeks ago with complaints of weakness and diarrhea with C. difficile colitis. During that admission in April she had a chest/abdomen/pelvis CT which demonstrated moderate right pleural effusion along with moderate loculated right apical hydropneumothorax, new lower right paratracheal lymphadenopathy measuring 1.6 cm, right kidney mass which had increased in size from a previous CT from 4.6 cm to 4.9 cm. She also had a brain MRI demonstrating moderate hydrocephalus of the lateral and third ventricle. She was discharged home with homecare a few days later under the care of her with follow-up appo intment with Dr. Dill. Per her , Dr. Dill was setting her up to be seen by a neurologist due to the brain MRI findings, however the patient has not had an appointment yet. Of note she has been unable to have her kidney mass resected or any chemotherapy due to her frailty and debility. Over the last couple of days the patient has had increased shortness of breath and hypoxemia with oxygen saturation in the 70s as well as confusion and short-term event Sunday night of nonresponsive behavior. She was brought back to [facility] emergency room for evaluation and treatment. Chest x-ray demonstrated large right pleural effusion with volume loss. Chest CTA confirmed a right-si ded loculated pleural effusion and post surgical volume loss, as well as additional new finding of left-sided multiple pulmonary emboli. WBC 7.5, hemoglobin 10, platelet count 336, INR 1.1, d-dimer 6.59, troponin 0.174, BNP 11,400, burdick virus PCR not detected. She was initiated on IV heparin, co nsultation was placed to pulmonology, with subsequent consultation placed to cardiothoracic surgery for treatment recommendations regarding the loculated effusion. Review of Systems Review of systems was completed with the as the patient is not a good historian - Constitutional Reports anorexia, Reports malaise, Reports poor appetite, Reports weakness, Reports weight loss - Respiratory Reports dyspnea, Reports home oxygen - Gastrointestinal Reports diarrhea Past Medical History Past Medical History: No Reported History, Cancer, CVA/TIA, Hypertension Additional Past Medical History / Comment(s): back, subarachnoid hemorrhage from a cerebral aneurysm in january 2020, status post aneurysm clipping; right-sided pneumothorax after lung biopsy in November 2020 History of Any Multi-Drug Resistant Organisms: None Reported Past Surgical History: Breast Surgery, Cholecystectomy, Hysterectomy Additional Past Surgical History / Comment(s): kidney, brain surgery due to an aneurysm back in january, renal cyst removal (per patient it was not cancer); right upper lobectomy and right lower lobe wedge resection by Dr. Niko Starks in January 2021 Past Anesthesia/Blood Transfusion Reactions: No Reported Reaction Past Psychological History: Anxiety, Depression Smoking Status: Former smoker Past Alcohol Use History: Occasional Past Drug Use History: None Reported - Past Family History Father History Unknown: Yes Family Medical History: Cancer Additional Family Medical History / Comment(s): Liver Mother Family Medical History: Cancer Additional Family Medical History / Comment(s): Breast Medications and Allergies Home Medications Medication Instructions Recorded Confirmed Type Divalproex Sodium [Depakote] 500 mg PO BID 05/04/21 05/31/21 History Escitalopram [Lexapro] 10 mg PO DAILY 05/04/21 05/31/21 History Metoprolol Tartrate [Lopressor] 25 mg PO BID 05/04/21 05/31/21 History OLANZapine [ZyPREXA] 5 mg PO HS 05/04/21 05/31/21 History lisinopriL [Zestril] 5 mg PO HS 05/04/21 05/31/21 History Megestrol [Megace] 800 mg PO DAILY #600 ml 05/10/21 05/31/21 Rx Pantoprazole [Protonix] 40 mg PO AC-BRKFST #30 tab 05/10/21 05/31/21 Rx Vancomycin 125 mg PO QID #24 capsule 05/10/21 05/31/21 Rx Cholestyramine (with Sugar) 4 gm PO TID@1000,1500,2000 05/31/21 05/31/21 History [Cholestyramine Packet] Allergies Allergy/AdvReac Type Severity Reaction Status Date / Time amoxicillin Allergy Rash/Hives Verified 05/31/21 07:19 codeine AdvReac Nausea Verified 05/31/21 07:19 Surgical - Exam Vital Signs Temp Pulse Resp BP Pulse Ox 98 F 110 H 22 118/52 89 L 05/30/21 22:15 05/30/21 22:15 05/30/21 22:15 05/30/21 22:15 05/30/21 22:15 CONSTITUTIONAL: Awake and alert, appears comfortable, cooperative, no acute distress EYES: Pupils equal, round, reactive to light, normal ocular movement ENT: Moist mucous membranes without oral lesions present NECK: No masses, no bruits, trachea midline RESPIRATORY: Lungs sounds diminished bilaterally with coarse breath sounds in the right. Respirations even, nonlabored. Currently on 2 L nasal cannula with oxygen saturation 95%. CARDIOVASCULAR: S1, S2 present. Regular rate and rhythm, sinus rhythm on telemetry. Palpable peripheral pulses bilaterally. No edema present. GASTROINTESTINAL: Abdomen soft, nontender, nondistended without masses or organomegaly noted. There is no rebound or guarding present. Active bowel sounds present 4 quadrants. GENITOURINARY: Deferred INTEGUMENTARY: Skin is warm and dry NEUROLOGIC: Cranial nerves II through XII intact, normal coordination, no obvious motor or sensory deficits, speech is normal MUSKULOSKELETAL: Able to move all extremities, strength equal bilaterally, normal posture PSYCHIATRIC: Alert and oriented to person place and year although she thought it was May, flat affect Results - Labs 05/31/21 00:25 05/31/21 00:25 Abnormal Lab Results - Last 24 Hours (Table) 05/31/21 05/31/21 05/31/21 Range/Units 00:25 00:25 00:25 RBC 3.28 L (3.80-5.40) m/uL Hgb 10.0 L D (11.4-16.0) gm/dL Hct 33.6 L (34.0-46.0) % MCV 102.3 H D (80.0-100.0) fL MCHC 29.9 L (31.0-37.0) g/dL RDW 16.8 H (11.5-15.5) % APTT 20.6 L (22.0-30.0) sec D-Dimer 6.59 H (<0.60) mg/L FEU Chloride 109 H (98-107) mmol/L Carbon Dioxide 18 L (22-30) mmol/L Glucose 162 H (74-99) mg/dL Plasma Lactic Acid Raghav (0.7-2.0) mmol/L AST 73 H (14-36) U/L Troponin I (0.000-0.034) ng/mL 05/31/21 05/31/21 05/31/21 Range/Units 00:25 00:25 07:08 RBC (3.80-5.40) m/uL Hgb (11.4-16.0) gm/dL Hct (34.0-46.0) % MCV (80.0-100.0) fL MCHC (31.0-37.0) g/dL RDW (11.5-15.5) % APTT (22.0-30.0) sec D-Dimer (<0.60) mg/L FEU Chloride (98-107) mmol/L Carbon Dioxide (22-30) mmol/L Glucose (74-99) mg/dL Plasma Lactic Acid Raghav 10.4 H* (0.7-2.0) mmol/L AST (14-36) U/L Troponin I 0.322 H* 0.260 H* (0.000-0.034) ng/mL 05/31/21 05/31/21 Range/Units 09:25 11:43 RBC (3.80-5.40) m/uL Hgb (11.4-16.0) gm/dL Hct (34.0-46.0) % MCV (80.0-100.0) fL MCHC (31.0-37.0) g/dL RDW (11.5-15.5) % APTT 58.4 H (22.0-30.0) sec D-Dimer (<0.60) mg/L FEU Chloride (98-107) mmol/L Carbon Dioxide (22-30) mmol/L Glucose (74-99) mg/dL Plasma Lactic Acid Raghav (0.7-2.0) mmol/L AST (14-36) U/L Troponin I 0.174 H* (0.000-0.034) ng/mL Diabetes panel 05/31/21 Range/Units 00:25 Sodium 144 (137-145) mmol/L Potassium 3.9 (3.5-5.1) mmol/L Chloride 109 H (98-107) mmol/L Carbon Dioxide 18 L (22-30) mmol/L BUN 14 (7-17) mg/dL Creatinine 0.68 (0.52-1.04) mg/dL Glucose 162 H (74-99) mg/dL Calcium 9.2 (8.4-10.2) mg/dL AST 73 H (14-36) U/L ALT 27 (4-34) U/L Alkaline Phosphatase 69 (38-126) U/L Total Protein 6.5 (6.3-8.2) g/dL Albumin 3.5 (3.5-5.0) g/dL Calcium panel 05/31/21 Range/Units 00:25 Calcium 9.2 (8.4-10.2) mg/dL Albumin 3.5 (3.5-5.0) g/dL Pituitary panel 05/31/21 Range/Units 00:25 Sodium 144 (137-145) mmol/L Potassium 3.9 (3.5-5.1) mmol/L Chloride 109 H (98-107) mmol/L Carbon Dioxide 18 L (22-30) mmol/L BUN 14 (7-17) mg/dL Creatinine 0.68 (0.52-1.04) mg/dL Glucose 162 H (74-99) mg/dL Calcium 9.2 (8.4-10.2) mg/dL Adrenal panel 05/31/21 Range/Units 00:25 Sodium 144 (137-145) mmol/L Potassium 3.9 (3.5-5.1) mmol/L Chloride 109 H (98-107) mmol/L Carbon Dioxide 18 L (22-30) mmol/L BUN 14 (7-17) mg/dL Creatinine 0.68 (0.52-1.04) mg/dL Glucose 162 H (74-99) mg/dL Calcium 9.2 (8.4-10.2) mg/dL Total Bilirubin 0.3 (0.2-1.3) mg/dL AST 73 H (14-36) U/L ALT 27 (4-34) U/L Alkaline Phosphatase 69 (38-126) U/L Total Protein 6.5 (6.3-8.2) g/dL Albumin 3.5 (3.5-5.0) g/dL - Imaging Chest x-ray: report reviewed, image reviewed CT scan - chest: report reviewed, image reviewed Assessment and Plan Assessment: 1. Loculated right pleural effusion with volume loss 2. Multiple left-sided pulmonary emboli 3. Shortness of breath, acute hypoxic respiratory failure secondary to above 4. Confusion per her more than just chronic short-term memory loss 5. History of adenocarcinoma of the lung status post right upper lobe lobectomy and right lower lobe wedge resection in January 2021 6. Right-sided pneumothorax after lung biopsy in November 2020 7. Right kidney mass, increased in size slightly from prior CT 8. Cerebral aneurysm with subarachnoid hemorrhage status post clipping in January 2020 with residual short-term memory loss 9. History of hypertension 10. Previous tobacco dependence 11. Overall debility 12. Family history of cancer. Plan: The patient was seen and examined in the emergency room. History was obtained primarily from her who is at the bedside as the patient is a poor historian. Chart/diagnostics were reviewed with Dr. Rodriges and subsequently with Dr. Williamson. The patient is currently in no acute distress, she is resting comfortably and breathing easily on 2 L nasal cannula with oxygen saturation in the mid 90s. She is currently on IV heparin for pulmonary emboli. No surgical intervention is warranted at this time, certainly this patient is not a good candidate for surgery. The possibility exists to place a pigtail catheter for drainage of the effusion, however with the volume loss from her previous lung surgery draining the fluid is unlikely to be beneficial. In addition anticoagulation would increase her risk for bleeding. At this time we recommend continuing to treat her pulmonary emboli as appropriate. Bronchodilators per pulmonology. Wean O2 as tolerated. We will continue to follow along and make further recommendations as appropriate. Thank you Dr. Loyd for this consult. We will continue to follow along with you. Time with Patient: Greater than 30
[2021-05-31] MEDS ORDERED: RX INFO: IV CONTRAST WAS GIVEN 1 EACH MISC MISCELLANE PRN (14:30)
--- NOTE | 2021-05-31 16:22 | P.HPIM ---
History of Present Illness Chief Complaint: Worsening dyspnea, This is a 60-year-old female with past medical history of subarachnoid hemorrhage/cerebral aneurysm/clipping, anxiety, depression, former nicotine dependence, ongoing alcohol use, hypertension, renal ca,metastatic pulmonary adenocarcinoma of the right lung diagnosed in November 2020 per lung biopsy, right pneumonectomy,status post pneumothorax-requiring pigtail catheter with removal, presented to the ER with complaints of worsening shortness of breath 4 days, accompanied by increasing generalized weakness, chronic diarrhea,decreased appetitie. Chest x-ray reported large right pleural effusion with heart and mediastinum shifted to the right. CTA reporting new multiple emboli in the left lower lobe pulmonary artery and small emboli left upper lobe pulmonary arteries. Previous surgery on the right side with volume loss and loculated pleural fluid.Heparin drip initiated. Patient's also discloses that patient had an appointment with Dr. Cronin recently, regarding prior brain MRI (moderate hydrocephalus lateral and third ventricle) , and they are in the process of be ing set up with a neurologist at [facility]. WBC 7.5, hemoglobin 10, platelet count 336, INR 1.1, d-dimer 6.59, troponin 0.174, BNP 11,400, burdick virus PCR not detected. Renal function stable. Review of Systems ROS Statement: Those systems with pertinent positive or pertinent negative responses have been documented in the HPI. ROS Other: All systems not noted in ROS Statement are negative. Past Medical History Past Medical History: No Reported History, Cancer, CVA/TIA, Hypertension Additional Past Medical History / Comment(s): back, subarachnoid hemorrhage from a cerebral aneurysm in january 2020, status post aneurysm clipping; right-sided pneumothorax after lung biopsy in November 2020 History of Any Multi-Drug Resistant Organisms: None Reported Past Surgical History: Breast Surgery, Cholecystectomy, Hysterectomy Additional Past Surgical History / Comment(s): kidney, brain surgery due to an aneurysm back in january, renal cyst removal (per patient it was not cancer); right upper lobectomy and right lower lobe wedge resection by Dr. Niko Starks in January 2021 Past Anesthesia/Blood Transfusion Reactions: No Reported Reaction Past Psychological History: Anxiety, Depression Smoking Status: Former smoker Past Alcohol Use History: Occasional Past Drug Use History: None Reported - Past Family History Father History Unknown: Yes Family Medical History: Cancer Additional Family Medical History / Comment(s): Liver Mother Family Medical History: Cancer Additional Family Medical History / Comment(s): Breast Medications and Allergies Home Medications Medication Instructions Recorded Confirmed Type Divalproex Sodium [Depakote] 500 mg PO BID 05/04/21 05/31/21 History Escitalopram [Lexapro] 10 mg PO DAILY 05/04/21 05/31/21 History Metoprolol Tartrate [Lopressor] 25 mg PO BID 05/04/21 05/31/21 History OLANZapine [ZyPREXA] 5 mg PO HS 05/04/21 05/31/21 History lisinopriL [Zestril] 5 mg PO HS 05/04/21 05/31/21 History Megestrol [Megace] 800 mg PO DAILY #600 ml 05/10/21 05/31/21 Rx Pantoprazole [Protonix] 40 mg PO AC-BRKFST #30 tab 05/10/21 05/31/21 Rx Vancomycin 125 mg PO QID #24 capsule 05/10/21 05/31/21 Rx Cholestyramine (with Sugar) 4 gm PO TID@1000,1500,2000 05/31/21 05/31/21 History [Cholestyramine Packet] Allergies Allergy/AdvReac Type Severity Reaction Status Date / Time amoxicillin Allergy Rash/Hives Verified 05/31/21 07:19 codeine AdvReac Nausea Verified 05/31/21 07:19 Physical Exam Vitals: Vital Signs Temp Pulse Resp BP Pulse Ox 05/31/21 11:47 88 05/31/21 11:33 98.0 F 80 18 137/91 96 05/31/21 07:45 98 05/31/21 07:36 94 05/31/21 06:14 98 20 133/93 98 05/31/21 04:45 98 20 151/95 99 05/31/21 03:08 96 20 146/88 100 05/31/21 02:00 101 H 22 145/97 100 05/31/21 00:50 102 H 22 122/84 100 05/30/21 23:15 103 H 22 122/88 100 05/30/21 22:15 98 F 110 H 22 118/52 89 L Intake and Output 05/30/21 05/31/21 05/31/21 22:59 06:59 14:59 Other: # Voids 1 Weight 49.895 kg - Exam GENERAL: Pale, anorexic, Sitting up on stretcher, no acute distress HEAD: Atraumatic, normocephalic. EYES: Pupils equal round and reactive to light, extraocular movements intact, sclera anicteric, conjunctiva are normal. ENT:nares patent, oropharynx clear without exudates. Dry. mucous membranes. NECK: Supple, no JVD LUNGS: Equal air entry, right lung rhonchi. HEART: Regular rate and rhythm without murmurs, rubs or gallops.S1S2 Normal ABDOMEN: Soft, nontender, normoactive bowel sounds. No guarding, no rebound. No masses appreciated. EXTREMITIES: Normal range of motion, no pitting or edema. No clubbing or cyanosis. NEUROLOGICAL: Cranial nerves II through XII grossly intact. Normal speech. PSYCH: Alert and oriented 3,-affect-flat. SKIN: Warm, Dry, normal turgor, no rashes noted. Results CBC & Chem 7: 05/31/21 00:25 05/31/21 00:25 Labs: Abnormal Lab Results - Last 24 Hours (Table) 05/31/21 05/31/21 05/31/21 Range/Units 00:25 00:25 00:25 RBC 3.28 L (3.80-5.40) m/uL Hgb 10.0 L D (11.4-16.0) gm/dL Hct 33.6 L (34.0-46.0) % MCV 102.3 H D (80.0-100.0) fL MCHC 29.9 L (31.0-37.0) g/dL RDW 16.8 H (11.5-15.5) % APTT 20.6 L (22.0-30.0) sec D-Dimer 6.59 H (<0.60) mg/L FEU Chloride 109 H (98-107) mmol/L Carbon Dioxide 18 L (22-30) mmol/L Glucose 162 H (74-99) mg/dL Plasma Lactic Acid Raghav (0.7-2.0) mmol/L AST 73 H (14-36) U/L Troponin I (0.000-0.034) ng/mL 05/31/21 05/31/21 05/31/21 Range/Units 00:25 00:25 07:08 RBC (3.80-5.40) m/uL Hgb (11.4-16.0) gm/dL Hct (34.0-46.0) % MCV (80.0-100.0) fL MCHC (31.0-37.0) g/dL RDW (11.5-15.5) % APTT (22.0-30.0) sec D-Dimer (<0.60) mg/L FEU Chloride (98-107) mmol/L Carbon Dioxide (22-30) mmol/L Glucose (74-99) mg/dL Plasma Lactic Acid Raghav 10.4 H* (0.7-2.0) mmol/L AST (14-36) U/L Troponin I 0.322 H* 0.260 H* (0.000-0.034) ng/mL 05/31/21 05/31/21 Range/Units 09:25 11:43 RBC (3.80-5.40) m/uL Hgb (11.4-16.0) gm/dL Hct (34.0-46.0) % MCV (80.0-100.0) fL MCHC (31.0-37.0) g/dL RDW (11.5-15.5) % APTT 58.4 H (22.0-30.0) sec D-Dimer (<0.60) mg/L FEU Chloride (98-107) mmol/L Carbon Dioxide (22-30) mmol/L Glucose (74-99) mg/dL Plasma Lactic Acid Raghav (0.7-2.0) mmol/L AST (14-36) U/L Troponin I 0.174 H* (0.000-0.034) ng/mL Assessment and Plan Assessment: Acute left lung PE Loculated right pleural effusion Right lung Metastatic pulmonary adenocarcinoma, Acute on chronic hypoxic respiratory failure, multifactorial secondary to the above Diarrhea, ruling out C. difficile Poor oral intake Dehydration Hx of right pneumonectomy Renal cell CA, right kidney mass increased in size-per CT Hypertension Alcohol abuse History of intracranial aneurysm, hemorrhage, status post clipping History of kidney cyst removal Former nicotine dependence Anxiety Depression Generalized weakness. Anorexia with Moderate protein calorie malnutrition,BMI 22 History of QT prolongation per EKG, congenital Elevated troponin, suspect leak, repeat pending Plan: Continue on current medication regime ,monitoring and symptomatic treat ment. Anticoagulated on heparin drip. Nebulized bronchodilators Oncology, Pulmonary and CTS consulted. Brain CT ordered. Stool for C. difficile colitis ordered. IV fluid hydration. Prognosis guarded given multiple complex medical issues. Further recommendations to follow. The impression and plan of care has been dictated as directed. : I performed a history and examination of this patient, discussed the same with the dictator. I agree with the dictator's note ,documented as a scribe. Any additional findings or plans will be noted.
[2021-05-31] MEDS: OLANZapine 5 MG TAB PO SCH (22:56)
[2021-05-31] MEDS: SODIUM CHLORIDE 0.9% 1,000 ML IV SCH (22:57)
[2021-05-31] MEDS: lisinopriL 5 MG TAB PO SCH (22:57)
[2021-06-01] MEDS: SODIUM CHLORIDE 0.9% 1,000 ML IV SCH ×3 (01:32→22:45)
[2021-06-01 04:21] LABS: Anisocytosis Slight; Basophils % (A) 1 %; Eosinophils # (A) 0.1 k/uL (0-0.7); Eosinophils % (A) 2 %; HCT 29.7 % (34.0-46.0); HGB 9.2 gm/dL (11.4-16.0); Hypochromasia Moderate; Lymphocytes # (A) 1.9 k/uL (1.0-4.8); Lymphocytes % (A) 30 %; MCH 31.3 pg (25.0-35.0); MCV 100.9 fL (80.0-100.0); Macrocytosis Moderate; Mean Platelet Volume 8.8; Monocytes # (A) 0.6 k/uL (0-1.0); Monocytes % (A) 10 %; Neutrophils # (A) 3.4 k/uL (1.3-7.7); Neutrophils % (A) 54 %; Platelet Count 247 k/uL (150-450); RBC 2.95 m/uL (3.80-5.40); RDW 17.6 % (11.5-15.5); WBC 6.3 k/uL (3.8-10.6)
[2021-06-01 04:33] LABS: African American GFR (CKD) >90 (>60 ml/min/1.73 sqM); Anion Gap 7 mmol/L; Blood Urea Nitrogen 17 mg/dL (7-17); Calcium 8.9 mg/dL (8.4-10.2); Carbon Dioxide 25 mmol/L (22-30); Chloride 111 mmol/L (98-107); Glucose 92 mg/dL (74-99); Non-African American GFR(CKD) >90 (>60 ml/min/1.73 sqM); Potassium 3.1 mmol/L (3.5-5.1); Sodium 143 mmol/L (137-145)
[2021-06-01] MEDS: HEPARIN SOD,PORK IN 0.45% NACL 25,000 UNIT in 0.45% NACL 1 250ML.BAG IV SCH (05:16)
[2021-06-01] MEDS: ALBUTEROL NEBULIZED 2.5 MG/3 ML INHALATION SCH ×4 (07:30→19:58)
[2021-06-01] MEDS: DIVALPROEX 500 MG TABLET.DR PO SCH ×2 (08:11→20:42)
[2021-06-01] MEDS: ESCITALOPRAM 10 MG TAB PO SCH (08:11)
[2021-06-01] MEDS: PANTOPRAZOLE 40 MG TABLET PO SCH (08:11)
[2021-06-01] MEDS: METOPROLOL TARTRATE 25 MG TAB PO SCH ×2 (08:11→20:43)
[2021-06-01] MEDS: MEGESTROL 400 MG/10 ML CUP PO SCH (08:15)
--- NOTE | 2021-06-01 08:16 | CT ---
EXAMINATION TYPE: CT brain w con DATE OF EXAM: 06/01/2021 COMPARISON: CT brain October 26, 2020. MRI brain May 07, 2021 HISTORY: mets, encephalopathy, history of lung cancer. CONTRAST: CT scan of the head is performed with IV Contrast, patient injected with 100 mL of Isovue 300. FINDINGS: There is no abnormal enhancing mass or midline shift identified. Stable mild hydrocephalus. Old righ t frontal roberth hole and calcification along shunt catheter courses redemonstrated in the right fronta l lobe. Low-attenuation in the periventricular white matter are again seen. Surgical change suprasell ar level from aneurysm clipping is again seen with some encephalomalacia involving the inferior left frontal lobe. No new enhancing masses are present. Globes are intact and visualized paranasal sinuses are clear. IMPRESSION: Stable mild to moderate hydrocephalus. Postsurgical changes from prior shunt and aneurysm clipping redemonstrated. Stable periventricular chronic small vessel ischemic change along with old infarct inferior left frontal lobe. No new enhancing masses clearly identified. No significant change from most recent MRI.
--- NOTE | 2021-06-01 09:02 | P.PN ---
Subjective Progress Note Date: 06/01/21 Principal diagnosis: Loculated right pleural effusion with volume loss, multiple left-sided pulmonary emboli, shortness of breath, acute hypoxic respiratory failure, confusion, acute lactic acidosis on admission, troponin leak. 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 The patient is currently still laying on a cart in the emergency room in no acute distress. Currently on 2 LPM NC with oxygen saturation 96-100%. Denies pain. Had brain CT this morning which continues to show mild to moderate hydrocephalus, no significant change from previous MRI. Remains on IV heparin for acute PE. Objective - Vital Signs Vital signs: Vital Signs Temp 98.1 F 05/31/21 23:20 Pulse 84 06/01/21 07:56 Resp 16 06/01/21 07:56 BP 145/93 06/01/21 07:56 Pulse Ox 99 06/01/21 07:56 Intake & Output 05/31/21 06/01/21 06/01/21 18:59 06:59 18:59 Intake Total 229.914 Balance 229.914 Intake: Intake, IV Titration 229.914 Amount Heparin Sod,Pork in 0.45% 229.914 NaCl 25,000 unit In 0.45 % NaCl 1 250ml.bag @ 18 UNITS/KG/HR 8.981 mls/hr IV .Q24H [facility] Rx#: [id number] Other: # Voids 1 - Exam CONSTITUTIONAL: Awake and alert, appears comfortable, cooperative, no acute distress RESPIRATORY: Lungs sounds diminished bilaterally with coarse breath sounds in the right. Respirations even, nonlabored. Currently on 2 L nasal cannula with oxygen saturation 96-100%. CARDIOVASCULAR: S1, S2 present. Regular rate and rhythm, sinus rhythm on telemetry. Palpable peripheral pulses bilaterally. No edema present. GASTROINTESTINAL: Abdomen soft, nontender, nondistended. Active bowel sounds present 4 quadrants. GENITOURINARY: Continues to void INTEGUMENTARY: Skin is warm and dry NEUROLOGIC: Cranial nerves II through XII intact, normal coordination, no obvious motor or sensory deficits, speech is normal MUSKULOSKELETAL: Able to move all extremities, strength equal bilaterally, normal posture PSYCHIATRIC: Alert and oriented to person place and year, flat affect - Allied health notes Allied health notes reviewed: nursing - Labs CBC & Chem 7: 06/01/21 04:04 06/01/21 04:04 Labs: Abnormal Lab Results - Last 24 Hours (Table) 05/31/21 05/31/21 05/31/21 Range/Units 09:25 11:43 16:03 RBC (3.80-5.40) m/uL Hgb (11.4-16.0) gm/dL Hct (34.0-46.0) % MCV (80.0-100.0) fL RDW (11.5-15.5) % APTT 58.4 H (22.0-30.0) sec Potassium (3.5-5.1) mmol/L Chloride (98-107) mmol/L Troponin I 0.174 H* 0.182 H* (0.000-0.034) ng/mL 06/01/21 06/01/21 06/01/21 Range/Units 04:04 04:04 04:04 RBC 2.95 L (3.80-5.40) m/uL Hgb 9.2 L (11.4-16.0) gm/dL Hct 29.7 L (34.0-46.0) % MCV 100.9 H (80.0-100.0) fL RDW 17.6 H (11.5-15.5) % APTT 51.7 H (22.0-30.0) sec Potassium 3.1 L (3.5-5.1) mmol/L Chloride 111 H (98-107) mmol/L Troponin I (0.000-0.034) ng/mL - Imaging and Cardiology CT Scan - head: report reviewed, image reviewed Assessment and Plan Assessment: 1. Loculated right pleural effusion with volume loss 2. Multiple left-sided pulmonary emboli 3. Shortness of breath, acute hypoxic respiratory failure secondary to above 4. Confusion per her more than just chronic short-term memory loss 5. Lactic acidosis present on admission, resolved 6. Troponin leak 7. History of adenocarcinoma of the lung status post right upper lobe lobectomy and right lower lobe wedge resection in January 2021 8. Right-sided pneumothorax after lung biopsy in November 2020 9. Right kidney mass, increased in size slightly from prior CT 10. Cerebral aneurysm with subarachnoid hemorrhage status post clipping in January 2020 with residual short-term memory loss 11. History of hypertension 12. Previous tobacco dependence 13. Overall debility 14. Family history of cancer. Plan: 1. No surgical intervention as patient is high risk. May place pigtail catheter to instill lytics to break up loculations, but this would require stopping heparin for a period of time. In addition if lung is trapped fluid reaccumulation would likely reoccur 2. Management of PE per pulmonology, primary care 3. CT of brain reviewed 4. Wean oxygen as tolerated. Bronchodilators per pulmonology 5. Increase activity as tolerated 6. Medical management of other comorbidities per primary, pulmonology, oncology 7. Will continue to follow along and make further recommendations as appropriate Time with Patient: Greater than 30
[2021-06-01] MEDS: CHOLESTYRAMINE (WITH SUGAR) 4 GM PACKET PO SCH ×3 (12:00→20:35)
--- NOTE | 2021-06-01 12:06 | P.PN ---
Subjective Progress Note Date: 06/01/21 Principal diagnosis: Pulmonary embolism, pleural effusion This is a 60-year-old female patient who follows with Dr. Rodriges as her primary care provider. 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 Status post pneumothorax requiring until catheter insertion and subsequent removal. She did go on to have right lung resection status post lobectomy. Details and location of the surgery are not available. She is a poor historian due to previous CVA. There is also suspicious secondary neoplasm in the right kidney. Being followed by urology. She was determined to be a poor candidate for adjuvant chemotherapy or surgical resection. She was brought into the emergency room early this morning for worsening shortness of breath over the past 3-4 days. Chest x-ray reveals a large right pleural effusion. Heart and mediastinum shifted to the right side. There are clips from a previous right lung surgery. Left lung is clear. No heart failure. CT angios were Model reveals multiple emboli in the left lower lobe pulmonary artery and smaller emboli in the left upper lobe pulmonary arteries. Previous surgery on the right side with volume loss and loculated pleural effusion and pleural calcification and thickening, pleural fluid and linear infiltrate and atelectasis not seen on previous computed tomography scan. She has been initiated on a heparin drip. White count 7.5. Hemoglobin 10.0. D-dimer 6.59. Sodium 144. Potassium 3.9. Bicarb 18. Creatinine 0.68. Glucose 162. Lactic acid 1.3. Troponin 0.26. ProBNP 11,400. Heard virus not detected. The patient is seen today 06/01/2021 in follow-up in the emergency room. She is currently resting comfortably on a stretcher. Awake and alert in no acute distress. Breathing easier today compared to yesterday. She is maintaining O2 saturations at 98% on 1 L nasal cannula. Computed tomography scan of the brain revealed stable mild to moderate hydrocephalus. Postsurgical changes from prior shunt and aneurysm clipping redemonstrated. Stable periventricular chronic small vessel ischemic changes along with old infarct inferior left frontal lobe. No new enhancing masses identified. White count 6.3. Hemoglobin 9.2. Sodium 1.3. Potassium 3.1. Creatinine 0.53. She remains on a heparin drip. Objective - Vital Signs Vital signs: Vital Signs Temp 98.1 F 05/31/21 23:20 Pulse 74 06/01/21 11:55 Resp 16 06/01/21 11:55 BP 150/86 06/01/21 11:53 Pulse Ox 97 06/01/21 11:53 Intake & Output 05/31/21 06/01/21 06/01/21 18:59 06:59 18:59 Intake Total 229.914 Balance 229.914 Intake: Intake, IV Titration 229.914 Amount Heparin Sod,Pork in 0.45% 229.914 NaCl 25,000 unit In 0.45 % NaCl 1 250ml.bag @ 18 UNITS/KG/HR 8.981 mls/hr IV .Q24H [facility] Rx#: [id number] Other: # Voids 1 - Exam GENERAL EXAM: Alert, 60-year-old female patient, poor historian, on 1 L nasal cannula, comfortable in no apparent distress. HEAD: Normocephalic. EYES: Normal reaction of pupils, equal size. NOSE: Clear with pink turbinates. THROAT: No erythema or exudates. NECK: No masses, no JVD. CHEST: No chest wall deformity. LUNGS: Equal air entry with crackles, scattered rhonchi in the right lung. CVS: S1 and S2 normal with no audible murmur, regular rhythm. ABDOMEN: No hepatosplenomegaly, normal bowel sounds, no guarding or rigidity. SPINE: No scoliosis or deformity SKIN: No rashes CENTRAL NERVOUS SYSTEM: No focal deficits, tone is normal in all 4 extremities. EXTREMITIES: There is no peripheral edema. No clubbing, no cyanosis. Peripheral pulses are intact. - Labs CBC & Chem 7: 06/01/21 04:04 06/01/21 04:04 Labs: Abnormal Lab Results - Last 24 Hours (Table) 05/31/21 05/31/21 06/01/21 Range/Units 11:43 16:03 04:04 RBC (3.80-5.40) m/uL Hgb (11.4-16.0) gm/dL Hct (34.0-46.0) % MCV (80.0-100.0) fL RDW (11.5-15.5) % APTT 51.7 H (22.0-30.0) sec Potassium (3.5-5.1) mmol/L Chloride (98-107) mmol/L Troponin I 0.174 H* 0.182 H* (0.000-0.034) ng/mL 06/01/21 06/01/21 Range/Units 04:04 04:04 RBC 2.95 L (3.80-5.40) m/uL Hgb 9.2 L (11.4-16.0) gm/dL Hct 29.7 L (34.0-46.0) % MCV 100.9 H (80.0-100.0) fL RDW 17.6 H (11.5-15.5) % APTT (22.0-30.0) sec Potassium 3.1 L (3.5-5.1) mmol/L Chloride 111 H (98-107) mmol/L Troponin I (0.000-0.034) ng/mL Assessment and Plan Assessment: 1 Acute on chronic hypoxemic respiratory failure secondary to left lung pulmonary emboli and right lung pleural effusion 2 History of pulmonary adenocarcinoma with previous right lung resection, lobectomy. Surgical location and details not available 3 Metastatic adenocarcinoma with right kidney mass 4 Former smoker 5 History of subarachnoid hemorrhage from cerebral aneurysm in January 2020, status post clipping 6 Short term memory loss secondary to above 7 Poor overall functional performance based on the above-mentioned comorbidities, deemed not a candidate for adjuvant chemotherapy or surgical intervention 8 Anemia 9 Troponin leak Plan: The patient was seen and evaluated by Dr. Hall CAT scan of the brain and labs reviewed Continue on a heparin drip Consult neurology for long-term anticoagulation clearance Continue bronchodilators Titrate the FiO2 as tolerated We will continue to follow I, the cosigning physician, performed a history & physical examination of the patient. Lungs sounds with some crackles, scattered rhonchi in the right lung. Maintaining good O2 saturations in the 90s on 1 L/m per nasal cannula. I discussed the assessment and plan of care with my nurse practitioner, Eugenia Loyd. I attest to the above note as dictated by her.
[2021-06-01] MEDS ORDERED: Potassium Replacement Protocol 1 EACH MISC MISCELLANE PRN (12:24)
[2021-06-01] MEDS ORDERED: Magnesium Replacement Protocol 1 EACH MISC MISCELLANE PRN (12:25)
--- NOTE | 2021-06-01 13:13 | P.CONS ---
History of Present Illness - Reason for Consult Consult date: 06/01/21 Lung ca, renal mass, new PE Requesting physician: Stephany Pacheco - Chief Complaint SOB - History of Present Illness Mrs. Quinones is a pleasant female pt of Dr. Dill with severe short term memory loss 2/2 CVA. She fell on ice 10/26/20, xray of right shoulder which revealed RUL lung mass which led to CT CAP on 11/04/20. this revealed 3.1 x 3.0 cm RUL and 2.9 x 1.9 RLL masses and 4 x 4.7 cm solid right kidney mass. 11/18/20 CT guided biopsy of lung positive for adenocarcinoma consistent with lung primary. PDL-1 was negative, NGS revealed TP53 mutation and [id number] mutation. 11/30/20, bone scan was negative for metastatic disease. 12/04/20 PET revealed suspicious uptake in the 2 right lung lesions. She had surgery , RLL lobectomy and wedge resection of RLL, pathology revealed 2.3 cm carcinoma in RUL with 2 additional foci of microinvasive carcinoma (2.5 mm and 3.5mm), RLL revealed 3.5 cm invasive adenocarcinoma, regional nodes were negative, there was evidence of visceral pleura invasion and LVI, negative margins. She has had long recovery time, spent time in rehab, she is currently undergoing physical therapy at home. She has lost a lot of weight, PS has not improved. She saw Dr. Dill 04/19, and he felt her PS was still so poor that she is not a candidate for adjuvant chemotherapy for her lung cancer or a candidate for surgery in regard to her kidney cancer. 05/05 pt admitted for progressive weakness, had poor appetite, diarrhea, off balance. Worked up extensively, no brain mets, no evidence of lung recurrence, renal mass larger, brain imaging suggestive of encephalopathy. She improved and plan was to see Neurosurgeon. She un fortunately did not get to that appt. She is admitted with c/o SOB worse then baseline for 3 days, O2 needs increased, progressed so pt was brought to ER for evaluation. CTA + for RLL PE, she is on heparin drip. Denies any bleeding, nausea, vomiting, her appetite is still poor, no chart pain, states breathing is more comfortable then on admit, no abd pain, no acute changes in bowel or bladder, mild BLE swelling, no pain in the legs, denies numbness or tingling. days(s) Review of Systems ROS is as stated in HPI-pt does have short term memory problems Past Medical History Past Medical History: No Reported History, Cancer, CVA/TIA, Hypertension Additional Past Medical History / Comment(s): back, subarachnoid hemorrhage from a cerebral aneurysm in january 2020, status post aneurysm clipping; right-sided pneumothorax after lung biopsy in November 2020 History of Any Multi-Drug Resistant Organisms: None Reported Past Surgical History: Breast Surgery, Cholecystectomy, Hysterectomy Additional Past Surgical History / Comment(s): kidney, brain surgery due to an aneurysm back in january, renal cyst removal (per patient it was not cancer); right upper lobectomy and right lower lobe wedge resection by Dr. Niko Starks in January 2021 Past Anesthesia/Blood Transfusion Reactions: No Reported Reaction Past Psychological History: Anxiety, Depression Smoking Status: Former smoker Past Alcohol Use History: Occasional Past Drug Use History: None Reported - Past Family History Father History Unknown: Yes Family Medical History: Cancer Additional Family Medical History / Comment(s): Liver Mother Family Medical History: Cancer Additional Family Medical History / Comment(s): Breast Medications and Allergies Home Medications Medication Instructions Recorded Confirmed Type Divalproex Sodium [Depakote] 500 mg PO BID 05/04/21 05/31/21 History Escitalopram [Lexapro] 10 mg PO DAILY 05/04/21 05/31/21 History Metoprolol Tartrate [Lopressor] 25 mg PO BID 05/04/21 05/31/21 History OLANZapine [ZyPREXA] 5 mg PO HS 05/04/21 05/31/21 History lisinopriL [Zestril] 5 mg PO HS 05/04/21 05/31/21 History Megestrol [Megace] 800 mg PO DAILY #600 ml 05/10/21 05/31/21 Rx Pantoprazole [Protonix] 40 mg PO AC-BRKFST #30 tab 05/10/21 05/31/21 Rx Vancomycin 125 mg PO QID #24 capsule 05/10/21 05/31/21 Rx Cholestyramine (with Sugar) 4 gm PO TID@1000,1500,2000 05/31/21 05/31/21 History [Cholestyramine Packet] Allergies Allergy/AdvReac Type Severity Reaction Status Date / Time amoxicillin Allergy Rash/Hives Verified 05/31/21 07:19 codeine AdvReac Nausea Verified 05/31/21 07:19 Physical Exam Vitals: Vital Signs Temp Pulse Resp BP Pulse Ox 06/01/21 07:56 84 16 145/93 99 06/01/21 07:40 81 18 06/01/21 07:30 70 18 100 06/01/21 05:13 71 17 160/86 100 06/01/21 02:46 74 16 137/89 100 05/31/21 23:20 98.1 F 99 18 99 05/31/21 22:00 96 18 149/96 96 05/31/21 20:23 96 05/31/21 20:13 92 05/31/21 20:00 98 18 150/89 94 L 05/31/21 19:00 96 18 116/96 99 05/31/21 15:00 98.0 F 20 109/69 97 05/31/21 11:47 88 05/31/21 11:33 98.0 F 80 18 137/91 96 Intake and Output 05/31/21 06/01/21 06/01/21 22:59 06:59 14:59 Intake Total 229.914 Balance 229.914 Intake: Intake, IV Titration 229.914 Amount Heparin Sod,Pork in 0.45% 229.914 NaCl 25,000 unit In 0.45 % NaCl 1 250ml.bag @ 18 UNITS/KG/HR 8.981 mls/hr IV .Q24H [facility] Rx#: [id number] - Constitutional General appearance: cooperative, no acute distress, thin - EENT Eyes: anicteric sclerae, EOMI ENT: hearing grossly normal, normal oropharynx - Neck Neck: no lymphadenopathy - Respiratory Respiratory: bilateral: diminished - Cardiovascular Rhythm: regular Heart sounds: normal: S1, S2 Abnormal Heart Sounds: no systolic murmur, no diastolic murmur, no rub, no S3 Gallop, no S4 Gallop, no click, no other leg Peripheral Edema: bilateral: Trace - Gastrointestinal General gastrointestinal: normal bowel sounds, soft - Psychiatric flat affect, trouble with short term memory, some exterminator. A&O x 2/3 Results CBC & Chem 7: 06/01/21 04:04 06/01/21 04:04 Labs: Abnormal Lab Results - Last 24 Hours (Table) 05/31/21 05/31/21 05/31/21 Range/Units 09:25 11:43 16:03 RBC (3.80-5.40) m/uL Hgb (11.4-16.0) gm/dL Hct (34.0-46.0) % MCV (80.0-100.0) fL RDW (11.5-15.5) % APTT 58.4 H (22.0-30.0) sec Potassium (3.5-5.1) mmol/L Chloride (98-107) mmol/L Troponin I 0.174 H* 0.182 H* (0.000-0.034) ng/mL 06/01/21 06/01/21 06/01/21 Range/Units 04:04 04:04 04:04 RBC 2.95 L (3.80-5.40) m/uL Hgb 9.2 L (11.4-16.0) gm/dL Hct 29.7 L (34.0-46.0) % MCV 100.9 H (80.0-100.0) fL RDW 17.6 H (11.5-15.5) % APTT 51.7 H (22.0-30.0) sec Potassium 3.1 L (3.5-5.1) mmol/L Chloride 111 H (98-107) mmol/L Troponin I (0.000-0.034) ng/mL CT scan - chest: report reviewed (RLL PE) CT Scan - head: report reviewed (stable hydrocephalus) Assessment and Plan (1) Pulmonary emboli Narrative/Plan: New diagnosis. Pt has active malignancy, increased risk of thrombus about 10% above the general population. BLE doppler ordered for baseline Cont heparin drip for now. Will verify with Project Coordinator Rn which anticoagulant they would prefer Current Visit: Yes Status: Acute Priority: High Code(s): I26.99 - OTHER PULMONARY EMBOLISM WITHOUT ACUTE COR PULMONALE SNOMED Code(s): 87834833 (2) Lung cancer Narrative/Plan: S/P surgery. No evidence of disease. She unfortunately has had slow recovery post op. She has f/u with Neurosurgeon for encephalopathy Current Visit: Yes Status: Chronic Priority: Medium Code(s): C34.90 - MALIGNANT NEOPLASM OF UNSP PART OF UNSP BRONCHUS OR LUNG SNOMED Code(s): 630855574 (3) Renal cell cancer Narrative/Plan: Plan for surgery once pt recovered from lung surgery. Current Visit: Yes Status: Chronic Priority: High Code(s): C64.9 - MALIGNANT NEOPLASM OF UNSP KIDNEY, EXCEPT RENAL PELVIS SNOMED Code(s): 762502503
--- NOTE | 2021-06-01 15:41 | P.CNNES ---
History of Present Illness Consult date: 06/01/21 Requesting physician: Clifton Hall Reason for Consult: neuro clearance for fpc anticagultion History of Present Illness: Patient is a 60-year-old female, who was brought to the hospital by ambulance on 05/30/2021 at 9:55 PM for weakness and difficulty breathing and left hypochondriac chest pain. Patient on home oxygen 2 L per nasal cannula on a 24 7 basis. Patient has history of brain tumor, which she believes was a benign tumor, kidney cancer, brain aneurysm and CVA. Patient was oriented 4, denied any chest pain. The symptoms have been getting worse over the last several days. Patient's vitals at the scene was blood pressure 125/93, pulse rate 83, respiration 28 saturation 94% on 3 L nasal cannula. Patient had a chest x-ray, which revealed large right pleural effusion with volume loss in the right hemithorax which has progressed slightly compared to old exam. No heart failure. CTA of the chest shows multiple emboli in the left lower lobe pulmonary artery and smaller emboli in the left upper lobe pulmonary artery. Previous surgery on the right side with volume loss and loculated pleural fluid and pleural calcification and thickening. Pulmonary emboli. Compared to old exam. EKG shows sinus tachycardia, T-wave abnormality, consider inferior ischemia. CT head showed stable mild to moderate hydrocephalus. Postsurgical changes from prior shunt and aneurysm clipping redemonstrated. St able periventricular chronic small vessel ischemic change along with old infarct inferior left frontal lobe. No new enhancing masses clearly identified. No significant change from most recent MRI. Patient apparently has history of subarachnoid hemorrhage on 01/31/2020, status post clipping and old right frontal stroke from subarachnoid hemorrhage. Patient was seen by Dr. Leif Collado on 03/23/2020, but patient had an EEG which shows mild encephalopathy. Occasional focal slowing of the bifrontal region. No interictal epileptiform activity seen. Patient was on Depakote ER 500 mg 3 times a day. There was report of seizure that was treated at [facility] prior to that her admission. Patient was transferred to inpatient psychiatry at that time. Her B12 was 1034. Patient could not tell when she had the aneurysm clipped or what kind of brain tumor it is, although she believes it was possible benign tumor. At present she denies any headache, no problem with the vision, no slurred speech facial droop, or any numbness or tingling of the arms or legs. She states she lives with her . She does not use any assistive device for ambulation. She has been smoking half pack per day since she was in her 20s. She smoked 1 pack per day for 5 years before quitting a year ago. She states that she drinks 6 beers a day, but could not tell for how long she has been drinking negative. Patient states that she does not know if she has a neurologist and does not know if she follows up with a neurologist. Review of Systems As above in detail. Patient denies any fever or chills. She has some shortness of breath, chest/abdominal pain. Denies illicit be related back pain. All other review of systems reviewed and not able to repair patient does have some psychiatric condition. Past Medical History Past Medical History: No Reported History, Cancer, CVA/TIA, Hypertension Additional Past Medical History / Comment(s): back, subarachnoid hemorrhage from a cerebral aneurysm in january 2020, status post aneurysm clipping; right-sided pneumothorax after lung biopsy in November 2020 History of Any Multi-Drug Resistant Organisms: None Reported Past Surgical History: Breast Surgery, Cholecystectomy, Hysterectomy Additional Past Surgical History / Comment(s): kidney, brain surgery due to an aneurysm back in january, renal cyst removal (per patient it was not cancer); right upper lobectomy and right lower lobe wedge resection by Dr. Niko Starks in January 2021 Past Anesthesia/Blood Transfusion Reactions: No Reported Reaction Past Psychological History: Anxiety, Depression Smoking Status: Former smoker Past Alcohol Use History: Occasional Past Drug Use History: None Reported - Past Family History Father History Unknown: Yes Family Medical History: Cancer Additional Family Medical History / Comment(s): Liver Mother Family Medical History: Cancer Additional Family Medical History / Comment(s): Breast Medications and Allergies Home Medications Medication Instructions Recorded Confirmed Type Divalproex Sodium [Depakote] 500 mg PO BID 05/04/21 05/31/21 History Escitalopram [Lexapro] 10 mg PO DAILY 05/04/21 05/31/21 History Metoprolol Tartrate [Lopressor] 25 mg PO BID 05/04/21 05/31/21 History OLANZapine [ZyPREXA] 5 mg PO HS 05/04/21 05/31/21 History lisinopriL [Zestril] 5 mg PO HS 05/04/21 05/31/21 History Megestrol [Megace] 800 mg PO DAILY #600 ml 05/10/21 05/31/21 Rx Pantoprazole [Protonix] 40 mg PO AC-BRKFST #30 tab 05/10/21 05/31/21 Rx Vancomycin 125 mg PO QID #24 capsule 05/10/21 05/31/21 Rx Cholestyramine (with Sugar) 4 gm PO TID@1000,1500,2000 05/31/21 05/31/21 History [Cholestyramine Packet] Allergies Allergy/AdvReac Type Severity Reaction Status Date / Time amoxicillin Allergy Rash/Hives Verified 05/31/21 07:19 codeine AdvReac Nausea Verified 05/31/21 07:19 Physical Examination - Vital Signs Vital Signs: Vital Signs Temp Pulse Resp BP Pulse Ox 06/01/21 07:56 84 16 145/93 99 06/01/21 07:40 81 18 06/01/21 07:30 70 18 100 06/01/21 05:13 71 17 160/86 100 06/01/21 02:46 74 16 137/89 100 05/31/21 23:20 98.1 F 99 18 99 05/31/21 22:00 96 18 149/96 96 05/31/21 20:23 96 05/31/21 20:13 92 05/31/21 20:00 98 18 150/89 94 L 05/31/21 19:00 96 18 116/96 99 05/31/21 15:00 98.0 F 20 109/69 97 05/31/21 11:47 88 05/31/21 11:33 98.0 F 80 18 137/91 96 Intake and Output 05/31/21 06/01/21 06/01/21 22:59 06:59 14:59 Intake Total 229.914 Balance 229.914 Intake: Intake, IV Titration 229.914 Amount Heparin Sod,Pork in 0.45% 229.914 NaCl 25,000 unit In 0.45 % NaCl 1 250ml.bag @ 18 UNITS/KG/HR 8.981 mls/hr IV .Q24H [facility] Rx#: [id number] Patient is a middle aged female, who appears older than her stated age. Patient is alert awake, has a very flat affect. Patient has decreased frequency of blinking. She has a mask face. Patient could not tell what month is it although she states the year is 2021. She thinks she is in [facility], does not know name of the current president, and could not tell me name of the last president and that she could remember. Speech and language functions are normal. Patient can name and repeat very well. Attention, concentration and fund of knowledge is limited. She has slow mentation, prolonged latency time to answer questions. On cranial examination, pupils are unequal, right is slightly larger than the left, both are sluggishly reacting. The visual mchugh appears full, although patient was gaining significant inconsistent response, like seeing both, but only one hand in her visual field was moving. Her extraocular muscles are intact with no nystagmus. Face is symmetric, tongue protrudes to the midline. Palatal elevation and sensation normal, hearing appears slightly decreased and shoulder shrug normal, facial sensation normal. On muscle strength testing, there is no pronator drift. Patient was giving decreased effort all over in the arms and legs. In general, the strength was about 4+5-bilaterally in the upper limbs. Hip flexion was 4-and ankle dorsiflexion 5. Deep tendon reflexes are 3 in the upper limbs, 2+ at the knees, 2 ankles and plantars are possibly upgoing bilaterally. Sensory to touch is equal with no neglect. Cerebellar function showed no ataxia for [id number] testing. Tone is increased bilaterally, left more than right. Gait deferred. On general examination, there is no carotid bruit or murmur, S1-S2 audible. Abdomen is soft nontender. Chest is clear. Peripheral pulses are present. No edema. Results - Laboratory Findings CBC and BMP: 06/01/21 04:04 06/01/21 04:04 Abnormal Lab Findings: Abnormal Labs 05/31/21 05/31/21 05/31/21 00:25 00:25 00:25 RBC 3.28 L Hgb 10.0 L D Hct 33.6 L MCV 102.3 H D MCHC 29.9 L RDW 16.8 H APTT 20.6 L D-Dimer 6.59 H Potassium Chloride 109 H Carbon Dioxide 18 L Glucose 162 H Plasma Lactic Acid Raghav AST 73 H Troponin I 05/31/21 05/31/21 05/31/21 00:25 00:25 07:08 RBC Hgb Hct MCV MCHC RDW APTT D-Dimer Potassium Chloride Carbon Dioxide Glucose Plasma Lactic Acid Raghav 10.4 H* AST Troponin I 0.322 H* 0.260 H* 05/31/21 05/31/21 05/31/21 09:25 11:43 16:03 RBC Hgb Hct MCV MCHC RDW APTT 58.4 H D-Dimer Potassium Chloride Carbon Dioxide Glucose Plasma Lactic Acid Raghav AST Troponin I 0.174 H* 0.182 H* 06/01/21 06/01/21 06/01/21 04:04 04:04 04:04 RBC 2.95 L Hgb 9.2 L Hct 29.7 L MCV 100.9 H MCHC RDW 17.6 H APTT 51.7 H D-Dimer Potassium 3.1 L Chloride 111 H Carbon Dioxide Glucose Plasma Lactic Acid Raghav AST Troponin I Assessment and Plan Assessment: * 60-year-old female with history of cerebral aneurysm, status post clipping came to the hospital for shortness of breath and chest pain, and is diagnosed with bilateral pulmonary embolism. Neurology requested for clearance for anticoagulation. * History of subarachnoid hemorrhage 01/31/2020, status post clipping. * History of right frontal stroke related to subarachnoid hemorrhage as above. * Hypertension * Acute pulmonary embolism * Elevated cardiac enzymes. * Depression Plan: * Patient has history of cerebral aneurysm, which has been clipped. Her computed tomography scan of the head is otherwise stable. Neurologically clear for anticoagulation. * Medical management as per IM and other specialties. * Continue Depakote 500 twice a day for mood and history of seizure disorder. * Please call neurology if there is any other concerns.
--- NOTE | 2021-06-01 16:09 | P.PN ---
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 Chest x-ray reported large right pleural effusion with heart and mediastinum shifted to the right. CTA reporting new multiple emboli in the left lower lobe pulmonary artery and small emboli left upper lobe pulmonary arteries. Previous surgery on the right side with volume loss and loculated pleural fluid.Heparin drip initiated. Patient's also discloses that patient had an appointment with Dr. Cronin recently, regarding prior brain MRI (moderate h ydrocephalus lateral and third ventricle) , and they are in the process of being set up with a neurologist at [facility]. WBC 7.5, hemoglobin 10, platelet count 336, INR 1.1, d-dimer 6.59, troponin 0.174, BNP 11,400, burdick virus PCR not detected. Renal function stable. 06/01/21 Breathing improved today, maintaining O2 sats of high 90s on 2 L nasal cannula. Good historian, denies lightheadedness, dizziness or focal deficits,denies headache. Afebrile, normal WBC.Computed tomography scan of the brain reporting stable mild to moderate hydrocephalus. Postsurgical changes from prior shunt and aneurysm clipping redemonstrated. Stable periventricular chronic small vessel ischemic changes along with old infarct inferior left frontal lobe. No new enhancing masses identified. Potassium 3.1, potassium supplements ordered,. Renal function stable. Anticoagulated on heparin drip. Objective - Vital Signs Vital signs: Vital Signs Temp 97.9 F 06/01/21 14:05 Pulse 82 06/01/21 14:05 Resp 18 06/01/21 14:05 BP 138/85 06/01/21 14:05 Pulse Ox 98 06/01/21 14:05 Intake & Output 05/31/21 06/01/21 06/01/21 18:59 06:59 18:59 Intake Total 229.914 Balance 229.914 Intake: Intake, IV Titration 229.914 Amount Heparin Sod,Pork in 0.45% 229.914 NaCl 25,000 unit In 0.45 % NaCl 1 250ml.bag @ 18 UNITS/KG/HR 8.981 mls/hr IV .Q24H [facility] Rx#: [id number] Other: # Voids 1 - Exam - Exam GENERAL: Pale, anorexic, Sitting up in bed, alert and oriented 2-3, flat affect, no acute distress HEAD: Atraumatic, normocephalic. EYES: Pupils equal round and reactive to light, extraocular movements intact, sclera anicteric, conjunctiva are normal. ENT:nares patent, oropharynx clear without exudates. Moist oral mucosa. NECK: Supple, no JVD LUNGS: Equal air entry, right lung rhonchi. HEART: Regular rate and rhythm without murmurs, rubs or gallops.S1S2 Normal ABDOMEN: Soft, nontender, normoactive bowel sounds. No guarding, no rebound. No masses appreciated. EXTREMITIES: Normal range of motion, no pitting or edema. No clubbing or cyanosis. NEUROLOGICAL: Cranial nerves II through XII grossly intact. Normal speech. SKIN: Warm, Dry, normal turgor, no rashes noted. - Labs CBC & Chem 7: 06/01/21 04:04 06/01/21 04:04 Labs: Abnormal Lab Results - Last 24 Hours (Table) 05/31/21 06/01/21 06/01/21 Range/Units 16:03 04:04 04:04 RBC 2.95 L (3.80-5.40) m/uL Hgb 9.2 L (11.4-16.0) gm/dL Hct 29.7 L (34.0-46.0) % MCV 100.9 H (80.0-100.0) fL RDW 17.6 H (11.5-15.5) % APTT 51.7 H (22.0-30.0) sec Potassium (3.5-5.1) mmol/L Chloride (98-107) mmol/L Troponin I 0.182 H* (0.000-0.034) ng/mL 06/01/21 Range/Units 04:04 RBC (3.80-5.40) m/uL Hgb (11.4-16.0) gm/dL Hct (34.0-46.0) % MCV (80.0-100.0) fL RDW (11.5-15.5) % APTT (22.0-30.0) sec Potassium 3.1 L (3.5-5.1) mmol/L Chloride 111 H (98-107) mmol/L Troponin I (0.000-0.034) ng/mL Assessment and Plan Assessment: Acute left lung PE Loculated right pleural effusion Right lung Metastatic pulmonary adenocarcinoma, Acute on chronic hypoxic respiratory failure, multifactorial secondary to the above Diarrhea, ruling out C. difficile Poor oral intake Dehydration Hx of right pneumonectomy Renal cell CA, right kidney mass increased in size-per CT Hypertension Alcohol abuse History of intracranial aneurysm, hemorrhage, status post clipping History of kidney cyst removal Former nicotine dependence Anxiety Depression Generalized weakness. Anorexia with Moderate protein calorie malnutrition,BMI 22 History of QT prolongation per EKG, congenital Elevated troponin, suspect leak, secondary to lung Plan: Continue on current medication regime ,monitoring and symptomatic treatment. Currently anticoagulated on heparin drip, neurology recommendations pending. Nebulized bronchodilators. Oncology consult in place, recommendations pending. Stool not collected for C. difficile colitis- ordered. IV fluid hydration. Discussed with oncology [facility], CT mentioning shunt-which and patient states patient does not have, oncology contacting neurosurgeon whom patient was referred to regarding clarification. Prognosis guarded given multiple complex medical issues. Further recommendations to follow. The impression and plan of care has been dictated as directed. : I performed a history and examination of this patient, discussed the same with the dictator. I agree with the dictator's note ,documented as a scribe. Any additional findings or plans will be noted.
--- NOTE | 2021-06-01 16:36 | US ---
EXAMINATION TYPE: US venous doppler duplex LE BI DATE OF EXAM: 06/01/2021 1:56 PM COMPARISON: CT05/31/2021 CLINICAL HISTORY: pulmonary embolism, baseline. SIDE PERFORMED: Bilateral TECHNIQUE: The lower extremity deep venous system is examined utilizing real time linear array sonog camryn with graded compression, doppler sonography and color-flow sonography. VESSELS IMAGED: Common Femoral Vein Deep Femoral Vein Greater Saphenous Vein * Femoral Vein Popliteal Vein Small Saphenous Vein * Proximal Calf Veins (* superficial vessels) There is normal flow, compressibility, vascular waveforms. Right Leg: Negative for DVT Left Leg: Negative for DVT IMPRESSION: No evident deep venous thrombosis within the lower extremities from the level of the knee centrally
[2021-06-01] MEDS: lisinopriL 5 MG TAB PO SCH (20:42)
[2021-06-01] MEDS: OLANZapine 5 MG TAB PO SCH (22:46)
[2021-06-02] MEDS: POTASSIUM CHLORIDE ER 20 MEQ TAB.ER PO SCH ×2 (01:42→03:00)
[2021-06-02] MEDS: HEPARIN SOD,PORK IN 0.45% NACL 25,000 UNIT in 0.45% NACL 1 250ML.BAG IV SCH ×2 (05:00→06:52)
[2021-06-02] MEDS: lisinopriL 10 MG TAB PO SCH ×2 (06:00→21:36)
[2021-06-02] MEDS: SODIUM CHLORIDE 0.9% 1,000 ML IV SCH ×2 (06:58→12:08)
[2021-06-02] MEDS: PANTOPRAZOLE 40 MG TABLET PO SCH (07:01)
[2021-06-02 08:53] LABS: African American GFR (CKD) >90 (>60 ml/min/1.73 sqM); Anion Gap 8 mmol/L; Blood Urea Nitrogen 12 mg/dL (7-17); Calcium 8.7 mg/dL (8.4-10.2); Carbon Dioxide 21 mmol/L (22-30); Chloride 114 mmol/L (98-107); Glucose 102 mg/dL (74-99); Magnesium 1.8 mg/dL (1.6-2.3); Non-African American GFR(CKD) >90 (>60 ml/min/1.73 sqM); Potassium 4.1 mmol/L (3.5-5.1); Sodium 143 mmol/L (137-145)
[2021-06-02] MEDS: ESCITALOPRAM 10 MG TAB PO SCH (08:57)
[2021-06-02] MEDS: METOPROLOL TARTRATE 25 MG TAB PO SCH ×2 (08:57→21:30)
[2021-06-02] MEDS: DIVALPROEX 500 MG TABLET.DR PO SCH ×2 (08:57→21:30)
[2021-06-02] MEDS: MEGESTROL 400 MG/10 ML CUP PO SCH (08:58)
[2021-06-02] MEDS: CHOLESTYRAMINE (WITH SUGAR) 4 GM PACKET PO SCH ×3 (09:03→21:31)
[2021-06-02] MEDS: ALBUTEROL NEBULIZED 2.5 MG/3 ML INHALATION SCH ×4 (09:09→21:24)
--- NOTE | 2021-06-02 09:52 | P.PN ---
Subjective Progress Note Date: 06/02/21 Principal diagnosis: Loculated right pleural effusion with volume loss, multiple left-sided pulmonary emboli, shortness of breath, acute hypoxic respiratory failure, confusion, acute lactic acidosis on admission, troponin leak. 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 The patient was seen and examined this morning with Dr. Williamson. She remains in no acute distress, denies shortness of breath. Currently on 2 LPM NC with oxygen saturation 100%. Denies pain. Remains on IV heparin for acute PE. Objective - Vital Signs Vital signs: Vital Signs Temp 97.9 F 06/02/21 08:28 Pulse 95 06/02/21 08:28 Resp 18 06/02/21 08:28 BP 132/94 06/02/21 08:28 Pulse Ox 92 L 06/02/21 08:28 Intake & Output 06/01/21 06/02/21 06/02/21 18:59 06:59 18:59 Intake Total 0 229.914 18.86 Balance 0 229.914 18.86 Weight 55 kg Intake: Intake, IV Titration 229.914 18.86 Amount Heparin Sod,Pork in 0.45% 229.914 18.86 NaCl 25,000 unit In 0.45 % NaCl 1 250ml.bag @ 18 UNITS/KG/HR 8.981 mls/hr IV .Q24H [facility] Rx#: [id number] Oral 0 0 Other: Voiding Method Diaper # Voids 0 - Exam CONSTITUTIONAL: Awake and alert, appears comfortable, cooperative, no acute distress RESPIRATORY: Lungs sounds diminished bilaterally with coarse breath sounds in t he right. Respirations even, nonlabored. Currently on 2 L nasal cannula with oxygen saturation 100%. CARDIOVASCULAR: S1, S2 present. Regular rate and rhythm, sinus rhythm on telemetry. Palpable peripheral pulses bilaterally. No edema present. GASTROINTESTINAL: Abdomen soft, nontender, nondistended. Active bowel sounds present 4 quadrants. GENITOURINARY: Continues to void INTEGUMENTARY: Skin is warm and dry NEUROLOGIC: Cranial nerves II through XII intact, normal coordination, no obvious motor or sensory deficits, speech is normal MUSKULOSKELETAL: Able to move all extremities, strength equal bilaterally, normal posture PSYCHIATRIC: Alert and oriented to person, place, and year, still does not know month, flat affect - Allied health notes Allied health notes reviewed: nursing - Labs CBC & Chem 7: 06/01/21 04:04 06/02/21 08:09 Labs: Abnormal Lab Results - Last 24 Hours (Table) 06/02/21 06/02/21 Range/Units 08:09 08:14 APTT 32.8 H (22.0-30.0) sec Chloride 114 H (98-107) mmol/L Carbon Dioxide 21 L (22-30) mmol/L Creatinine 0.38 L (0.52-1.04) mg/dL Glucose 102 H (74-99) mg/dL Assessment and Plan Assessment: 1. Loculated right pleural effusion with volume loss 2. Multiple left-sided pulmonary emboli 3. Shortness of breath, acute hypoxic respiratory failure secondary to above 4. Confusion per her more than just chronic short-term memory loss 5. Lactic acidosis present on admission, resolved 6. Troponin leak 7. History of adenocarcinoma of the lung status post right upper lobe lobectomy and right lower lobe wedge resection in January 2021 8. Right-sided pneumothorax after lung biopsy in November 2020 9. Right kidney mass, increased in size slightly from prior CT 10. Cerebral aneurysm with subarachnoid hemorrhage status post clipping in January 2020 with residual short-term memory loss 11. History of hypertension 12. Previous tobacco dependence 13. Overall debility 14. Family history of cancer. Plan: 1. No surgical intervention as patient is high risk. May place pigtail catheter to instill lytics to break up loculations, but this would require stopping heparin for a period of time 2. Management of PE per pulmonology, primary care 3. CT of brain reviewed 4. Wean oxygen as tolerated. Bronchodilators per pulmonology 5. Increase activity as tolerated 6. Medical management of other comorbidities per primary, pulmonology, oncology 7. Will continue to follow along and make further recommendations as appropriate Time with Patient: Greater than 30
--- NOTE | 2021-06-02 11:45 | P.PN ---
Subjective Progress Note Date: 06/02/21 Principal diagnosis: PE In f/u today pt denies any acute c/o, no pain, she denies chest pain or unusual SOB, no bleeding. Objective - Vital Signs Vital signs: Vital Signs Temp 97.9 F 06/02/21 08:28 Pulse 95 06/02/21 08:28 Resp 18 06/02/21 08:28 BP 132/94 06/02/21 08:28 Pulse Ox 92 L 06/02/21 08:28 Intake & Output 06/01/21 06/02/21 06/02/21 18:59 06:59 18:59 Intake Total 0 229.914 18.86 Balance 0 229.914 18.86 Weight 55 kg Intake: Intake, IV Titration 229.914 18.86 Amount Heparin Sod,Pork in 0.45% 229.914 18.86 NaCl 25,000 unit In 0.45 % NaCl 1 250ml.bag @ 18 UNITS/KG/HR 8.981 mls/hr IV .Q24H [facility] Rx#: [id number] Oral 0 0 Other: Voiding Method Diaper # Voids 0 - Constitutional General appearance: Present: average body habitus, cooperative, no acute distress - EENT Eyes: Present: anicteric sclerae ENT: Present: hearing grossly normal - Respiratory Respiratory: bilateral: CTA - Cardiovascular Heart sounds: normal: S1, S2 - Integumentary Integumentary: Present: pale - Musculoskeletal Musculoskeletal: Present: generalized weakness - Psychiatric Psychiatric Comment(s): A&Ox2, short term memory loss Psychiatric: Present: appropriate affect - Labs CBC & Chem 7: 06/01/21 04:04 06/02/21 08:09 Labs: Abnormal Lab Results - Last 24 Hours (Table) 06/02/21 06/02/21 Range/Units 08:09 08:14 APTT 32.8 H (22.0-30.0) sec Chloride 114 H (98-107) mmol/L Carbon Dioxide 21 L (22-30) mmol/L Creatinine 0.38 L (0.52-1.04) mg/dL Glucose 102 H (74-99) mg/dL - Imaging and Cardiology Did go back in chart and review CT head image just to see if I could identify shunt, not seen in 2020 Assessment and Plan (1) Pulmonary emboli Narrative/Plan: New diagnosis. Pt has active malignancy, increased risk of thrombus about 10% above the general population. BLE doppler neg at baseline Cont heparin drip for now. Eliquis sent to Pharmacy, verified with [facility] [employer] $47 copay, she is checking with that the majano is affordable. Ok to start eliquis loading dose once known pt can afford. 6mo-1 year anticoagulation recommended for PE but, would also consider continuing as long as active malignancy. Current Visit: Yes Status: Acute Priority: High Code(s): I26.99 - OTHER PULMONARY EMBOLISM WITHOUT ACUTE COR PULMONALE SNOMED Code(s): 64641082 (2) Lung cancer Narrative/Plan: S/P surgery. No evidence of disease. She unfortunately has had slow recovery post op. She has f/u with Neurosurgeon for encephalopathy Current Visit: Yes Status: Chronic Priority: Medium Code(s): C34.90 - MALIGNANT NEOPLASM OF UNSP PART OF UNSP BRONCHUS OR LUNG SNOMED Code(s): 622483213 (3) Renal cell cancer Narrative/Plan: Plan for surgery once pt recovered from lung surgery. She has seen Dr. Fuentes in regards to this. I have left a message for Dr. Fuentes to discuss with him and see if he would like to see her inpt or f/u outpt. Current Visit: Yes Status: Chronic Priority: High Code(s): C64.9 - MALIGNANT NEOPLASM OF UNSP KIDNEY, EXCEPT RENAL PELVIS SNOMED Code(s): 421547738 Plan: Pending results of her hospitalization for hemorrhagic stroke to see if ventricular shunt placed. Time with Patient: Greater than 30
[2021-06-02] MEDS: APIXABAN 5 MG TAB PO SCH ×2 (12:06→21:30)
--- NOTE | 2021-06-02 14:07 | P.PN ---
Subjective Progress Note Date: 06/02/21 Principal diagnosis: Acute pulmonary embolism This is a 60-year-old female patient who follows with Dr. Rodriges as her primary care provider. 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 Status post pneumothorax requiring until catheter insertion and subsequent removal. She did go on to have right lung resection status post lobectomy. Details and location of the surgery are not available. She is a poor historian due to previous CVA. There is also suspicious secondary neoplasm in the right kidney. Being followed by urology. She was determined to be a poor candidate for adjuvant chemotherapy or surgical resection. She was brought into the emergency room early this morning for worsening shortness of breath over the past 3-4 days. Chest x-ray reveals a large right pleural effusion. Heart and mediastinum shifted to the right side. There are clips from a previous right lung surgery. Left lung is clear. No heart failure. CT angios were [place] reveals multiple emboli in the left lower lobe pulmonary artery and smaller emboli in the left upper lobe pulmonary arteries. Previous surgery on the right side with volume loss and loculated pleural effusion and pleural calcification and thickening, pleural fluid and linear infiltrate and atelectasis not seen on previous computed tomography scan. She has been initiated on a heparin drip. White count 7.5. Hemoglobin 10.0. D-dimer 6.59. Sodium 144. Potassium 3.9. Bicarb 18. Creatinine 0.68. Glucose 162. Lactic acid 1.3. Troponin 0.26. ProBNP 11,400. Heard virus not detected. The patient is seen today 06/01/2021 in follow-up in the emergency room. She is currently resting comfortably on a stretcher. Awake and alert in no acute distress. Breathing easier today compared to yesterday. She is maintaining O2 saturations at 98% on 1 L nasal cannula. Computed tomography scan of the brain revealed stable mild to moderate hydrocephalus. Postsurgical changes from prior shunt and aneurysm clipping redemonstrated. Stable periventricular chronic small vessel ischemic changes along with old infarct inferior left frontal lobe. No new enhancing masses identified. White count 6.3. Hemoglobin 9.2. Sodium 1.3. Potassium 3.1. Creatinine 0.53. She remains on a heparin drip. Reevaluated today on 06/02/21, patient is doing well, relatively asymptomatic, patient was cleared by neurology for anticoagulation therapy, hence I will discontinue heparin and start the patient on Eliquis. As far as I'm concerned, the patient could be considered for discharge home if cleared by other consultants on the case. Patient will likely need to be on long-term anticoagulations therapy considering her underlying malignancy. Objective - Vital Signs Vital signs: Vital Signs Temp 97.9 F 06/02/21 08:28 Pulse 59 L 06/02/21 12:00 Resp 15 06/02/21 12:00 BP 179/93 06/02/21 12:00 Pulse Ox 99 06/02/21 12:00 Intake & Output 06/01/21 06/02/21 06/02/21 18:59 06:59 18:59 Intake Total 0 229.914 136.86 Balance 0 229.914 136.86 Weight 55 kg Intake: Intake, IV Titration 229.914 18.86 Amount Heparin Sod,Pork in 0.45% 229.914 18.86 NaCl 25,000 unit In 0.45 % NaCl 1 250ml.bag @ 18 UNITS/KG/HR 8.981 mls/hr IV .Q24H [facility] Rx#: [id number] Oral 0 118 Other: Voiding Method Diaper Incontinent External Catheter # Voids 0 - Exam Physical Exam: Revealed a 60-year-old female in no distress. HEENT:[Neck is supple.] [No neck masses.] [No thyromegaly.] [No JVD.] Chest: [Clear breath sounds on the left side, diminished on the right base. Cardiac Exam: [Normal S1 and S2, no S3 gallop, no murmur.] Abdomen: [Soft, nontender, no megaly, no rebound, no guarding, normal bowel sounds.] Extremities: [No clubbing, no edema, no cyanosis.] Neurological Exam: [No focal neurologic deficit.] Psychiatric: Normal mood affect and normal mental status examination. Skin: No rashes. - Labs CBC & Chem 7: 06/01/21 04:04 06/02/21 08:09 Labs: Abnormal Lab Results - Last 24 Hours (Table) 06/02/21 06/02/21 Range/Units 08:09 08:14 APTT 32.8 H (22.0-30.0) sec Chloride 114 H (98-107) mmol/L Carbon Dioxide 21 L (22-30) mmol/L Creatinine 0.38 L (0.52-1.04) mg/dL Glucose 102 H (74-99) mg/dL Assessment and Plan Assessment: 1 Acute on chronic hypoxemic respiratory failure secondary to left lung pulmonary emboli and right lung pleural effusion 2 History of pulmonary adenocarcinoma with previous right lung resection, lobectomy. Surgical location and details not available 3 Metastatic adenocarcinoma with right kidney mass 4 Former smoker 5 History of subarachnoid hemorrhage from cerebral aneurysm in January 2020, status post clipping 6 Short term memory loss secondary to above 7 Poor overall functional performance based on the above-mentioned comorbidities, deemed not a candidate for adjuvant chemotherapy or surgical intervention 8 Anemia 9 Troponin leak Recommendation: Considering the patient was cleared for long-term anticoagulation therapy by neurology, will start the patient on Eliquis, discontinue heparin, will sign off, and as far as I'm concerned the patient could be discharged home if cleared by other consultants. Time with Patient: Less than 30
--- NOTE | 2021-06-02 14:22 | P.PN ---
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 Chest x-ray reported large right pleural effusion with heart and mediastinum shifted to the right. CTA reporting new multiple emboli in the left lower lobe pulmonary artery and small emboli left upper lobe pulmonary arteries. Previous surgery on the right side with volume loss and loculated pleural fluid.Heparin drip initiated. Patient's also discloses that patient had an appointment with Dr. Cronin recently, regarding prior brain MRI (moderate h ydrocephalus lateral and third ventricle) , and they are in the process of being set up with a neurologist at [facility]. WBC 7.5, hemoglobin 10, platelet count 336, INR 1.1, d-dimer 6.59, troponin 0.174, BNP 11,400, burdick virus PCR not detected. Renal function stable. 06/01/21 Breathing improved today, maintaining O2 sats of high 90s on 2 L nasal cannula. Good historian, denies lightheadedness, dizziness or focal deficits,denies headache. Afebrile, normal WBC.Computed tomography scan of the brain reporting stable mild to moderate hydrocephalus. Postsurgical changes from prior shunt and aneurysm clipping redemonstrated. Stable periventricular chronic small vessel ischemic changes along with old infarct inferior left frontal lobe. No new enhancing masses identified. Potassium 3.1, potassium supplements ordered,. Renal function stable. Anticoagulated on heparin drip. 06/02/2021 Heparin drip converted to Eliquis. Telemetry sinus rhythm. Maintaining O2 sats in the 90s on 2 L nasal cannula. Supplemented yesterday for hypokalemia with current potassium 4.1. Minimal Diarrhea. brought in paperwork from patient's prior aneurysm clipping, suggesting no shunt placement. Patient significantly debilitated, weak and currently unable to proceed with chemotherapy or radiation at this time. Both patient and agree to proceed with subacute rehab at [facility]. Patient is alert and oriented 3, conversing appropriately. Diet intake 25%. Objective - Vital Signs Vital signs: Vital Signs Temp 97.9 F 06/02/21 08:28 Pulse 95 06/02/21 08:28 Resp 18 06/02/21 08:28 BP 132/94 06/02/21 08:28 Pulse Ox 92 L 06/02/21 08:28 Intake & Output 06/01/21 06/02/21 06/02/21 18:59 06:59 18:59 Intake Total 0 229.914 18.86 Balance 0 229.914 18.86 Weight 55 kg Intake: Intake, IV Titration 229.914 18.86 Amount Heparin Sod,Pork in 0.45% 229.914 18.86 NaCl 25,000 unit In 0.45 % NaCl 1 250ml.bag @ 18 UNITS/KG/HR 8.981 mls/hr IV .Q24H [facility] Rx#: [id number] Oral 0 0 Other: Voiding Method Diaper Incontinent External Catheter # Voids 0 - Exam - Exam GENERAL: Pale, anorexic, Sitting up in bed, alert and oriented 3, flat affect, no acute distress HEAD: Atraumatic, normocephalic. EYES: Pupils equal round and reactive to light, extraocular movements intact, sclera anicteric, conjunctiva are normal. ENT:nares patent, oropharynx clear without exudates. Oral mucosa moist. NECK: Supple, no JVD. LUNGS: Equal air entry, right lung rhonchi. HEART: Regular rate and rhythm without murmurs, rubs or gallops.S1S2 Normal ABDOMEN: Soft, nontender, normoactive bowel sounds. No guarding, no rebound. No masses appreciated. EXTREMITIES: Normal range of motion, no pitting or edema. No clubbing or cyanosis. NEUROLOGICAL: Cranial nerves II through XII grossly intact. Normal speech. SKIN: Warm, Dry, normal turgor, no rashes noted. - Labs CBC & Chem 7: 06/01/21 04:04 06/02/21 08:09 Labs: Abnormal Lab Results - Last 24 Hours (Table) 06/02/21 06/02/21 Range/Units 08:09 08:14 APTT 32.8 H (22.0-30.0) sec Chloride 114 H (98-107) mmol/L Carbon Dioxide 21 L (22-30) mmol/L Creatinine 0.38 L (0.52-1.04) mg/dL Glucose 102 H (74-99) mg/dL Assessment and Plan Assessment: Acute left lung PE Loculated right pleural effusion Right lung Metastatic pulmonary adenocarcinoma, Acute on chronic hypoxic respiratory failure, multifactorial secondary to the above Diarrhea Poor oral intake Dehydration Hx of right pneumonectomy Renal cell CA, right kidney mass increased in size-per CT Hypertension Alcohol abuse History of intracranial aneurysm, hemorrhage, status post clipping History of kidney cyst removal Former nicotine dependence Anxiety Depression Generalized weakness. Anorexia with Moderate protein calorie malnutrition,BMI 22 History of QT prolongation per EKG, congenital Elevated troponin, suspect leak, secondary to lung Plan: Continue on current medication regime ,monitoring and symptomatic treatmen t. Anticoagulated on Eliquis. Patient with significant weakness, to proceed with chemo/radiation treatments at this time-refer to oncology's notes. Both and patient are in agreement to proceeding to [facility]. Discharge planning in progress for [facility] subacute rehab tomorrow. Prognosis guarded given multiple complex medical issues. Further recommendations to follow. The impression and plan of care has been dictated as directed. : I performed a history and examination of this patient, discussed the same with the dictator. I agree with the dictator's note ,documented as a scribe. Any additional findings or plans will be noted.
--- NOTE | 2021-06-02 16:02 | P.DS ---
Providers Date of admission: 05/31/21 04:43 Expected date of discharge: 06/03/21 Attending physician: Kan Rodriges Consults: 05/31/21 04:42 Consult Physician Routine Consulting Provider: Clifton Hall Consult Reason/Comments: Pleural effusion. Pulmonary embolism Do you want consulting provider notified?: Yes 05/31/21 11:23 Consult Physician Routine Consulting Provider: Joe Maguire Consult Reason/Comments: Loculated right pleural effusion Do you want consulting provider notified?: Already Contacted 05/31/21 14:28 Consult Physician Routine Consulting Provider: Ranjeet Reeves Consult Reason/Comments: lung ca,renal ca, PE Do you want consulting provider notified?: Yes 06/01/21 08:46 Consult Physician Routine Consulting Provider: Jana Woodward Consult Reason/Comments: neuro clearance for group home anticagultion Do you want consulting provider notified?: Yes Primary care physician: Germán Ellis Hospital Course: Final Diagnoses: Acute left lung PE Loculated right pleural effusion Right lung Metastatic pulmonary adenocarcinoma, Acute on chronic hypoxic respiratory failure, multifactorial secondary to the above Diarrhea Poor oral intake Dehydration Hx of right pneumonectomy Renal cell CA, right kidney mass increased in size-per CT Hypertension Alcohol abuse History of intracranial aneurysm, hemorrhage, status post clipping History of kidney cyst removal Former nicotine dependence Anxiety Depression Generalized weakness. Anorexia with Moderate protein calorie malnutrition,BMI 22 History of QT prolongation per EKG, congenital Elevated troponin, troponin leak, secondary to lung Poor overall functional performance secondary to the above-mentioned comorbidities, deemed not a candidate for adjuvant chemotherapy or surgical intervention Hospital course:This is a 60-year-old female with past medical history of subarachnoid hemorrhage/cerebral aneurysm/clipping, anxiety, depression, former nicotine dependence, ongoing alcohol use, hypertension, renal ca,metastatic pulmonary adenocarcinoma of the right lung diagnosed in November 2020 per lung biopsy, right pneumonectomy,status post pneumothorax-requiring pigtail catheter with removal, presented to the ER with complaints of worsening shortness of breath 4 days, accompanied by increasing generalized weakness, chronic diarrhea,decreased appetitie. Chest x-ray reported large right pleural effusion with heart and mediastinum shifted to the right. CTA reporting new multiple emboli in the left lower lobe pulmonary artery and small emboli left upper lobe pulmonary arteries. Previous surgery on the right side with volume loss and loculated pleural fluid.Heparin drip initiated. Patient's also discloses that patient had an appointment with Dr. Cronin recently, regarding prior brain MRI (moderate hydrocephalus lateral and third ventricle) , and they are in the process of being set up with a neurologist at [facility]. WBC 7.5, hemoglobin 10, platelet count 336, INR 1.1, d-dimer 6.59, troponin 0.174, BNP 11,400, burdick virus PCR not detected. Renal function stable. 06/01/21 Breathing improved today, maintaining O2 sats of high 90s on 2 L nasal cannula. Good historian, denies lightheadedness, dizziness or focal deficits,denies headache. Afebrile, normal WBC.Computed tomography scan of the brain reporting stable mild to moderate hydrocephalus. Postsurgical changes from prior shunt and aneurysm clipping redemonstrated. Stable periventricular chronic small vessel ischemic changes along with old infarct inferior left frontal lobe. No new enhancing masses identified. Potassium 3.1, potassium supplements ordered,. Renal function stable. Anticoagulated on heparin drip. 06/02/2021 Heparin drip converted to Eliquis. Telemetry sinus rhythm. Maintaining O2 sats in the 90s on 2 L nasal cannula. Supplemented yesterday for hypokalemia with current potassium 4.1. Minimal Diarrhea. brought in paperwork from patient's prior aneurysm clipping, suggesting no shunt placement. Patient significantly debilitated, weak and currently unable to proceed with chemotherapy or radiation at this time. Both patient and agree to proceed with subacute rehab at [facility]. Patient is alert and oriented 3, conversing appropriately. Diet intake 25%. Patient has been cleared by pulmonary for discharge. Significant clinical improvement. Patient will be discharged to [facility] subacute rehab today in a stable condition with guarded prognosis pending final DC recommendations and clearance from oncology. The impression and plan of care has been dictated as directed. : I performed a history and examination of this patient, discussed the same with the dictator. I agree with the dictator's note ,documented as a scribe. Any additional findings or plans will be noted. Patient Condition at Discharge: Stable Plan - Discharge Summary New Discharge Prescriptions: New Apixaban [Eliquis Starter Pack (for VTE)] 5 - 10 mg PO DIRECTED 30 Days #1 each Ipratropium-Albuterol Nebulize [Duoneb 0.5 mg-3 mg/3 ml Soln] 3 ml INHALATION RT-Q4H PRN ml PRN Reason: Shortness Of Breath Or Wheezing Albuterol Nebulized [Ventolin Nebulized] 2.5 mg INHALATION RT-QID ml lisinopriL [Zestril] 10 mg PO BID tab Continue Metoprolol Tartrate [Lopressor] 25 mg PO BID Escitalopram [Lexapro] 10 mg PO DAILY Megestrol [Megace] 800 mg PO DAILY #600 ml Pantoprazole [Protonix] 40 mg PO AC-BRKFST #30 tab Cholestyramine (with Sugar) [Cholestyramine Packet] 4 gm PO TID@1000,1500,2000 Divalproex Sodium [Depakote] 500 mg PO BID OLANZapine [ZyPREXA] 5 mg PO HS Discontinued lisinopriL [Zestril] 5 mg PO HS Vancomycin 125 mg PO QID #24 capsule Discharge Medication List Divalproex Sodium [Depakote] 500 mg PO BID 05/04/21 [History] Escitalopram [Lexapro] 10 mg PO DAILY 05/04/21 [History] Metoprolol Tartrate [Lopressor] 25 mg PO BID 05/04/21 [History] OLANZapine [ZyPREXA] 5 mg PO HS 05/04/21 [History] Megestrol [Megace] 800 mg PO DAILY #600 ml 05/10/21 [Rx] Pantoprazole [Protonix] 40 mg PO AC-KFST #30 tab 05/10/21 [Rx] Cholestyramine (with Sugar) [Cholestyramine Packet] 4 gm PO TID@1000,1500,199905/31/21 [History] Albuterol Nebulized [Ventolin Nebulized] 2.5 mg INHALATION RT-QID ml 06/02/21 [Rx] Apixaban [Eliquis Starter Pack (for VTE)] 5 - 10 mg PO DIRECTED 30 Days #1 each 06/02/21 [Rx] Ipratropium-Albuterol Nebulize [Duoneb 0.5 mg-3 mg/3 ml Soln] 3 ml INHALATION RT-Q4H PRN ml 06/02/21 [Rx] lisinopriL [Zestril] 10 mg PO BID tab 06/02/21 [Rx] Follow up Appointment(s)/Referral(s): [facility], [NON-STAFF] - Germán Ellis MD [Primary Care Provider] - 1-2 days Activity/Diet/Wound Care/Special Instructions: Copay for Eliquis is $47
[2021-06-02] MEDS: OLANZapine 5 MG TAB PO SCH (21:30)
[2021-06-03 01:12] VITALS: RESP 18
[2021-06-03] MEDS: SODIUM CHLORIDE 0.9% 1,000 ML IV SCH ×2 (05:35→16:52)
[2021-06-03] MEDS: PANTOPRAZOLE 40 MG TABLET PO SCH (06:33)
[2021-06-03] MEDS: ALBUTEROL NEBULIZED 2.5 MG/3 ML INHALATION SCH ×3 (09:09→16:38)
[2021-06-03] MEDS: APIXABAN 5 MG TAB PO SCH (09:23)
[2021-06-03] MEDS: DIVALPROEX 500 MG TABLET.DR PO SCH (09:23)
[2021-06-03] MEDS: CHOLESTYRAMINE (WITH SUGAR) 4 GM PACKET PO SCH ×2 (09:23→16:52)
[2021-06-03] MEDS: MEGESTROL 400 MG/10 ML CUP PO SCH (09:23)
[2021-06-03] MEDS: METOPROLOL TARTRATE 25 MG TAB PO SCH (09:23)
[2021-06-03] MEDS: ESCITALOPRAM 10 MG TAB PO SCH (09:23)
[2021-06-03] MEDS: lisinopriL 10 MG TAB PO SCH (09:23)
--- NOTE | 2021-06-03 09:30 | P.PN ---
Subjective Progress Note Date: 06/02/21 Patient was seen for a follow-up. Patient denies headache. Patient is laying comfortably in the bed. Patient does have history of adenocarcinoma of the lungs. Patient also has a mass on the kidney. Objective - Vital Signs Vital signs: Vital Signs Temp 98.1 F 06/03/21 04:00 Pulse 56 L 06/03/21 04:00 Resp 18 06/03/21 04:00 BP 179/83 06/03/21 04:00 Pulse Ox 99 06/03/21 04:00 Intake & Output 06/02/21 06/03/21 06/03/21 18:59 06:59 18:59 Intake Total 254.86 1200 Output Total 775 Balance 254.86 425 Weight 54.3 kg Intake: Intake, IV Titration 18.86 1200 Amount Heparin Sod,Pork in 0.45% 18.86 NaCl 25,000 unit In 0.45 % NaCl 1 250ml.bag @ 18 UNITS/KG/HR 8.981 mls/hr IV .Q24H [facility] Rx#: [id number] Sodium Chloride 0.9% 1, 1200 000 ml @ 100 mls/hr IV . Q10H [facility] Rx#:[id number] Oral 236 Output: Urine 775 Other: Voiding Method Incontinent Incontinent External Catheter External Catheter # Voids 0 # Bowel Movements 1 1 - Exam Patient is laying comfortably in the bed. Patient has a very flat affect. Patient states it is July and the year is 2020. She thinks she is in her early hospital. Patient knows that she is in [place] in [place]. Patient's pupils are round and reacting, visual mchugh are full, face is symmetric. Muscle strength is normal. - Labs CBC & Chem 7: 06/01/21 04:04 06/02/21 08:09 Assessment and Plan Assessment: * 60-year-old female with prior history of ruptured cerebral aneurysm 01/31/2020, status post clipping came to the hospital for shortness of breath and chest pain, and is diagnosed with left lung pulmonary embolism. Neurology requested for clearance for anticoagulation. * History of right frontal stroke related to subarachnoid hemorrhage as above. * Right lung metastatic pulmonary adenocarcinoma, with history of right lung pneumonectomy. * Renal cell carcinoma, right kidney mass, increase in size per CT. * History of alcohol use * Hypertension * Acute pulmonary embolism * Elevated cardiac enzymes. * Depression Plan: * Patient has history of cerebral aneurysm, which has been clipped. Her computed tomography scan of the head is otherwise stable. Neurologically clear for anticoagulation. Patient currently on heparin. Patient will be switched to Eliquis. * Medical management as per IM and other specialties. * Continue Depakote 500 twice a day for mood and history of seizure disorder. * Please call neurology if there is any other concerns.
[2021-06-03] MEDS ORDERED: PYRIDOXINE 50 MG TAB PO SCH (09:45)
[2021-06-03 11:51] VITALS: BP 158/88; PULSE 67; TEMP 98
--- NOTE | 2021-06-03 14:05 | P.PN ---
Subjective Progress Note Date: 06/03/21 Principal diagnosis: Loculated right pleural effusion with volume loss, multiple left-sided pulmonary emboli, shortness of breath, acute hypoxic respiratory failure, confusion, acute lactic acidosis on admission, troponin leak. 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 The patient was seen in follow-up today 06/03/2021 at her bedside on the cardiac stepdown unit. Currently she denies any complaints of shortness of breath or pain. Oxygen saturation are 98% on 2 L nasal cannula. Heparin drip has been discontinued and she has been started on Eliquis 10 mg PO Bid. Objective - Vital Signs Vital signs: Vital Signs Temp 98.0 F 06/03/21 11:50 Pulse 67 06/03/21 11:50 Resp 18 06/03/21 11:50 BP 158/88 06/03/21 11:50 Pulse Ox 100 06/03/21 11:50 Intake & Output 06/02/21 06/03/21 06/03/21 18:59 06:59 18:59 Intake Total 254.86 1200 90 Output Total 775 650 Balance 254.86 425 -560 Weight 54.3 kg Intake: Intake, IV Titration 18.86 1200 Amount Heparin Sod,Pork in 0.45% 18.86 NaCl 25,000 unit In 0.45 % NaCl 1 250ml.bag @ 18 UNITS/KG/HR 8.981 mls/hr IV .Q24H DELIA Rx#: [id number] Sodium Chloride 0.9% 1, 1200 000 ml @ 100 mls/hr IV . Q10H DELIA Rx#:[id number] Oral 236 90 Output: Urine 775 650 Other: Voiding Method Incontinent Incontinent Incontinent External Catheter External Catheter External Catheter # Voids 0 # Bowel Movements 1 1 - Exam CONSTITUTIONAL: Awake and alert, appears comfortable, cooperative, no apparent acute distress RESPIRATORY: Lungs sounds diminished bilaterally with coarse breath sounds in the right. Respirations are symmetrical and nonlabored. Currently on 2 L nasal cannula with oxygen saturation 98%. CARDIOVASCULAR: S1, S2 present. Regular rate and rhythm, sinus bradycardia on her remote telemetry with a heart rate of 50 BPM. Palpable peripheral pulses bilaterally. No edema present. GASTROINTESTINAL: Abdomen soft, nontender, nondistended. Active bowel sounds present 4 quadrants. GENITOURINARY: Continues to void, external catheter in place INTEGUMENTARY: Skin is warm and dry NEUROLOGIC: Cranial nerves II through XII intact, normal coordination, no obvious motor or sensory deficits, speech is normal MUSKULOSKELETAL: Able to move all extremities, strength equal bilaterally, normal posture PSYCHIATRIC: Alert and oriented to person, place, and year, still does not know month, flat affect - Allied health notes Allied health notes reviewed: nursing - Labs CBC & Chem 7: 06/01/21 04:04 06/02/21 08:09 Assessment and Plan Assessment: 1. Loculated right pleural effusion with volume loss 2. Multiple left-sided pulmonary emboli 3. Shortness of breath, acute hypoxic respiratory failure secondary to above 4. Confusion per her more than just chronic short-term memory loss 5. Lactic acidosis present on admission, resolved 6. Troponin leak 7. History of adenocarcinoma of the lung status post right upper lobe lobectomy and right lower lobe wedge resection in January 2021 8. Right-sided pneumothorax after lung biopsy in November 2020 9. Right kidney mass, increased in size slightly from prior CT 10. Cerebral aneurysm with subarachnoid hemorrhage status post clipping in January 2020 with residual short-term memory loss 11. History of hypertension 12. Previous tobacco dependence 13. Overall debility 14. Family history of cancer Plan: 1. No surgical intervention as patient is high risk. May place pigtail catheter to instill lytics to break up loculations, but this would require stopping Eliquis for a period of time. 2. Management of PE per pulmonology/critical care medicine, and primary care. 3. Wean oxygen as tolerated. Bronchodilators per pulmonology management. 4. Increase activity as tolerated. 5. Medical management of other comorbidities per primary, pulmonology, oncology. 6. Will continue to follow along and make further recommendations as appropriate. Time with Patient: Greater than 30
== END 2021-06-03 18:33 | DRG 175 ==
LOC: EC 21:55 → SUPCPDRO 21:55 → 3SCARD 05-31 04:43
PROVIDERS: ADMIT Family Medicine; ATTEND Family Medicine
DX: I26.99 Other pulmonary embolism without acute cor pulmonale (principal); J96.21 Acute and chronic respiratory failure with hypoxia; C79.9 Secondary malignant neoplasm of unspecified site; E44.0 Moderate protein-calorie malnutrition; E87.2 Acidosis; G91.9 Hydrocephalus, unspecified; J90 Pleural effusion, not elsewhere classified; R64 Cachexia; K52.9 Noninfective gastroenteritis and colitis, unspecified; R77.8 Other specified abnormalities of plasma proteins; I10 Essential (primary) hypertension; D64.9 Anemia, unspecified; E86.0 Dehydration; R53.81 Other malaise; E87.6 Hypokalemia; R53.1 Weakness; F10.10 Alcohol abuse, uncomplicated; F17.210 Nicotine dependence, cigarettes, uncomplicated; F41.8 Other specified anxiety disorders; Z88.1 Allergy status to other antibiotic agents; Z88.5 Allergy status to narcotic agent; Z20.822 Contact with and (suspected) exposure to COVID-19; Z68.22 Body mass index [BMI] 22.0-22.9, adult; I69.311 Memory deficit following cerebral infarction; Z90.2 Acquired absence of lung [part of]; Z90.710 Acquired absence of both cervix and uterus; Z85.118 Personal history of other malignant neoplasm of bronchus and lung; Z79.899 Other long term (current) drug therapy; Z86.79 Personal history of other diseases of the circulatory system; Z80.9 Family history of malignant neoplasm, unspecified; Z90.49 Acquired absence of other specified parts of digestive tract; Z85.528 Personal history of other malignant neoplasm of kidney
CPT/HCPCS: 36415; 70460; 71045; 71275; 80048; 80053; 83605; 83735; 83880; 84484; 85025; 85379; 85610; 85730; 87635; 93005; 93970; 94640; 94760; 96374; 99285

== ENCOUNTER 2022-02-14 21:42 | Emergency (ER) | payer MEDICARE ==
[2022-02-14 21:55] VITALS: PULSE 85; RESP 16; TEMP 98.7
--- NOTE | 2022-02-14 22:53 | ED ---
General Adult HPI - General Chief complaint: Fall Stated complaint: Fall Time Seen by Provider: 02/14/22 21:50 Source: patient, EMS Mode of arrival: EMS Limitations: no limitations - History of Present Illness Initial comments: This patient is a 61-year-old woman who presents with complaint that she is having frequent falls. The patient states this is going back nearly 3 months now. She states she falls over 3 times a week going back over that time. Patient states that the last fall happened yesterday. She had gotten up to use the bathroom and then states that she ended up on the ground. She denies having focal weakness. She denies having vertigo or being off balance. She is not really sure what's happening when she falls. She states that she didn't have any injury with the last fall but she has previously had her head and her chest. Currently denying chest pain, dyspnea, , diaphoresis palpitations Onset/Timin -: week(s) Location: head, chest Quality: dull Consistency: now resolved Improves with: none Worsens with: none Associated Symptoms: denies other symptoms Treatments Prior to Arrival: none - Related Data Home Medications Medication Instructions Recorded Confirmed Divalproex Sodium [Depakote] 500 mg PO BID 05/04/21 02/14/22 Escitalopram [Lexapro] 10 mg PO DIRECTED 05/04/21 02/14/22 Aspirin EC [Ecotrin] 325 mg PO DAILY 02/14/22 02/14/22 LORazepam [Ativan] 0.5 mg PO 5XD PRN 02/14/22 02/14/22 Melatonin 10 mg PO HS 02/14/22 02/14/22 lisinopriL [Zestril] 5 mg PO DIRECTED 02/14/22 02/14/22 traZODone HCL [Desyrel] 25 mg PO DIRECTED 02/14/22 02/14/22 Allergies Allergy/AdvReac Type Severity Reaction Status Date / Time amoxicillin Allergy Rash/Hives Verified 02/14/22 22:55 codeine AdvReac Nausea Verified 02/14/22 22:55 Review of Systems ROS Statement: Those systems with pertinent positive or pertinent negative responses have been documented in the HPI. ROS Other: All systems not noted in ROS Statement are negative. Constitutional: Denies: fever, chills Eyes: Denies: vision change Respiratory: Denies: cough, dyspnea Cardiovascular: Denies: chest pain, palpitations, orthopnea, edema Gastrointestinal: Denies: abdominal pain, vomiting, diarrhea Genitourinary: Denies: dysuria, hematuria Musculoskeletal: Denies: back pain Skin: Denies: rash Neurological: Denies: headache, weakness, numbness Past Medical History Past Medical History: No Reported History, Cancer, CVA/TIA, Hypertension Additional Past Medical History / Comment(s): back, subarachnoid hemorrhage from a cerebral aneurysm in january 2020, status post aneurysm clipping; right-sided pneumothorax after lung biopsy in November 2020 History of Any Multi-Drug Resistant Organisms: None Reported Past Surgical History: Breast Surgery, Cholecystectomy, Hysterectomy Additional Past Surgical History / Comment(s): kidney, brain surgery due to an aneurysm back in january, renal cyst removal (per patient it was not cancer); right upper lobectomy and right lower lobe wedge resection by Dr. Niko Starks in January 2021 Past Anesthesia/Blood Transfusion Reactions: No Reported Reaction Past Psychological History: Anxiety, Depression Smoking Status: Former smoker Past Alcohol Use History: Occasional Past Drug Use History: None Reported - Past Family History Father History Unknown: Yes Family Medical History: Cancer Additional Family Medical History / Comment(s): Liver Mother Family Medical History: Cancer Additional Family Medical History / Comment(s): Breast General Exam Limitations: no limitations General appearance: alert, in no apparent distress Head exam: Present: atraumatic, normocephalic Eye exam: Present: normal appearance. Absent: scleral icterus, conjunctival injection Neck exam: Present: normal inspection Respiratory exam: Present: normal lung sounds bilaterally. Absent: respiratory distress, wheezes, rales, rhonchi, stridor Cardiovascular Exam: Present: regular rate, normal rhythm, normal heart sounds. Absent: systolic murmur, diastolic murmur, rubs, gallop GI/Abdominal exam: Present: soft. Absent: distended, tenderness, guarding, rebound, rigid, mass Extremities exam: Present: normal inspection, normal capillary refill. Absent: pedal edema, calf tenderness Back exam: Present: normal inspection Neurological exam: Present: alert, oriented X3, CN II-XII intact. Absent: motor sensory deficit Skin exam: Present: warm, dry, intact, normal color. Absent: rash Course Vital Signs 02/14/22 02/14/2202/14/22 21:48 21:51 22:00 Temperature 98.7 F Pulse Rate 85 Respiratory 16 Rate Blood Pressure 157/79 157/79 157/79 O2 Sat by Pulse 95 Oximetry 02/14/22 02/15/22 02/15/22 23:10 00:00 01:00 Temperature Pulse Rate Respiratory Rate Blood Pressure 157/79 157/79 157/79 O2 Sat by Pulse Oximetry 02/15/22 02/15/22 02:00 03:00 Temperature Pulse Rate Respiratory Rate Blood Pressure 147/75 146/73 O2 Sat by Pulse Oximetry Medical Decision Making - Medical Decision Making This patient is 61-year-old woman with history of multiple falls. The patient does have some hydrocephalus, but this was present on previous computed tomography scan. I discussed with patient transferred to facility that has neurosurgery and at this point she is declining that. I have informed that the patient's is also hospice care and therefore will not press the issue of transfer. Patient may follow-up but suspect that no intervention will be taking given hospice status. - Lab Data Result diagrams: 02/14/22 22:43 02/14/22 22:43 Lab Results 02/14/22 02/14/22 02/14/22 Range/Units 22:43 22:43 22:44 WBC 4.8 (3.8-10.6) k/uL RBC 3.82 (3.80-5.40) m/uL Hgb 11.9 (11.4-16.0) gm/dL Hct 37.1 (34.0-46.0) % MCV 97.1 (80.0-100.0) fL MCH 31.3 (25.0-35.0) pg MCHC 32.2 (31.0-37.0) g/dL RDW 13.7 (11.5-15.5) % Plt Count 276 (150-450) k/uL MPV 7.2 Neutrophils % 45 % Lymphocytes % 40 % Monocytes % 7 % Eosinophils % 5 % Basophils % 1 % Neutrophils # 2.2 (1.3-7.7) k/uL Lymphocytes # 1.9 (1.0-4.8) k/uL Monocytes # 0.3 (0-1.0) k/uL Eosinophils # 0.3 (0-0.7) k/uL Basophils # 0.0 (0-0.2) k/uL Sodium 143 (137-145) mmol/L Potassium 5.0 (3.5-5.1) mmol/L Chloride 109 H (98-107) mmol/L Carbon Dioxide 23 (22-30) mmol/L Anion Gap 11 mmol/L BUN 16 (7-17) mg/dL Creatinine 0.42 L (0.52-1.04) mg/dL Est GFR (CKD-EPI)AfAm >90 (>60 ml/min/1.73 sqM) Est GFR (CKD-EPI)NonAf >90 (>60 ml/min/1.73 sqM) Glucose 90 (74-99) mg/dL Lactic Ac Sepsis Rflx Plasma Lactic Acid Raghav (0.7-2.0) mmol/L Calcium 8.9 (8.4-10.2) mg/dL Magnesium 1.9 (1.6-2.3) mg/dL Total Bilirubin 0.5 (0.2-1.3) mg/dL AST 47 H (14-36) U/L ALT 14 (4-34) U/L Alkaline Phosphatase 53 (38-126) U/L Troponin I (0.000-0.034) ng/mL Total Protein 7.2 (6.3-8.2) g/dL Albumin 4.3 (3.5-5.0) g/dL Urine Opiates Screen Not Detected (NotDetected) Ur Oxycodone Screen Not Detected (NotDetected) Urine Methadone Screen Not Detected (NotDetected) Ur Propoxyphene Screen Not Detected (NotDetected) Ur Barbiturates Screen Not Detected (NotDetected) U Tricyclic Antidepress Not Detected (NotDetected) Ur Phencyclidine Scrn Not Detected (NotDetected) Ur Amphetamines Screen Not Detected (NotDetected) U Methamphetamines Scrn Not Detected (NotDetected) U Benzodiazepines Scrn Detected H (NotDetected) Urine Cocaine Screen Not Detected (NotDetected) U Marijuana (THC) Screen Not Detected (NotDetected) Serum Alcohol 43 mg/dL 02/14/22 02/14/22 02/15/22 Range/Units 22:44 22:44 00:50 WBC (3.8-10.6) k/uL RBC (3.80-5.40) m/uL Hgb (11.4-16.0) gm/dL Hct (34.0-46.0) % MCV (80.0-100.0) fL MCH (25.0-35.0) pg MCHC (31.0-37.0) g/dL RDW (11.5-15.5) % Plt Count (150-450) k/uL MPV Neutrophils % % Lymphocytes % % Monocytes % % Eosinophils % % Basophils % % Neutrophils # (1.3-7.7) k/uL Lymphocytes # (1.0-4.8) k/uL Monocytes # (0-1.0) k/uL Eosinophils # (0-0.7) k/uL Basophils # (0-0.2) k/uL Sodium (137-145) mmol/L Potassium (3.5-5.1) mmol/L Chloride (98-107) mmol/L Carbon Dioxide (22-30) mmol/L Anion Gap mmol/L BUN (7-17) mg/dL Creatinine (0.52-1.04) mg/dL Est GFR (CKD-EPI)AfAm (>60 ml/min/1.73 sqM) Est GFR (CKD-EPI)NonAf (>60 ml/min/1.73 sqM) Glucose (74-99) mg/dL Lactic Ac Sepsis Rflx Y Plasma Lactic Acid Raghav 2.3 H* (0.7-2.0) mmol/L Calcium (8.4-10.2) mg/dL Magnesium (1.6-2.3) mg/dL Total Bilirubin (0.2-1.3) mg/dL AST (14-36) U/L ALT (4-34) U/L Alkaline Phosphatase (38-126) U/L Troponin I <0.012 (0.000-0.034) ng/mL Total Protein (6.3-8.2) g/dL Albumin (3.5-5.0) g/dL Urine Opiates Screen (NotDetected) Ur Oxycodone Screen (NotDetected) Urine Methadone Screen (NotDetected) Ur Propoxyphene Screen (NotDetected) Ur Barbiturates Screen (NotDetected) U Tricyclic Antidepress (NotDetected) Ur Phencyclidine Scrn (NotDetected) Ur Amphetamines Screen (NotDetected) U Methamphetamines Scrn (NotDetected) U Benzodiazepines Scrn (NotDetected) Urine Cocaine Screen (NotDetected) U Marijuana (THC) Screen (NotDetected) Serum Alcohol mg/dL Disposition Clinical Impression: Fall, Hydrocephalus Disposition: HOME SELF-CARE Condition: Fair Instructions (If sedation given, give patient instructions): Hydrocephalus (DC) Is patient prescribed a controlled substance at d/c from ED?: No Referrals: Germán Ellis MD [Primary Care Provider] - 1-2 days Ray Mays DO [REFERRING] - 1-2 days
--- NOTE | 2022-02-15 00:04 | CT ---
EXAMINATION TYPE: CT brain wo con DATE OF EXAM: 02/14/2022 COMPARISON: 06/01/2021 HISTORY: fall,headache CT DLP: 1096.4 mGycm Automated exposure control for dose reduction was used. There is some enlargement of the ventricles. There is some cerebral cortical atrophy. No mass effect or midline shift. No sign of intracranial hemorrhage. There are metal artifacts apparently from aneur ysm coil on the right side of the [place] and also left anterior [place]. The dana rium is intact. Skull base is intact. There is normal aeration of the mastoid sinuses. IMPRESSION: Hydrocephalus without change. Mild chronic white matter changes. No acute intracranial abnormality.
--- NOTE | 2022-02-15 00:06 | XR ---
EXAMINATION TYPE: XR chest 2V DATE OF EXAM: 02/14/2022 COMPARISON: 05/31/2021 HISTORY: Fall. Headache TECHNIQUE: 2 views FINDINGS: There are clips from right lung surgery. There is volume loss on the right side with shift of heart and mediastinum to the right side. There is pleural thickening in the right hemithorax. Left lung is clear. No heart failure. Heart size is normal. IMPRESSION: Postsurgical changes with volume loss in the right hemithorax. Chronic pleural thickening . No change compared to old exams
[2022-02-15 00:31] LABS: Basophils % (A) 1 %; Eosinophils # (A) 0.3 k/uL (0-0.7); Eosinophils % (A) 5 %; HCT 37.1 % (34.0-46.0); HGB 11.9 gm/dL (11.4-16.0); Lymphocytes # (A) 1.9 k/uL (1.0-4.8); Lymphocytes % (A) 40 %; MCH 31.3 pg (25.0-35.0); MCHC 32.2 g/dL (31.0-37.0); MCV 97.1 fL (80.0-100.0); Mean Platelet Volume 7.2; Monocytes # (A) 0.3 k/uL (0-1.0); Monocytes % (A) 7 %; Neutrophils # (A) 2.2 k/uL (1.3-7.7); Neutrophils % (A) 45 %; Platelet Count 276 k/uL (150-450); RBC 3.82 m/uL (3.80-5.40); RDW 13.7 % (11.5-15.5); WBC 4.8 k/uL (3.8-10.6)
[2022-02-15 00:45] LABS: ALT 14 U/L (4-34); African American GFR (CKD) >90 (>60 ml/min/1.73 sqM); Alcohol 43 mg/dL; Anion Gap 11 mmol/L; Blood Urea Nitrogen 16 mg/dL (7-17); Calcium 8.9 mg/dL (8.4-10.2); Carbon Dioxide 23 mmol/L (22-30); Chloride 109 mmol/L (98-107); Glucose 90 mg/dL (74-99); Magnesium 1.9 mg/dL (1.6-2.3); Non-African American GFR(CKD) >90 (>60 ml/min/1.73 sqM); Sodium 143 mmol/L (137-145); Total Bilirubin 0.5 mg/dL (0.2-1.3)
[2022-02-15 00:48] LABS: Amphetamine Screen,Urine Not Detected (NotDetected); Barbiturate Screen,Urine Not Detected (NotDetected); Benzodiazepines Screen,Urine Detected (NotDetected); Cocaine Screen,Urine Not Detected (NotDetected); Methadone Screen, Urine Not Detected (NotDetected); Opiate Screen,Urine Not Detected (NotDetected); Oxycodone Screen, Urine Not Detected (NotDetected); Phencyclidine Screen,Urine Not Detected (NotDetected); Tricyclic Antidepressant,Urine Not Detected (NotDetected); Urn Cannabinoid Scrn Not Detected (NotDetected)
[2022-02-15 00:55] LABS: AST 47 U/L (14-36); Albumin 4.3 g/dL (3.5-5.0); Alkaline Phosphatase 53 U/L (38-126); Total Protein 7.2 g/dL (6.3-8.2)
[2022-02-15] MEDS ORDERED: SODIUM CHLORIDE 0.9% 500 ML 500 ML IV STA (01:38)
[2022-02-15 04:26] VITALS: BP 146/73
== END 2022-02-15 06:03 | disposition home or self-care (01) ==
LOC: EC 21:42
DX: G91.3 Post-traumatic hydrocephalus, unspecified (principal); I10 Essential (primary) hypertension; Z86.73 Personal history of transient ischemic attack (TIA), and cerebral infarction without residual deficits; Z88.0 Allergy status to penicillin; Z88.5 Allergy status to narcotic agent; Z87.891 Personal history of nicotine dependence; Z79.82 Long term (current) use of aspirin; Z79.899 Other long term (current) drug therapy; W19.XXXA Unspecified fall, initial encounter
CPT/HCPCS: 36415 ×2; 80053; 83605; 83735; 84484; 85025; 80306; 71046; 70450; 99284; G0480; 80320

== ENCOUNTER → 2022-10-17 | Outpatient (CLI) | payer MEDICARE ==
[2022-10-17 14:33] LABS: African American GFR (CKD) >90 (>60 ml/min/1.73 sqM); Blood Urea Nitrogen 17 mg/dL (7-17); Non-African American GFR(CKD) >90 (>60 ml/min/1.73 sqM)
--- NOTE | 2022-10-17 15:05 | CT ---
EXAMINATION TYPE: CT chest w con CT DLP: 329.10 mGycm, Automated exposure control for dose reduction was used. DATE OF EXAM: 10/17/2022 2:50 PM COMPARISON: CTA chest 05/31/2021, CT chest abdomen pelvis 05/06/2021, CT abdomen pelvis 09/19/2022 CLINICAL INDICATION:Female, 62 years old with history of C34.11 Lung cancer; PHH, obs for mets hx of lung and kidney ca. hx of partial lung removal TECHNIQUE: Multiple axial images were obtained through the chest following the administration of 70 c c of Isovue 300. FINDINGS: LUNGS/ PLEURA: Postsurgical changes from right upper lobectomy redemonstrated. Decrease loculated flu id within the right lung apex. No pneumothorax. There are 3 ground glass nodules within the right low er lobe with largest measuring up to 1.1 cm (series 4, image 29). Spiculated nodule demonstrated with in the right lower lung measuring up to 1.3 cm (series 4, image 21). Mild centrilobular emphysematous changes AIRWAY: Patent and unremarkable.. HEART: Size within normal limits. . MEDIASTINUM: Similar mediastinal shift to the right due to volume loss of the right lung. Mildly prom inent right paratracheal lymph node measuring up to 8 mm short axis. VASCULATURE: No aortic aneurysm. MUSCULOSKELETAL: No acute osseous abnormalities . Similar remote postsurgical changes of the right-si ded ribs. SOFT TISSUES/LYMPH NODES: Bilateral breast prosthesis. LOWER NECK: No significant findings. UPPER ABDOMEN: Post cholecystectomy changes. Stable subcentimeter hypodense lesion within the right h epatic lobe favored to represent a cyst. Demonstration of heterogenous lesion enhancing mass emanatin g from the superior pole the right kidney measuring 5.4 x 4.9 cm. IMPRESSION: 1. Postsurgical changes of the right lung with development of a spiculated nodule in the right lower lung with adjacent groundglass nodules in the right lower lung. This raises concern for recurrent/met astasis versus infectious/laboratory process. Further evaluation with PET/CT is recommended. 2. Stable heterogenous enhancing mass emanating from the superior pole of the right kidney from prior CT 09/19/2022 but has increased from prior CT in 2020 and is most compatible with renal cell carcinoma again.
== END | disposition home or self-care (01) ==
LOC: RADCTMAIN 13:17
PROVIDERS: ATTEND Internal Medicine Hematology & Oncology
DX: C34.11 Malignant neoplasm of upper lobe, right bronchus or lung (principal); C64.1 Malignant neoplasm of right kidney, except renal pelvis; N28.89 Other specified disorders of kidney and ureter; Z71.3 Dietary counseling and surveillance; R91.8 Other nonspecific abnormal finding of lung field
CPT/HCPCS: 82565; 84520; 71260; 36415; Q9967

== ENCOUNTER → 2022-11-24 | Outpatient (CLI) | payer MEDICARE ==
[2022-11-24 13:50] LABS: African American GFR (CKD) >90 (>60 ml/min/1.73 sqM); Blood Urea Nitrogen 15 mg/dL (7-17); Non-African American GFR(CKD) >90 (>60 ml/min/1.73 sqM)
--- NOTE | 2022-11-24 14:41 | CT ---
EXAMINATION TYPE: CT brain w con DATE OF EXAM: 11/24/2022 COMPARISON: 02/14/2022 HISTORY: Hx of stroke. Fall 2wks ago and then was unable to walk. CT DLP: mGycm Automated exposure control for dose reduction was used. CONTRAST: CT scan of the head is performed with IV Contrast, patient injected with 100cc mL of Isovue 300. FINDINGS: There is a large area of hyperdense lesion with probable calcification involving the right cerebellar hemisphere measuring 3 cm with adjacent edema and compression of the fourth ventricle. This likely r esulting in moderate hydrocephalus. There are additional hyperdense lesion involving the right frontal lobe axial image 33 measuring 6 mm , ring-enhancing lesion left occipital lobe measuring 2.2 cm., Left cerebellar hemisphere measuring 5 mm. Previous surgical changes are noted and there is a surgical clip in the right MCA. Calcifications in the right frontal lobe are noted. There is periventricular low-attenuation suggestive of remote [place] white matter change. Orbits are symmetric. Area of low attenuation involving the left frontal lob e suggestive of previous infarct or encephalomalacia. Surgical clip also seen in the region of the an terior communicating artery. Cerebellar tonsils are low-lying in position at the level of the foramen magnum. IMPRESSION: 1. There are no noncontrast images to determine if the areas of enhancement are related to enhancing mass which is presumed. Hemorrhagic component not excluded without noncontrast imaging. Largest mass is seen involving the right cerebellar hemisphere with adjacent edema, compression of the fourth vent ricle and moderate hydrocephalus. There are three additional lesions as measured above are noted susp icious for additional metastases. Report called to referring clinician at 2:35 PM 11/24/2022. 2. Nonspecific white matter changes could represent transependymal edema from hydrocephalus or remote ischemic white matter change. 3. Postsurgical changes.
== END | disposition home or self-care (01) ==
LOC: RADCTMAIN 13:10
PROVIDERS: ATTEND Internal Medicine Hematology & Oncology
DX: C34.11 Malignant neoplasm of upper lobe, right bronchus or lung (principal); R90.82 White matter disease, unspecified; G91.9 Hydrocephalus, unspecified
CPT/HCPCS: 82565; 84520; 70460; 36415; Q9967

== ENCOUNTER → 2022-12-08 | Outpatient (CLI) | payer MEDICARE ==
--- NOTE | 2022-12-09 05:18 | PE ---
EXAMINATION TYPE: PET CT fusion skull to thigh DATE OF EXAM: 12/08/2022 COMPARISON: Most recent PET CT December 04, 2020 HISTORY: Renal cancer progress study. Originally diagnosed in 2020 TECHNIQUE: Following the intravenous administration of 10.86 mCi of F-18 FDG, whole body images are performed from the skull base to the midthigh. Images are reviewed on the computer in the coronal, a xial, and sagittal planes. Reconstructed rotating images are created on independent workstation and reviewed on the computer. A localization and attenuation correction CT is performed in conjunction with the PET scan. Blood Glucose level equals 130. SCAN: Subsequent Scan FINDINGS: SKULL BASE AND NECK: Symmetric mild uptake bilateral masseter muscles presumed physiologic. Mild hyp ermetabolic uptake left lateral maxillary tooth could reflect inflammatory change. Correlate clinical ly. No additional areas of abnormal metabolic uptake. CHEST, MEDIASTINUM, AND HILAR REGION: Background moderate underlying emphysematous change is redemons trated. Interval surgical change to the right lung with sutures and volume loss. There is right apica l tiny curvilinear pleural fluid collection. No new or residual areas of abnormal hypermetabolic upta ke in the right lung. There is new hypermetabolic 2.1 x 1.3 cm left breast mass axial image 96 anterior to implant. ABDOMEN AND PELVIS: Normal excretion. No adrenal masses. No suspicious hypermetabolic uptake. Exophyt ic upper pole solid right renal mass or neoplasm axial image 134 is redemonstrated. OSSEOUS STRUCTURES: No new Areas of suspicious hypermetabolic uptake. OTHER CT: Mild calcified plaque bilateral carotid bulb level. Artifact from aneurysm clips near circl e of [place] is redemonstrated. Bilateral breast implants redemonstrated. Cholecystectomy clips is demonstrated. Mild calcified plaque of the aorta extends into branch vessels . Scattered bilateral pelvic phleboliths. Uterus is surgically absent. Marked disc space narrowing at T11-T12 level there is redemonstrated. IMPRESSION: Interval successful treatment of right lung lesions. New suspicious left breast hypermet abolic mass worrisome for neoplasm. Stable suspicious Upper pole right renal lesion remains suspiciou s for neoplasm. Follow-up for suspicious left breast lesion advised.
== END | disposition home or self-care (01) ==
LOC: RADPETMAIN 14:34
PROVIDERS: ATTEND Internal Medicine Hematology & Oncology
DX: C34.11 Malignant neoplasm of upper lobe, right bronchus or lung (principal); C64.1 Malignant neoplasm of right kidney, except renal pelvis; R91.8 Other nonspecific abnormal finding of lung field; Z71.3 Dietary counseling and surveillance
CPT/HCPCS: 78815; A9552

== ENCOUNTER → 2023-01-08 | Outpatient (CLI) | payer MEDICARE ==
--- NOTE | 2023-01-08 11:22 | MM ---
Reason for Exam: Clinical finding. Last mammogram was performed 4 year(s) and 4 month(s) ago. Patient History: Menarche at age 18. First Full-Term at age 20. Left ovary removed at age 48. Hysterectomy at age 48. Postmenopausal. 07/29/2008, Benign Core Biopsy on the right side. 2002, Bilateral Implants. Risk Values: Nadia 5 year model risk: 1.1%. NCI Lifetime model risk: 5.7%. Prior Study Comparison: 10/12/2011 Bilateral Diagnostic Mammogram, [facility]. 07/31/2013 Bilateral Diagnostic Mammogram, [facility]. 08/27/2018 Bilateral Screening Mammogram, [facility]. Tissue Density: The breast tissue is heterogeneously dense. This may lower the sensitivity of mammography. Findings: Bilateral breast implants are redemonstrated. No suspicious calcifications within either breast. No new suspicious mass within the right breast. Biopsy clip within the right breast. There is a 2 cm irregular mass within the anterior aspect of the left breast at 6:00. This demonstrates irregular margins and is high density. Overall Assessment: Incomplete: need additional imaging evaluation, BI-RAD 0 Management: Diagnostic Breast Ultrasound of the left breast. A clinical breast exam by your physician is recommended on an annual basis and results should be correlated with mammographic findings. This exam should not preclude additional follow-up of suspicious palpable abnormalities. Results were given to the patient verbally at the time of exam. Note on Nadia scores and lifetime risk: 1. A Nadia score greater than 3% is considered moderate risk. If this is the case, consider specialist referral to assess eligibility for a risk reducing agent. If overall lifetime risk for the development of breast cancer is 20% or higher, the patient may qualify for future screening with alternating mammogram and breast MRI. Electronically signed and approved by: Dl Witt D.O.
--- NOTE | 2023-01-08 11:23 | USB ---
Reason for Exam: Additional evaluation requested from prior study. Patient History: Menarche at age 18. First Full-Term at age 20. Left ovary removed at age 48. Hysterectomy at age 48. Postmenopausal. 07/29/2008, Benign Core Biopsy on the right side. 2002, Bilateral Implants. Risk Values: Nadia 5 year model risk: 1.1%. NCI Lifetime model risk: 5.7%. Technique: Method: Targeted. Prior Study Comparison: 10/12/2011 Bilateral Diagnostic Mammogram, [facility]. 07/31/2013 Bilateral Diagnostic Mammogram, [facility]. 08/27/2018 Bilateral Screening Mammogram, [facility]. Findings: The lower section of the breast of the left breast and the retroareolar of the left breast were scanned. Targeted ultrasound of the left breast from 5-7 o'clock was performed with additional evaluation of the nipple and axilla.. There is an irregular heterogenous hypoechoic mass within the left breast at 6:00 2 cm from the nipple with internal vascularity. This is parallel in orientation with irregular margins and measures 1.6 x 0.7 x 2.3 cm. No posterior acoustic features identified. This corresponds to mammogram findings. Overall Assessment: Suspicious, BI-RAD 4 Management: Ultrasound Core Biopsy of the left breast. A clinical breast exam by your physician is recommended on an annual basis and results should be correlated with mammographic findings. This exam should not preclude additional follow-up of suspicious palpable abnormalities. Results were given to the patient verbally at the time of exam. Electronically signed and approved by: Dl Witt D.O.
--- NOTE | 2023-01-09 15:25 | USB ---
ADDENDUM Addendum: Addended Date: 01/09/2023 Addended By: Gilda Barreto Called Dr. Collazo's office with mammographic findings. Office will follow up with the patient and schedule an appointment. REPORT FAXED TO DR. COLLAZO ON 01/09/23. Addendum Dictated By:Dl Witt DO Addendum Signed By: Signed Date/Time: DD/ TD/TT: / Reason for Exam: Additional evaluation requested from prior study. Patient History: Menarche at age 18. First Full-Term at age 20. Left ovary removed at age 48. Hysterectomy at age 48. Postmenopausal. 07/29/2008, Benign Core Biopsy on the right side. 2002, Bilateral Implants. Risk Values: Nadia 5 year model risk: 1.1%. NCI Lifetime model risk: 5.7%. Technique: Method: Targeted. Prior Study Comparison: 10/12/2011 Bilateral Diagnostic Mammogram, [facility]. 07/31/2013 Bilateral Diagnostic Mammogram, [facility]. 08/27/2018 Bilateral Screening Mammogram, [facility]. Findings: The lower section of the breast of the left breast and the retroareolar of the left breast were scanned. Targeted ultrasound of the left breast from 5-7 o'clock was performed with additional evaluation of the nipple and axilla.. There is an irregular heterogenous hypoechoic mass within the left breast at 6:00 2 cm from the nipple with internal vascularity. This is parallel in orientation with irregular margins and measures 1.6 x 0.7 x 2.3 cm. No posterior acoustic features identified. This corresponds to mammogram findings. Overall Assessment: Suspicious, BI-RAD 4 Management: Ultrasound Core Biopsy of the left breast. A clinical breast exam by your physician is recommended on an annual basis and results should be correlated with mammographic findings. This exam should not preclude additional follow-up of suspicious palpable abnormalities. Results were given to the patient verbally at the time of exam. Electronically signed and approved by: Dl Witt D.O. Dictated By: Dl Witt DO 01/08/231099 MTDD
== END | disposition home or self-care (01) ==
LOC: RADMAMWWP 09:50
PROVIDERS: ATTEND Internal Medicine Hematology & Oncology
DX: C34.11 Malignant neoplasm of upper lobe, right bronchus or lung (principal); C64.1 Malignant neoplasm of right kidney, except renal pelvis; Z78.0 Asymptomatic menopausal state
CPT/HCPCS: 77066; 76642; G0279; 77062

== ENCOUNTER → 2023-02-09 | Outpatient (CLI) | payer MEDICARE ==
--- NOTE | 2023-02-09 13:20 | MR ---
EXAMINATION TYPE: MR brain wo/w con DATE OF EXAM: 02/09/2023 12:43 PM COMPARISON: 11/29/2022 HISTORY: Lung cancer, evaluate metastatic disease. CONTRAST: Patient received 5.5 mL intravenous Gadavist gadolinium contrast. Multiplanar and multispin-echo imaging of the brain was performed . Pre and post contrast enhanced i mages are obtained. Again noted is enhancing right cerebellar lesion with surrounding vasogenic edema which measures 2.5 x 1.9 cm versus 3.2 x 2.5 cm.. There is mass effect upon the fourth ventricle slightly progressive si nce prior study. Left cerebellar lesion measures 1 cm x 0.5 cm versus 9 x 4 mm previously. Posterior left temporal occipital lesion is redemonstrated and measures 2.2 x 1.7 cm versus 2.1 x 2.0 cm previo usly. Lesion demonstrates greater cystic component at this time and surrounding vasogenic edema minim ally improved since prior study. There is a tiny right frontal lobe lesion noted measuring 4.6 mm cur rently and 5 mm previously. No new lesions are identified at this time. The ventricles, basal cisterns and sulci overlying the cerebral convexities are moderately enlarged. There is evidence of moderate periventricular white matter ischemic demyelination. Remote deep white matter insults are also noted. No acute edema is seen on diffusion weighted imaging. Acute intracranial hemorrhage or extra-axial collection is not evident. The paranasal sinuses and mastoid air cells are well-aerated. IMPRESSION: 1. Again noted are 4 metastatic lesions which are either stable in size or slightly smaller. Greater cystic component is noted. Right cerebellar lesion demonstrates moderate surrounding vasogenic edema which may have worsened slightly as there is a greater degree of mass effect upon the fourth ventricl e. No new lesions are seen.
== END | disposition home or self-care (01) ==
LOC: RADMRIMAIN 11:40
PROVIDERS: ATTEND Radiology Radiation Oncology
DX: C79.31 Secondary malignant neoplasm of brain (principal); C34.31 Malignant neoplasm of lower lobe, right bronchus or lung; C34.11 Malignant neoplasm of upper lobe, right bronchus or lung
CPT/HCPCS: 70553; A9585

== ENCOUNTER → 2023-02-20 | Outpatient (CLI) | payer MEDICARE ==
--- NOTE | 2023-02-20 18:17 | CT ---
EXAMINATION TYPE: CT chest w con DATE OF EXAM: 02/20/2023 COMPARISON: 10/17/2022 HISTORY: lung ca CT DLP: 172.7 mGycm, Automated exposure control for dose reduction was used. CONTRAST: Performed injected with 100 mL of Isovue 300. TECHNIQUE: Axial images were obtained at 5 mm thick sections. Reconstructed images are reviewed on [employer] computer in the coronal plane. FINDINGS: Portion of the thyroid visualized is normal. Emphysematous changes are present within the r esidual lungs. There is a loculated fluid collection in the right apex. There is shift of the mediastinum to the rig ht. Irregular density is in the posterior left mid lung. Example image series 4 image 26. This measu res 1.9 x 0.8 cm and appears to be an interval finding. Pneumonitis type change or metastasis may be in the anterior left midlung. Series 4 image 26 there are additional areas of pneumonitis change incl uding the lateral left upper lung field, series 4 image 19 and a lung nodule measuring 0.9 cm lateral left lung. Series 4 image 32 these findings on the left are new. There is a persistent 1.1 cm density posterior right lower lung field present previously. Postsurgica l change through the right lung appears stable. The ascending aorta diameter at the level of the main pulmonary artery is 2.8 cm. The main pulmonary artery diameter at the bifurcation is 2.[address] sections are obtained through the upper abdomen. There is a 4.7 x 6.1 cm superior right re nal mass present previously. This may have enlarged slightly over the interval. IMPRESSIONS: 1. Stable appearance to the postsurgical changes to the right lung field. 2. Interval development of irregular areas of increased density within the left lung. Infectious etio logies and metastatic disease should be considered. 3. New nodule at the inferior left lung. 4. Enlarging superior right renal mass.
== END | disposition home or self-care (01) ==
LOC: RADCTMAIN 15:22
PROVIDERS: ATTEND Family Medicine
DX: J44.9 Chronic obstructive pulmonary disease, unspecified (principal); J96.11 Chronic respiratory failure with hypoxia; J98.4 Other disorders of lung; N28.89 Other specified disorders of kidney and ureter; R91.1 Solitary pulmonary nodule; Z85.118 Personal history of other malignant neoplasm of bronchus and lung; Z90.2 Acquired absence of lung [part of]
CPT/HCPCS: 71260; Q9967

== ENCOUNTER → 2023-03-07 | Day surgery (SDC) | payer MEDICARE ==
--- NOTE | 2023-03-15 13:15 | MM ---
Reason for Exam: Post Procedure Mammogram. Last screening mammogram was performed 2 month(s) ago. Patient History: Menarche at age 18. First Full-Term at age 20. Left ovary removed at age 48. Hysterectomy at age 48. Postmenopausal. Patient has history of breast feeding. 07/29/2008, Benign Core Biopsy on the right side. 2002, Bilateral Implants. Risk Values: Naida 5 year model risk: 1.1%. NCI Lifetime model risk: 5.7%. Prior Study Comparison: 07/31/2013 Bilateral Diagnostic Mammogram, [facility]. 08/27/2018 Bilateral Screening Mammogram, [facility]. 01/08/2023 Bilateral MG 3D diag mammo imp w/cad BRIGIDA, [facility]. Tissue Density: Left: The breast tissue is heterogeneously dense. This may lower the sensitivity of mammography. Pathology Description: Location: 6 o'clock. Marker Left Behind. Needle Type: Mammotome Cores: 2 Skin Nicks: 1 Gauge: 13 The procedure of ultrasound guided core biopsy was explained to the patient. Benefits, alternatives, and risks were discussed. An informed consent was then obtained. A timeout was performed. The patient was placed in supine positioning for imaging and for the procedure. The overlying skin was prepped and draped in usual sterile fashion. Lidocaine was used as anesthetic into the skin and subcutaneous tissue up to area of concern in the left breast. A small skin violetta was made with surgical scalpel. Under ultrasound guidance, a 12-gauge vacuum assisted biopsy gun device was used to obtain 2 core samples. A biopsy clip was left in lesion. Top core marker was placed. The patient tolerated the procedure well without any immediate complication. Breast prosthesis remained intact at the completion of the exam. The patient was kept in the radiology department for short stay after the procedure and then discharged home in stable condition. Postprocedure mammogram: The patient was transferred to mammography for physician ordered post procedure mammogram for clip placement verification. Impression: Successful ultrasound guided core biopsy of area of concern in the left breast, full pathology results to follow. Recommendations: 1. Recommendations are pending pathology results. Pathology Results: Result: Malignant, Invasive ductal carcinoma. 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 See surgical pathology cancer case summary and comment. Overall Assessment: Malignant Assessment: MG diagnostic mammo LT wo CAD. - Left: Known biopsy proven malignancy, BI-RAD 6. Management: Surgical Consultation of the left breast. Electronically signed and approved by: Hua Saini D.O. Radiologis
== END ==
LOC: RADUSWWP 12:39
PROVIDERS: ATTEND Internal Medicine Hematology & Oncology
DX: C50.812 Malignant neoplasm of overlapping sites of left female breast (principal)
CPT/HCPCS: 88305; 88342; 88341; 77065; 19083; A4648

== ENCOUNTER → 2023-04-17 | Outpatient (CLI) | payer MEDICARE ==
--- NOTE | 2023-04-17 22:37 | MR ---
EXAMINATION TYPE: MR brain wo/w con DATE OF EXAM: 04/17/2023 COMPARISON: Most recent prior MRI brain February 09, 2023 HISTORY: Kidney, Brain, Breast and Lung cancer, Hx brain bleed/stoke TECHNIQUE: Multiplanar, multisequence images of the brain and brainstem is performed without and with IV contras t, utilizing 6 mL intravenous Gadavist . FINDINGS: Diffusion weighted images demonstrate no evidence of a recent infarct or other diffusion ab normality. Again noted is heterogeneous enhancing right cerebellar lesion with surrounding vasogenic edema which measures 2.4 x 1.9 cm axial image 40 fairly similar versus most recent prior. There is mass effect u albert the fourth ventricle redemonstrated. Rim-enhancing Left cerebellar lesion measures 9 x 5 mm axial image 44 similar to most recent prior. P osterior left parietal occipital lesion is redemonstrated and measures 2.1 x 1.5 cm axial image [address] able or anomaly less prominent versus prior. Stable surrounding vasogenic edema. Roughly 4 mm rim-enh ancing right frontal lobe lesion axial image 106 is fairly stable from prior. No definitive new enhan cing lesions are identified at this time. Midline structures redemonstrate normal morphology. The craniocervical junction remains within lashawn l limits. Mild to moderate ventricular and sulcal prominence redemonstrated. Mild generalized hydroce phalus redemonstrated. T2 hyperintense lesions in the periventricular white matter again seen. The du ral venous sinuses appear patent. Artifact at level of the globes on current study. Increased fluid s ignal right mastoid air cells redemonstrated. Retained secretions suspected. Paranasal sinuses grossl y clear. IMPRESSION: Overall stable findings from most recent prior MRI. No new or enlarging lesions. Stable m etastatic disease noted.
== END | disposition home or self-care (01) ==
LOC: RADMRIMAIN 20:45
PROVIDERS: ATTEND Radiology Radiation Oncology
DX: C79.31 Secondary malignant neoplasm of brain (principal); C34.11 Malignant neoplasm of upper lobe, right bronchus or lung; C34.31 Malignant neoplasm of lower lobe, right bronchus or lung; N64.9 Disorder of breast, unspecified; Z86.73 Personal history of transient ischemic attack (TIA), and cerebral infarction without residual deficits
CPT/HCPCS: 70553; A9585

== ENCOUNTER → 2023-04-27 | Outpatient (CLI) | payer MEDICARE ==
--- NOTE | 2023-04-30 08:46 | PE ---
EXAMINATION TYPE: PET CT fusion skull to thigh DATE OF EXAM: 04/27/2023 COMPARISON: CT chest 02/20/2023 Prior PET/CT: 12/08/2022 HISTORY: Right renal neoplasm TECHNIQUE: Following the intravenous administration of 9.76 mCi of F-18 FDG, whole body images are p erformed from the skull base to the midthigh. Images are reviewed on the computer in the coronal, ax ial, and sagittal planes. Reconstructed rotating images are created on independent workstation and r eviewed on the computer. A localization and attenuation correction CT is performed in conjunction w ith the PET scan. DLP: 320.95 mGycm SCAN: Subsequent Blood glucose: 101 mg/dL Average Mediastinum SUV: 2.1 Average Liver SUV: 3.15 FINDINGS: NECK: There is increased activity within the tongue greater on the left side. Direct visualization i s recommended. This is an SUV of 4.94. Activity during the procedure and neoplasm within the differen tial. THORAX: There is a focus of radiotracer within the small right lung. This appears to be adjacent to a surgical suture, image 65 mild. This has an SUV of 3.46 suspicious for neoplastic process. There is increased activity within the posterior inferior hilar region with an SUV of 3.93 suspicious for neop lasm. Image 71. Radiotracer accumulation is within the posterior right lower lobe corresponding to a small nodule. This has intermediate uptake measuring 1.11, image 81. Inflammatory change or an early metastasis can be considered. There is intense uptake within the anterior left breast, image 90. Neoplasm in the upper outer aspect left breast should be considered. Additional workup is recommended. Image 90, SUV 3.09 on previous 2.18. Suspicious uptake within small left lung nodules not apparent. This may be below the threshold for de tection. ABDOMEN: Uptake is within the bilateral kidneys. Uptake can be normal. Along the superior medial righ t renal mass uptake is present similar or perhaps slightly diminished from the remaining portions of the kidney. SUV is 2.98. PELVIS: No abnormal uptake OSSEOUS STRUCTURES: There is increased activity along the posterior lateral humeral head. This has SHETH V value of 2.83. This appears compatible with the patient's fracture. LOCALIZATION CT: There may be some mild asymmetry of the left aspect of the tongue. Left pleural effu james is present. There is been prior left lung lobectomy. Mediastinum is shifted to the left. Bilater al breast prostheses are present. 1.6 x 1.1 cm mass appears to be in the retroareolar left breast. Th ere may be a marker at the inferior aspect of this lesion. Small nonobstructing renal stone is at the inferior pole right kidney. Superior pole right renal mass is evident measuring approximately 5.1 cm. Urinary bladder is decompressed. Some mild diffuse wall t hickening cannot be excluded. COMPARISON: Left tongue uptake was present previously and appears similar in distribution. Right shou lder proximal humeral fracture is an interval finding. Left breast finding was present previously and appears to have increased SUV over the interval. Uptake within right lung nodules is new. Renal upta ke appears similar. IMPRESSION: 1. New right right lung nodular uptake suspicious for metastatic disease. 2. Increasing left subareolar radiotracer compatible with patient's reported invasive ductal carcinom a. 3. Radiotracer within the renal mass may be similar to slightly diminished compared to the more lashawn l-appearing renal uptake. 4. New right humeral neck fracture.
== END | disposition home or self-care (01) ==
LOC: RADPETMAIN 15:29
PROVIDERS: ATTEND Internal Medicine Hematology & Oncology
DX: C64.1 Malignant neoplasm of right kidney, except renal pelvis (principal); N28.89 Other specified disorders of kidney and ureter
CPT/HCPCS: 78815; A9552

== ENCOUNTER → 2023-06-05 | Outpatient (CLI) | payer MEDICARE ==
--- NOTE | 2023-06-05 11:06 | CA ---
Transthoracic Echo Report Name: Mckenzie Quinones Age: 62 Gender: F : 1960 Exam Date: 06/05/2023 09:08 Exam Location: [facility] Ht (in): 60 Wt (lb): 127 Ordering Physician: Aida Dill MD Attending/Referring Phys: Camilo Alejo MD Road [employer]ke Coupler Elisha Fraser RDCS Procedure CPT: Indications: Z01.818 Chemo exposure Cardiac Hx: Technical Quality: Poor Contrast 1: Definity Total Dose (mL): 2 Contrast 2: Total Dose (mL): MEASUREMENTS (Male / Female) Normal Values 2D ECHO LV Diastolic Diameter PLAX 2.7 cm 4.2 - 5.9 / 3.9 - 5.3 cm LV Systolic Diameter PLAX 1.6 cm IVS Diastolic Thickness 1.1 cm 0.6 - 1.0 / 0.6 - 0.9 cm LVPW Diastolic Thickness 0.9 cm 0.6 - 1.0 / 0.6 - 0.9 cm LV Relative Wall Thickness 0.7 DOPPLER AV Peak Velocity 81.2 cm/s AV Peak Gradient 2.6 mmHg AV Mean Velocity 59.3 cm/s AV Mean Gradient 1.5 mmHg AV Velocity Time Integral 18.5 cm LVOT Peak Velocity 78.3 cm/s LVOT Peak Gradient 2.4 mmHg LVOT Velocity Time Integral 19.5 cm MV Area PHT 4.8 cm??? Mitral E Point Velocity 64.7 cm/s Mitral A Point Velocity 78.4 cm/s Mitral E to A Ratio 0.8 MV Deceleration Time 156.8 ms FINDINGS Left Ventricle Mildly increased left ventricular wall thickness. Left ventricular cavity size normal. Normal left ventricular systolic function with no obvious regional wall motion abnormalities. Left ventricular ejection fraction is estimated at 55-60 %. Right Ventricle Right ventricle not well visualized. Right Atrium Right atrium not well visualized. Left Atrium Left atrium not well visualized. Mitral Valve Mitral valve not well visualized. No mitral stenosis. No mitral regurgitation. Aortic Valve Aortic valve not well visualized. No aortic valve stenosis or regurgitation. Tricuspid Valve Tricuspid valve not well visualized. Pulmonic Valve Pulmonic valve not well visualized. Pericardium Loculated pericardial effusion. Aorta Aortic root and proximal ascending aorta not well visualized. CONCLUSIONS Technically suboptimal study secondary to poor echo windows. Endocardial visualization was enhanced with contrast agent. Normal LV systolic function Medium-sized pericardial effusion Previewed by: Dr. Ryan Sweeney MD (Electronically Signed) Final Date: 05 June 2023 11:05
== END | disposition home or self-care (01) ==
LOC: RADECHMAIN 09:04
PROVIDERS: ATTEND Internal Medicine Hematology & Oncology
DX: Z01.818 Encounter for other preprocedural examination (principal); I31.39 Other pericardial effusion (noninflammatory)
CPT/HCPCS: C8929; Q9957; 93306

== ENCOUNTER 2023-06-22 10:44 | Day surgery (SDC) | payer MEDICARE ==
[2023-06-21 09:00] VITALS: BMI 25.8
[2023-06-22 11:25] VITALS: BP 148/87; RESP 16; TEMP 98.2
[2023-06-22] MEDS ORDERED: LIDOCAINE 1% INJ 10MG/ML (20 ML MDV) SQ ONE (12:08)
--- NOTE | 2023-06-22 12:33 | IR ---
PICC LINE PLACEMENT: HISTORY: Infection requiring long-term antibiotic therapy PROCEDURE: Ultrasound and fluoroscopic guidance of PICC line placement. COMPLICATIONS: None ANESTHESIA: 1. 1% Lidocaine locally. FINDINGS/TECHNIQUE: The procedure was explained to the patient. The risks, complications, benefits and alternatives were discussed and any questions were answered. Informed consent was obtained. The patient was placed supine on the fluoroscopic table and prepped and draped in the usual sterile fash ion. Utilizing a 21 gauge needle and sonographic and fluoroscopic guidance, access in the right bas ilic vein was achieved and there is placement of a 0.018 guidewire. The vein is patent. A 4-F sheat h was placed over the guidewire. The guidewire and dilator were removed and a 4-F. PICC line was grey tomy through the sheath with the tip at the level of the SVC. The sheath was removed, the catheter wa s flushed and sutured into position. The patient was stable throughout the procedure and remained st able upon discharge from the Department of Radiology. The vein puncture was patent under ultrasound. A banks scale image was obtained to document patency of the vein punctured. All elements of the maximal barrier technique were utilized. FLUOROSCOPY TIME: DAP 0.2944Gy cm2 IMPRESSION: Successful PICC line placement under ultrasound and fluoroscopic guidance.
== END 2023-06-22 12:32 | disposition home or self-care (01) ==
LOC: CATHCVL 10:44
PROVIDERS: ATTEND Radiology Diagnostic Radiology
DX: Z45.2 Encounter for adjustment and management of vascular access device (principal); Z79.01 Long term (current) use of anticoagulants; Z88.5 Allergy status to narcotic agent; Z90.710 Acquired absence of both cervix and uterus; Z98.890 Other specified postprocedural states; Z87.891 Personal history of nicotine dependence; Z80.1 Family history of malignant neoplasm of trachea, bronchus and lung
CPT/HCPCS: 36573; C1751; C1769; J2001

== ENCOUNTER → 2023-07-26 | Outpatient (CLI) | payer MEDICARE ==
--- NOTE | 2023-07-29 21:30 | MR ---
EXAMINATION TYPE: MR brain wo/w con DATE OF EXAM: 07/26/2023 COMPARISON: 04/17/2023 HISTORY: 62-year-old female Malignant Neoplasm of Brain, Hx of multiple organ cancer TECHNIQUE: Multiplanar, multisequence images of the brain and brainstem were obtained before and afte r administration of 5 mL intravenous Gadavist gadolinium contrast. Diffusion-weighted imaging is per formed. FINDINGS: No evidence for acute infarction, effacement of basal cisterns, or extra-axial fluid collection. Heterogeneous and ring-enhancing lesions posterior left parietal lobe measuring 2.4 cm with prominent surrounding vasogenic edema. Slightly larger compared to 2.1 cm, previously. The vasogenic edema is similar to slightly increased as well. Large lesion posterior right cerebellum measuring 3.6 cm with extensive edema within the right cerebe llum and with secondary mass effect and partial effacement of the fourth ventricle. Previously measur ed up to 2.4 cm. This results in persistent slight, 5 mm of leftward midline shift. Similar ring-enhancing lesion measuring 9 mm posterior left cerebellum. Tiny 4 mm lesion anterior right frontal lobe is unchanged. Cyst, probably a prominent perivascular space or old lacunar infarct measuring 7 mm left basal gangli a. Encephalomalacia and gliosis floors of the left greater than right frontal lobes. 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 There is hydrocephalus with Eleno's ratio calculated at 0.40 Remaining midline structures demonstrate normal morphology. The craniocervical junction is normal. The dural venous sinuses are patent. Moderate mucosal thickening ethmoid air cells. Fluid within the right mastoid air cells. Globes are i ntact. IMPRESSION: 1. Enlarging lesion right cerebellum currently 3.6 cm versus 2.4 cm, previously. Extensive vasogenic edema throughout the right cerebellar hemisphere. Persistent mass effect resulting in slight 5 mm of leftward midline shift and partial effacement of the fourth ventricle. 2. Enhancing lesion posterior left parietal lobe also slightly larger at 2.4 cm versus 2.1 cm, previo usly. Prominent vasogenic edema here may be slightly increased as well. 3. A 9 mm ring-enhancing lesion left cerebellum as well as a tiny 4 mm lesion anterior right frontal lobe are both unchanged. 4. Scattered hemosiderosis redemonstrated. Also, unchanged prominent encephalomalacia and gliosis richard ng the left greater than right inferior frontal lobes, possibly sequela of remote injury. 5. Similar moderate hydrocephalus with Banks ratio calculated at 0.40. Unclear if this is due to cent ral cerebral atrophy, NPH, or some degree of obstruction at the level of the fourth ventricle. Clinic ally correlate.
== END | disposition home or self-care (01) ==
LOC: RADMRIMAIN 08:52
PROVIDERS: ATTEND Radiology Radiation Oncology
DX: C79.31 Secondary malignant neoplasm of brain (principal); G93.89 Other specified disorders of brain; G91.9 Hydrocephalus, unspecified; E83.19 Other disorders of iron metabolism; C34.31 Malignant neoplasm of lower lobe, right bronchus or lung; C34.11 Malignant neoplasm of upper lobe, right bronchus or lung; N64.9 Disorder of breast, unspecified
CPT/HCPCS: 70553; A9585

== ENCOUNTER → 2023-08-10 | Outpatient (CLI) | payer MEDICARE ==
--- NOTE | 2023-08-14 11:21 | PE ---
EXAMINATION TYPE: PET CT fusion skull to thigh DATE OF EXAM: 08/10/2023 COMPARISON: Most recent CT chest dated 03/04/2023 Prior PET/CT: 04/27/2023 HISTORY: Breast cancer, lung cancer TECHNIQUE: Following the intravenous administration of 8.28 mCi of F-18 FDG, whole body images are p erformed from the skull base to the midthigh. Images are reviewed on the computer in the coronal, ax ial, and sagittal planes. Reconstructed rotating images are created on independent workstation and r eviewed on the computer. A localization and attenuation correction CT is performed in conjunction w ith the PET scan. DLP: 291.09 mGycm SCAN: Subsequent Blood glucose: 127 mg/dL Average Mediastinum SUV: 2.33 Average Liver SUV: 3.07 FINDINGS: Head: Lower portion of the brain within the assig-ke-ptop has a heterogenous appearance. The patient' s known right cerebellar neoplasm is not clearly evident on the PET scan. NECK: No abnormal uptake THORAX: No abnormal uptake. ABDOMEN: Mild uptake within the medial wall of the right upper pole renal lesion has an SUV of 6.24. This is increased from comparison. Prior SUV 2.98. PELVIS: No abnormal uptake OSSEOUS STRUCTURES: There is some mild uptake within the diaphysis of the proximal right humerus. Exa mple image 75, SUV 2.64. This may be related to the healing right humeral fracture. LOCALIZATION CT: Renal mass superior medial right pole appears to remain present COMPARISON: Previous right midlung uptake not identified on the current exam. Previous uptake posteri or to the right hilum not evident on the current exam. Previous right lower lobe intermediate uptake not identified currently. Previous left breast uptake not identified currently. Previous tongue uptake not identified currently may been related to motion on the prior study. Previous uptake within the posterior right humeral head is resolved. There is stable appearance of th e superior renal uptake. IMPRESSION: 1. Suspicious areas of uptake for known neoplasm is not identified on the current examination. There appears to be resolution of prior areas of uptake within the lung mchugh and left anterior breast. 2. Mild uptake remains within the wall of the renal lesion which is increased from comparison. 3. No suspicious new areas of uptake identified. 4. Mild uptake within the right humerus significantly improved from prior examination likely is relat ed to healing fracture.
== END | disposition home or self-care (01) ==
LOC: RADPETMAIN 12:33
PROVIDERS: ATTEND Internal Medicine Hematology & Oncology
DX: C50.812 Malignant neoplasm of overlapping sites of left female breast (principal); C34.11 Malignant neoplasm of upper lobe, right bronchus or lung
CPT/HCPCS: 78815; A9552

== ENCOUNTER → 2023-10-03 | Outpatient (CLI) | payer MEDICARE ==
--- NOTE | 2023-10-04 14:37 | MR ---
EXAMINATION TYPE: MR brain wo/w con DATE OF EXAM: 10/03/2023 12:40 PM CLINICAL INDICATION:Female, 63 years old with history of C50.512, C79.31,C34.31; PHH, Hx of cancer wi th Brain mets, COMPARISON: 07/26/2023 TECHNIQUE: Multi planar, multi sequence imaging was performed through the brain including: T1, T2, In version recovery, susceptibility weighted imaging and gradient echo imaging and Diffusion weighted im aging. The patient was then given intravenous contrast and multi planar, T1 fat-saturation images wer e obtained. IV Contrast: 5.5 cc Gadavist FINDINGS: No evidence for acute infarction, effacement of basal cisterns, or extra-axial fluid collection. Redemonstration of heterogenous ring-enhancing lesion in the posterior left parietal lobe measuring s imilarly at 22 x 16 mm in the axial plane. There remains prominent surrounding vasogenic edema. . The vasogenic edema is similar to slightly increased as well. Large lesion posterior right cerebellum measuring measures similarly at 32 x 25 mm cm with extensive edema within the right cerebellum and with secondary mass effect and partial effacement of the fourth ventricle. This results in persistent slight, 5 mm of leftward midline shift. Similar ring-enhancing lesion measuring 9 mm posterior left cerebellum. Tiny 4 mm lesion anterior right frontal lobe without enhancement Cyst, probably a prominent perivascular space or old lacunar infarct measuring 7 mm left basal gangli a. Encephalomalacia and gliosis floors of the left greater than right frontal lobes. 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 Remaining midline structures demonstrate normal morphology. The craniocervical junction is normal. The dural venous sinuses are patent. Moderate mucosal thickening ethmoid air cells. Fluid within the right mastoid air cells. Globes are i ntact. IMPRESSION: 1. Stable scattered metastatic enhancing lesions. No new lesions identified. 2. Similar hemosiderosis redemonstrated. 3. Similar dilation of ventricular system.
== END | disposition home or self-care (01) ==
LOC: RADMRIMAIN 11:22
PROVIDERS: ATTEND Radiology Radiation Oncology
DX: C79.31 Secondary malignant neoplasm of brain (principal); G93.89 Other specified disorders of brain; E83.19 Other disorders of iron metabolism; C50.512 Malignant neoplasm of lower-outer quadrant of left female breast; C34.31 Malignant neoplasm of lower lobe, right bronchus or lung; C34.11 Malignant neoplasm of upper lobe, right bronchus or lung; N64.9 Disorder of breast, unspecified
CPT/HCPCS: 70553; A9585

== ENCOUNTER → 2023-10-04 | Outpatient (CLI) | payer MEDICARE ==
--- NOTE | 2023-10-05 22:43 | CA ---
Transthoracic Echo Report Name: Mckenzie Quinones Age: 63 Gender: F : 1960 Exam Date: 10/04/2023 17:19 Exam Location: [facility] Ht (in): 59 Wt (lb): 127 Ordering Physician: Aida Dill MD Attending/Referring Phys: Consulting Technical Director Milena Javier RDCS Procedure CPT: Indications: HAT, WHEELCHAIR Cardiac Hx: Part of lung removed, hx of breast cancer, kidny cancer, brest cancer. Technical Quality: Very technically difficult study Contrast 1: Definity Total Dose (mL): 2 Contrast 2: Total Dose (mL): MEASUREMENTS (Male / Female) Normal Values 2D ECHO LV Diastolic Diameter PLAX 3.7 cm 4.2 - 5.9 / 3.9 - 5.3 cm LV Systolic Diameter PLAX 2.7 cm IVS Diastolic Thickness 0.8 cm 0.6 - 1.0 / 0.6 - 0.9 cm LVPW Diastolic Thickness 0.9 cm 0.6 - 1.0 / 0.6 - 0.9 cm LV Relative Wall Thickness 0.5 DOPPLER AV Peak Velocity 131.6 cm/s AV Peak Gradient 6.9 mmHg MV Area PHT 4.8 cm??? Mitral E Point Velocity 74.6 cm/s Mitral A Point Velocity 66.2 cm/s Mitral E to A Ratio 1.1 MV Deceleration Time 159.7 ms TR Peak Velocity 289.7 cm/s TR Peak Gradient 33.6 mmHg Right Ventricular Systolic Press 38.6 mmHg FINDINGS Left Ventricle Left ventricular ejection fraction is estimated at 55-60 %. Small left ventricular cavity. Left ventricular wall thickness normal. Right Ventricle Right ventricle not well visualized. Mild pulmonary hypertension.right ventricular systolic pressure estimated at 39 mm hg. Right Atrium Right atrium not well visualized. Left Atrium Left atrium not well visualized. Mitral Valve Mitral valve not well visualized. Aortic Valve Aortic valve not well visualized. No aortic valve stenosis or regurgitation. Tricuspid Valve Tricuspid valve not well visualized. Mild tricuspid regurgitation. Pulmonic Valve Pulmonic valve not well visualized. Pericardium Epicardial fat Aorta Aortic root and proximal ascending aorta not well visualized. CONCLUSIONS Very technically difficult study. Overall LVEF appears preserved with estimated LVEF 55-60%. Wall motion appears to be intact. RVSP 39 mmHg Valvular function cannot be accurately commented uponEpicardial fat. Previewed by: Dr Roney Donald (Electronically Signed) Final Date: 05 October 2023 22:42
== END | disposition home or self-care (01) ==
LOC: RADECHMAIN 16:57
PROVIDERS: ATTEND Internal Medicine Hematology & Oncology
DX: Z01.818 Encounter for other preprocedural examination (principal); C34.11 Malignant neoplasm of upper lobe, right bronchus or lung; C50.812 Malignant neoplasm of overlapping sites of left female breast; C64.1 Malignant neoplasm of right kidney, except renal pelvis; D24.2 Benign neoplasm of left breast
CPT/HCPCS: C8929; Q9957; 93306

== ENCOUNTER → 2023-11-01 | Outpatient (CLI) | payer MEDICARE ==
--- NOTE | 2023-11-01 21:14 | PE ---
EXAMINATION TYPE: PET CT fusion skull to thigh DATE OF EXAM: 11/01/2023 COMPARISON: No recent pertinent CT Prior PET/CT: 08/10/2023 HISTORY: Lung cancer TECHNIQUE: Following the intravenous administration of 12.28 mCi of F-18 FDG, whole body images are performed from the skull base to the midthigh. Images are reviewed on the computer in the coronal, a xial, and sagittal planes. Reconstructed rotating images are created on independent workstation and reviewed on the computer. A localization and attenuation correction CT is performed in conjunction with the PET scan. DLP: 2 8.44 mGycm SCAN: Subsequent Blood glucose: 99 mg/dL Average Mediastinum SUV: 25 Average Liver SUV: 2.5 to FINDINGS: NECK: No suspicious uptake THORAX: No suspicious focal radiotracer. There is some mild intermediate signal in soft tissue posterior to the left hilum with SUV of 1.73, e xample image 83. ABDOMEN: No suspicious uptake. Some paraspinal muscle uptake appears to be present. PELVIS: No suspicious uptake OSSEOUS STRUCTURES: No suspicious uptake LOCALIZATION CT: There is a small right pleural effusion post surgical changes are in the right supra hilar region. There is shift of mediastinum to the right. Bilateral breast prostheses are present. Ch olecystectomy has been performed. There may some nonobstructing renal stones in the mid right kidney. COMPARISON: No significant interval change IMPRESSION: 1. No suspicious uptake to suggest metastatic or recurrent neoplasm. There is some intermediate signa l within the right posterior hilar region this could be inflammatory based on the SUV. Early metastas is is not excluded and short-term follow-up is recommended.
== END | disposition home or self-care (01) ==
LOC: RADPETMAIN 13:51
PROVIDERS: ATTEND Internal Medicine Hematology & Oncology
DX: C34.11 Malignant neoplasm of upper lobe, right bronchus or lung (principal)
CPT/HCPCS: 78815; A9552

== ENCOUNTER 2023-12-06 11:11 | Day surgery (SDC) | payer MEDICARE ==
[~2023-12-06 11:11] MED LIST: ACETAMINOPHEN TAB 500 MG TAB PO PRN; LIDOCAINE 1% (10MG/ML) FOR IV START INTRADERMA PRN; Pre Op ABX Message 1 EACH MISC MISCELLANE ONE; droPERidol 5 MG/2 ML VIAL IVP ONE; fentaNYL (PF) 50 MCG/ML 2 ML AMP IV PRN
[2023-12-06] MEDS: LACTATED RINGERS 1,000 ML IV SCH (11:56)
[2023-12-06] MEDS: ONDANSETRON 4 MG/2 ML VIAL IVP ONE (12:03)
[2023-12-06] MEDS: DEXAMETHASONE SOD PHOSPHATE 4 MG/ML 1 ML VIAL IV ONE (12:03)
[2023-12-06] MEDS: SCOPOLAMINE 1 MG/72 HR PATCH TRANSDERM ONE (12:05)
[2023-12-06] MEDS: HEPARIN SODIUM,PORCINE 5,000 UNIT/ML 1 ML VIAL SQ PRN (12:17)
[2023-12-06] MEDS: HEPARIN SODIUM,PORCINE 100 UNIT/ML 5 ML VIAL IV ONE (12:24)
[2023-12-06] MEDS: LIDOCAINE (PF) 10 MG/ML 2 ML VIAL SQ ONE ×2 (12:25)
[2023-12-06] MEDS ORDERED: PROPOFOL 10 MG/ML 20 ML VIAL IV ONE (12:40)
[2023-12-06] MEDS ORDERED: LIDOCAINE 1% INJ 10MG/ML (20 ML MDV) ONE (12:40)
[2023-12-06] MEDS ORDERED: fentaNYL (PF) 50 MCG/ML 2 ML AMP ONE (12:40)
[2023-12-06] MEDS ORDERED: MIDAZOLAM 2 MG/2 ML VIAL ONE (12:40)
[2023-12-06] MEDS ORDERED: PHENYLEPHRINE-0.9% NACL SYG 1,000 MCG/10 ML SYRINGE ONE (12:40)
--- NOTE | 2023-12-06 12:41 | P.GSHP ---
History of Present Illness H&P Date: 12/06/23 Chief Complaint: Lung cancer 63-year-old female here for Port-A-Cath placement. She has not had a port previously. Apparently she has had a PICC line in the right arm she has had since June for her treatments. Past Medical History Past Medical History: Cancer, COPD, CVA/TIA, Hypertension, Memory Impairment Additional Past Medical History / Comment(s): right lung cancer with right upper lobe removed., right kidney cancer with surgery and reoccurance , left breast cancer., brain cancer with radiation tx., subarachnoid hemorrhage in january 2020- mild stroke. Short term memory loss, unsteady gait with occasional falls- last 6 mos ago ., Oxygen at 3L prn. History of Any Multi-Drug Resistant Organisms: None Reported Past Surgical History: Breast Surgery, Cholecystectomy, Hysterectomy Additional Past Surgical History / Comment(s): Right kidney lesion removed , brain surgery due to an aneurysm back in january 2020. Right lung upper lobe removed 2020, R/T lung cancer. Radiation to brain r/t cancer. Bilat breast implants 2004? Past Anesthesia/Blood Transfusion Reactions: No Reported Reaction Smoking Status: Former smoker - Past Family History Father History Unknown: Yes Family Medical History: Cancer Additional Family Medical History / Comment(s): Liver Mother Family Medical History: Cancer Additional Family Medical History / Comment(s): Breast Medications and Allergies Home Medications Medication Instructions Recorded Confirmed Type Divalproex Sodium [Depakote] 500 mg PO BID 05/04/21 12/05/23 History Escitalopram [Lexapro] 10 mg PO DAILY 05/04/21 12/05/23 History LORazepam [Ativan] 0.5 mg PO HS PRN 02/14/22 12/05/23 History lisinopriL [Zestril] 5 mg PO DAILY 02/14/22 12/05/23 History traZODone HCL [Desyrel] 50 mg PO HS 02/14/22 12/05/23 History Fluticasone/Umeclidin/Vilanter 1 inhalation INHALATION DAILY 06/21/23 12/05/23 History [Trelegy Ellipta 100-62.5-25] Ondansetron [Zofran] 4 mg PO Q4H PRN 09/04/23 12/05/23 History Furosemide [Lasix] 40 mg PO DAILY 12/05/23 12/05/23 History Unk Multi Vitamin 1 tab PO DAILY 12/05/23 12/05/23 History Unk Vitamin D3 1 tab PO DAILY 12/05/23 12/05/23 History Allergies Allergy/AdvReac Type Severity Reaction Status Date / Time amoxicillin Allergy Rash/Hives Verified 12/06/23 11:44 codeine AdvReac Nausea Verified 12/06/23 11:44 Surgical - Exam Vital Signs Temp Pulse Resp BP Pulse Ox 98.2 F 64 16 114/55 96 12/06/23 11:50 12/06/23 11:50 12/06/23 11:50 12/06/23 11:50 12/06/23 11:50 Physical exam: General: Well-developed, well-nourished HEENT: Normocephalic, sclerae nonicteric Abdomen: Nontender, nondistended Extremities: No edema, PICC line right arm Neuro: Alert and oriented Assessment and Plan (1) Lung cancer Narrative/Plan: Will proceed with Port-A-Cath placement at this time. Risks of bleeding, infection, DVT, pneumothorax, catheter malfunction, anesthesia related complications were discussed. The patient understands and wishes to proceed. Current Visit: No Status: Chronic Priority: Medium Code(s): C34.90 - MALIGNANT NEOPLASM OF UNSP PART OF UNSP BRONCHUS OR LUNG SNOMED Code(s): 820147985
[2023-12-06] MEDS ORDERED: ACETAMINOPHEN TAB 325 MG TAB PO PRN (13:41)
[2023-12-06] MEDS ORDERED: NALOXONE 0.4 MG/ML 1 ML VIAL IV PRN (13:41)
--- NOTE | 2023-12-06 13:42 | P.OP ---
Date of Procedure: 12/06/23 Procedure(s) Performed: PREOPERATIVE DIAGNOSIS: Lung cancer POSTOPERATIVE DIAGNOSIS: Same PROCEDURE: Port-A-Cath placement with fluoroscopic and ultrasound guidance SURGEON: Sapna EBL: 5 cc ANESTHESIA: General COMPLICATIONS: None OPERATIVE PROCEDURE: Patient was brought and placed on the operative table in the supine position. The patient was placed under general anesthesia at that time. The chest and neck were prepped and draped in usual sterile fashion. The ultrasound probe was used to identify the location of the right internal jugular vein. The skin was localized with lidocaine. The Seldinger needle was advanced into the IJ under ultrasound guidance. The wire was advanced through the needle under fluoroscopic guidance into the superior vena cava. A port pocket was created in the right infraclavicular location. The catheter was tunneled from the wire entrance site to the port pocket. The port was then connected to the catheter. The dilator introducer was threaded over the guidewire. The guidewire and dilator were then removed. The catheter was advanced through the introducer and introducer was then removed. The tip was seen to be in the right atrial junction via fluoroscopy. A picture of the radiograph showing the tip of the catheter was taken. Port was flushed with both saline and a Hep-Lock solution. There was good flow both in and out of the port. The port was sutured in underlying tissues using 3-0 silk sutures. The subcutaneous tissues were reapproximated using 3-0 Vicryl sutures and the skin at both locations using 4-0 Monocryl sutures. Skin glue and sterile dressings then applied. DISPOSITION: Stable to recovery room
--- NOTE | 2023-12-06 13:49 | FL ---
EXAMINATION TYPE: FL guidance operating room Intraoperative/procedural fluoroscopic services were pro vided. Total fluoroscopy time is 5 seconds with a total of 2 submitted images to PACS. Please see the operative/procedural note for further details. DAP: 0.2068 Gycm2
[2023-12-06 14:10] VITALS: TEMP 97.7
--- NOTE | 2023-12-06 14:45 | XR ---
EXAMINATION TYPE: XR chest 1V confirm line [facility] DATE OF EXAM: 12/06/2023 2:16 PM CLINICAL INDICATION:Female, 63 years old with history of Check line; COMPARISON: Chest radiographs from 02/14/2022 TECHNIQUE: XR chest 1V confirm line [facility] Frontal view of the chest. FINDINGS: Lungs/Pleura: Large right pleural effusion. Rightward shift of the mediastinum. There is no evidence of left pleural effusion, focal consolidation, or pneumothorax. Pulmonary vascularity: Unremarkable. Heart/mediastinum: Cardiomediastinal silhouette is unremarkable. Musculoskeletal: No acute osseous pathology. Other findings: Right upper quadrant course vasectomy clips. Lines/Tubes: Bobijo-i-Lubj projecting over the right hemithorax with distal tip at the cavoatrial junction. Right-sided PICC line with distal tip at the cavoatrial junction. IMPRESSION: 1. Right [id number]-Qqmi tip in appropriate position. 2. Right PICC with tip in superior vena cava. 3. Large right pleural effusion.
[2023-12-06 15:58] VITALS: BP 113/70; PULSE 74; RESP 19
== END 2023-12-06 16:00 | disposition home or self-care (01) ==
LOC: OR 11:11
PROVIDERS: ATTEND Surgery
DX: C34.90 Malignant neoplasm of unspecified part of unspecified bronchus or lung (principal); I10 Essential (primary) hypertension; J44.9 Chronic obstructive pulmonary disease, unspecified; Z86.73 Personal history of transient ischemic attack (TIA), and cerebral infarction without residual deficits; Z90.710 Acquired absence of both cervix and uterus; Z90.49 Acquired absence of other specified parts of digestive tract; Z98.890 Other specified postprocedural states; Z87.891 Personal history of nicotine dependence; Z79.51 Long term (current) use of inhaled steroids; Z88.5 Allergy status to narcotic agent; Z88.0 Allergy status to penicillin; Z79.899 Other long term (current) drug therapy
CPT/HCPCS: 36561; C1788; J2250; J2001 ×2; J1644; J1642; J1100; J2405; J3010; J2704; J2371

== ENCOUNTER → 2024-01-02 | Outpatient (CLI) | payer MEDICARE ==
--- NOTE | 2024-01-03 09:04 | MR ---
EXAMINATION TYPE: MR brain wo/w con DATE OF EXAM: 01/02/2024 2:25 PM COMPARISON: 10/03/2023 HISTORY: Secondary malignant neoplasm f/u CONTRAST: Patient received 5.5 mL intravenous Gadavist gadolinium contrast. Multiplanar and multispin-echo imaging of the brain was performed . Pre and post contrast enhanced i mages are obtained. The ventricles, basal cisterns and sulci overlying the cerebral convexities are adequately enlarged. Chronic left greater than right bifrontal insults are noted. This could be vascular in nature or rel ated to prior therapeutic change. There is evidence of moderate periventricular white matter ischemic demyelination. Remote deep white matter insults are also noted. Chronic lacunar infarct left basal ganglia. Right cerebellar peripheral enhancing lesion is redemonstrated and currently measures 3.2 x 2.3 cm ve rsus 3.2 x 2.5 cm previously. Extensive surrounding edema is essentially unchanged. Persistent mass e ffect and partial effacement of the fourth ventricle left and right midline shift of 5 mm at this lev el is persistent as well. Chronic hemosiderosis redemonstrated throughout the bilateral cerebral conv exities. Stable small ring-enhancing lesion left cerebellum measuring 8 mm versus 9 mm previously. No new cere bellar lesions are seen. Peripheral enhancing lesion posterior left parietal lobe is again noted and measures 2.2 x 1.7 cm jd any 2.2 x 1.6 cm previously. Surrounding vasogenic edema is unchanged. Tiny right frontal 4 mm lesion without enhancement is unchanged as well. Moderate mucosal thickening ethmoid air cells. Fluid within the right mastoid air cells. Globes are i ntact. IMPRESSION: 1. Essentially stable peripheral enhancing lesions as discussed above. No new lesions are identified at this time.
== END | disposition home or self-care (01) ==
LOC: RADMRIMAIN 12:41
PROVIDERS: ATTEND Radiology Radiation Oncology
DX: G93.9 Disorder of brain, unspecified (principal); C79.31 Secondary malignant neoplasm of brain; C50.512 Malignant neoplasm of lower-outer quadrant of left female breast; C34.31 Malignant neoplasm of lower lobe, right bronchus or lung; C34.11 Malignant neoplasm of upper lobe, right bronchus or lung; N64.9 Disorder of breast, unspecified
CPT/HCPCS: 70553; J1642; A9585

== ENCOUNTER 2024-01-22 13:09 | Emergency (ER) | payer MEDICARE ==
--- NOTE | 2024-01-22 13:33 | ED ---
Lower Extremity Injury HPI - General Source: patient, RN notes reviewed, old records reviewed Mode of arrival: wheelchair Limitations: no limitations <Froy Sarkar - Last Filed: 01/22/24 13:31> - General Source: patient, RN notes reviewed Mode of arrival: wheelchair Limitations: no limitations <Adolfo Blanca - Last Filed: 01/22/24 15:54> - General Chief Complaint: Extremity Injury, Lower Stated Complaint: Fall-R sided thigh pain Time Seen by Provider: 01/22/24 13:28 - History of Present Illness Initial Comments: QN 63 female to the ED c/o leg pain, back pain, weakness, debility, pain, patient was sent to the ED for evaluation by Dr Reeves oncology. (Froy Sarkar) 63-year-old female presents emergency department complaint of right groin pain, leg pain. Patient states that she was at her oncologist and sent over here for x-rays as she has known cancer and concern for possible metastatic disease. She states she injured it getting in and out of her vehicle which she felt like she pulled a muscle. She has no pain at rest denies any bowel, bladder and cons retention no back pain no's anesthesias no other complaints. (Adolfo Blanca) - Related Data Home Medications Medication Instructions Recorded Confirmed Divalproex Sodium [Depakote] 500 mg PO BID 05/04/21 01/22/24 Escitalopram [Lexapro] 10 mg PO DAILY 05/04/21 01/22/24 LORazepam [Ativan] 0.5 mg PO HS PRN 02/14/22 01/22/24 lisinopriL [Zestril] 5 mg PO DAILY 02/14/22 01/22/24 traZODone HCL [Desyrel] 50 mg PO HS 02/14/22 01/22/24 Fluticasone/Umeclidin/Vilanter 1 inhalation INHALATION DAILY 06/21/23 01/22/24 [Trelegy Ellipta 100-62.5-25] Ondansetron [Zofran] 4 mg PO Q4H PRN 09/04/23 01/22/24 Furosemide [Lasix] 40 mg PO DAILY 12/05/23 01/22/24 Unk Multi Vitamin 1 tab PO DAILY 12/05/23 01/22/24 Unk Vitamin D3 1 tab PO DAILY 12/05/23 01/22/24 Previous Rx's Medication Instructions Recorded HYDROcodone/APAP 5-325MG [[place] 5] 1 each PO Q6HR PRN #12 tab 01/22/24 Allergies Allergy/AdvReac Type Severity Reaction Status Date / Time amoxicillin Allergy Rash/Hives Verified 01/22/24 13:21 codeine AdvReac Nausea Verified 01/22/24 13:21 Review of Systems ROS Other: All systems not noted in ROS Statement are negative. <Froy Sarkar - Last Filed: 01/22/24 13:31> ROS Other: All systems not noted in ROS Statement are negative. <Adolfo Blanca - Last Filed: 01/22/24 15:54> ROS Statement: Those systems with pertinent positive or pertinent negative responses have been documented in the HPI. Past Medical History Past Medical History: No Reported History Additional Past Medical History / Comment(s): back, subarachnoid hemorrhage in january 2020. 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 Right lung upper lobe removed 2020, R/T lung cancer. Radiation to brain r/t cancer. Bilat breast implants 2004? Past Anesthesia/Blood Transfusion Reactions: No Reported Reaction Past Psychological History: Anxiety, Depression Smoking Status: Former smoker - Past Family History Father History Unknown: Yes Family Medical History: Cancer Additional Family Medical History / Comment(s): Liver Mother Family Medical History: Cancer Additional Family Medical History / Comment(s): Breast <Froy Sarkar - Last Filed: 01/22/24 13:31> General Exam Limitations: no limitations General appearance: alert, in no apparent distress Head exam: Present: atraumatic, normocephalic, normal inspection Eye exam: Present: normal appearance, PERRL, EOMI. Absent: scleral icterus, conjunctival injection, periorbital swelling ENT exam: Present: normal exam, mucous membranes moist Neck exam: Present: normal inspection. Absent: tenderness, meningismus, lymphadenopathy Respiratory exam: Present: normal lung sounds bilaterally. Absent: respiratory distress, wheezes, rales, rhonchi, stridor Cardiovascular Exam: Present: regular rate, normal rhythm, normal heart sounds. Absent: systolic murmur, diastolic murmur, rubs, gallop, clicks GI/Abdominal exam: Present: soft, normal bowel sounds. Absent: distended, tenderness, guarding, rebound, rigid Extremities exam: Present: normal inspection, full ROM, normal capillary refill. Absent: tenderness, pedal edema, joint swelling, calf tenderness Back exam: Present: normal inspection Neurological exam: Present: alert, oriented X3, CN II-XII intact Psychiatric exam: Present: normal affect, normal mood Skin exam: Present: warm, dry, intact, normal color. Absent: rash <Froy Sarkar - Last Filed: 01/22/24 13:31> General appearance: alert, in no apparent distress Head exam: Present: atraumatic, normocephalic, normal inspection Neck exam: Present: normal inspection. Absent: tenderness, meningismus, lymphadenopathy Respiratory exam: Present: normal lung sounds bilaterally. Absent: respiratory distress, wheezes, rales, rhonchi, stridor Cardiovascular Exam: Present: regular rate, normal rhythm, normal heart sounds. Absent: systolic murmur, diastolic murmur, rubs, gallop, clicks GI/Abdominal exam: Present: soft, normal bowel sounds. Absent: distended, tenderness, guarding, rebound, rigid Extremities exam: Present: other (Right hip minimal tenderness, pain with logrolling, neurovascular intact patient is able to bear weight.) Back exam: Present: normal inspection, full ROM. Absent: tenderness Neurological exam: Present: alert, oriented X3, CN II-XII intact, reflexes normal. Absent: motor sensory deficit <Adolfo Blanca - Last Filed: 01/22/24 15:54> Course <Froy Sarkar - Last Filed: 01/22/24 13:31> Vital Signs 01/22/24 13:18 Temperature 98.0 F Pulse Rate 78 Respiratory 16 Rate Blood Pressure 145/81 O2 Sat by Pulse 98 Oximetry - Reevaluation(s) Reevaluation #1: 01/22/24 13:32 QB completed by myself Dr Sarkar (Froy Sarkar) Medical Decision Making <Adolfo Blanca - Last Filed: 01/22/24 15:54> - Medical Decision Making Was pt. sent in by a medical professional or institution (, [facility], CLINICAL VETERINARIAN, urgent care, hospital, or [facility]...) When possible be specific @ -[Oncologist Did you speak to anyone other than the patient for history (EMS, parent, family, police, friend...)? What history was obtained from this source @ -No Did you review nursing and triage notes (agree or disagree)? Why? @ -I reviewed and agree with nursing and triage notes Were old charts reviewed (outside hosp., previous admission, EMS record, old EKG, old radiological studies, urgent care reports/EKG's, [facility] records)? Report findings @ -No old charts were reviewed Differential Diagnosis (chest pain, altered mental status, abdominal pain women, abdominal pain men, vaginal bleeding, weakness, fever, dyspnea, syncope, headache, dizziness, GI bleed, back pain, seizure, CVA, palpatations, mental health, musculoskeletal)? @ -Hip x-ray, hip strain, groin strain, pelvic fracture EKG interpreted by me (3pts min.). @ -None X-rays interpreted by me (1pt min.). @ -X-ray right hip, pelvis showing no acute osseous abnormality mild osteoarthritis CT interpreted by me (1pt min.). @ -None done U/S interpreted by me (1pt. min.). @ -None done What testing was considered but not performed or refused? (CT, X-rays, U/S, labs)? Why? @ -None What meds were considered but not given or refused? Why? @ -None Did you discuss the management of the patient with other professionals (maria dolores espinoza i.e. , [facility], CLINICAL VETERINARIAN, lab, RT, psych nurse, geriatric social worker, r d intern, teacher, engineering officer, manager of case)? Give summary @ -No Was smoking cessation discussed for >3mins.? @ -No Was critical care preformed (if so, how long)? @ -No Were there social determinants of health that impacted care today? How? (Homelessness, low income, unemployed, alcoholism, drug addiction, transportation, low edu. Level, literacy, decrease access to med. care, care home, rehab)? @ -No Was there de-escalation of care discussed even if they declined (Discuss DNR or withdrawal of care, Hospice)? DNR status @ -No What co-morbidities impacted this encounter? (DM, HTN, Smoking, COPD, CAD, Cancer, CVA, ARF, Chemo, Hep., AIDS, mental health diagnosis, sleep apnea, morbid obesity)? @ -None Was patient admitted / discharged? Hospital course, mention meds given and route, prescriptions, significant lab abnormalities, going to OR and other pertinent info. @ -Discharge x-rays were negative for acute fracture. Patient has a right groin strain will be discharged with analgesics return parameters were discussed. Undiagnosed new problem with uncertain prognosis? @ -No Drug Therapy requiring intensive monitoring for toxicity (Heparin, Nitro, Insulin, Cardizem)? @ -No Were any procedures done? @ -No Diagnosis/symptom? @ -Right groin strain Acute, or Chronic, or Acute on Chronic? @ -Acute Uncomplicated (without systemic symptoms) or Complicated (systemic symptoms)? @ -Uncomplicated Side effects of treatment? @ -No Exacerbation, Progression, or Severe Exacerbation? @ -No Poses a threat to life or bodily function? How? (Chest pain, [place], [place], pneumonia, PE, COPD, DKA, ARF, appy, cholecystitis, CVA, Diverticulitis, Homicidal, Suicidal, threat to staff... and all critical care pts) @ -No (Adolfo Blanca) Disposition <Froy Sarkar - Last Filed: 01/22/24 13:31> Is patient prescribed a controlled substance at d/c from ED?: Yes When asked, does pt state using other controlled substances?: No If prescribed controlled substance>3 days was MAPS reviewed?: Prescribed <3 Days If opioid is for acute pain is fill amount 7 days or less?: Yes If Rx opioid, was Start Talking consent form obtained?: Yes Time of Disposition: 15:47 <Adolfo Blanca - Last Filed: 01/22/24 15:54> Clinical Impression: Strain of right groin Disposition: HOME SELF-CARE Condition: Stable Instructions (If sedation given, give patient instructions): Groin Strain (ED) Additional Instructions: Please return to the Emergency Department if symptoms worsen or any other concerns. Prescriptions: HYDROcodone/APAP 5-325MG [[place] 5] 1 each PO Q6HR PRN #12 tab PRN Reason: Pain Referrals: Germán Ellis MD [Primary Care Provider] - 1-2 days
--- NOTE | 2024-01-22 15:23 | XR ---
EXAMINATION TYPE: XR Hip RT and AP Pelvis DATE OF EXAM: 01/22/2024 2:55 PM CLINICAL INDICATION:Female, 63 years old with history of pain; COMPARISON: None TECHNIQUE: XR Hip RT and AP Pelvis; hip was examined in the frontal and lateral projections and a AP pelvis. FINDINGS: No evidence for acute process, joint dislocation or significant soft tissue swelling. Osteo phyte formation of the superior acetabulum of the hip. There is mild joint space narrowing. IMPRESSION: 1. No evidence for acute process. 2. Mild hip osteoarthrosis.
[2024-01-22 16:02] VITALS: BP 145/84; PULSE 70; RESP 18; TEMP 98.1
== END 2024-01-22 16:02 | disposition home or self-care (01) ==
LOC: EC 13:09
DX: S39.011A Strain of muscle, fascia and tendon of abdomen, initial encounter (principal); M16.11 Unilateral primary osteoarthritis, right hip; Z88.0 Allergy status to penicillin; Z88.5 Allergy status to narcotic agent; Z87.891 Personal history of nicotine dependence; W17.89XA Other fall from one level to another, initial encounter
CPT/HCPCS: 73502; 99283

== ENCOUNTER → 2024-03-18 | Outpatient (CLI) | payer MEDICARE ==
--- NOTE | 2024-03-19 11:04 | CA ---
Transthoracic Echo Report Name: Mckenzie Quinones Age: 63 Gender: F : 1960 Exam Date: 03/18/2024 17:12 Exam Location: [facility] Ht (in): 59 Wt (lb): 88 Ordering Physician: Aida Dill MD Attending/Referring Phys: Mat Machine Operator Sonya Roberts RDCS Procedure CPT: Indications: Z01.818 Chemo Cardiac Hx: Technical Quality: Very technically difficult study Contrast 1: Definity Total Dose (mL): 2 Contrast 2: Total Dose (mL): MEASUREMENTS (Male / Female) Normal Values 2D ECHO LV Diastolic Diameter PLAX 3.8 cm 4.2 - 5.9 / 3.9 - 5.3 cm LV Systolic Diameter PLAX 2.0 cm IVS Diastolic Thickness 1.0 cm 0.6 - 1.0 / 0.6 - 0.9 cm LVPW Diastolic Thickness 1.0 cm 0.6 - 1.0 / 0.6 - 0.9 cm LV Relative Wall Thickness 0.5 DOPPLER MV Area PHT 4.1 cm??? Mitral E Point Velocity 49.2 cm/s Mitral A Point Velocity 58.3 cm/s Mitral E to A Ratio 0.8 MV Deceleration Time 186.1 ms FINDINGS Left Ventricle Left ventricular ejection fraction is estimated at 60 %. Mildly increased septal wall thickness. Left ventricular cavity size normal. Right Ventricle Right ventricle not well visualized. Right Atrium Right atrium not well visualized. Left Atrium Left atrium not well visualized. Mitral Valve Structurally normal mitral valve. No evidence for mitral valve prolapse. No mitral stenosis. No mitral regurgitation. Aortic Valve Aortic valve not well visualized. Tricuspid Valve Tricuspid valve not well visualized. Pulmonic Valve Pulmonic valve not well visualized. Pericardium No pericardial effusion. Aorta Aortic root and proximal ascending aorta not well visualized. CONCLUSIONS This is a suboptimal study for technical reasons. Echo contrast was used. LV systolic function is normal. No other information can be discerned. No pericardial effusion Previewed by: Dr. Kayla Juarez MD (Electronically Signed) Final Date: 19 March 2024 11:03
== END | disposition home or self-care (01) ==
LOC: RADECHMAIN 17:07
PROVIDERS: ATTEND Internal Medicine Hematology & Oncology
DX: Z01.818 Encounter for other preprocedural examination
CPT/HCPCS: 93306

== ENCOUNTER → 2024-04-11 | Outpatient (CLI) | payer MEDICARE ==
--- NOTE | 2024-04-13 23:29 | PE ---
EXAMINATION TYPE: PET CT fusion skull to thigh DATE OF EXAM: 04/11/2024 COMPARISON: No recent comparable CT Prior PET/CT: 11/01/2023 HISTORY: Lung cancer TECHNIQUE: Following the intravenous administration of 12.24 mCi of F-18 FDG, whole body images are performed from the skull base to the midthigh. Images are reviewed on the computer in the coronal, a xial, and sagittal planes. Reconstructed rotating images are created on independent workstation and reviewed on the computer. A localization and attenuation correction CT is performed in conjunction with the PET scan. DLP: 232.45 mGycm SCAN: Subsequent Blood glucose: 98 mg/dL Average Mediastinum SUV: 2.49 Average Liver SUV: 3.07 FINDINGS: NECK: There is a focus of radiotracer accumulation within the right parotid region may represent a s mall lymph node, image 37, SUV 8.72 There is marked increased uptake within the tongue. This can be related to motion artifact during the exam. Uptake extends into the region of the mylohyoid muscles. Uptake is posterior to the mandible. There is a small amount of uptake within the right cervical spine lymph node measuring 4.39, example image 60. THORAX: Suspicious uptake not identified. No suspicious hilar adenopathy is evident. No recurrent are as of uptake within the postsurgical right lung is evident. ABDOMEN: A small focus radiotracer within the mid right lobe liver, image 121, SUV 6.15. Faint uptake may be in the anterior right lobe liver, image 121, SUV 3.94. PELVIS: No abnormal uptake OSSEOUS STRUCTURES: There is mild uptake around the right hip may be degenerative in nature. LOCALIZATION CT: Surgical changes are at the right apex. Small amount of fluid is present. Postlumpec lupillo is present. Bilateral breast prostheses are noted. Mediastinum shifted to the right. No discrete abnormality is i dentified on the CT within the abdomen. There is prominence of the left renal apex. Renal mass is not excluded suspicious uptake within this region however is not present. COMPARISON: Right kidney appear similar to prior study. Uptake is not identified on the prior examina tion within the liver. Uptake within the tongue is not evident. Suspicious right parotid uptake is no t identified. No suspicious right hilar uptake is evident. IMPRESSION: 1. 1, possibly 2, punctate areas of uptake within the right lobe liver suspicious for metastasis. 2. Small focus of radiotracer within the right parotid region could be a small metastatic lymph node not previously identified. 3. Marked increased uptake within the tongue. Given the change from comparison, muscular motion durin g injection is felt to be most likely within the differential. [facility], , 04/13/2024 11:26 PM
== END | disposition home or self-care (01) ==
LOC: RADPETMAIN 07:49
PROVIDERS: ATTEND Internal Medicine Hematology & Oncology
DX: C34.11 Malignant neoplasm of upper lobe, right bronchus or lung (principal)
CPT/HCPCS: 78815

== ENCOUNTER → 2024-04-22 | Outpatient (CLI) | payer MEDICARE ==
[2024-04-22 09:31] LABS: African American GFR (CKD) 35 (>60 ml/min/1.73 sqM); Blood Urea Nitrogen 22 mg/dL (7-17); Non-African American GFR(CKD) 30 (>60 ml/min/1.73 sqM)
--- NOTE | 2024-04-22 10:18 | CT ---
EXAMINATION TYPE: CT femur RT wo con CT DLP: 579.5 mGycm, Automated exposure control for dose reduction was used. DATE OF EXAM: 04/22/2024 10:05 AM COMPARISON: PET/CT 04/11/2024, 11/01/2023 CLINICAL INDICATION:Female, 63 years old with history of C34.11 LUNG CX; PHH, rt leg pain. hx of fall x few months ago. hx of cancer TECHNIQUE: Axial images were obtained of the right femur without the use of IV contrast. Additional coronal and sagittal reformatted images and soft tissue and bone window were obtained for review. 3-D reconstruction was created on a separate workstation. FINDINGS: No evidence of dislocation. Patchy heterogenous appearance of the right femoral head with r egions of sclerosis and cortical irregularity which is new from prior exams. The patient demonstrated 1 mm of subarticular collapse (series 6, image 24). No acute displaced fracture identified. No signi ficant soft tissue swelling or joint effusion is identified. No focal muscular atrophy or edema is id entified. No radiopaque foreign body identified. IMPRESSION: Patchy heterogenous irregular appearance of the right femoral head suspicious for osteonecrosis with 1 mm of subarticular collapse. Consider further evaluation with MRI. [facility], , 04/22/2024 10:16 AM
== END | disposition home or self-care (01) ==
LOC: RADCTMAIN 08:36
PROVIDERS: ATTEND Internal Medicine Hematology & Oncology
DX: C34.11 Malignant neoplasm of upper lobe, right bronchus or lung (principal)
CPT/HCPCS: 36415; 82565; 84520

== ENCOUNTER → 2024-04-24 | Outpatient (CLI) | payer MEDICARE ==
--- NOTE | 2024-04-24 13:52 | MR ---
EXAMINATION TYPE: MR brain wo/w con DATE OF EXAM: 04/24/2024 COMPARISON: 01/02/2024 HISTORY: 63-year-old female C79.31 Worsening headaches, cancer of breast, lungs, and kidney. TECHNIQUE: Multiplanar, multisequence images of the brain and brainstem were acquired before and aft er administration of 4.5 mL IV Gadavist. Diffusion weighted imaging is performed. FINDINGS: Similar bifrontal areas of bright white matter change possibly sequela of prior infarcts or posttreat ment change. Moderate hydrocephalus with Eleno's ratio calculated at 0.40 is unchanged. No abnormal areas of restricted diffusion. No extra-axial fluid collection. Similar scattered siderosis along the bilateral cerebral convexities. Multiple heterogeneous enhancing areas and ring enhancing lesions are redemonstrated. Right parasagittal anterior right parietal cortex currently 7 mm versus 4 mm, previously. Posterior left parietal lobe measuring 2.3 x 1.9 cm versus 2.2 x 1.7 cm, previously. Inferior parieto-occipital junction measuring 4.0 x 2.3 cm (versus 3.6 x 2.6 cm, previously). Posterior left temporal lobe measuring 2.0 x 1.5 cm (only subtly apparent measuring 1.3 cm previously ). New left occipital lobe lesion measuring 8 mm. Stable 8 mm ring-enhancing lesion left cerebellum. 3.2 x 2.5 cm lesion in the right cerebellar hemisphere versus 3.2 x 2.3 cm, previously. Areas of associated vasogenic edema and T2/FLAIR bright signal change are overall similar. Extensive white matter signal changes throughout the right cerebellum continues. Mass effect with partial effac ement of the fourth ventricle appears slightly diminished. Greater degree of partial effacement of th e fourth ventricle. Similar overall 4 mm of leftward midline shift in the posterior cranial fossa. Slight leftward nasal septal deviation. Fluid within the bilateral mastoid air cells. IMPRESSION: 1. Approximately 7 ring-enhancing or heterogeneously enhancing lesions within the supratentorial and infratentorial regions with varying degrees of vasogenic edema persist. These lesions are either stab le or minimally larger as outlined above. Largest measuring 4.0 cm versus 3.6 cm, previously. However , one lesion in the left occipital lobe measuring 8 mm appears new. 2. Vasogenic edema in the right cerebellar hemisphere may be slightly diminished as the degree of par tial effacement of the fourth ventricle shows slight improvement. Similar 4 mm of leftward midline sh ift in the posterior cranial fossa. 3. Similar moderate ventriculomegaly probably due to central cerebral atrophy. [facility], , 04/24/2024 1:50 PM
== END | disposition home or self-care (01) ==
LOC: RADMRIMAIN 09:54
PROVIDERS: ATTEND Radiology Radiation Oncology
DX: C79.31 Secondary malignant neoplasm of brain
CPT/HCPCS: 70553

== ENCOUNTER → 2024-05-06 | Outpatient (CLI) | payer MEDICARE ==
--- NOTE | 2024-05-06 16:29 | MR ---
EXAMINATION TYPE: MR liver wo/w con DATE OF EXAM: 05/06/2024 9:53 AM INDICATION: Patient age:Female; 63 years old; Reason for study: C50.812 Lung Ca; PHH. COMPARISON: CT scan abdomen from PET CT 04/11/2024. TECHNIQUE: Multiplanar multi-sequence imaging was performed without and with IV contrast. The patien t was given 6 ccs of Gadavist intravenously and dynamic imaging was performed. Post IV contrast subtr action images were also submitted for review. FINDINGS: LOWER CHEST: Bilateral breast prosthesis. Right lung volume loss. Chronic elevation of the right tomasa diaphragm.. ABDOMEN Liver: Posterior right hepatic lobe 6 mm T2 hyperintense nonenhancing cyst. There are 2 mildly hyperi ntense lesions within the liver involving segments 4 and 8 measuring 7 mm each (series 701, image 51) . These demonstrate ring enhancement on arterial phase. These lesions demonstrate internal enhancemen t on delayed imaging. Both lesions correspond to focal FDG uptake on recent PET/CT. Gallbladder and Bile ducts: Postcholecystectomy.. Dilated intra and extra hepatic biliary ductal dila tation with smooth tapering to the pancreatic head. The common bile duct measures up to 2.1 cm. No fi lling defect is identified. Probable physiologic change from cholecystectomy. Pancreas: Unremarkable. Spleen: Unremarkable. Adrenal glands: Unremarkable. Kidneys: No hydronephrosis. Left kidney appears unremarkable without renal lesion. Right renal upper pole heterogenous lesion measuring 6.9 x 6.0 cm (series 701, image 38). This has increased in size wh en compared to multiple prior exams. Measured 4.1 x 3[address] 05/06/2021. Demonstrates a few foci of intrinsic T1 hyperintense signal with heterogenous enhancement. Central nonenhancement likely repr esenting necrosis. Stomach and Bowel: Unremarkable as visualized. Peritoneum: No evidence of pneumoperitoneum, free fluid, or adenopathy. Vasculature: Unremarkable. No aortic aneurysm. Abdominal wall: Unremarkable. Musculoskeletal: Levocurvature of the lumbar spine. IMPRESSION: 1. There are 2 distinct 7 mm ring-enhancing hepatic lesions within segment 4 and 8 corresponding to focal FDG activity on recent PET/CT. Most consistent with metastasis. 2. Additional stable nonenhancing subcentimeter cyst within the right hepatic lobe. 3. Large right renal upper pole 6.9 cm heterogenous enhancing mass which is increased in size from p rior exams such as on CT 05/06/2021 where it measured up to 4.1 cm. Only demonstrated low level FDG a ctivity on prior PET/CT which can be seen with renal cell carcinoma. Highly suspicious for renal cell carcinoma until proven otherwise. [facility], , 05/06/2024 4:27 PM
== END | disposition home or self-care (01) ==
LOC: RADMRIMAIN 08:05
PROVIDERS: ATTEND Internal Medicine Hematology & Oncology
CPT/HCPCS: 74183

== ENCOUNTER → 2024-07-30 | Outpatient (CLI) | payer MEDICARE ==
--- NOTE | 2024-07-30 12:53 | MR ---
EXAMINATION TYPE: MR brain wo/w con DATE OF EXAM: 07/30/2024 12:40 PM COMPARISON: 04/24/2024. CLINICAL INDICATION: Female, 63 years old with history of C34.31 MALIGNANT NEOPL C34.11,N64.9,C79.31, C50.512; PHH, Brain lesion, F/U comparison to MRI 04-24-24. TECHNIQUE: Multi planar, multi sequence imaging was performed through the brain including: T1, T2, In version recovery, susceptibility weighted imaging and gradient echo imaging and Diffusion weighted im aging. The patient was then given intravenous contrast and multi planar, T1 fat-saturation images wer e obtained. IV Contrast: 5 mL Gadobutrol FINDINGS: Scattered enhancing lesions throughout the brain. Samples include: Stable Right cerebellum measuring similarly at 30 x 22 mm, extensive vasogenic edema around this lesi on. Stable left cerebellum measuring 8 mm Geographic area left occipital/parietal region more vasogenic edema which extends across midline is w ell extending to the left temporal lobe. There is thought to be increased size when comparing on rafy nal imaging nodule in the occipital lobe form lateral and posterior ridging 16 previously 11 Left tem poral lobe lesion seen on prior is also similar in size. Right posterior frontal/parietal lesion near the falx measuring 14 mm has increased in size previousl y 7 mm. Left inferior occipital lobe lesion measuring 11 mm previously 7 mm. No evidence for restricted diffusion. Similar dilation of the ventricular system of effacement of the left lateral ventricle no significant midline shift. Mild cerebral atrophy changes. Scattered white matter changes in prior injuries noted The bone marrow signal is within normal limits. Paranasal sinuses and mastoid air cells: No significant paranasal sinus disease. High T2 signal fluid in the right mastoid air cells. Visualized orbits: Orbital contents are intact. IMPRESSION: Motion limited exam. Scattered metastatic lesions of which at least 3 have increased in size, findings compatible with pro gression of disease at these sites. Other lesions are relatively stable. There is increasing vasogeni c edema present in the left cerebrum. [facility], , 07/30/2024 12:51 PM
== END | disposition home or self-care (01) ==
LOC: RADMRIMAIN 11:40
PROVIDERS: ATTEND Radiology Radiation Oncology
DX: C34.31 Malignant neoplasm of lower lobe, right bronchus or lung (principal); C34.11 Malignant neoplasm of upper lobe, right bronchus or lung; N64.9 Disorder of breast, unspecified; C79.31 Secondary malignant neoplasm of brain; C50.512 Malignant neoplasm of lower-outer quadrant of left female breast; G93.6 Cerebral edema
CPT/HCPCS: 70553; A9585

== ENCOUNTER → 2024-08-08 | Outpatient (CLI) | payer MEDICARE ==
[2024-08-08 14:52] LABS: African American GFR (CKD) 41 (>60 ml/min/1.73 sqM); Blood Urea Nitrogen 26 mg/dL (7-17); Non-African American GFR(CKD) 36 (>60 ml/min/1.73 sqM)
--- NOTE | 2024-08-08 16:31 | CT ---
EXAMINATION TYPE: CT brain wo con CT DLP: 1064.3 mGycm, Automated exposure control for dose reduction was used. 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 Hx of kidney, breast and brain cancer. TECHNIQUE: Brain: Multiple axial CT images of the brain were obtained without IV contrast. . Coronal and sagitta l reformats reviewed. FINDINGS: Brain: Extra-axial spaces: No abnormal extra-axial fluid collections. Ventricular system: Similar hydrocephalus. There is effacement of the posterior horn of the left late ral ventricle again. Cerebral parenchyma: No acute intraparenchymal hemorrhage. Encephalomalacia identified within the inf erior left frontal lobe. Large region of hypoattenuation in the left parietal/occipital/temporal anish on with preservation of banks-white matter differentiation. This corresponds to FLAIR signal abnormali ty on recent MRI. Scattered calcifications identified within the left occipital lobe and a few within the right frontal lobe. This corresponds to region of enhancement on recent MRI. Additional 1 cm foc al region of slight hyperdensity within the posterior right frontal/parietal lobe abutting the falx c orresponds to focal metastatic enhancement on recent MR. Cerebellum: Region of hypoattenuation with few foci of calcification within the right cerebellum with preservation of banks-white matter differentiation. This corresponds to enhancing mass on recent MRI. Known subcentimeter enhancing mass of the left cerebellum is poorly visualized due to lack of intrav enous contrast. Nonspecific periventricular hypodense white matter changes. Mass effect: No definitive evidence of midline shift. Intracranial vasculature: Postsurgical changes with surgical clip in the right MCA. Additional surgic al clip identified within the suprasellar cistern. Soft tissues: Normal. Calvarium/osseous structures: No depressed skull fracture. Paranasal sinuses and mastoid air cells: Clear Visualized orbits: Orbital contents are intact. IMPRESSION: 1. Redemonstration of large region of vasogenic edema involving the left temporal/parietal/occipital lobe with known metastasis. Additional metastasis with vasogenic edema prominently identified within the right cerebellum. A third metastatic focus within the right frontoparietal region abutting the f della is demonstrated. These metastatic lesions are better appreciated on recent MRI. 2. Region of encephalomalacia noted involving the inferior left frontal lobe. 3. Similar hydrocephalus with effacement of the posterior horn of the left lateral ventricle due to #1. 4. No definitive acute intracranial hemorrhage. 5. Nonspecific white matter changes, likely secondary to chronic small vessel ischemic disease. [facility], , 08/08/2024 4:28 PM
== END | disposition home or self-care (01) ==
LOC: RADPROMAIN 13:40
PROVIDERS: ATTEND Radiology Radiation Oncology
DX: C79.31 Secondary malignant neoplasm of brain (principal); G91.9 Hydrocephalus, unspecified; R90.82 White matter disease, unspecified
CPT/HCPCS: 82565; 84520; 70450; J1642

== ENCOUNTER 2024-09-08 12:58 | Inpatient (IN) | payer MEDICARE ==
[2024-09-08 15:07] LABS: Anisocytosis Slight; Basophils % (A) 0 %; Eosinophils # (A) 0.1 k/uL (0-0.7); Eosinophils % (A) 1 %; HCT 41.5 % (34.0-46.0); HGB 12.9 gm/dL (11.4-16.0); Lymphocytes # (A) 1.7 k/uL (1.0-4.8); Lymphocytes % (A) 16 %; MCH 28.5 pg (25.0-35.0); MCV 91.8 fL (80.0-100.0); Mean Platelet Volume 7.8; Monocytes # (A) 0.8 k/uL (0-1.0); Monocytes % (A) 7 %; Neutrophils # (A) 8.1 k/uL (1.3-7.7); Neutrophils % (A) 75 %; Platelet Count 349 k/uL (150-450); RBC 4.52 m/uL (3.80-5.40); RDW 16.6 % (11.5-15.5); WBC 10.8 k/uL (3.8-10.6)
[2024-09-08 15:18] LABS: ALT 72 U/L (4-34); AST 28 U/L (14-36); African American GFR (CKD) 77 (>60 ml/min/1.73 sqM); Alkaline Phosphatase 95 U/L (38-126); Anion Gap 11 mmol/L; Blood Urea Nitrogen 59 mg/dL (7-17); Calcium 9.3 mg/dL (8.4-10.2); Carbon Dioxide 30 mmol/L (22-30); Chloride 95 mmol/L (98-107); Glucose 95 mg/dL (74-99); Non-African American GFR(CKD) 67 (>60 ml/min/1.73 sqM); Potassium 3.6 mmol/L (3.5-5.1); Sodium 136 mmol/L (137-145); Total Bilirubin 0.7 mg/dL (0.2-1.3); Total Protein 6.7 g/dL (6.3-8.2)
--- NOTE | 2024-09-08 15:33 | CT ---
EXAMINATION TYPE: CT brain wo con CT DLP: 1098.1 mGycm, Automated exposure control for dose reduction was used. DATE OF EXAM: 09/08/2024 3:21 PM COMPARISON: CT brain 08/08/2024, MR brain 07/30/2024, 04/24/2024, 01/02/2024, PET CT 04/11/2024, CT brain 11/24/2022 CLINICAL INDICATION:Female, 63 years old with history of Altered mental status, ams TECHNIQUE: Brain: Multiple axial CT images of the brain were obtained without IV contrast. . Coronal and sagitta l reformats reviewed. FINDINGS: Brain: Extra-axial spaces: No abnormal extra-axial fluid collections. Ventricular system: Similar hydrocephalus. There is effacement of the posterior horn of the left late ral ventricle again. Cerebral parenchyma: No acute intraparenchymal hemorrhage. Encephalomalacia identified within the inf erior left frontal lobe. Large hypoattenuating region in the left parietal/occipital/temporal watersh ed region with preservation of banks-white matter differentiation. This corresponds to FLAIR signal ab normality on prior MRI. Scattered calcifications identified within the left occipital lobe and a few within the right frontal lobe. This corresponds to region of enhancement on recent MRI. Additional 1 cm focal region of slight hyperdensity within the posterior right frontal/parietal lobe again abuttin g the falx corresponds to focal metastatic enhancement on prior MR. Cerebellum: Region of hypoattenuation with few foci of calcification within the right cerebellum with preservation of banks-white matter differentiation. There is hyperdense 9 mm nodularity along the per iphery of the right cerebellum. This corresponds to enhancing mass on prior MRI. Known subcentimeter enhancing mass of the left cerebellum is poorly visualized due to lack of intravenous contrast. Nonsp ecific periventricular hypodense white matter changes. Mass effect: No definitive evidence of midline shift. Intracranial vasculature: Postsurgical changes with surgical clip in the right MCA. Additional surgic al clip identified within the suprasellar cistern. Soft tissues: Normal. Calvarium/osseous structures: No depressed skull fracture. Paranasal sinuses and mastoid air cells: Clear Visualized orbits: Orbital contents are intact. IMPRESSION: 1. Overall similar exam with large region of vasogenic edema involving the left temporal/parietal/oc cipital lobe corresponding with known metastasis. Additional metastasis with vasogenic edema prominen tly identified within the right cerebellum. A third metastatic focus within the right frontoparietal region abutting the falx is demonstrated. These metastatic lesions are better appreciated on prior MR I. 2. Region of encephalomalacia noted involving the inferior left frontal lobe. 3. Similar hydrocephalus with effacement of the posterior horn of the left lateral ventricle due to #1. 4. No definitive acute intracranial hemorrhage. 5. Nonspecific white matter changes, likely secondary to chronic small vessel ischemic disease. [facility], , 09/08/2024 3:31 PM
[2024-09-08] MEDS: ACETAMINOPHEN TAB 325 MG TAB PO STA (15:54)
--- NOTE | 2024-09-08 17:10 | ED ---
Altered Mental Status HPI - General Chief Complaint: Altered Mental Status Stated Complaint: altered mental status Time Seen by Provider: 09/08/24 13:20 Source: patient Mode of arrival: wheelchair Limitations: no limitations - History of Present Illness Initial Comments: 63-year-old female with past medical history of metastatic breast cancer who presents to the emergency department with altered mental status. Patient was at the oncology office today for radiation. She would not sit still for her treatment. She was extremely confused. It was recommended by Dr. More that the patient come down to the ER for evaluation. He was requesting CT of the patient's brain. states that she has been confused for 1 week but it was significantly worse today. Denies any falls. Patient is currently on steroids for vasogenic edema. Patient admits to a headache. Denies weakness in her lower extremities with difficulty ambulating. Typically ambulates with a cane. No fevers. No other alleviating, precipitating or modifying factors - Related Data Home Medications Medication Instructions Recorded Confirmed Divalproex Sodium [Depakote] 500 mg PO BID 05/04/21 09/08/24 Escitalopram [Lexapro] 10 mg PO DAILY 05/04/21 09/08/24 LORazepam [Ativan] 0.5 mg PO HS PRN 02/14/22 09/08/24 traZODone HCL [Desyrel] 50 mg PO HS 02/14/22 09/08/24 Furosemide [Lasix] 40 mg PO DAILY 12/05/23 09/08/24 Omeprazole [PriLOSEC] 20 mg PO DAILY 09/08/24 09/08/24 Potassium Chloride ER [K-Dur 20] 20 meq PO DAILY 09/08/24 09/08/24 dexAMETHasone [Decadron] See Taper PO DIRECTED 09/08/24 09/08/24 traMADol HCL 50 mg PO TID 09/08/24 09/08/24 Allergies Allergy/AdvReac Type Severity Reaction Status Date / Time amoxicillin Allergy Rash/Hives Verified 09/08/24 17:27 codeine AdvReac Nausea Verified 09/08/24 17:27 Review of Systems ROS Statement: Those systems with pertinent positive or pertinent negative responses have been documented in the HPI. ROS Other: All systems not noted in ROS Statement are negative. Past Medical History Past Medical History: Cancer Additional Past Medical History / Comment(s): back, subarachnoid hemorrhage in january 2020. 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 Right lung upper lobe removed 2020, R/T lung cancer. Radiation to brain r/t cancer. Bilat breast implants 2004? Past Anesthesia/Blood Transfusion Reactions: No Reported Reaction Past Psychological History: Anxiety, Depression Smoking Status: Former smoker - Past Family History Father History Unknown: Yes Family Medical History: Cancer Additional Family Medical History / Comment(s): Liver Mother Family Medical History: Cancer Additional Family Medical History / Comment(s): Breast General Exam Limitations: altered mental status General appearance: alert, in no apparent distress Head exam: Present: atraumatic, normocephalic, normal inspection Eye exam: Present: normal appearance, PERRL, EOMI. Absent: scleral icterus, conjunctival injection, periorbital swelling ENT exam: Present: normal exam, mucous membranes moist Neck exam: Present: normal inspection. Absent: tenderness, meningismus, lymphadenopathy Respiratory exam: Present: normal lung sounds bilaterally. Absent: respiratory distress, wheezes, rales, rhonchi, stridor Cardiovascular Exam: Present: regular rate, normal rhythm, normal heart sounds. Absent: systolic murmur, diastolic murmur, rubs, gallop, clicks GI/Abdominal exam: Present: soft, normal bowel sounds. Absent: distended, tend erness, guarding, rebound, rigid Extremities exam: Present: normal inspection, full ROM, normal capillary refill. Absent: tenderness, pedal edema, joint swelling, calf tenderness Back exam: Present: normal inspection Neurological exam: Present: alert, oriented X3, CN II-XII intact Psychiatric exam: Present: normal affect, normal mood Skin exam: Present: warm, dry, intact, normal color. Absent: rash Course Vital Signs 09/08/24 09/08/24 09/08/24 13:19 15:58 18:00 Temperature 97.3 F L Pulse Rate 88 80 88 Respiratory 20 18 18 Rate Blood Pressure 126/101 150/73 143/88 O2 Sat by Pulse 98 98 97 Oximetry 09/08/24 09/08/24 09/08/24 20:00 22:16 23:00 Temperature Pulse Rate 80 60 78 Respiratory 18 18 18 Rate Blood Pressure 152/77 137/70 118/74 O2 Sat by Pulse 98 98 97 Oximetry 09/09/24 09/09/24 09/09/24 01:53 02:00 03:00 Temperature Pulse Rate 70 76 67 Respiratory 18 18 18 Rate Blood Pressure 122/76 123/76 124/77 O2 Sat by Pulse 97 97 97 Oximetry 09/09/24 07:00 Temperature 97.2 F L Pulse Rate 64 Respiratory 16 Rate Blood Pressure 125/74 O2 Sat by Pulse 97 Oximetry Medical Decision Making - Medical Decision Making Was pt. sent in by a medical professional or institution (, PA, ABLE BODIED SEAMAN, urgent care, hospital, or correction...) When possible be specific @ -Patient sent in from the cancer center Did you speak to anyone other than the patient for history (EMS, parent, family, police, friend...)? What history was obtained from this source @ -Spoke with for history Did you review nursing and triage notes (agree or disagree)? Why? @ -I reviewed and agree with nursing and triage notes Were old charts reviewed (outside hosp., previous admission, EMS record, old EKG, old radiological studies, urgent care reports/EKG's, correction records)? Report findings @ -No old charts were reviewed Differential Diagnosis (chest pain, altered mental status, abdominal pain women, abdominal pain men, vaginal bleeding, weakness, fever, dyspnea, syncope, headache, dizziness, GI bleed, back pain, seizure, CVA, palpatations, mental health, musculoskeletal)? @ -Differential Altered Mental Status: Hypoglycemia, DKA, hypercapnia, ETOH, overdose, CO poisoning, trauma, myxedema coma, HTN encephalopathy, infection, encephalitis, psychosis, intercranial hemorrhage, hepatic encephalopathy, meningitis, CVA, this is not meant to be an all-inclusive list EKG interpreted by me (3pts min.). @ -Yes and demonstrates sinus rhythm with a rate of 68. LA of 121. QRS 78. QTc of 420. No acute ST segment elevations or depressions X-rays interpreted by me (1pt min.). @ -None done CT interpreted by me (1pt min.). @ -Yes and demonstrates multiple brain mets with vasogenic edema U/S interpreted by me (1pt. min.). @ -None done What testing was considered but not performed or refused? (CT, X-rays, U/S, labs)? Why? @ -None What meds were considered but not given or refused? Why? @ -None Did you discuss the management of the patient with other professionals (professionals i.e. , PA, [employer]LE [employer] SEAMAN, lab, RT, psych nurse, social director, motor vehicle compliance analyst, teacher, armored vehicle officer, piano case maker)? Give summary @ -Spoke with Zonia from case management. Spoke with Dr. Rodriges for admission Was smoking cessation discussed for >3mins.? @ -No Was critical care preformed (if so, how long)? @ -No Were there social determinants of health that impacted care today? How? ( Homelessness, low income, unemployed, alcoholism, drug addiction, transportation, low edu. Level, literacy, decrease access to med. care, nursing home, rehab)? @ -No Was there de-escalation of care discussed even if they declined (Discuss DNR or withdrawal of care, Hospice)? DNR status @ -Yes, spoke with in regards to patient's care. He is contemplating hospice. Patient had been on hospice previously What co-morbidities impacted this encounter? (DM, HTN, Smoking, COPD, CAD, Cancer, CVA, ARF, Chemo, Hep., AIDS, mental health diagnosis, sleep apnea, morbid obesity)? @ -Breast cancer with mets Was patient admitted / discharged? Hospital course, mention meds given and route, prescriptions, significant lab abnormalities, going to OR and other pertinent info. @ -Upon arrival patient seen and evaluated in bed 23. Thorough history and physical exam was performed. IV was established. Laboratory studies are conducted. CT was performed which demonstrates ongoing brain mass with vasogeni c edema. Results are discussed with the patient and her . Case management does see the patient. is contemplating hospice again. Patient will be admitted. Spoke with Dr. Rodriges for the admission Undiagnosed new problem with uncertain prognosis? @ -No Drug Therapy requiring intensive monitoring for toxicity (Heparin, Nitro, Insulin, Cardizem)? @ -No Were any procedures done? @ -No Diagnosis/symptom? @ -Acute encephalopathy, brain masses with vasogenic edema, history of breast cancer with mets Acute, or Chronic, or Acute on Chronic? @ -Acute Uncomplicated (without systemic symptoms) or Complicated (systemic symptoms)? @ -Complicated Side effects of treatment? @ -No Exacerbation, Progression, or Severe Exacerbation? @ -No Poses a threat to life or bodily function? How? (Chest pain, [place], [place], pneumonia, PE, COPD, DKA, ARF, appy, cholecystitis, CVA, Diverticulitis, Homicidal, Suicidal, threat to staff... and all critical care pts) @ -Yes as patient does have metastatic cancer - Lab Data Result diagrams: 09/09/24 04:50 09/09/24 04:50 Lab Results 09/08/24 09/08/24 09/08/24 Range/Units 14:54 14:54 14:54 WBC 10.8 H (3.8-10.6) k/uL RBC 4.52 (3.80-5.40) m/uL Hgb 12.9 (11.4-16.0) gm/dL Hct 41.5 (34.0-46.0) % MCV 91.8 (80.0-100.0) fL MCH 28.5 (25.0-35.0) pg MCHC 31.0 (31.0-37.0) g/dL RDW 16.6 H (11.5-15.5) % Plt Count 349 (150-450) k/uL MPV 7.8 Neutrophils % 75 % Lymphocytes % 16 % Monocytes % 7 % Eosinophils % 1 % Basophils % 0 % Neutrophils # 8.1 H (1.3-7.7) k/uL Lymphocytes # 1.7 (1.0-4.8) k/uL Monocytes # 0.8 (0-1.0) k/uL Eosinophils # 0.1 (0-0.7) k/uL Basophils # 0.0 (0-0.2) k/uL Anisocytosis Slight Sodium 136 L (137-145) mmol/L Potassium 3.6 (3.5-5.1) mmol/L Chloride 95 L (98-107) mmol/L Carbon Dioxide 30 (22-30) mmol/L Anion Gap 11 mmol/L BUN 59 H (7-17) mg/dL Creatinine 0.93 (0.52-1.04) mg/dL Est GFR (CKD-EPI)AfAm 77 (>60 ml/min/1.73 sqM) Est GFR (CKD-EPI)NonAf 67 (>60 ml/min/1.73 sqM) Glucose 95 (74-99) mg/dL Calcium 9.3 (8.4-10.2) mg/dL Total Bilirubin 0.7 (0.2-1.3) mg/dL AST 28 (14-36) U/L ALT 72 H (4-34) U/L Alkaline Phosphatase 95 (38-126) U/L Ammonia <9 (<30) umol/L Total Protein 6.7 (6.3-8.2) g/dL Albumin 4.0 (3.5-5.0) g/dL Disposition Clinical Impression: Acute encephalopathy, Vasogenic edema, Metastatic cancer to brain Disposition: ADMITTED IP TO THIS [facility] Condition: Stable Is patient prescribed a controlled substance at d/c from ED?: No Time of Disposition: 17:14 Decision to Admit Reason: Admit from EC Decision Date: 09/08/24 Decision Time: 17:14
[2024-09-08] MEDS ORDERED: ACETAMINOPHEN TAB 325 MG TAB PO PRN (17:15)
[2024-09-08] MEDS ORDERED: NALOXONE 0.4 MG/ML 1 ML VIAL IV PRN (17:15)
[2024-09-08] MEDS: HYDROcodone/APAP 5-325MG 1 EACH TAB PO STA (17:16)
[2024-09-08] MEDS: DEXAMETHASONE SOD PHOSPHATE 4 MG/ML 1 ML VIAL IVP SCH (19:10)
[2024-09-08] MEDS: HYDROcodone/APAP 5-325MG 1 EACH TAB PO PRN (20:06)
[2024-09-08 21:32] LABS: Appearance,Urine Clear (Clear); Bilirubin,Urine Negative (Negative); Blood,Urine Negative (Negative); Color,Urine Light Yellow; Glucose,Urine (UA) Negative (Negative); Ketones,Urine 1+ (Negative); Leukocyte Esterase,Urine Negative (Negative); Nitrite,Urine Negative (Negative); PH, Urine 5.5 (5.0-8.0); Protein,Urine Negative (Negative); Specific Gravity,Urine 1.025 (1.001-1.035); Urobilinogen,Urine <2.0 mg/dL (<2.0)
[2024-09-09] MEDS ORDERED: LORazepam 0.5 MG TAB PO PRN (08:29)
[2024-09-09 08:46] LABS: Blood Urea Nitrogen 46.4 mg/dL (9.0-27.0); Calcium 9.3 mg/dL (8.7-10.3); Chloride 99 mmol/L (96-109); Glucose 119 mg/dL (70-110); Potassium 4.4 mmol/L (3.5-5.5); Sodium 139 mmol/L (135-145)
[2024-09-09] MEDS: PANTOPRAZOLE 40 MG/10 ML VIAL IVP SCH (08:59)
[2024-09-09] MEDS: FUROSEMIDE 40 MG TAB PO SCH (09:00)
[2024-09-09] MEDS: POTASSIUM CHLORIDE ER 20 MEQ TAB.ER PO SCH (09:00)
[2024-09-09] MEDS: ESCITALOPRAM 10 MG TAB PO SCH (09:00)
[2024-09-09] MEDS: DIVALPROEX 500 MG TABLET.DR PO SCH (09:00)
[2024-09-09] MEDS: ONDANSETRON 4 MG/2 ML VIAL IVP PRN (10:26)
[2024-09-09] MEDS ORDERED: DEXTROSE 50% SYRINGE 50 ML IVP PRN ×2 (10:30)
[2024-09-09 10:34] LABS: Basophils # (A) 0.02 X 10*3/uL (0.00-0.10); Basophils % (A) 0.3 %; Eosinophils # (A) 0 X 10*3/uL (0.04-0.35); Eosinophils % (A) 0 %; HCT 38.7 % (37.2-46.3); HGB 12.7 g/dL (12.0-15.0); Lymphocytes # (A) 0.71 X 10*3/uL (0.90-5.00); Lymphocytes % (A) 9.1 %; MCH 29.4 pg (27.0-32.0); MCHC 32.8 g/dL (32.0-37.0); MCV 89.6 FL (80.0-97.0); Monocytes # (A) 0.16 X 10*3/uL (0.20-1.00); NRBC Per 100 WBC 0 X 10*3/uL (0.00-0.01); Neutrophils # (A) 6.88 X 10*3/uL (1.80-7.70); Neutrophils % (A) 87.8 %; Platelet Count 306 X 10*3/uL (140-440); RBC 4.32 X 10*6/uL (4.10-5.20); WBC 7.83 X 10*3/uL (4.50-10.00)
--- NOTE | 2024-09-09 12:21 | P.HPIM ---
History of Present Illness H&P Date: 09/09/24 Chief Complaint: Confusion This is a 63-year-old female with past medical history of metastatic lung and breast cancer, vasogenic edema- left temporal/parietal/occipital lobe/right cerebellum/right frontoparietal with metastasis-MRI 07/30/2024 reported increased/progression of disease, subarachnoid hemorrhage/cerebral aneurysm/clipping, anxiety, depression, former nicotine dependence, ongoing alcohol use, hypertension, renal ca,metastatic pulmonary adenocarcinoma of the r ight lung diagnosed in November 2020 per lung biopsy, right pneumonectomy,status post pneumothorax-requiring pigtail catheter with removal and multiple other medical issues brought into the ER regarding worsening confusion. ER reports that she was at a radiation oncology appointment yesterday, extremely confused, anxious, unable to sit still for her treatment and was directed to the ER. ER reports rahel disclosed worsening confusion over the last week. Denied any falls or trauma. Denied increased mobility weakness-ambulates with a cane. Decreased appetite. denied any fevers or chills or recent illness. Patient reports she has a right lateral ongoing headache, fluctuates- mildly improving this morning, positive nausea. Denies visual deficits. Patient reports she is noticed her confusion or the last 2 months. On admission ;afebrile, WBC 10.8, neutrophils 75. Hemoglobin 12.9, platelets 349. Electrolytes within normal limits, BUN 59, creatinine 0.93, GFR 67. UA reporting negative nitrates, leukocytes, 1+ ketones. Review of Systems ROS limited: Secondary to patient's confusion ROS Statement: Those systems with pertinent positive or pertinent negative responses have been documented in the HPI. ROS Other: All systems not noted in ROS Statement are negative. Past Medical History Past Medical History: Cancer Additional Past Medical History / Comment(s): back, subarachnoid hemorrhage in january 2020. 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 Right lung upper lobe removed 2020, R/T lung cancer. Radiation to brain r/t cancer. Bilat breast implants 2004? Past Anesthesia/Blood Transfusion Reactions: No Reported Reaction Past Psychological History: Anxiety, Depression Smoking Status: Former smoker - Past Family History Father History Unknown: Yes Family Medical History: Cancer Additional Family Medical History / Comment(s): Liver Mother Family Medical History: Cancer Additional Family Medical History / Comment(s): Breast Medications and Allergies Home Medications Medication Instructions Recorded Confirmed Type Divalproex Sodium [Depakote] 500 mg PO BID 05/04/21 09/08/24 History Escitalopram [Lexapro] 10 mg PO DAILY 05/04/21 09/08/24 History LORazepam [Ativan] 0.5 mg PO HS PRN 02/14/22 09/08/24 History traZODone HCL [Desyrel] 50 mg PO HS 02/14/22 09/08/24 History Furosemide [Lasix] 40 mg PO DAILY 12/05/23 09/08/24 History Omeprazole [PriLOSEC] 20 mg PO DAILY 09/08/24 09/08/24 History Potassium Chloride ER [K-Dur 20] 20 meq PO DAILY 09/08/24 09/08/24 History dexAMETHasone [Decadron] See Taper PO DIRECTED 09/08/24 09/08/24 History traMADol HCL 50 mg PO TID 09/08/24 09/08/24 History Allergies Allergy/AdvReac Type Severity Reaction Status Date / Time amoxicillin Allergy Rash/Hives Verified 09/08/24 17:27 codeine AdvReac Nausea Verified 09/08/24 17:27 Physical Exam Vitals: Vital Signs Temp Pulse Pulse Resp BP BP Pulse Ox 09/09/24 07:57 97.9 F 64 20 147/79 97 09/09/24 07:00 97.2 F L 64 16 125/74 97 09/09/24 03:00 67 18 124/77 97 09/09/24 02:00 76 18 123/76 97 09/09/24 01:53 70 18 122/76 97 09/08/24 23:00 78 18 118/74 97 09/08/24 22:16 60 18 137/70 98 09/08/24 20:00 80 18 152/77 98 09/08/24 18:00 88 18 143/88 97 09/08/24 15:58 80 18 150/73 98 09/08/24 13:19 97.3 F L 88 20 126/101 98 Exam GENERAL: Pale, cachectic, sitting up in bed, no acute distress, cooperative, converses. Sitter at bedside HEAD: Atraumatic, normocephalic. EYES: Pupils equal round and reactive to light, extraocular movements intact, sclera anicteric, conjunctiva pale NECK: Supple, no JVD LUNGS: Unlabored, equal air entry, essentially clear to auscultation HEART: Regular rate and rhythm without murmurs, rubs or gallops.S1S2 Normal ABDOMEN: Soft, nontender, normoactive bowel sounds. No guarding, no rebound. No masses appreciated. EXTREMITIES no edema. No clubbing or cyanosis. NEUROLOGICAL: Cranial nerves II through XII grossly intact. Strength and sensation grossly intact. PSYCH: Alert and oriented 2,-affect-flat. SKIN: Warm, Dry, normal turgor, no rashes noted. 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 Brain CT reports increased. Right lung Metastatic pulmonary adenocarcinoma, Breast cancer Diarrhea Poor oral intake Dehydration Hx of right pneumonectomy Renal cell CA, right kidney mass increased in size-per CT Hypertension Alcohol abuse History of intracranial aneurysm, hemorrhage, status post clipping History of kidney cyst removal Former nicotine dependence Anxiety Depression Generalized weakness. History of QT prolongation per EKG, congenital Moderate protein calorie malnutrition Poor overall functional performance secondary to the above-mentioned comorbidities, deemed not a candidate for adjuvant chemotherapy or surgical intervention Plan: Continue on current medication regimen ,monitoring and symptomatic treatment. Maintain IV Decadron. Close monitoring of Accu-Cheks , sliding scale ordered. Antiemetics ordered. maintain safety physician at bedside. Protein supplements 3 times daily between meals ordered. Dietary consulted. Staff reports patient had a very difficult time getting up to chair. PT/OT. oncology/radiation oncology consult in place, recommendations pending. PCP requesting neurology consult for any further recommendations. Hospice briefly discussed at bedside today with both and patient. prognosis guarded given multiple complex medical issues. The impression and plan of care has been dictated as directed. : I performed a history and examination of this patient, discussed the same with the dictator. I agree with the dictator's note ,documented as a scribe. Any additional findings or plans will be noted.
[2024-09-09 12:44] LABS: Glucose,Whole Blood 106 mg/dL (70-110)
[2024-09-09] MEDS: INSULIN LISPRO (HumaLOG) 100 UNIT/ML 10 mL VL SQ SCH (13:08)
[2024-09-09 17:17] LABS: Glucose,Whole Blood 124 mg/dL (70-110)
[2024-09-09 20:25] LABS: Glucose,Whole Blood 136 mg/dL (70-110)
[2024-09-09] MEDS: traZODone HCL 50 MG TAB PO SCH (20:27)
[2024-09-10 07:28] LABS: Glucose,Whole Blood 125 mg/dL (70-110)
[2024-09-10 12:31] LABS: Glucose,Whole Blood 160 mg/dL (70-110)
--- NOTE | 2024-09-10 15:03 | CDI ---
Documentation Clarification Form Date: 09/10/2024 02:29:54 PM From: Cecile Temple RN, CCDS Phone: [phone] Admit Date: 09/08/2024 05:33:00 PM Patient Name: Mckenzie Quinones Visit Number: [id number] Discharge Date: ATTENTION: The Clinical Documentation Specialists (CDI) and [facility] Coding Staff appreciate your assistance in clarifying documentation. Please respond to the clarification below the line at the bottom and electronically sign. The CDI & [facility] Coding staff will review the response and follow-up if needed. Please note: Queries are made part of the Legal Health Record. If you have any questions, please contact the author of this message via ITS. Provider: Stephany CALLAHAN Your patient has the documented symptom of Altered Mental Status ED assessment has confusion and encephalopathy on admission. Additional clarification regarding the etiology/cause of this symptom is requested. History/Risk Factors: Vasogenic edema, Metastatic cancer to brain, Clinical Indicators: 63-year-old female present extremely confused. Patient is currently on steroids for vasogenic edema. She admits to a headache. Alert and oriented x2 -affect-flat. Labs: WBC 10.8, Neutrophils 8.1, Na+ 136, Cl 95, CT Brain: Large region of vasogenic edema involving the left temporal/parietal/occipital lobe corresponding with known metastasis. Region of encephalomalacia noted involving the inferior left frontal lobe. Treatment: Decadron 4 MG IVP Q6 HRS Please clarify the etiology of the symptom of Altered Mental Status: [ ] Metabolic Encephalopathy due to metastatic cancer to brain with vasogenic edema. [ ] Other condition (please specify) [ ] Unable to determine (Template Last Revised: August 2020) MTDD
--- NOTE | 2024-09-10 15:05 | P.PN ---
Subjective Progress Note Date: 09/10/24 H&P Date: 09/09/24 Chief Complaint: Confusion This is a 63-year-old female with past medical history of metastatic lung and breast cancer, vasogenic edema- left temporal/parietal/occipital lobe/right cerebellum/right frontoparietal with metastasis-MRI 07/30/2024 reported increased/progression of disease, subarachnoid hemorrhage/cerebral aneurysm/clipping, anxiety, depression, former nicotine dependence, ongoing alcohol use, hypertension, renal ca,metastatic pulmonary adenocarcinoma of the right lung diagnosed in November 2020 per lung biopsy, right pneumonectomy,status post pneumothorax-requiring pigtail catheter with removal and multiple other medical issues brought into the ER regarding worsening confusion. ER reports that she was at a radiation oncology appointment yesterday, extremely confused, anxious, unable to sit still for her treatment and was directed to the ER. ER reports disclosed worsening confusion over the last week. Denied any falls or trauma. Denied increased mobility weakness-ambulates with a cane. Decreased appetite. denied any fevers or chills or recent illness. Patient reports she has a right lateral ongoing headache, fluctuates- mildly improving this morning, positive nausea. Denies visual deficits. Patient reports she is noticed her confusion or the last 2 months. On admission ;afebrile, WBC 10.8, neutrophils 75. Hemoglobin 12.9, platelets 349. Electrolytes within normal limits, BUN 59, creatinine 0.93, GFR 67. UA reporting negative nitrates, leukocytes, 1+ ketones. Ammonia level less than 9. 09/10/2024 maintained on IV dexamethasone, blood sugars controlled. This morning denies any pain. Does not complain of headache. Good diet intake. Denies chest pain, palpitations or shortness of breath. Denies lightheadedness, dizziness or focal deficits. Objective - Vital Signs Vital signs: Vital Signs Temp 97.4 F L 09/10/24 14:31 Pulse 85 09/10/24 14:31 Resp 16 09/10/24 14:31 BP 115/67 09/10/24 14:31 Pulse Ox 99 09/10/24 14:31 FiO2 Intake & Output 09/09/24 09/10/24 09/10/24 18:59 06:59 18:59 Intake Total 120 476 Balance 120 476 Weight 54.431 kg Intake: Oral 120 476 Other: Voiding Method Toilet Toilet Diaper Diaper # Voids 2 1 1 # Bowel Movements 0 - Exam GENERAL: Pale, cachectic, sitting up in chair, no acute distress, Sitter at bedside. HEAD: Atraumatic, normocephalic. EYES: Pupils equal round and reactive to light, extraocular movements intact, sclera anicteric, conjunctiva pale NECK: Supple, no JVD LUNGS: Unlabored, equal air entry, essentially clear to auscultation HEART: Regular rate and rhythm without murmurs, rubs or gallops.S1S2 Normal ABDOMEN: Soft, nontender, normoactive bowel sounds. No guarding, no rebound. No masses appreciated. EXTREMITIES no edema. No clubbing or cyanosis. NEUROLOGICAL: Cranial nerves II through XII grossly intact. Strength and sensation grossly intact. PSYCH: Alert and oriented 2,-affect-flat. SKIN: Warm, Dry, normal turgor, no rashes noted. 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 Brain CT reports increased. Liver mets reported per documentation forwarded to PCP from oncology. Right lung Metastatic pulmonary adenocarcinoma, Breast cancer Diarrhea Poor oral intake Dehydration Hx of right pneumonectomy Renal cell CA, right kidney mass increased in size-per CT Hypertension Alcohol abuse History of intracranial aneurysm, hemorrhage, status post clipping History of kidney cyst removal Former nicotine dependence Anxiety Depression Generalized weakness. History of QT prolongation per EKG, congenital Moderate protein calorie malnutrition Poor overall functional performance secondary to the above-mentioned comorbidities, deemed not a candidate for adjuvant chemotherapy or surgical intervention Plan: Continue on current medication regimen ,monitoring and symptomatic treatment. senior safety management consultant at bedside. IV dexamethasone, protein supplements. PT/OT. staff reports patient had a very difficult time getting up to chair. PT/OT. Multiple consults in place, recommendations pending. Discharge planning in progress for tomorrow.prognosis guarded given multiple complex medical issues The impression and plan of care has been dictated as directed. : I performed a history and examination of this patient, discussed the same with the dictator. I agree with the dictator's note ,documented as a scribe. Any additional findings or plans will be noted.
--- NOTE | 2024-09-10 16:10 | P.CNNES ---
History of Present Illness Consult date: 09/10/24 Requesting physician: Stephany Pacheco Reason for Consult: met encephalopathy, progressed vasogenic edema History of Present Illness: This is a 63-year-old female with history of metastatic breast cancer who comes the emergency department because of altered mental status. Some of the history is obtained from the ER's note since patient is not a great historian. It seems the patient was at the oncology office yesterday for radiation therapy and she would not still for the treatment that she was extremely confused as her physician recommended the patient to come to the emergency department. He recommended a CT of the head. It seems the patient has been confused for the past 1 week but worsened yesterday. No falls. She is on steroid for the vasogenic edema. Upon seeing the patient she could not tell me why she is in the hospital. She did acknowledge she has a history of breast cancer as well as lung cancer with mets to the brain. She did acknowledge that she is getting radiation therapy. She denies any new focal deficit. Feels she is doing well overall. Of note patient was seen by our neurology team in the past and May 2021 when she presented for shortness of breath chest pain neurology was consulted for clearance for anticoagulation. Please refer to Dr. Woodward's note for further details. Seems that the patient has history of subarachnoid hemorrhage on 01/31/2020 status post coiling. History of right frontal stroke related to the subarachnoid hemorrhage. Some of the workup during this hospital visit consisted of: Ammonia level less than 9 I reviewed the rest of the lab workup CT of the head is reported as overall similar exam with large region vasogenic edema involving the left temporal/parietal/occipital lobe corresponding with a known metastasis. Additional metastasis with vasogenic edema prominently identified within the right cerebellum. Third metastatic focus will build the right frontal parietal region abutting the falx is redemonstrated. These metastatic lesion are better appreciated on the prior MRI. Region of encephalomalacia noted involving the inferior left frontal lobe. Similar hydrocephalus with effacement of the posterior horn of the left lateral ve ntricle due to #1. No definite of acute intracranial process. I personally reviewed the CT and agree there is no acute intracranial process. MRI of the brain on 07/30/2024 is reported as scattered metastatic lesion which at least 3 have increased in size, finding compatible with progression of the disease at the sites. Other lesions are actively stable. There is increasing vasogenic edema present in the left cerebrum. The patient had PET scan in the past and it has metastasis along the liver possible right parotid. Review of Systems Limited. Past Medical History Past Medical History: Cancer, CVA/TIA, Memory Impairment Additional Past Medical History / Comment(s): subarachnoid hemorrhage in january 2020. Short term memory loss. Rt side breast ca, Kidney ca, Brain ca History of Any Multi-Drug Resistant Organisms: None Reported Past Surgical History: Breast Surgery, Cholecystectomy, Hysterectomy Additional Past Surgical History / Comment(s): Right kidney cyst removed, brain surgery due to an aneurysm back in january 2020. Right lung upper lobe removed 2020, R/T lung cancer. Radiation to brain r/t cancer. Bilat breast implants 2004? Past Anesthesia/Blood Transfusion Reactions: No Reported Reaction Past Psychological History: Anxiety, Depression Smoking Status: Former smoker Past Alcohol Use History: Occasional Additional Past Alcohol Use History / Comment(s): Reports 4-5 beers approx imately twice weekly. Quit smoking 2019 Past Drug Use History: None Reported - Past Family History Father History Unknown: Yes Family Medical History: Cancer Additional Family Medical History / Comment(s): Liver Mother Family Medical History: Cancer Additional Family Medical History / Comment(s): Breast Medications and Allergies Home Medications Medication Instructions Recorded Confirmed Type Divalproex Sodium [Depakote] 500 mg PO BID 05/04/21 09/08/24 History Escitalopram [Lexapro] 10 mg PO DAILY 05/04/21 09/08/24 History LORazepam [Ativan] 0.5 mg PO HS PRN 02/14/22 09/08/24 History traZODone HCL [Desyrel] 50 mg PO HS 02/14/22 09/08/24 History Furosemide [Lasix] 40 mg PO DAILY 12/05/23 09/08/24 History Omeprazole [PriLOSEC] 20 mg PO DAILY 09/08/24 09/08/24 History Potassium Chloride ER [K-Dur 20] 20 meq PO DAILY 09/08/24 09/08/24 History dexAMETHasone [Decadron] See Taper PO DIRECTED 09/08/24 09/08/24 History traMADol HCL 50 mg PO TID 09/08/24 09/08/24 History Allergies Allergy/AdvReac Type Severity Reaction Status Date / Time amoxicillin Allergy Rash/Hives Verified 09/08/24 17:27 codeine AdvReac Nausea Verified 09/08/24 17:27 Physical Examination - Vital Signs Vital Signs: Vital Signs Temp Pulse Resp BP Pulse Ox 09/10/24 14:31 97.4 F L 85 16 115/67 99 09/10/24 08:02 97.4 F L 62 16 130/75 95 09/10/24 01:30 97.5 F L 62 15 159/91 97 09/09/24 19:06 98.4 F 63 15 151/72 95 Intake and Output 09/10/24 09/10/24 09/10/24 06:59 14:59 22:59 Intake Total 476 Balance 476 Intake: Oral 476 Other: Voiding Method Toilet Diaper # Voids 1 1 General: Sitting in recliner chair and does not appear in acute distress. Neuro: Patient is awake alert oriented to self and place. She stated the year is 2020 but could not tell me the month. Upon showing her objects she kept on repeating the year 2020. She is following simple commands. No aphasia from limited language Pupils are round about 4 mm reactive to light. Unable to assess visual mchugh because of her cooperation. Extraocular movement is somewhat limited because of her cooperation but was able to look slightly to the right and left and there is no nystagmus or drastic weakness is appreciated. Patient has left lower facial droop. No dysarthria Motor: Strength left-sided appears weaker than the right side. Left side appears 4+. Cerebellar normal [id number]. Reflexes unable to assess because of her cooperation. Results - Laboratory Findings CBC and BMP: 09/09/24 04:50 09/09/24 04:50 Abnormal Lab Findings: Abnormal Labs 09/08/24 09/08/24 09/08/24 14:54 14:54 21:26 WBC 10.8 H RDW 16.6 H Immature Gran # Neutrophils # 8.1 H Lymphocytes # Monocytes # Eosinophils # Sodium 136 L Chloride 95 L Anion Gap BUN 59 H BUN/Creatinine Ratio Glucose POC Glucose (mg/dL) ALT 72 H Urine Ketones 1+ H 09/09/24 09/09/24 09/09/24 04:50 04:50 17:15 WBC RDW 17.0 H Immature Gran # 0.06 H Neutrophils # Lymphocytes # 0.71 L Monocytes # 0.16 L Eosinophils # 0 L Sodium Chloride Anion Gap 13.00 H BUN 46.4 H BUN/Creatinine Ratio 58.00 H Glucose 119 H POC Glucose (mg/dL) 124 H ALT Urine Ketones 09/09/24 09/10/24 09/10/24 20:18 07:26 12:29 WBC RDW Immature Gran # Neutrophils # Lymphocytes # Monocytes # Eosinophils # Sodium Chloride Anion Gap BUN BUN/Creatinine Ratio Glucose POC Glucose (mg/dL) 136 H 125 H 160 H ALT Urine Ketones Assessment and Plan Assessment: This is a 63-year-old woman with history of metastatic breast cancer involving lesions to the brain liver carotid who was scheduled to get radiation therapy but it seems that yesterday was severely confused and she is confused for the past 1 week. She had a recent MRI of the brain on July 2024 which showed her metastatic lesions progressed in size at least 3 of them with increasing vasogenic edema in the left cerebrum. Altered mental status likely due to progression of her metastatic brain lesion with vasogenic edema. Will any underlying seizure or discharges History of breast cancer with mets to the liver carotid brain she is getting radiation therapy and is on steroid Vasogenic edema due to her metastasis History of subarachnoid hemorrhage on 01/31/2020 was clipping History of right frontal stroke related to subarachnoid hemorrhage Hypertension History of pulmonary embolism Depression Plan: I ordered a routine EEG Patient is on Decadron 4 mg every 6 hours. Oncology is consulted Can consider repeat MRI of the brain but patient had 1 a month ago and I will not tire changer and I feel the overall quality of life is poor Will defer the rest of the medical management to primary and other specialist Thank you for the consultation. Time with Patient: Greater than 30
[2024-09-10 16:31] VITALS: BMI 24.2
[2024-09-10 18:05] LABS: Glucose,Whole Blood 149 mg/dL (70-110)
--- NOTE | 2024-09-10 19:51 | P.CONS ---
History of Present Illness - Reason for Consult Consult date: 09/10/24 breast cancer, brain mets Requesting physician: Ami Bob - Chief Complaint confusion - History of Present Illness Mrs. Quinones is a 63 year old female pt of Dr. Dill with severe short term memory loss 2/2 CVA. She fell on ice 10/26/20, xray of right shoulder which revealed RUL lung mass which led to CT CAP on 11/04/20. This revealed 3.1 x 3.0 cm RUL and 2.9 x 1.9 RLL masses and 4 x 4.7 cm solid right kidney mass. 11/18/20 CT guided biopsy of lung positive for adenocarcinoma consistent with lung primary. PDL-1 was negative, NGS revealed TP53 mutation and [id number] mutation. 11/30/20, bone scan was negative for metastatic disease. 12/04/20 PET revealed suspicious uptake in the 2 right lung lesions. She had surgery , RLL lobectomy and wedge resection of RLL, pathology revealed 2.3 cm carcinoma in RUL with 2 additional foci of microinvasive carcinoma (2.5 mm and 3.5mm), RLL revealed 3.5 cm invasive adenocarcinoma, regional nodes were negative, there was evidence of visceral pleura invasion and LVI, negative margins. She had long recovery time, spent time in rehab, and her PS had not improved, and was not a candidate for adjuvant chemotherapy for her lung cancer or a candidate for surgery in regard to her kidney cancer. She was loosing b alance,falling,had brain imaging (MRI on 11/29/2022) which confirmed 4 hemorrhagic brain lesions,she had whole brain radiation completed 12/19/2022. PET scan on 12/06/2022 revealed suspicious left breast lesion, stable kidney lesion. Mammograms and breast US confirmed 2.3 cm lesion at 6:00 left breast. Breast biopsy in February/2023 was positive for invasive ductal carcinoma,ER/LA negative and HER2/ROSHAN positive. In 06/20/2023,she started weekly taxol/herceptin. Last treatment with herceptin was completed in 02/2024. On 04/11/1014,repeat PET showed possible 2 small foci in liver which were also co nfirmed on MRI done on 05/06/2024. She also had right hip CT on 04/22/2024 which showed patchy changes. Due to her poor PS patient was not a candidate for further systemic therapy. She was then referred to Dr More to evaluate for palliative XRT to right hip. At her last visit on 08/19/23, hospice/palliative care was discussed and patient and family decided on palliative care only for now. MRI brain obtained on 07/30/2024 revealing scattered metastatic lesions which at least 3 have increased in size compatible with progression of disease, other lesions relatively stable. Increasing vasogenic edema present in the left cerebrum. She has been seen by Dr. More since and plan was for palliative brain RT. However, while at radiation pt was noted to have confusuon and was directed to come to the ER for further evaluation. Upon admit CT brain without contrast revealed overall similar exam with large region of vasogenic edema involving the left temporal/parietal/occipital lobe corresponding with known metastasis. Additional metastasis with vasogenic edema primarily identified within the right cerebellum. Third metastatic focus within the right frontoparietal region abutting the falx is demonstrated. Region of encephalomalacia noted involving the inferior left frontal lobe. Similar hydrocephalus with effacement of the posterior horn of the left lateral ventricle. No definitive acute intracranial hemorrhage is noted. Dexamethasone 4 mg every 6 hours was started. Labs reviewed, WBC 7.8, hemoglobin 12.7, platelets are in 306,000. Creatinine 0.8, GFR 84. Bilirubin 0.7, AST 28, ALT 72, ALP 95. Ammonia less than 9. At today's visit patient is confused but is able to answer questions. Reporting diffuse headache, but denies visual disturbances. No slurred speech noted. Review of Systems 10 point ROS is negative except as stated in the HPI Past Medical History Past Medical History: Cancer, CVA/TIA, Memory Impairment Additional Past Medical History / Comment(s): subarachnoid hemorrhage in january 2020. Short term memory loss. Rt side breast ca, Kidney ca, Brain ca History of Any Multi-Drug Resistant Organisms: None Reported Past Surgical History: Breast Surgery, Cholecystectomy, Hysterectomy Additional Past Surgical History / Comment(s): Right kidney cyst removed, brain surgery due to an aneurysm back in january 2020. Right lung upper lobe removed 2020, R/T lung cancer. Radiation to brain r/t cancer. Bilat breast implants 2004? Past Anesthesia/Blood Transfusion Reactions: No Reported Reaction Past Psychological History: Anxiety, Depression Smoking Status: Former smoker Past Alcohol Use History: Occasional Additional Past Alcohol Use History / Comment(s): Reports 4-5 beers approximately twice weekly. Quit smoking 2020 Past Drug Use History: None Reported - Past Family History Father History Unknown: Yes Family Medical History: Cancer Additional Family Medical History / Comment(s): Liver Mother Family Medical History: Cancer Additional Family Medical History / Comment(s): Breast Medications and Allergies Home Medications Medication Instructions Recorded Confirmed Type Divalproex Sodium [Depakote] 500 mg PO BID 05/04/21 09/08/24 History Escitalopram [Lexapro] 10 mg PO DAILY 05/04/21 09/08/24 History LORazepam [Ativan] 0.5 mg PO HS PRN 02/14/22 09/08/24 History traZODone HCL [Desyrel] 50 mg PO HS 02/14/22 09/08/24 History Furosemide [Lasix] 40 mg PO DAILY 12/05/23 09/08/24 History Omeprazole [PriLOSEC] 20 mg PO DAILY 09/08/24 09/08/24 History Potassium Chloride ER [K-Dur 20] 20 meq PO DAILY 09/08/24 09/08/24 History dexAMETHasone [Decadron] See Taper PO DIRECTED 09/08/24 09/08/24 History traMADol HCL 50 mg PO TID 09/08/24 09/08/24 History Allergies Allergy/AdvReac Type Severity Reaction Status Date / Time amoxicillin Allergy Rash/Hives Verified 09/08/24 17:27 codeine AdvReac Nausea Verified 09/08/24 17:27 Physical Exam Vitals: Vital Signs Temp Pulse Resp BP Pulse Ox 09/10/24 08:02 97.4 F L 62 16 130/75 95 09/10/24 01:30 97.5 F L 62 15 159/91 97 09/09/24 19:06 98.4 F 63 15 151/72 95 Intake and Output 09/09/24 09/10/24 09/10/24 22:59 06:59 14:59 Intake Total 120 476 Balance 120 476 Intake: Oral 120 476 Other: Voiding Method Toilet Toilet Diaper Diaper # Voids 2 1 1 - Constitutional General appearance: average body habitus, no acute distress - EENT Eyes: anicteric sclerae, EOMI ENT: hearing grossly normal - Respiratory breathing is evening and unlabored - Cardiovascular skin warm and dry, well perfused - Gastrointestinal General gastrointestinal: soft, no tenderness - Integumentary Integumentary: no cyanotic, no jaundiced - Neurologic confused, no focal deficits - Psychiatric Psychiatric: A&O x's 3 Results CBC & Chem 7: 09/09/24 04:50 09/09/24 04:50 Labs: Abnormal Lab Results - Last 24 Hours (Table) 09/09/24 09/09/24 09/10/24 Range/Units 17:15 20:18 07:26 POC Glucose (mg/dL) 124 H 136 H 125 H (70-110) mg/dL CT Scan - head: report reviewed MRI - head: report reviewed Assessment and Plan (1) Acute encephalopathy Current Visit: Yes Status: Acute Priority: High Code(s): G93.40 - ENCEPHALOPATHY, UNSPECIFIED SNOMED Code(s): 65268234 (2) Metastatic cancer to brain Current Visit: Yes Status: Acute Priority: High Code(s): C79.31 - SECONDARY MALIGNANT NEOPLASM OF BRAIN SNOMED Code(s): 87717246 (3) Vasogenic edema Current Visit: Yes Status: Acute Priority: High Code(s): G93.6 - CEREBRAL EDEMA SNOMED Code(s): 073754453 Plan: Metastatic disease, hx of lung, breast and kidney cancer: -Full oncology history as dictated in the HPI. Had surgery 02/04/21, RLL lobectomy and wedge resection of RLL, pathology revealed 2.3 cm carcinoma in RUL with 2 additional foci of microinvasive carcinoma (2.5 mm and 3.5mm), RLL revealed 3.5 cm invasive adenocarcinoma, regional nodes were negative, there was evidence of visceral pleura invasion and LVI, negative margins. Due to poor PS, she was not a candidate for adjuvant chemotherapy for her lung cancer or a candidate for surgery in regard to her kidney cancer. She was loosing balance,falling,had brain imaging (MRI on 11/29/2022) which confirmed 4 hemorrhagic brain lesions,she had whole brain radiation completed 12/19/2022. PET scan on 12/06/2022 revealed suspicious left breast lesion, stable kidney lesion. Mammograms and breast US confirmed 2.3 cm lesion at 6:00 left breast. Breast biopsy in February/2023 was positive for invasive ductal carcinoma,ER/LA negative and HER2/ROSHAN positive. In 06/20/2023,she started weekly taxol/herceptin. Last treatment with herceptin was completed in 02/2024. On ,repeat PET showed possible 2 small foci in liver which were also confirmed on MRI done on 05/06/2024. Due to her poor PS patient was not a candidate for further systemic therapy. At her last visit on 08/19/23, hospice/palliative care was discussed and patient and family decided on palliative care only for now. MRI brain obtained on 07/30/2024 revealing scattered metastatic lesions which at least 3 have increased in size compatible with progression of disease, other lesions relatively stable. Increasing vasogenic edema present in the left cerebrum. She has been seen by Dr. More since and plan was for palliative brain RT. However, while at radiation pt was noted to have confusion and was directed to come to the ER for further evaluation. -Upon admit CT brain without contrast revealed overall similar exam with large region of vasogenic edema involving the left temporal/parietal/occipital lobe corresponding with known metastasis. Additional metastasis with vasogenic edema primarily identified within the right cerebellum. Third metastatic focus within the right frontoparietal region abutting the falx is demonstrated. Region of encephalomalacia noted involving the inferior left frontal lobe. Similar hydrocephalus with effacement of the posterior horn of the left lateral ventricle. No definitive acute intracranial hemorrhage is noted. -Dexamethasone 4 mg every 6 hours was started. -Rad onc consulted. Discussed case today with Dr. More, RT on hold at this time -No family at bedside today. Asked nursing to ask spouse to be present tomorrow for family meeting to further discuss goals of care and hospice vs palliative care. If they want to continue to proceed with palliative care will obtain brain MRI for further evaluation and have rad onc revaluate for palliative brain RT attests: I have seen and examined pt, performed H&P, developed impression and plan of care. Discussed with dictator. Agree with documentation, dictated as a scribe.
[2024-09-10 20:21] LABS: Glucose,Whole Blood 131 mg/dL (70-110)
[2024-09-11 07:07] LABS: Glucose,Whole Blood 111 mg/dL (70-110)
[2024-09-11 10:37] LABS: Basophils # (A) 0.01 X 10*3/uL (0.00-0.10); Basophils % (A) 0.1 %; Eosinophils # (A) 0 X 10*3/uL (0.04-0.35); Eosinophils % (A) 0 %; HCT 37.3 % (37.2-46.3); HGB 12.3 g/dL (12.0-15.0); Lymphocytes # (A) 0.98 X 10*3/uL (0.90-5.00); Lymphocytes % (A) 9.1 %; MCH 29.1 pg (27.0-32.0); MCV 88.2 FL (80.0-97.0); Mean Platelet Volume 10.1 FL (9.5-12.2); Monocytes # (A) 0.58 X 10*3/uL (0.20-1.00); Monocytes % (A) 5.4 %; NRBC Per 100 WBC 0 X 10*3/uL (0.00-0.01); Neutrophils # (A) 9.08 X 10*3/uL (1.80-7.70); Neutrophils % (A) 84.5 %; Platelet Count 340 X 10*3/uL (140-440); RBC 4.23 X 10*6/uL (4.10-5.20); RDW 16.6 % (11.5-14.5); WBC 10.75 X 10*3/uL (4.50-10.00)
--- NOTE | 2024-09-11 10:46 | P.DS ---
Providers Date of admission: 09/08/24 17:33 Expected date of discharge: 09/11/24 Attending physician: Kan Rodriges Consults: 09/08/24 17:15 Consult Physician Urgent Consulting Provider: Harjeet More Consult Reason/Comments: vasogenic edema, metastatic cancer Do you want consulting provider notified?: Yes 09/09/24 13:22 Consult Physician Routine Consulting Provider: Aida Dill Consult Reason/Comments: met enceph, incr mets with vasogenic edema Do you want consulting provider notified?: Yes 09/09/24 13:25 Consult Physician Routine Consulting Provider: Leif Collado Consult Reason/Comments: met enceph, progressed vasogenic edema Do you want consulting provider notified?: Yes Primary care physician: Germán Ellis Hospital Course: Metastatic cancer to brain with vasogenic edema, on oral Decadron at home. Brain CT reports increased. Liver mets reported per documentation forwarded to PCP from oncology. Right lung Metastatic pulmonary adenocarcinoma, Breast cancer Diarrhea Poor oral intake Dehydration Hx of right pneumonectomy Renal cell CA, right kidney mass increased in size-per CT Hypertension Alcohol abuse History of intracranial aneurysm, hemorrhage, status post clipping History of kidney cyst removal Former nicotine dependence Anxiety Depression Generalized weakness. History of QT prolongation per EKG, congenital Moderate protein calorie malnutrition Poor overall functional performance secondary to the above-mentioned comorbidities, deemed not a candidate for adjuvant chemotherapy or surgical intervention Hospital course:This is a 63-year-old female with past medical history of metastatic lung and breast cancer, vasogenic edema- left temporal/parietal/occipital lobe/right cerebellum/right frontoparietal with metastasis-MRI 07/30/2024 reported increased/progression of disease, subarachnoid hemorrhage/cerebral aneurysm/clipping, anxiety, depression, former nicotine dependence, ongoing alcohol use, hypertension, renal ca,metastatic pulmonary adenocarcinoma of the right lung diagnosed in November 2020 per lung biopsy, right pneumonectomy,status post pneumothorax-requiring pigtail catheter with removal and multiple other medical issues brought into the ER regarding worsening confusion. ER reports that she was at a radiation oncology appointment yesterday, extremely confused, anxious, unable to sit still for her treatment and was directed to the ER. ER reports disclosed worsening confusion over the last week. Denied any falls or trauma. Denied increased mobility weakness-ambulates with a cane. Decreased appetite. denied any fevers or chills or recent illness. Patient reports she has a right lateral ongoing headache, fluctuates- mildly improving this morning, positive nausea. Denies visual deficits. Patient reports she is noticed her confusion or the last 2 months. On admission ;afebrile, WBC 10.8, neutrophils 75. Hemoglobin 12.9, platelets 349. Electrolytes within normal limits, BUN 59, creatinine 0.93, GFR 67. UA reporting negative nitrates, leukocytes, 1+ ketones. Ammonia level less than 9. 09/10/2024 maintained on IV dexamethasone, blood sugars controlled. This morning denies any pain. Does not complain of headache. Good diet intake. Denies chest pain, palpitations or shortness of breath. Denies lightheadedness, dizziness or focal deficits. IV dexamethasone, protein supplements. PT/OT. staff reports patient had a very difficult time getting up to chair. PT/OT. Multiple consults in place, recommendations pending. Discharge planning in progress for tomorrow.prognosis guarded given multiple complex medical issues 09/11/2024 Staff reports patient ambulating better to and from bathroom, minimal assist. Denies pain. Good diet intake. Discussed at bedside with and patient ,options of hospice or palliative care. Apparently patient had been on hospice previously, removed to facilitate treatment, and posttreatment, hospice was not resumed. Agreeable to hospice consult. Patient will be discharged home today in stable condition with guarded prognosis pending hospice consult, completion of EEG-results to be forwarded to PCP and oncology's office. Patient currently on Depakote at home. Patient does have Decadron at home, further Decadron dosing for discharge as well as pain management as per oncology. The impression and plan of care has been dictated as directed. DrIsmael: I performed a history and examination of this patient, discussed the same with the dictator. I agree with the dictator's note ,documented as a scribe. Any additional findings or plans will be noted. The impression and plan of care has been dictated as directed. .: I performed a history and examination of this patient, discussed the same with the dictator. I agree with the dictator's note ,documented as a scribe. Any additional findings or plans will be noted. Patient Condition at Discharge: Stable Plan - Discharge Summary Discharge Rx Participant: No New Discharge Prescriptions: Continue Escitalopram [Lexapro] 10 mg PO DAILY traZODone HCL [Desyrel] 50 mg PO HS Omeprazole [PriLOSEC] 20 mg PO DAILY dexAMETHasone [Decadron] See Taper PO DIRECTED Divalproex Sodium [Depakote] 500 mg PO BID LORazepam [Ativan] 0.5 mg PO HS PRN PRN Reason: Anxiety Furosemide [Lasix] 40 mg PO DAILY Potassium Chloride ER [K-Dur 20] 20 meq PO DAILY No Action traMADol HCL 50 mg PO TID Discharge Medication List Divalproex Sodium [Depakote] 500 mg PO BID 05/04/21 [History] Escitalopram [Lexapro] 10 mg PO DAILY 05/04/21 [History] LORazepam [Ativan] 0.5 mg PO HS PRN 02/14/22 [History] traZODone HCL [Desyrel] 50 mg PO HS 02/14/22 [History] Furosemide [Lasix] 40 mg PO DAILY 12/05/23 [History] Omeprazole [PriLOSEC] 20 mg PO DAILY 09/08/24 [History] Potassium Chloride ER [K-Dur 20] 20 meq PO DAILY 09/08/24 [History] dexAMETHasone [Decadron] See Taper PO DIRECTED 09/08/24 [History] traMADol HCL 50 mg PO TID 09/08/24 [History] Follow up Appointment(s)/Referral(s): Germán Ellis MD [Primary Care Provider] - 3 Days Activity/Diet/Wound Care/Special Instructions: Pain management and oral steroids as per oncology.
[2024-09-11 10:53] LABS: BUN/Creat Ratio 70.44 Ratio (12.00-20.00); Blood Urea Nitrogen 63.4 mg/dL (9.0-27.0); Calcium 9.4 mg/dL (8.7-10.3); Carbon Dioxide 28.8 mmol/L (21.6-31.8); Chloride 94 mmol/L (96-109); Glucose 116 mg/dL (70-110); Sodium 135 mmol/L (135-145)
[2024-09-11 12:44] LABS: Glucose,Whole Blood 134 mg/dL (70-110)
[2024-09-11 12:59] VITALS: BP 133/84; PULSE 89; RESP 18; TEMP 98.2
--- NOTE | 2024-09-11 14:53 | P.PN ---
Subjective Progress Note Date: 09/11/24 I am following-up with patient and per she has not had seizure with brain mets but had one that is remote when she had brain bleed once. Objective - Vital Signs Vital signs: Vital Signs Temp 98.2 F 09/11/24 12:29 Pulse 89 09/11/24 12:29 Resp 18 09/11/24 12:29 BP 133/84 09/11/24 12:29 Pulse Ox 95 09/11/24 12:29 FiO2 Intake & Output 09/10/24 09/11/24 09/11/24 18:59 06:59 18:59 Intake Total 1216 Balance 1216 Weight 54.431 kg Intake: Oral 1216 Other: Voiding Method Toilet Toilet Toilet Diaper Diaper Diaper # Voids 1 1 - Exam General: Sitting on side of bed and does not appear in acute distress. Neuro: Patient is awake alert oriented to self. She is following simple commands. No aphasia from limited language Pupils are round about 4 mm reactive to light. Unable to assess visual mchugh because of her cooperation. Patient has left lower facial droop. No dysarthria Motor: Strength left-sided appears weaker than the right side. Left side appears 4+. Cerebellar normal [id number]. Reflexes unable to assess because of her cooperation. Some of the workup during this hospital visit consisted of: Ammonia level less than 9 I reviewed the rest of the lab workup CT of the head is reported as overall similar exam with large region vasogenic edema involving the left temporal/parietal/occipital lobe corresponding with a known metastasis. Additional metastasis with vasogenic edema prominently identified within the right cerebellum. Third metastatic focus will build the right frontal parietal region abutting the falx is redemonstrated. These metastatic lesion are better appreciated on the prior MRI. Region of encephalomalacia noted involving the inferior left frontal lobe. Similar hydrocephalus with effacement of the posterior horn of the left lateral ventricle due to #1. No definite of acute intracranial process. I personally reviewed the CT and agree there is no acute intracranial process. MRI of the brain on 07/30/2024 is reported as scattered metastatic lesion which at least 3 have increased in size, finding compatible with progression of the disease at the sites. Other lesions are actively stable. There is increasing vasogenic edema present in the left cerebrum. The patient had PET scan in the past and it has metastasis along the liver possible right parotid. - Labs CBC & Chem 7: 09/11/24 06:19 09/11/24 06:15 Labs: Abnormal Lab Results - Last 24 Hours (Table) 09/10/24 09/10/24 09/11/24 Range/Units 18:03 20:18 06:15 WBC (4.50-10.00) X 10*3/uL RDW (11.5-14.5) % Immature Gran # (0.00-0.04) X 10*3/uL Neutrophils # (1.80-7.70) X 10*3/uL Eosinophils # (0.04-0.35) X 10*3/uL Chloride 94 L (96-109) mmol/L Anion Gap 12.20 H (4.00-12.00) mmol/L BUN 63.4 H (9.0-27.0) mg/dL BUN/Creatinine Ratio 70.44 H (12.00-20.00) Ratio Glucose 116 H (70-110) mg/dL POC Glucose (mg/dL) 149 H 131 H (70-110) mg/dL 09/11/24 09/11/24 09/11/24 Range/Units 06:19 07:06 12:43 WBC 10.75 H (4.50-10.00) X 10*3/uL RDW 16.6 H (11.5-14.5) % Immature Gran # 0.10 H (0.00-0.04) X 10*3/uL Neutrophils # 9.08 H (1.80-7.70) X 10*3/uL Eosinophils # 0 L (0.04-0.35) X 10*3/uL Chloride (96-109) mmol/L Anion Gap (4.00-12.00) mmol/L BUN (9.0-27.0) mg/dL BUN/Creatinine Ratio (12.00-20.00) Ratio Glucose (70-110) mg/dL POC Glucose (mg/dL) 111 H 134 H (70-110) mg/dL Assessment and Plan Assessment: This is a 63-year-old woman with history of metastatic breast cancer involving lesions to the brain liver carotid who was scheduled to get radiation therapy but it seems that yesterday was severely confused and she is confused for the past 1 week. She had a recent MRI of the brain on July 2024 which showed her metastatic lesions progressed in size at least 3 of them with increasing vasogenic edema in the left cerebrum. Altered mental status likely due to progression of her metastatic brain lesion with vasogenic edema. Will any underlying seizure or discharges History of breast cancer with mets to the liver carotid brain she is getting radiation therapy and is on steroid Vasogenic edema due to her metastasis History of subarachnoid hemorrhage on 01/31/2020 was clipping History of right frontal stroke related to subarachnoid hemorrhage Hypertension History of pulmonary embolism Depression Plan: Preliminary routine EEG: Negative for seizure Patient is on Decadron 4 mg every 6 hours. 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 Time with Patient: Less than 30
--- NOTE | 2024-09-11 19:25 | P.PN ---
Subjective Progress Note Date: 09/11/24 Pt mentation has improved closer to baseline. at bedside, wanting to be discharged today and do brain MRI outpt. Discussed palliative care vs hospice. At this time, pt and spouse want to continue with palliative care and with palliative brain RT Objective - Vital Signs Vital signs: Vital Signs Temp 98.0 F 09/11/24 07:03 Pulse 64 09/11/24 07:03 Resp 20 09/11/24 07:03 BP 137/82 09/11/24 07:03 Pulse Ox 95 09/11/24 07:03 FiO2 Intake & Output 09/10/24 09/11/24 09/11/24 18:59 06:59 18:59 Intake Total 1216 Balance 1216 Weight 54.431 kg Intake: Oral 1216 Other: Voiding Method Toilet Toilet Toilet Diaper Diaper Diaper # Voids 1 1 - Constitutional General appearance: Present: average body habitus, no acute distress - EENT Eyes: Present: anicteric sclerae, EOMI ENT: Present: hearing grossly normal - Respiratory Details: breathing is even and unlabored - Cardiovascular Details: skin warm and dry - Integumentary Integumentary: Absent: cyanotic - Labs CBC & Chem 7: 09/11/24 06:19 09/11/24 06:15 Labs: Abnormal Lab Results - Last 24 Hours (Table) 09/10/24 09/10/24 09/10/24 Range/Units 12:29 18:03 20:18 WBC (4.50-10.00) X 10*3/uL RDW (11.5-14.5) % Immature Gran # (0.00-0.04) X 10*3/uL Neutrophils # (1.80-7.70) X 10*3/uL Eosinophils # (0.04-0.35) X 10*3/uL Chloride (96-109) mmol/L Anion Gap (4.00-12.00) mmol/L BUN (9.0-27.0) mg/dL BUN/Creatinine Ratio (12.00-20.00) Ratio Glucose (70-110) mg/dL POC Glucose (mg/dL) 160 H 149 H 131 H (70-110) mg/dL 02/27/25 02/27/25 02/27/25 Range/Units 06:15 06:19 07:06 WBC 10.75 H (4.50-10.00) X 10*3/uL RDW 16.6 H (11.5-14.5) % Immature Gran # 0.10 H (0.00-0.04) X 10*3/uL Neutrophils # 9.08 H (1.80-7.70) X 10*3/uL Eosinophils # 0 L (0.04-0.35) X 10*3/uL Chloride 94 L (96-109) mmol/L Anion Gap 12.20 H (4.00-12.00) mmol/L BUN 63.4 H (9.0-27.0) mg/dL BUN/Creatinine Ratio 70.44 H (12.00-20.00) Ratio Glucose 116 H (70-110) mg/dL POC Glucose (mg/dL) 111 H (70-110) mg/dL Assessment and Plan (1) Acute encephalopathy Status: Acute Priority: High Code(s): G93.40 - ENCEPHALOPATHY, UNSPECIFIED SNOMED Code(s): 02630466 (2) Metastatic cancer to brain Status: Acute Priority: High Code(s): C79.31 - SECONDARY MALIGNANT NEOPLASM OF BRAIN SNOMED Code(s): 76996233 (3) Vasogenic edema Status: Acute Priority: High Code(s): G93.6 - CEREBRAL EDEMA SNOMED Code(s): 441966234 Plan: Metastatic disease, hx of lung, breast and kidney cancer: -Full oncology history as dictated in the HPI. Had surgery 02/04/21, RLL lobectomy and wedge resection of RLL, pathology revealed 2.3 cm carcinoma in RUL with 2 additional foci of microinvasive carcinoma (2.5 mm and 3.5mm), RLL revealed 3.5 cm invasive adenocarcinoma, regional nodes were negative, there was evidence of visceral pleura invasion and LVI, negative margins. Due to poor PS, she was not a candidate for adjuvant chemotherapy for her lung cancer or a candidate for surgery in regard to her kidney cancer. She was loosing balance,falling,had brain imaging (MRI on 11/29/2022) which confirmed 4 hemorrhagic brain lesions,she had whole brain radiation completed 12/19/2022. PE T scan on 12/06/2022 revealed suspicious left breast lesion, stable kidney lesion. Mammograms and breast US confirmed 2.3 cm lesion at 6:00 left breast. 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 In 06/20/2023,she started weekly taxo l/herceptin. Last treatment with herceptin was completed in 02/2024. On 04/11/1014,repeat PET showed possible 2 small foci in liver which were also confirmed on MRI done on 05/06/2024. Due to her poor PS patient was not a candidate for further systemic therapy. At her last visit on 08/19/23, hospice/pa lliative care was discussed and patient and family decided on palliative care only for now. MRI brain obtained on 07/30/2024 revealing scattered metastatic lesions which at least 3 have increased in size compatible with progression of disease, other lesions relatively stable. Increasing vasogenic edema present in the left cerebrum. She has been seen by Dr. More since and plan was for palliative brain RT. However, while at radiation pt was noted to have increased confusion and was directed to come to the ER for further evaluation. -Upon admit CT brain without contrast revealed overall similar exam with large region of vasogenic edema involving the left temporal/parietal/occipital lobe corresponding with known metastasis. Additional metastasis with vasogenic edema primarily identified within the right cerebellum. Third metastatic focus within the right frontoparietal region abutting the falx is demonstrated. Region of encephalomalacia noted involving the inferior left frontal lobe. Similar hydrocephalus with effacement of the posterior horn of the left lateral ventricle. No definitive acute intracranial hemorrhage is noted. -Dexamethasone 4 mg every 6 hours was started. -Rad onc consulted. Discussed case today with Dr. More, RT on hold at this time Had discussion with pt and today. Discussed hospice vs palliative care. They wish to proceed with palliative care and brain RT. Consult for palliative care placed. They would prefer to do brain MRI outpt Discussed case with Dr. More, he will reschedule RT to start next week, ok with obtaining brain MRI outpt. Outpt MRI order placed Will continue decadron at 4mg TID, and defer taper to rad onc. Pt updated on POC and was agreeable to the same
--- NOTE | 2024-09-11 21:23 | EEG ---
ELECTROENCEPHALOGRAM REPORT CLINICAL HISTORY: This is a 63-year-old woman with brain mets, who has altered mental status. The video EEG is obtained to evaluate for seizure epileptiform activity. RELEVANT MEDICATIONS: 1. Depakote. 2. Decadron. EEG TYPE: This is a routine 21-channel EEG with video using the 10/20 electrode placement system. DESCRIPTION: Wakefulness is only obtained. During awake state, the background consists of low-to- moderate voltage of 6.5 to 7.5 hertz activity intermixed with delta activity that is polymorphic. There is no physiological stage 2 sleep architecture. There is no focal slowing. Interictal and ictal is none. ACTIVATION PROCEDURE: Photic stimulation and hyperventilation are not performed. CLINICAL INTERPRETATION: This is an abnormal routine EEG. The background slowing is suggestive of moderate encephalopathy. Otherwise, there is no focal slowing, epileptiform discharge, or seizure on the EEG. Lack of epileptiform discharge does not rule out underlying epilepsy. Clinical correlation is recommended. DELFINA / PARDEEPN: [id number] /
== END 2024-09-11 14:22 | disposition hospice, inpatient (51) | DRG 54 ==
LOC: EC 12:58 → 5NMEDONC 17:33
PROVIDERS: ADMIT Family Medicine; ATTEND Family Medicine
PROC: 4A10X4Z Monitoring of Central Nervous Electrical Activity, External Approach (ICD-10-PCS; principal; 2024-09-11)
DX: C79.31 Secondary malignant neoplasm of brain (principal); G93.41 Metabolic encephalopathy; G93.6 Cerebral edema; E44.0 Moderate protein-calorie malnutrition; C78.01 Secondary malignant neoplasm of right lung; C78.7 Secondary malignant neoplasm of liver and intrahepatic bile duct; G91.9 Hydrocephalus, unspecified; E86.0 Dehydration; C64.9 Malignant neoplasm of unspecified kidney, except renal pelvis; I10 Essential (primary) hypertension; F32.A Depression, unspecified; F10.10 Alcohol abuse, uncomplicated; F41.9 Anxiety disorder, unspecified; Z68.24 Body mass index [BMI] 24.0-24.9, adult; G93.89 Other specified disorders of brain; Z51.5 Encounter for palliative care; Z79.899 Other long term (current) drug therapy; Z85.118 Personal history of other malignant neoplasm of bronchus and lung; Z85.3 Personal history of malignant neoplasm of breast; Z85.528 Personal history of other malignant neoplasm of kidney; Z86.711 Personal history of pulmonary embolism; Z85.841 Personal history of malignant neoplasm of brain; Z90.2 Acquired absence of lung [part of]; Z87.891 Personal history of nicotine dependence; Z90.710 Acquired absence of both cervix and uterus; Z86.73 Personal history of transient ischemic attack (TIA), and cerebral infarction without residual deficits; Z92.3 Personal history of irradiation; Z88.1 Allergy status to other antibiotic agents; Z88.5 Allergy status to narcotic agent
CPT/HCPCS: 36415; 70450; 80048; 80053; 81003; 82140; 83036; 85025; 93005; 95816; 96374; 96376; 99285

== ENCOUNTER 2024-09-16 15:23 | Emergency (ER) | payer MEDICARE ==
[2024-09-16 15:31] LABS: Glucose,Whole Blood 133 mg/dL (70-110)
[2024-09-16 15:39] VITALS: TEMP 98
[2024-09-16 15:59] VITALS: RESP 18
--- NOTE | 2024-09-16 16:03 | CT ---
CT brain without contrast HISTORY: Code stroke. COMPARISON: 09/08/2024. TECHNIQUE: Multiple axial images obtained from skull base to vertex without use of IV contrast orestes jose FINDINGS: The ventricular system is markedly enlarged but stable compared to the prior study. There is stable t here are postsurgical changes in the moderate to marked decreased density in the periventricular whit e matter. There is no mass effect or shift of the midline structures There are stable surgical clips in the suprasellar region likely for aneurysm repair. There is a stable large area of vasogenic edema in the left temporoparietal occipital region with a c luster of calcific densities consistent with the known metastatic disease. There is stable encephalomalacia in the inferior left frontal lobe. The dense 10.5 mm lesion in adjacent to the posterior falx on the right has increased to 14.4 mm. The right cerebellar hyperdense lesion has increased from 8.75 to 14.4 mm. IMPRESSION: 1. Stable marked hydrocephalus with no shift of midline structures. 2. Interval growth in the known metastatic lesions as described above. 3. Stable marked white matter demyelination. 4. Intact calvarium. 5. stable postsurgical changes of aneurysm repair in the anterior circulation [facility], , 09/16/2024 4:01 PM
--- NOTE | 2024-09-16 16:13 | CT ---
EXAMINATION TYPE: CT angio head neck DATE OF EXAM: 09/16/2024 COMPARISON: 10/26/2020 CLINICAL INDICATION: Female, 64 years old with history of Neuro deficit, acute, stroke suspected; PHH , Code stroke. Left side deficits. Aphasia. Brain CA. TECHNIQUE: CTA scan of the head and neck is performed with IV Contrast, patient injected with 65 ml mL of Isovue 370, axial images are obtained, coronal and sagittal reformatted images are reviewed. 3D reconstructed images are created on an independent workstation and reviewed. 3-D postprocessing was performed. CT DLP: 294.[address] CTDI: mGy Automated exposure control for dose reduction was used. NASCET criteria was used in interpretation of this exam? FINDINGS: The brachiocephalic origins are widely patent and no significant stenosis. There is mild calcified eccentric plaque in the carotid bifurcations. There is no significant stenosi s of the common or internal carotid arteries within the neck. There is no stenosis of the vertebral a rteries. Intracranially, there is no stenosis, segmental occlusion, sizable aneurysm sac or vascular malformat ion. There are aneurysm clips in the right MCA and supraclinoid region IMPRESSION:. 1. No significant occlusive disease in the head or neck. 2. Marked abnormal density in the right lung apex consistent with lung mass or loculated pleural effu james. Correlate with chest CT. NASCET criteria was used in interpretation of this exam? [facility], , 09/16/2024 4:11 PM
[2024-09-16 16:15] LABS: Anisocytosis Slight; Basophils # (A) 0.1 k/uL (0-0.2); Basophils % (A) 0 %; Eosinophils # (A) 0.1 k/uL (0-0.7); Eosinophils % (A) 1 %; HCT 36.8 % (34.0-46.0); HGB 11.6 gm/dL (11.4-16.0); Lymphocytes # (A) 0.8 k/uL (1.0-4.8); Lymphocytes % (A) 5 %; MCHC 31.6 g/dL (31.0-37.0); MCV 91.9 fL (80.0-100.0); Mean Platelet Volume 8.3; Monocytes # (A) 0.5 k/uL (0-1.0); Monocytes % (A) 3 %; Neutrophils # (A) 16.1 k/uL (1.3-7.7); Neutrophils % (A) 92 %; RDW 16.6 % (11.5-15.5); WBC 17.6 k/uL (3.8-10.6)
[2024-09-16 16:28] LABS: ALT 92 U/L (4-34); AST 88 U/L (14-36); African American GFR (CKD) >90 (>60 ml/min/1.73 sqM); Albumin 2.9 g/dL (3.5-5.0); Alkaline Phosphatase 65 U/L (38-126); Anion Gap 7 mmol/L; Blood Urea Nitrogen 59 mg/dL (7-17); Calcium 8.4 mg/dL (8.4-10.2); Carbon Dioxide 30 mmol/L (22-30); Chloride 93 mmol/L (98-107); Creatine Kinase 39 U/L (30-135); Glucose 131 mg/dL (74-99); Non-African American GFR(CKD) >90 (>60 ml/min/1.73 sqM); Potassium 3.8 mmol/L (3.5-5.1); Sodium 130 mmol/L (137-145); Total Protein 5.2 g/dL (6.3-8.2)
[2024-09-16 16:36] LABS: Platelet Count 167 k/uL (150-450)
[2024-09-16 16:37] LABS: Partial Thromboplastin Time 22.9 sec (22.0-30.0); Prothrombin Time 11.1 sec (10.0-12.5)
[2024-09-16] MEDS: DEXAMETHASONE SOD PHOSPHATE 4 MG/ML 1 ML VIAL IVP STA (16:53)
[2024-09-16] MEDS: levETIRAcetam IV 500 MG/5 ML VIAL IVP STA (16:53)
--- NOTE | 2024-09-16 16:55 | XR ---
EXAMINATION TYPE: XR chest 2V DATE OF EXAM: 09/16/2024 4:45 PM COMPARISON: Chest radiographs from 12/06/2023, head CT 04/11/2024 TECHNIQUE: XR chest 2V Frontal and lateral views of the chest. CLINICAL INDICATION:Female, 64 years old with history of altered mental status; FINDINGS: Lungs/Pleura: Postsurgical changes of the right lung with volume loss and small pleural effusion. The left lung is clear. No pneumothorax. Pulmonary vascularity: Unremarkable. Heart/mediastinum: Cardiomediastinal silhouette is shifted to the right from right lung volume loss. Musculoskeletal: No acute osseous pathology. Other findings: Surgical clips in the right upper quadrant. Lines/Tubes: Right hemithorax IJ approach Mediport catheter with distal tip terminating in the mid SVC. IMPRESSION: Overall no significant change from prior examination with postsurgical changes of the right lung with small right pleural effusion and volume loss. [facility], , 09/16/2024 4:53 PM
--- NOTE | 2024-09-16 17:09 | ED ---
General Adult HPI - General Chief complaint: Neuro Symptoms/Deficit Stated complaint: stroke-like symptoms Time Seen by Provider: 09/16/24 15:23 Source: patient, family, EMS, RN notes reviewed, old records reviewed Mode of arrival: EMS Limitations: no limitations - History of Present Illness Initial comments: Patient is a 64-year-old female with history of metastatic breast cancer with mets to the brain, seizures, CVAs, memory impairment who presents emergency department for stroke like symptoms. Last known well was 2200 on . Was found today at approximately 1300 with symptoms of left-sided weakness, inability to look to the left, as well as some facial paralysis. Presents for stroke activation. Patient is unable provide much history. She is A&O x 2. She denies any pain. No known falls. Does not appear to be on thinners. Send for similar complaints here late last month. Does have a history of coiling of the brain aneurysm per patient's . Presents for further evaluation at this time. - Related Data Home Medications Medication Instructions Recorded Confirmed Divalproex Sodium [Depakote] 500 mg PO BID 05/04/21 09/08/24 Escitalopram [Lexapro] 10 mg PO DAILY 05/04/21 09/08/24 LORazepam [Ativan] 0.5 mg PO HS PRN 02/14/22 09/08/24 traZODone HCL [Desyrel] 50 mg PO HS 02/14/22 09/08/24 Furosemide [Lasix] 40 mg PO DAILY 12/05/23 09/08/24 Omeprazole [PriLOSEC] 20 mg PO DAILY 09/08/24 09/08/24 Potassium Chloride ER [K-Dur 20] 20 meq PO DAILY 09/08/24 09/08/24 dexAMETHasone [Decadron] See Taper PO DIRECTED 09/08/24 09/08/24 traMADol HCL 50 mg PO TID 09/08/24 09/08/24 Allergies Allergy/AdvReac Type Severity Reaction Status Date / Time amoxicillin Allergy Rash/Hives Verified 09/16/24 15:35 codeine AdvReac Nausea Verified 09/16/24 15:35 Review of Systems ROS Statement: Those systems with pertinent positive or pertinent negative responses have been documented in the HPI. Review of Systems: CONST: Denies fever EYES: Denies blurry vision ENT: Denies nasal congestion C/V: Denies Chest pain RESP: Denies shortness of breath GI: Denies abdominal pain : Denies dysuria SKIN: Denies rash. MSK: Denies joint pain. NEURO: Denies headache ROS Other: All systems not noted in ROS Statement are negative. Past Medical History Past Medical History: Cancer, CVA/TIA, Memory Impairment Additional Past Medical History / Comment(s): subarachnoid hemorrhage in january 2020. Short term memory loss. Rt side breast ca, Kidney ca, Brain ca History of Any Multi-Drug Resistant Organisms: None Reported Past Surgical History: Breast Surgery, Cholecystectomy, Hysterectomy Additional Past Surgical History / Comment(s): Right kidney cyst removed, brain surgery due to an aneurysm back in january 2020. Right lung upper lobe removed 2020, R/T lung cancer. Radiation to brain r/t cancer. Bilat breast implants 2004? Past Anesthesia/Blood Transfusion Reactions: No Reported Reaction Past Psychological History: Anxiety, Depression Smoking Status: Former smoker Past Alcohol Use History: Occasional Past Drug Use History: None Reported - Past Family History Father History Unknown: Yes Family Medical History: Cancer Additional Family Medical History / Comment(s): Liver Mother Family Medical History: Cancer Additional Family Medical History / Comment(s): Breast General Exam - General Exam Comments Initial Comments: General: Appears in no acute distress. Left-sided facial droop. HEAD: Normal with no signs of head trauma. Negative Quan sign. Negative raccoon eyes. EYES: PERRLA. Conjunctiva normal. Pupils are 2 mm and equal bilaterally. Patient has gaze preference to midline into the right. Unable to extinguish gaze preference. ENT: Hearing grossly intact, normal oropharynx. RESPIRATORY: Clear breath sounds bilaterally. No wheezes, rales, or rhonchi. C/V: Regular rate and rhythm. S1 and S2 auscultated, no edema, peripheral pulses 2+ and intact throughout ABD: Abd is soft, nontender, nondistended EXT: Normal range of motion, no obvious deformity SKIN: No rashes or lesions observed on exposed skin. NEURO: Alert and oriented x 2. NIH is approximately 9, for weakness in the left lower extremity, ataxia in the left upper extremity, left-sided facial droop, aphasia, disorientation/confusion. Limitations: no limitations Course Vital Signs 09/16/24 09/16/24 09/16/24 15:31 15:56 17:18 Temperature 98 F Pulse Rate 66 76 79 Respiratory 16 18 18 Rate Blood Pressure 145/95 142/73 119/74 O2 Sat by Pulse 95 97 97 Oximetry Medical Decision Making - Medical Decision Making Was pt. sent in by a medical professional or institution (, PA, ORACLE APPLICATIONS ANALYST, urgent care, hospital, or skilled nursing...) When possible be specific @ -No Did you speak to anyone other than the patient for history (EMS, parent, family, police, friend...)? What history was obtained from this source @ -Spoke with patient's as well as EMS. states that patient is a full code currently. Symptoms started earlier today. Last known well was 10 PM last night. Is in agreement with plan for transfer. Did you review nursing and triage notes (agree or disagree)? Why? @ -I reviewed and agree with nursing and triage notes Were old charts reviewed (outside hosp., previous admission, EMS record, old EKG, old radiological studies, urgent care reports/EKG's, skilled nursing records)? Report findings @ -No old charts were reviewed Differential Diagnosis (chest pain, altered mental status, abdominal pain women, abdominal pain men, vaginal bleeding, weakness, fever, dyspnea, syncope, headache, dizziness, GI bleed, back pain, seizure, CVA, palpatations, mental health, musculoskeletal)? @ -Differential CVA Ischemic stroke, hemorrhagic stroke, brain tumor, atypical migraine, Wernicke's encephalopathy, seizure, multiple sclerosis, meningitis, encephalitis, hypoglycemia, Guillain-Altamirano, electrolytes disturbance, myasthenia gravis.... This is not meant to be an all-inclusive list EKG interpreted by me (3pts min.). @ -As above X-rays interpreted by me (1pt min.). @ -Chest x-ray reveals no obvious acute cardiopulmonary process. Patient does have a small right pleural effusion. No obvious acute change. CT interpreted by me (1pt min.). @ -CT brain shows no obvious acute process. Patient does have hydrocephalus with no shift which is similar to previous CT from earlier last month. Patient has known metastatic lesions. Patient's metastatic lesion is enlarged by approximately [address] angiogram reveals no large vessel occlusion. Patient does have suspected lung mass in the right lung apex. U/S interpreted by me (1pt. min.). @ -None done What testing was considered but not performed or refused? (CT, X-rays, U/S, labs)? Why? @ -None What meds were considered but not given or refused? Why? @ -None Did you discuss the management of the patient with other professionals (professionals i.e. , PA, ORACLE APPLICATIONS ANALYST, lab, RT, psych nurse, social security benefits interviewer, phlebotomy manager, teacher, fisheries technical officer, vocational case manager)? Give summary @ -No Was smoking cessation discussed for >3mins.? @ -No Was critical care preformed (if so, how long)? @ -Yes, 38 minutes. Were there social determinants of health that impacted care today? How? (Homelessness, low income, unemployed, alcoholism, drug addiction, transportation, low edu. Level, literacy, decrease access to med. care, intermediate, rehab)? @ -No Was there de-escalation of care discussed even if they declined (Discuss DNR or withdrawal of care, Hospice)? DNR status @ -Discussed with patient's Kalia and patient was previously on hospice but currently is a full code. Would like the patient to remain full code at this time. What co-morbidities impacted this encounter? (DM, HTN, Smoking, COPD, CAD, Ca ncer, CVA, ARF, Chemo, Hep., AIDS, mental health diagnosis, sleep apnea, morbid obesity)? @ -Metastatic cancer with brain mets Was patient admitted / discharged? Hospital course, mention meds given and route, prescriptions, significant lab abnormalities, going to OR and other pertinent info. @ -Patient presents as a stroke activation. Last known well was 10 PM last night and therefore outside the window for thrombolytic therapy. Thrombolytics are not indicated at this time as risks are far away by the benefits and patient is outside of the window as well as the patient having history of brain tumors from malignancy. NIH is currently approximately 9. Last known well was 2200 yesterday. We will obtain stroke workup. Patient was in agreement this plan. Patient made a code stroke. CT imaging shows enlarged brain mass by approximately 3 mm but no evidence of acute stroke. Chronic changes otherwise present. No large vessel occlusion on CT angiogram. I spoke with the stroke specialist, Dr. Lazaro who reviewed imaging and requested patient be administered a dose of aspirin, Decadron, Keppra. [facility] and evaluation. I discussed this with the patient's , Kalia who was in agreement the plan. Ana Rice contacted that neurocritical care, Dr. Lazaro would like the patient transferred. Discussed case at length with patient's , and stated that patient remains a full code and would like the patient transferred for further evaluation. Laboratory studies did return and remarkable for what is likely a reactive leukocytosis of 17, and patient is also currently on steroids which she was discharged home on. Troponin is slightly elevated to 0.049 which is likely secondary to underlying process. Mild hyponatremia of 130. EKG shows nonspecific T wave abnormalities. Patient is protecting airway on reevaluation. No change in symptoms. NIH is unchanged. Undiagnosed new problem with uncertain prognosis? @ -No Drug Therapy requiring intensive monitoring for toxicity (Heparin, Nitro, Insulin, Cardizem)? @ -No Were any procedures done? @ -No Diagnosis/symptom? @ -CVA in the setting of brain malignancy Acute, or Chronic, or Acute on Chronic? @ -Acute Uncomplicated (without systemic symptoms) or Complicated (systemic symptoms)? @ -Complicated Side effects of treatment? @ -No Exacerbation, Progression, or Severe Exacerbation? @ -No Poses a threat to life or bodily function? How? (Chest pain, [place], [place], pneumonia, PE, COPD, DKA, ARF, appy, cholecystitis, CVA, Diverticulitis, Homicidal, Claudia cidal, threat to staff... and all critical care pts) @ -Possibly, yes - Lab Data Result diagrams: 09/16/24 15:59 09/16/24 15:59 Lab Results 09/16/24 09/16/24 09/16/24 Range/Units 15:30 15:59 15:59 WBC 17.6 H (3.8-10.6) k/uL RBC 4.00 (3.80-5.40) m/uL Hgb 11.6 (11.4-16.0) gm/dL Hct 36.8 (34.0-46.0) % MCV 91.9 (80.0-100.0) fL MCH 29.0 (25.0-35.0) pg MCHC 31.6 (31.0-37.0) g/dL RDW 16.6 H (11.5-15.5) % Plt Count 167 D (150-450) k/uL MPV 8.3 Neutrophils % 92 % Lymphocytes % 5 % Monocytes % 3 % Eosinophils % 1 % Basophils % 0 % Neutrophils # 16.1 H (1.3-7.7) k/uL Lymphocytes # 0.8 L (1.0-4.8) k/uL Monocytes # 0.5 (0-1.0) k/uL Eosinophils # 0.1 (0-0.7) k/uL Basophils # 0.1 (0-0.2) k/uL Anisocytosis Slight PT 11.1 (10.0-12.5) sec INR 1.0 (<1.2) APTT 22.9 (22.0-30.0) sec Sodium (137-145) mmol/L Potassium (3.5-5.1) mmol/L Chloride (98-107) mmol/L Carbon Dioxide (22-30) mmol/L Anion Gap mmol/L BUN (7-17) mg/dL Creatinine (0.52-1.04) mg/dL Est GFR (CKD-EPI)AfAm (>60 ml/min/1.73 sqM) Est GFR (CKD-EPI)NonAf (>60 ml/min/1.73 sqM) Glucose (74-99) mg/dL POC Glucose (mg/dL) 133 H (70-110) mg/dL POC Glu Aquaculture Program Director ID [facility] Calcium (8.4-10.2) mg/dL Total Bilirubin (0.2-1.3) mg/dL AST (14-36) U/L ALT (4-34) U/L Alkaline Phosphatase (38-126) U/L Ammonia (<30) umol/L Creatine Kinase (30-135) U/L Troponin I (0.000-0.034) ng/mL Total Protein (6.3-8.2) g/dL Albumin (3.5-5.0) g/dL Valproic Acid ug/mL 09/16/24 09/16/24 09/16/24 Range/Units 15:59 15:59 15:59 WBC (3.8-10.6) k/uL RBC (3.80-5.40) m/uL Hgb (11.4-16.0) gm/dL Hct (34.0-46.0) % MCV (80.0-100.0) fL MCH (25.0-35.0) pg MCHC (31.0-37.0) g/dL RDW (11.5-15.5) % Plt Count (150-450) k/uL MPV Neutrophils % % Lymphocytes % % Monocytes % % Eosinophils % % Basophils % % Neutrophils # (1.3-7.7) k/uL Lymphocytes # (1.0-4.8) k/uL Monocytes # (0-1.0) k/uL Eosinophils # (0-0.7) k/uL Basophils # (0-0.2) k/uL Anisocytosis PT (10.0-12.5) sec INR (<1.2) APTT (22.0-30.0) sec Sodium 130 L (137-145) mmol/L Potassium 3.8 (3.5-5.1) mmol/L Chloride 93 L (98-107) mmol/L Carbon Dioxide 30 (22-30) mmol/L Anion Gap 7 mmol/L BUN 59 H (7-17) mg/dL Creatinine 0.65 (0.52-1.04) mg/dL Est GFR (CKD-EPI)AfAm >90 (>60 ml/min/1.73 sqM) Est GFR (CKD-EPI)NonAf >90 (>60 ml/min/1.73 sqM) Glucose 131 H (74-99) mg/dL POC Glucose (mg/dL) (70-110) mg/dL POC Glu Aquaculture Program Director ID Calcium 8.4 (8.4-10.2) mg/dL Total Bilirubin 1.0 (0.2-1.3) mg/dL AST 88 H (14-36) U/L ALT 92 H (4-34) U/L Alkaline Phosphatase 65 (38-126) U/L Ammonia 12 (<30) umol/L Creatine Kinase 39 (30-135) U/L Troponin I 0.049 H* (0.000-0.034) ng/mL Total Protein 5.2 L (6.3-8.2) g/dL Albumin 2.9 L (3.5-5.0) g/dL Valproic Acid ug/mL 09/16/24 Range/Units 15:59 WBC (3.8-10.6) k/uL RBC (3.80-5.40) m/uL Hgb (11.4-16.0) gm/dL Hct (34.0-46.0) % MCV (80.0-100.0) fL MCH (25.0-35.0) pg MCHC (31.0-37.0) g/dL RDW (11.5-15.5) % Plt Count (150-450) k/uL MPV Neutrophils % % Lymphocytes % % Monocytes % % Eosinophils % % Basophils % % Neutrophils # (1.3-7.7) k/uL Lymphocytes # (1.0-4.8) k/uL Monocytes # (0-1.0) k/uL Eosinophils # (0-0.7) k/uL Basophils # (0-0.2) k/uL Anisocytosis PT (10.0-12.5) sec INR (<1.2) APTT (22.0-30.0) sec Sodium (137-145) mmol/L Potassium (3.5-5.1) mmol/L Chloride (98-107) mmol/L Carbon Dioxide (22-30) mmol/L Anion Gap mmol/L BUN (7-17) mg/dL Creatinine (0.52-1.04) mg/dL Est GFR (CKD-EPI)AfAm (>60 ml/min/1.73 sqM) Est GFR (CKD-EPI)NonAf (>60 ml/min/1.73 sqM) Glucose (74-99) mg/dL POC Glucose (mg/dL) (70-110) mg/dL POC Glu Aquaculture Program Director ID Calcium (8.4-10.2) mg/dL Total Bilirubin (0.2-1.3) mg/dL AST (14-36) U/L ALT (4-34) U/L Alkaline Phosphatase (38-126) U/L Ammonia (<30) umol/L Creatine Kinase (30-135) U/L Troponin I (0.000-0.034) ng/mL Total Protein (6.3-8.2) g/dL Albumin (3.5-5.0) g/dL Valproic Acid 38.3 ug/mL - EKG Data -: EKG Interpreted by Me EKG Comments: 12-lead Electrocardiogram Interpretation Note EKG was reviewed and interpreted by myself. 12-lead ECG performed at 1554 is interpreted by me as revealing normal sinus rhythm at a rate of 76 beats per minute. [place] is normal. [place] interval is 118 ms, QRS duration is 93 ms, QTc is 424 ms. Diffuse T wave inversions are present.. No obvious ST segment abnormalities to suggest acute injury.. R wave progression across the precordium was satisfactory. By my interpretation this EKG is non-diagnostic for acute ischemia. Critical Care Time Critical Care Time: Yes Total Critical Care Time: 38 Disposition Clinical Impression: CVA (cerebral vascular accident), Brain malignancy Disposition: OTHER INSTITUTION NOT DEFINED Condition: Serious Referrals: Germán Ellis MD [Primary Care Provider] - 1-2 days Time of Disposition: 17:08 - Out of Hospital Transfer - Req. Specs Out of Hospital Transfer - Requested Specifics: Other Emergency Center (Transferred for escalation of care for CVA to center with neurocritical care and neurosurgery.)
[2024-09-16 17:18] VITALS: BP 119/74; PULSE 79
[2024-09-16] MEDS: ASPIRIN 325 MG TAB PO STA (17:20)
== END 2024-09-16 18:19 | disposition other institution (70) ==
LOC: EC 15:23
DX: I63.9 Cerebral infarction, unspecified (principal); C79.31 Secondary malignant neoplasm of brain; J90 Pleural effusion, not elsewhere classified; E87.1 Hypo-osmolality and hyponatremia; R29.709 NIHSS score 9; Z85.118 Personal history of other malignant neoplasm of bronchus and lung; Z85.528 Personal history of other malignant neoplasm of kidney; Z88.0 Allergy status to penicillin; Z88.5 Allergy status to narcotic agent; Z87.891 Personal history of nicotine dependence
CPT/HCPCS: 99291; 96374; 96375; 36415; 93005; 80164; 80053; 82140; 82550; 84484; 85025; 85610; 85730; 71046; 70496; 70450; 70498; J1100; J1953; Q9967